=== PATIENT | female | born 1995 | race Caucasian/White ===

== ENCOUNTER → 2019-04-07 09:27 | Outpatient (BNVA) | payer MEDICAID, SELFPAY | PROVIDERS: Family Provider Family Medicine; PCP Family Medicine; Visit Provider Nurse Practitioner Family | DX: N92.6 Irregular menstruation, unspecified (principal); J06.9 Acute upper respiratory infection, unspecified; B97.89 Other viral agents as the cause of diseases classified elsewhere; Z32.01 Encounter for pregnancy test, result positive | CPT/HCPCS: 81025 ==

== ENCOUNTER 2019-04-28 11:42 | Emergency (ER) | payer MEDICAID, SELFPAY ==
[2019-04-28 11:45] VITALS: BP 140/90; PULSE 68; RESP 16; TEMP 36.6; O2SAT 100; BMI 41.5
--- NOTE | 2019-04-28 11:51 | ED_ITS ---
HPI - General: Chief complaint: OB/Uterine Contractions Stated complaint: 8/9 week bleeding Time Seen by Provider: 04/28/19 11:44 Review of Systems General: Reports: 10 or more systems reviewed and unremarkable except in HPI and below PFSH ED PFSH: Social History Smoking and tobacco status: never smoked Alcohol intake: never Caregiver/support person: Yes Lives independently: No Household members: spouse History of recent travel: No Physical Exam Const: COMMON NORMALS: no apparent distress, oriented x3, no limitations and alert GENERAL APPEARANCE: cooperative and comfortable ORIENTATION/CONSCIOUSNESS: Yes awake, Yes oriented to person, Yes oriented to place and Yes oriented to time HENMT: COMMON NORMALS: normocephalic, head/scalp atraumatic, external ears normal, EAC's normal, TM's normal bilaterally and external nose normal HEAD & SCALP: normal to inspection, normocephalic and atraumatic FACE & SINUS: normal facial exam, sinuses nontender and face symmetric NOSE: external nose normal, nares normal and no nasal discharge EXTERNAL EAR: Yes external ears normal EXTERNAL AUDITORY CANAL: EAC's normal TYMPANIC MEMBRANE: TM's normal bilaterally MOUTH: oral and palatal mucosa normal, lip normal and tongue normal THROAT: posterior oropharynx normal, tonsils normal and uvula midline Eye: COMMON NORMALS: PERRL, EOMs intact bilaterally and conjunctivae normal GENERAL EYE: normal appearance of both eyes and normal light reflex EYELID: eyelids normal CONJUNCTIVA: Yes conjunctivae normal PUPIL: Yes PERRL EOM: Yes EOM abnormal DIRECT OPHTHALMOSCOPY: Yes normal light reflex Neck/C-Spine: COMMON NORMALS: full ROM, no lymphadenopathy, supple, no meningeal signs, no JVD and thyroid normal GENERAL: Yes normal visual inspection THYROID: thyroid normal CERVICAL SPINE: Yes cervical ROM normal and Yes normal cervical lordosis Lymph: LYMPHATIC: no lymphadenopathy noted Chest: COMMONS NORMALS: inspection of chest normal and palpation of chest normal Resp: COMMON NORMALS: normal respiratory effort, no retractions and clear to auscultation bilaterally AUSCULTATION: clear to auscultation bilaterally Cardio: COMMON NORMALS: no JVD, regular rate, regular rhythm, S1 normal heart sound, S2 normal heart sound, no gallops, no clicks, no murmurs, no rub and peripheral pulses 2+ throughout RATE: regular rate RHYTHM: regular rhythm HEART SOUNDS: S1 normal and S2 normal PERIPHERAL PULSES: pulses 2+ throughout GI: COMMON NORMALS: normal to inspection, nondistended, normoactive bowel sounds, soft to palpation, non-tender and no masses PALPATION: Yes soft : COMMON NORMALS: Yes no CVA tenderness and Yes external appearance normal BLADDER/KIDNEY EXAM: Yes no CVA tenderness OB/EXTERNAL & SPECULUM: bleeding medium/moderate and with clots Back/Pelvis: COMMON NORMALS: no CVA tenderness, thoracic and lumbar spine normal to inspection, no thoracic nor lumbar tenderness and thoraco-lumbar ROM normal Extremity: COMMON NORMALS: normal to inspection, full ROM, normal capillary refill, no joint enlargement, no clubbing, cyanosis or edema, no calf tenderness and no pedal edema GENERAL: Yes normal exam except as noted Neuro: COMMON NORMALS: oriented x3, moves all extremities, no focal motor deficits, no sensory deficits noted and gait normal SENSORIUM/ORIENTATION: Yes alert, Yes oriented to person, Yes oriented to place and Yes oriented to time MENINGEAL SIGNS: Yes no meningeal signs Psych: COMMON NORMALS: mental status grossly normal, thought process normal, cooperative, affect normal, speech normal and activity/motor behavior normal SPEECH: Yes normal speech THOUGHT PROCESS: normal thought process Skin: COMMON NORMALS: no rashes or lesions noted, no wounds and skin turgor normal GENERAL SKIN EXAM: no rashes or lesions noted and turgor normal Course ED course: Pt had positive and US performed one week ago. Was told she was measuring a little over 4 weeks and needed her levels drawn later this week. This morning she notes small to moderate amount of clots upon voiding. US and labs ordered as well as IV fluids. Reevaluation(s): Reevaluation #1: Awaiting US and labs. UA positive for blood and leukoestrase. Time: 12:55 Reevaluation #2: Awaiting [facility] to read. Verbal report per RT Vero reported a 5 week gestation sac with blood surrounding and unable to note pole. Pt is aware and needs to leave to get home to her other children. She is unable to wait for official results. After discussion there is not much that can be done even if she is actively miscarrying so we will proceed with DC per pt request. Vital Signs: Vital signs: Vital Signs Temperature 98 F 03/01/20 11:45 Pulse Rate 68 04/28/19 11:45 Respiratory Rate 16 04/28/19 11:45 Blood Pressure 140/90 04/28/19 11:45 Pulse Oximetry 100 04/28/19 11:45 MDM - OB/Uterine Contractions Lab Data: Labs: Lab Results 04/28/19 04/28/19 04/28/19 Range/Units 11:55 12:40 12:40 WBC 9.5 (4.0-10.0) 10^3/ uL RBC 4.91 (4.1-5.3) 10^6/u L Hgb 13.9 (11.5-15.3) g/dL Hct 43.0 (37.0-47.0) % MCV 87.6 (81-99) fL MCH 28.3 (28.0-34.0) pg MCHC 32.3 (30.0-36.0) g/dL RDW 12.5 (12.1-15.1) % Plt Count 408 H (130-400) 10^3/c mm MPV 9.9 (7.4-10.4) fL Neut % (Auto) 39.5 % Lymph % (Auto) 52.6 % [place] % (Auto) 5.5 % Eos % (Auto) 2.0 % Baso % (Auto) 0.3 % Neut # (Auto) 3.8 (1.8-7.7) 10^3/u L Lymph # (Auto) 5.0 H (0.8-4.8) 10^3/u L [place] # (Auto) 0.5 (0.2-0.9) 10^3/u L Eos # (Auto) 0.2 (0.0-0.8) 10^3/u L Baso # (Auto) 0.0 (0.0-0.1) 10^3/u L Nucleated RBC % (a uto) 0 % Nucleated RBCs # 0.0 /100WBC Sodium 137 (136-145) mmol/L Potassium 3.9 (3.5-5.1) mmol/L Chloride 102 (98-107) mmol/L Carbon Dioxide 22 (22-29) mmol/L Anion Gap 16.9 (5-19) BUN 9 (6-20) mg/dL Creatinine 0.7 (0.5-0.9) mg/dL GFR Calculation 102.0 (90-130) mL/min Glucose 82 (65-115) mg/dL Calcium 9.9 (8.5-10.5) mg/dL Total Bilirubin 0.4 (0.15-1.2) mg/dL AST 20 (0-32) U/L ALT 13 (0-33) U/L Alkaline Phosphata se 57 (35-105) IU/L Total Protein 7.9 (6.6-8.7) g/dL Albumin 4.3 (3.5-5.2) g/dL Globulin 3.6 (1.3-4.6) g/dL Ser , Nadege i-Qnt mIU/mL Urine Color Yellow (Yellow) Urine Appearance Sl hazy (CLEAR) Urine pH 6.5 (5-7) Ur Specific Gravit y 1.010 (1.005-1.030) Urine Protein Neg (Negative) Urine Glucose (UA) Norm (Normal) Urine Ketones Negative (Negative) Urine Blood 3+ H (Negative) Urine Nitrate Negative (Negative) Urine Bilirubin Neg (NEGATIVE) Urine Urobilinogen Norm (Negative) mg/dL Ur Leukocyte Mabel ase Trace H (Negative) Urine RBC 25-40 H (0-2) /hpf Urine WBC 5-10 H (0-5) /hpf Ur Squamous Epith Cells 15-25 H (0-5) Urine Bacteria 1+ H (NONE) 04/28/19 Range/Units 12:40 WBC (4.0-10.0) 10^3/ uL RBC (4.1-5.3) 10^6/u L Hgb (11.5-15.3) g/dL Hct (37.0-47.0) % MCV (81-99) fL MCH (28.0-34.0) pg MCHC (30.0-36.0) g/dL RDW (12.1-15.1) % Plt Count (130-400) 10^3/c mm MPV (7.4-10.4) fL Neut % (Auto) % Lymph % (Auto) % [place] % (Auto) % Eos % (Auto) % Baso % (Auto) % Neut # (Auto) (1.8-7.7) 10^3/u L Lymph # (Auto) (0.8-4.8) 10^3/u L [place] # (Auto) (0.2-0.9) 10^3/u L Eos # (Auto) (0.0-0.8) 10^3/u L Baso # (Auto) (0.0-0.1) 10^3/u L Nucleated RBC % (a uto) % Nucleated RBCs # /100WBC Sodium (136-145) mmol/L Potassium (3.5-5.1) mmol/L Chloride (98-107) mmol/L Carbon Dioxide (22-29) mmol/L Anion Gap (5-19) BUN (6-20) mg/dL Creatinine (0.5-0.9) mg/dL GFR Calculation (90-130) mL/min Glucose (65-115) mg/dL Calcium (8.5-10.5) mg/dL Total Bilirubin (0.15-1.2) mg/dL AST (0-32) U/L ALT (0-33) U/L Alkaline Phosphata se (35-105) IU/L Total Protein (6.6-8.7) g/dL Albumin (3.5-5.2) g/dL Globulin (1.3-4.6) g/dL Ser , [place] [address].00 mIU/mL Urine Color (Yellow) Urine Appearance (CLEAR) Urine pH (5-7) Ur Specific Gravit y (1.005-1.030) Urine Protein (Negative) Urine Glucose (UA) (Normal) Urine Ketones (Negative) Urine Blood (Negative) Urine Nitrate (Negative) Urine Bilirubin (NEGATIVE) Urine Urobilinogen (Negative) mg/dL Ur Leukocyte Mabel ase (Negative) Urine RBC (0-2) /hpf Urine WBC (0-5) /hpf Ur Squamous Epith Cells (0-5) Urine Bacteria (NONE) Discharge Plan Discharge Patient Disposition: Home, Self-Care Clinical Impression: , spontaneous threatened Condition: Stable Prescriptions: No Action No Known Home Medications RF: 0 Referrals: Tamir Ureña MD [Primary Care Provider] - Discharge Diet: Usual diet Discharge Activity: Limit activity as instructed and Bedrest Activity Restrictions/Additional Instructions: No sexual intercourse until cleared by your OB doctor. Your quantitative today was: Ser , Semi-Qnt 65949.00 mIU/mL. Increase water intake. Rest. Stand Alone Forms: Work/School Release Coding Level of Care Code ED Living Specialist for Chg Fwd Exam Comprehensive
--- NOTE | 2019-04-28 11:59 | USR_ITS ---
PROCEDURE INFORMATION: Exam: US First Trimester, Transabdominal and US , Transvaginal Exam date and time: 04/28/2019 1:39 PM Age: 24 years old Clinical indication: Lmp or gestational age (in weeks): Lmp 1-1-20; Other: Vaginal bleeding; complicated by abdominal or pelvic pain; Lower; First trimester; ; Additional info: Bleeding, positive TECHNIQUE: Imaging protocol: Real-time transabdominal obstetrical ultrasound of the maternal pelvis and a first trimester , less than 14 weeks 0 days, with image documentation. Transvaginal imaging was used for better evaluation of the fetus and adnexa. COMPARISON: US [facility] [place] OB > 14 weeks 03/22/2013 9:42 AM FINDINGS: GESTATION: Gestation: Intrauterine gestation sac. A pole is is visible. Yolk sac is faintly visible. Heart rate: No cardiac activity likely due to early age Placenta: Has not formed No subchorionic bleed. Amniotic fluid: Amniotic and coelomic fluid are normal for gestational age. BIOMETRY: Estimated gestational age: CRL: 3.9 mm 6 weeks Gestational sac: 8.9 mm 5 weeks 6 days. Ultrasound gestational age: 5 weeks 6 days DARNELL 12/23/2019. Clinical gestational age: 8 weeks 4 days DARNELL 12/04/2019. MATERNAL: Uterus: Unremarkable. 11.6 cm x 6.3 cm x 6.8 cm. Cervix: Unremarkable. Right adnexa: Unremarkable. 2.3 cm x 2.5 cm x 1.6 cm Left adnexa: Unremarkable. 1.8 cm x 3 cm x 1.9 cm Intraperitoneal: No intraperitoneal free fluid. US/US OB <=14 wk fetus w transvag IMPRESSION: 1. Intrauterine gestational sac with a pole and yolk sac. 2. Gestational age 5 weeks 6 days DARNELL 12/23/2019. 3. Negative for cardiac activity likely due to early age. 4. Negative uterus and ovaries
[2019-04-28 12:22] LABS: Bilirubin Urine Neg (NEGATIVE); Blood Urine 3+ (Negative); Glucose Urine UA Norm (Normal); Ketones Urine Negative (Negative); Nitrate Urine Negative (Negative); Protein Urine Neg (Negative); Urine Appearance SL Hazy (CLEAR); Urine Color Yellow (Yellow); Urobilinogen Urine Norm (Negative); pH Urine 6.5 (5-7)
[2019-04-28 12:23] LABS: Add Urine Microscopic? YES; Leukocyte Esterase Urine Trace (Negative)
[2019-04-28 12:32] LABS: Bacteria Urine 1+; RBC Urine 25-40 /hpf (0-2); Squamous Epithelial Cell Urine 15-25 (0-5)
[2019-04-28] MEDS: sodium chloride 0.9% 500 ML 999 ML IV (12:45)
[2019-04-28 12:47] LABS: Basophils % 0.3 %; Eosinophils # 0.2 10^3/uL (0.0-0.8); Hemoglobin 13.9 g/dL (11.5-15.3); Lymphocytes % 52.6 %; Mean Corpuscular HGB Conc 32.3 g/dL (30.0-36.0); Mean Corpuscular Hemoglobin 28.3 pg (28.0-34.0); Mean Corpuscular Volume 87.6 fL (81-99); Mean Platelet Volume 9.9 fL (7.4-10.4); Monocytes # 0.5 10^3/uL (0.2-0.9); Monocytes % 5.5 %; Neutrophils # 3.8 10^3/uL (1.8-7.7); Neutrophils % 39.5 %; Nucleated Red Blood Cells % 0 %; Platelet Count 408 10^3/cmm (130-400); Red Blood Count 4.91 10^6/uL (4.1-5.3); Red Cell Distribution Width 12.5 % (12.1-15.1); White Blood Count 9.5 10^3/uL (4.0-10.0)
[2019-04-28 13:27] LABS: Alanine Aminotransferase 13 U/L (0-33); Albumin Level 4.3 g/dL (3.5-5.2); Alkaline Phosphatase 57 IU/L (35-105); Anion Gap 16.9 (5-19); Aspartate Amino Transferase 20 U/L (0-32); Blood Urea Nitrogen 9 mg/dL (6-20); Calcium 9.9 mg/dL (8.5-10.5); Carbon Dioxide 22 mmol/L (22-29); Chloride 102 mmol/L (98-107); Globulin 3.6 g/dL (1.3-4.6); Glucose 82 mg/dL (65-115); Potassium 3.9 mmol/L (3.5-5.1); Sodium 137 mmol/L (136-145); Total Bilirubin 0.4 mg/dL (0.15-1.2); Total Protein 7.9 g/dL (6.6-8.7)
[2019-04-28 14:28] VITALS: BP 141/74; PULSE 72; RESP 17; O2SAT 96
== END 2019-04-28 14:29 | disposition home or self-care (01) ==
PROVIDERS: Emergency Provider Nurse Practitioner Family; Family Provider Family Medicine; PCP Family Medicine
DX: O20.0 Threatened abortion (principal); Z3A.01 Less than 8 weeks gestation of pregnancy
CPT/HCPCS: 36415; 76801; 76817; 80053; 81001; 84702; 85025; 99283; J7040

== ENCOUNTER 2021-09-11 21:30 | Emergency (ER) | payer MEDICAID, SELFPAY ==
[2021-09-11 22:27] VITALS: BP 151/99; PULSE 109; RESP 18; TEMP 36.7; O2SAT 99; BMI 37.9
--- NOTE | 2021-09-12 01:40 | ED_ITS ---
Documented by User: RICHARD Richardson 09/12/21 19:11 HPI - Abdominal Pain General: Chief Complaint: Abdominal Pain Stated Complaint: Lower abd/back pain Time Seen by Provider: 09/12/21 01:35 History of Present Illness: Patient is a 26-year-old female comes to the ED with lower abdominal and bilateral flank pain. Symptoms started yesterday. She denies any injury or trauma to cause pain. Pain is described as a constant aching pain that is at bilateral flanks and also throughout the lower abdomen bilaterally. She rates the pain currently 7 out of 10. She took a dose of Tylenol approximately 5 hours ago. She says that when she is up and ambulating her pain improves and it worsens when laying or sitting. Denies any fever, chills, nausea/vomiting, dysuria, hematuriaor bowel symptoms. She has never had abdominal and flank pain like this before. Last menstrual period was on August 31, 2021. Associated Symptoms: Denies chills, constipation, diarrhea, dysuria, fever(s), hematochezia, hematuria, nausea and vomiting Related Data: Date of Last Menstrual Period: 08/31/21 Review of Systems Const: Denies: fever(s), chills or fatigue Eyes: Denies: change in vision or eye discomfort ENMT: Denies: throat pain, odynophagia, nasal discharge or nasal congestion Card: Denies: chest pain, palpitations, edema, swelling of feet/ankles, dyspnea on exertion or orthopnea Resp: Denies: dyspnea, productive cough or non-productive cough GI: Reports: abdominal pain (Bilateral lower abdominal); Denies: nausea, vomiting, diarrhea, constipation or hematochezia : Reports: flank pain (Bilateral); Denies: dysuria or hematuria Musc: Denies: neck pain, back pain or extremity swelling Skin/Breast: Denies: rash or new lesions Neuro: Denies: headache(s), numbness in extremities or weakness in extremities PFSH ED PFSH: Medical History No pertinent family history Surgical History No pertinent past surgical history Social History Smoking and tobacco status: never smoked Alcohol intake: never Caregiver/support person: Yes Lives independently: No Household members: spouse History of recent travel: No Female Reproductive History: Date of last menstrual period: 08/31/21 Physical Exam Const: COMMON NORMALS: patient oriented x3 and alert GENERAL APPEARANCE: cooperative HENMT: COMMON NORMALS: normocephalic HEAD & SCALP: normocephalic MOUTH: Normal oral and palatal mucosa present THROAT: posterior oropharynx normal and uvula midline Eye: COMMON NORMALS: Equal, round and reactive pupils present and conjunctivae normal CONJUNCTIVA: Yes conjunctivae normal PUPIL: Yes Equal, round and reactive pupils present Neck/C-Spine: COMMON NORMALS: supple GENERAL: Yes normal visual inspection Resp: COMMON NORMALS: normal respiratory effort, No retractions, No use of accessory muscles and clear to auscultation bilaterally AUSCULTATION: clear to auscultation bilaterally Cardio: COMMON NORMALS: regular rate, regular rhythm, S1 normal heart sound pr esent, S2 normal heart sound present, No gallops present (Cardio), No clicks present (Cardio), No murmurs present (Cardio) and Peripheral pulses 2+ throughout RATE: regular rate RHYTHM: regular rhythm HEART SOUNDS: S1 n ormal heart sound present and S2 normal heart sound present PERIPHERAL PULSES: Peripheral pulses 2+ throughout GI: COMMON NORMALS: Normal to inspection, nondistended, normoactive bowel sounds present, Soft to palpation and no masses PALPATION: Yes Soft to palpation and Yes Tenderness to palpation present (GI) (Generalized bilateral lower abdominal tenderness) : BLADDER/KIDNEY EXAM: Yes CVA tenderness Back/Pelvis: GENERAL BACK: Yes CVA tenderness CVA tenderness: bilateral Extremity: COMMON NORMALS: normal to inspection Neuro: COMMON NORMALS: patient oriented x3 SENSORIUM/ORIENTATION: Yes alert GAIT: Yes Normal gait present Skin: GENERAL SKIN EXAM: dry skin Course Vital Signs: Vital signs: Vital Signs Temperature 98.1 F 09/11/21 22:27 Pulse Rate 84 09/12/21 03:30 Respiratory Rate 18 09/11/21 22:27 Blood Pressure 141/96 09/12/21 03:30 Pulse Oximetry 97 09/12/21 03:30 MDM - Abdominal Pain Lab Data I reviewed the patient's lab results. : 09/12/21 02:25 09/12/21 02:25 Labs/Radiology: Radiology Impressions Obstetrics Ultrasound 09/12/21 03:33 IMPRESSION: Single intrauterine with estimated gestational age of 16 weeks and 2 days. DARNELL of February 25, 2022. Vertex presentation on exam. heart rate of 167 bpm. Normal amniotic fluid volume. Limited anatomic assessment on the exam. Renal Ultrasound 09/12/21 03:33 IMPRESSION: Unremarkable renal ultrasound. Laboratory Results WBC 17.6 10^3/uL (4.0-10.0) H 09/12/21 02:25 RBC 4.15 10^6/uL (4.1-5.3) 09/12/21 02:25 Hgb 12.6 g/dL (11.5-15.3) 09/12/21 02:25 Hct 36.0 % (37.0-47.0) L 09/12/21 02:25 MCV 86.7 fl (81-99) 09/12/21 02:25 MCH 30.4 pg (28.0-34.0) 09/12/21 02:25 MCHC 35.0 g/dL (30.0-36.0) 09/12/21 02:25 RDW 13.2 % (12.1-15.1) 09/12/21 02:25 Plt Count 291 10^3/cmm (130-400) 09/12/21 02:25 MPV 10.4 fL (7.4-10.4) 09/12/21 02:25 Neut % (Auto) 73.1 % 09/12/21 02:25 Lymph % (Auto) 17.4 % 09/12/21 02:25 [place] % (Auto) 8.1 % 09/12/21 02:25 Eos % (Auto) 0.4 % 09/12/21 02:25 Baso % (Auto) 0.3 % 09/12/21 02:25 Neut # (Auto) 12.88 10^3/uL (1.8-7.7) H 09/12/21 02:25 Lymph # (Auto) 3.1 10^3/uL (0.8-4.8) 09/12/21 02:25 [place] # (Auto) 1.4 10^3/uL (0.2-0.9) H 09/12/21 02:25 Eos # (Auto) 0.1 10^3/uL (0.0-0.8) 09/12/21 02:25 Baso # (Auto) 0.1 10^3/uL (0.0-0.1) 09/12/21 02:25 Nucleated RBC % (auto) 0 % 09/12/21 02:25 Nucleated RBCs # 0.0 /100WBC 09/12/21 02:25 Sodium 132 mmol/L (136-145) L 09/12/21 02:25 Potassium 4.1 mmol/L (3.5-5.1) 09/12/21 02:25 Chloride 99 mmol/L (98-107) 09/12/21 02:25 Carbon Dioxide 22 mmol/L (22-29) 09/12/21 02:25 Anion Gap 15.1 (5-19) 09/12/21 02:25 BUN 9 mg/dL (6-20) 09/12/21 02:25 Creatinine 0.6 mg/dL (0.5-0.9) 09/12/21 02:25 GFR Calculation 119.9 mL/min (90-130) 09/12/21 02:25 Glucose 88 mg/dL (65-115) 09/12/21 02:25 Calculated Osmolality 272 mOsm/kg (285-295) L 09/12/21 02:25 Calcium 9.3 mg/dL (8.5-10.5) 09/12/21 02:25 Total Bilirubin 0.5 mg/dL (0.15-1.2) 09/12/21 02:25 AST 16 U/L (0-32) 09/12/21 02:25 ALT 22 U/L (0-33) 09/12/21 02:25 Alkaline Phosphatase 52 IU/L (35-105) 09/12/21 02:25 Total Protein 7.6 g/dL (6.6-8.7) 09/12/21 02:25 Albumin 3.8 g/dL (3.5-5.2) 09/12/21 02:25 Globulin 3.8 g/dL (1.3-4.6) 09/12/21 02:25 Lipase 16 U/L (13-60) 09/12/21 02:25 Ser , Semi-Qnt 18323.00 mIU/mL 09/12/21 02:25 Urine Color Yellow (Yellow) 09/12/21 02:25 Urine Appearance Sl hazy (CLEAR) 09/12/21 02:25 Urine pH 6 (5-7) 09/12/21 02:25 Ur Specific Ingram 1.025 (1.005-1.030) 09/12/21 02:25 Urine Protein Neg (Negative) 09/12/21 02:25 Urine Glucose (UA) Norm (Normal) 09/12/21 02:25 Urine Ketones Negative (Negative) 09/12/21 02:25 Urine Blood 2+ (Negative) H 09/12/21 02:25 Urine Nitrate Positive (Negative) H 09/12/21 02:25 Urine Bilirubin 1+ (Negative) H 09/12/21 02:25 Urine Urobilinogen Norm mg/dL (Negative) 09/12/21 02:25 Ur Leukocyte Esterase 1+ (Negative) H 09/12/21 02:25 Urine RBC 5-10 /hpf (0-2) H 09/12/21 02:25 Urine WBC 25-40 /hpf (0-5) H 09/12/21 02:25 Ur Squamous Epith Cells 5-10 /hpf (0-5) H 09/12/21 02:25 Amorphous Sediment Not Reportable 09/12/21 02:25 Urine Bacteria 3+ /hpf (NONE) H 09/12/21 02:25 Urine Mucus Trace /hpf 09/12/21 02:25 Urine Trichomonas 1+ /hpf H 09/12/21 02:25 Discharge Plan Discharge Patient Disposition: Home Clinical Impression: Pyelonephritis during , Currently , Trichomonal infection Condition: Stable Prescriptions: New metronidazole 500 mg tablet 500 mg PO BID 7 Days Qty: 14 0RF cephalexin 500 mg capsule 500 mg PO Q6H 7 Days Qty: 28 0RF Discharge Orders: Discharge ED (Routine); Ordered 09/12/21 Ordered By: Mynor Vides Discharge Diet: Regular Discharge Activity: Increase activity as tolerated Patient Instructions: Pyelonephritis, Trichomoniasis - Female Activity Restrictions/Additional Instructions: Follow-up with medical provider as directed. Take medications as prescribed. Return to the ER or your medical provider if condition worsens. Please read and understand discharge instructions. Thank you for choosing [facility] for your healthcare needs today. Please realize this is an emergency room and that we are providing you with a medical screening exam and this may not be complete and all inclusive of all the testing and or work up that you may need to determine your ailment or severity of your illness. It is very important that you follow up as instructed or that you return to the Emergency Department should you have concerns or if your condition changes or worsens in any way. Coding Level of Care Code ED Blockman for Chg Fwd Exam Comprehensive Documented by User: Mynor Vides DO 09/12/21 15:59 HPI - Abdominal Pain General: Chief Complaint: Abdominal Pain Stated Complaint: Lower abd/back pain Time Seen by Provider: 09/12/21 01:35 [facility] ED PFSH: Medical History No pertinent family history Surgical History No pertinent past surgical history Social History Smoking and tobacco status: never smoked Alcohol intake: never Caregiver/support person: Yes Lives independently: No Household members: spouse History of recent travel: No Course Vital Signs: Vital signs: Vital Signs Temperature 98.1 F 09/11/21 22:27 Pulse Rate 84 09/12/21 03:30 Respiratory Rate 18 09/11/21 22:27 Blood Pressure 141/96 09/12/21 03:30 Pulse Oximetry 97 09/12/21 03:30 MDM - Abdominal Pain Medical Decision Making 26 year old female who did not know she was . She presents with symptoms consistent with pyelonephritis. She has a urinary tract infection on urinalysis. She has an elevated white blood cell count. Pelvic ultrasound shows a normal intrauterine 16 week two day . Renal ultrasound shows no hydronephrosis that would be indicative of renal stone. She is given IV fluid and IV ceftriaxone in the ER. She'll go home on antibiotics and symptomatic treatment. She has also tested positive for trichomonas, and will be treated accordingly for this as well. OB followup as an outpatient. Lab Data : 09/12/21 02:25 09/12/21 02:25 Labs/Radiology: Radiology Impressions Obstetrics Ultrasound 09/12/21 03:33 IMPRESSION: Single intrauterine with estimated gestational age of 16 weeks and 2 days. DARNELL of February 25, 2022. Vertex presentation on exam. heart rate of 167 bpm. Normal amniotic fluid volume. Limited anatomic assessment on the exam. Renal Ultrasound 09/12/21 03:33 IMPRESSION: Unremarkable renal ultrasound. Laboratory Results WBC 17.6 10^3/uL (4.0-10.0) H 09/12/21 02:25 RBC 4.15 10^6/uL (4.1-5.3) 09/12/21 02:25 Hgb 12.6 g/dL (11.5-15.3) 09/12/21 02:25 Hct 36.0 % (37.0-47.0) L 09/12/21 02:25 MCV 86.7 fl (81-99) 09/12/21 02:25 MCH 30.4 pg (28.0-34.0) 09/12/21 02:25 MCHC 35.0 g/dL (30.0-36.0) 09/12/21 02:25 RDW 13.2 % (12.1-15.1) 09/12/21 02:25 Plt Count 291 10^3/cmm (130-400) 09/12/21 02:25 MPV 10.4 fL (7.4-10.4) 09/12/21 02:25 Neut % (Auto) 73.1 % 09/12/21 02:25 Lymph % (Auto) 17.4 % 09/12/21 02:25 [place] % (Auto) 8.1 % 09/12/21 02:25 Eos % (Auto) 0.4 % 09/12/21 02:25 Baso % (Auto) 0.3 % 09/12/21 02:25 Neut # (Auto) 12.88 10^3/uL (1.8-7.7) H 09/12/21 02:25 Lymph # (Auto) 3.1 10^3/uL (0.8-4.8) 09/12/21 02:25 [place] # (Auto) 1.4 10^3/uL (0.2-0.9) H 09/12/21 02:25 Eos # (Auto) 0.1 10^3/uL (0.0-0.8) 09/12/21 02:25 Baso # (Auto) 0.1 10^3/uL (0.0-0.1) 09/12/21 02:25 Nucleated RBC % (auto) 0 % 09/12/21 02:25 Nucleated RBCs # 0.0 /100WBC 09/12/21 02:25 Sodium 132 mmol/L (136-145) L 09/12/21 02:25 Potassium 4.1 mmol/L (3.5-5.1) 09/12/21 02:25 Chloride 99 mmol/L (98-107) 09/12/21 02:25 Carbon Dioxide 22 mmol/L (22-29) 09/12/21 02:25 Anion Gap 15.1 (5-19) 09/12/21 02:25 BUN 9 mg/dL (6-20) 09/12/21 02:25 Creatinine 0.6 mg/dL (0.5-0.9) 09/12/21 02:25 GFR Calculation 119.9 mL/min (90-130) 09/12/21 02:25 Glucose 88 mg/dL (65-115) 09/12/21 02:25 Calculated Osmolality 272 mOsm/kg (285-295) L 09/12/21 02:25 Calcium 9.3 mg/dL (8.5-10.5) 09/12/21 02:25 Total Bilirubin 0.5 mg/dL (0.15-1.2) 09/12/21 02:25 AST 16 U/L (0-32) 09/12/21 02:25 ALT 22 U/L (0-33) 09/12/21 02:25 Alkaline Phosphatase 52 IU/L (35-105) 09/12/21 02:25 Total Protein 7.6 g/dL (6.6-8.7) 09/12/21 02:25 Albumin 3.8 g/dL (3.5-5.2) 09/12/21 02:25 Globulin 3.8 g/dL (1.3-4.6) 09/12/21 02:25 Lipase 16 U/L (13-60) 09/12/21 02:25 Ser , Semi-Qnt 84824.00 mIU/mL 09/12/21 02:25 Urine Color Yellow (Yellow) 09/12/21 02:25 Urine Appearance Sl hazy (CLEAR) 09/12/21 02:25 Urine pH 6 (5-7) 09/12/21 02:25 Ur Specific Ingram 1.025 (1.005-1.030) 09/12/21 02:25 Urine Protein Neg (Negative) 09/12/21 02:25 Urine Glucose (UA) Norm (Normal) 09/12/21 02:25 Urine Ketones Negative (Negative) 09/12/21 02:25 Urine Blood 2+ (Negative) H 09/12/21 02:25 Urine Nitrate Positive (Negative) H 09/12/21 02:25 Urine Bilirubin 1+ (Negative) H 09/12/21 02:25 Urine Urobilinogen Norm mg/dL (Negative) 09/12/21 02:25 Ur Leukocyte Esterase 1+ (Negative) H 09/12/21 02:25 Urine RBC 5-10 /hpf (0-2) H 09/12/21 02:25 Urine WBC 25-40 /hpf (0-5) H 09/12/21 02:25 Ur Squamous Epith Cells 5-10 /hpf (0-5) H 09/12/21 02:25 Amorphous Sediment Not Reportable 09/12/21 02:25 Urine Bacteria 3+ /hpf (NONE) H 09/12/21 02:25 Urine Mucus Trace /hpf 09/12/21 02:25 Urine Trichomonas 1+ /hpf H 09/12/21 02:25 Discharge Plan Discharge Patient Disposition: Home Clinical Impression: Pyelonephritis during , Currently , Trichomonal infection Condition: Stable Prescriptions: New metronidazole 500 mg tablet 500 mg PO BID 7 Days Qty: 14 0RF cephalexin 500 mg capsule 500 mg PO Q6H 7 Days Qty: 28 0RF Discharge Orders: Discharge ED (Routine); Ordered 09/12/21 Ordered By: Mynor Vides Discharge Diet: Regular Discharge Activity: Increase activity as tolerated Patient Instructions: Pyelonephritis, Trichomoniasis - Female Activity Restrictions/Additional Instructions: Follow-up with medical provider as directed. Take medications as prescribed. Return to the ER or your medical provider if condition worsens. Please read and understand discharge instructions. Thank you for choosing [facility] for your healthcare needs today. Please realize this is an emergency room and that we are providing you with a medical screening exam and this may not be complete and all inclusive of all the testing and or work up that you may need to determine your ailment or severity of your illness. It is very important that you follow up as instructed or that you return to the Emergency Department should you have concerns or if your condition changes or worsens in any way. Coding Level of Care Code ED Blockman for Placido Crowe Exam Comprehensive
[2021-09-12 02:30] VITALS: BP 136/93; PULSE 82; O2SAT 100
[2021-09-12 02:32] LABS: Basophils # 0.1 10^3/uL (0.0-0.1); Basophils % 0.3 %; Eosinophils # 0.1 10^3/uL (0.0-0.8); Eosinophils % 0.4 %; Hemoglobin 12.6 g/dL (11.5-15.3); Lymphocytes # 3.1 10^3/uL (0.8-4.8); Lymphocytes % 17.4 %; Mean Corpuscular Hemoglobin 30.4 pg (28.0-34.0); Mean Corpuscular Volume 86.7 fl (81-99); Mean Platelet Volume 10.4 fL (7.4-10.4); Monocytes # 1.4 10^3/uL (0.2-0.9); Monocytes % 8.1 %; Neutrophils # 12.88 10^3/uL (1.8-7.7); Neutrophils % 73.1 %; Nucleated Red Blood Cells % 0 %; Platelet Count 291 10^3/cmm (130-400); Red Blood Count 4.15 10^6/uL (4.1-5.3); Red Cell Distribution Width 13.2 % (12.1-15.1); White Blood Count 17.6 10^3/uL (4.0-10.0)
[2021-09-12 02:46] LABS: Add Urine Microscopic? YES; Bilirubin Urine 1+ (Negative); Blood Urine 2+ (Negative); Glucose Urine UA Norm (Normal); Ketones Urine Negative (Negative); Leukocyte Esterase Urine 1+ (Negative); Nitrate Urine Positive (Negative); Protein Urine Neg (Negative); Specific Gravity, Urine 1.025 (1.005-1.030); Urine Appearance SL Hazy (CLEAR); Urine Color Yellow (Yellow); Urobilinogen Urine Norm (Negative); pH Urine 6 (5-7)
[2021-09-12 02:49] LABS: Bacteria Urine 3+ /hpf; Mucus Urine TRACE /hpf; Trichomonas Urine 1+ /hpf; WBC Urine 25-40 /hpf (0-5)
[2021-09-12 02:50] LABS: Add Urine Culture? Yes
[2021-09-12 03:00] VITALS: BP 140/75; PULSE 85; O2SAT 99
[2021-09-12 03:00] LABS: Alanine Aminotransferase 22 U/L (0-33); Albumin Level 3.8 g/dL (3.5-5.2); Alkaline Phosphatase 52 IU/L (35-105); Aspartate Amino Transferase 16 U/L (0-32); Blood Urea Nitrogen 9 mg/dL (6-20); Calcium 9.3 mg/dL (8.5-10.5); Carbon Dioxide 22 mmol/L (22-29); Chloride 99 mmol/L (98-107); Globulin 3.8 g/dL (1.3-4.6); Glomerular Filtration Rate 119.9 mL/min (90-130); Glucose 88 mg/dL (65-115); Lipase 16 U/L (13-60); Osmolality Calculated 272 mOsm/kg (285-295); Sodium 132 mmol/L (136-145); Total Bilirubin 0.5 mg/dL (0.15-1.2); Total Protein 7.6 g/dL (6.6-8.7)
[2021-09-12 03:01] LABS: Anion Gap 15.1 (5-19); Potassium 4.1 mmol/L (3.5-5.1)
[2021-09-12] MEDS: sodium chloride 0.9% 500 ML 999 ML IV (03:24)
[2021-09-12] MEDS: cefTRIAXone 1,000 MG in sodium chloride 0.9% (plus) 50 ML 100 MG IV (03:24)
[2021-09-12 03:30] VITALS: BP 141/96; PULSE 84; O2SAT 97
--- NOTE | 2021-09-12 03:33 | USR_ITS ---
PROCEDURE INFORMATION: Exam: US Retroperitoneal; Complete; Kidneys and Bladder Exam date and time: 09/12/2021 4:06 AM Age: 26 years old Clinical indication: Abdominal pain; Generalized; ; Additional info: Bilateral CVA tenderness and hematuria TECHNIQUE: Imaging protocol: Real-time ultrasound of the retroperitoneum with image documentation. Complete exam focused on the kidneys and bladder. COMPARISON: US OB <=14 wk fetus w transvag 04/28/2019 12:58 PM FINDINGS: KIDNEYS: The right kidney measures 11.8 x 5.6 x 5.3 cm. The left kidney measures 11.6 x 6.1 x 6.4 cm. The kidneys are normal in size, shape, contour, and position. The cortices are normal in thickness and the cortical medullary differentiation is maintained. There is no hydronephrosis, nephrolithiasis, or abnormal perinephric collections. BLADDER: No bladder wall thickening or debris. AORTA ILIACS AND INFERIOR VENA CAVA: Not well seen due to bowel gas. ASCITES: No ascites noted. OTHER: Intrauterine small fetus is seen. Recommend correlation with obstetrical ultrasound. US/US renal BI* [id number] IMPRESSION: Unremarkable renal ultrasound.
--- NOTE | 2021-09-12 03:33 | USR_ITS ---
PROCEDURE INFORMATION: Exam: US , Limited Exam date and time: 09/12/2021 3:50 AM Age: 26 years old Clinical indication: Other: Flank pain; Gestational age or lmp: Ga 16w 2d; ; Additional info: with unknown gestation. TECHNIQUE: Imaging protocol: Real-time ultrasound of the maternal uterus with image documentation. Exam focused on the clinical indication. COMPARISON: US OB <=14 wk fetus w transvag 04/28/2019 12:58 PM FINDINGS: Last menstrual period: Unknown Gestation: Monochorionic/Monoamniotic [place]al Heart rate: 167 bpm. Presentation: Vertex Placenta: Fundal; Grade 1. No evidence of placenta previa. Amniotic fluid: 8.43 cm Anatomic evaluation was limited on the exam. No gross abnormalities were noted. Estimated gestational age: GA by today ultrasound: 16 weeks and 2 days Estimated due date: February 25, 2022 Estimated weight: Not obtained on the exam. Head circumference: 12.19 cm - 16 wk 1 d +/- 17 days Abdominal circumference: 9.44 cm - 15 wk 4 d +/- 24 days Femur length: 2.18 cm - 16 wk 4 d +/- 15 days Humeral length: 2.28 cm - 17 weeks and 0 days Ratios: HC/AC 1.29 % 1.0 - 1.19 % Recommend follow-up FL/AC 23 % 20% - 24% CI 70 % 70% - 86% MATERNAL: Cervix: 3.1 cm US/US OB limited [id number] IMPRESSION: Single intrauterine with estimated gestational age of 16 weeks and 2 days. DARNELL of February 25, 2022. Vertex presentation on exam. heart rate of 167 bpm. Normal amniotic fluid volume. Limited anatomic assessment on the exam.
[2021-09-12] MEDS: metroNIDAZOLE 500 MG Tablet PO (04:07)
== END 2021-09-12 06:52 | disposition home or self-care (01) ==
PROVIDERS: Physician Assistant; Emergency Provider Emergency Medicine
DX: O23.02 Infections of kidney in pregnancy, second trimester (principal); O98.312 Other infections with a predominantly sexual mode of transmission complicating pregnancy, second trimester; A59.01 Trichomonal vulvovaginitis; Z3A.16 16 weeks gestation of pregnancy
CPT/HCPCS: 76770; 76815; 80053; 81001; 83690; 84702; 85025; 87077; 87086; 87186; 96365; 99285; J0696; J7040

== ENCOUNTER 2021-12-15 11:15 | Outpatient (CLI) | payer MEDICAID, SELFPAY ==
[2021-12-15] VITALS (8 sets, daily range): BP systolic 117–132; BP diastolic 56–75; PULSE 76–94; RESP 17; TEMP 35.4; BMI 39.1
[2021-12-15 12:19] LABS: Basophils # 0.1 10^3/uL (0.0-0.1); Basophils % 0.4 %; Eosinophils # 0.1 10^3/uL (0.0-0.8); Eosinophils % 0.7 %; Hematocrit 37.4 % (37.0-47.0); Hemoglobin 12.4 g/dL (11.5-15.3); Lymphocytes # 2.7 10^3/uL (0.8-4.8); Lymphocytes % 19.5 %; Mean Corpuscular HGB Conc 33.2 g/dL (30.0-36.0); Mean Corpuscular Hemoglobin 30.9 pg (28.0-34.0); Mean Corpuscular Volume 93.3 fl (81-99); Mean Platelet Volume 10.9 fL (7.4-10.4); Monocytes # 0.7 10^3/uL (0.2-0.9); Monocytes % 5.2 %; Neutrophils # 10.11 10^3/uL (1.8-7.7); Neutrophils % 72.2 %; Nucleated Red Blood Cells % 0 %; Platelet Count 369 10^3/cmm (130-400); Red Blood Count 4.01 10^6/uL (4.1-5.3); Red Cell Distribution Width 13.1 % (12.1-15.1)
[2021-12-15 12:39] LABS: Alanine Aminotransferase 7 U/L (0-33); Albumin Level 3.5 g/dL (3.5-5.2); Alkaline Phosphatase 79 U/L (35-105); Aspartate Amino Transferase 11 U/L (0-32); Blood Urea Nitrogen 7 mg/dL (6-20); Calcium 9.1 mg/dL (8.5-10.5); Carbon Dioxide 21 mmol/L (22-29); Chloride 104 mmol/L (98-107); Globulin 3.5 g/dL (1.3-4.6); Glucose 77 mg/dL (65-115); Osmolality Calculated 281 mOsm/kg (285-295); Sodium 137 mmol/L (136-145); Total Bilirubin 0.2 mg/dL (0.15-1.2); Uric Acid 5.2 mg/dL (2.4-5.7)
[2021-12-15 12:40] LABS: Anion Gap 15.9 (5-19); Potassium 3.9 mmol/L (3.5-5.1)
[2021-12-15 12:46] LABS: Urine Color Yellow (Yellow)
[2021-12-15 12:47] LABS: Add Urine Microscopic? YES; Bilirubin Urine Neg (Negative); Blood Urine 3+ (Negative); Glucose Urine UA Norm (Normal); Ketones Urine 1+ (Negative); Leukocyte Esterase Urine 2+ (Negative); Nitrate Urine Positive (Negative); Protein Urine Trace (Negative); Specific Gravity, Urine 1.015 (1.005-1.030); Urine Appearance Cloudy (CLEAR); Urobilinogen Urine 1 mg/dL (Negative); pH Urine 7 (5-7)
[2021-12-15 12:49] LABS: Add Urine Culture? Yes; Bacteria Urine 4+ /hpf; Squamous Epithelial Cell Urine 0-4 /hpf (0-5); WBC Urine 0-4 /hpf (0-5)
[2021-12-15 13:00] LABS: Urine Creatinine 288 mg/dL (28-217); Urine Protein Random 20 mg/dL
[2021-12-15 13:01] LABS: UPRO/UCREAT Ratio 0.07 mg/mg CR
== END 2021-12-15 13:15 | disposition home or self-care (01) ==
LOC: OPOB 11:24 → OBGYN 11:34
PROVIDERS: Visit Provider Family Medicine
DX: O16.9 Unspecified maternal hypertension, unspecified trimester (principal); Z3A.00 Weeks of gestation of pregnancy not specified
CPT/HCPCS: 36415; 59025; 80053; 81001; 82570; 84156; 84550; 85025; 87077; 87086; 87186; 99211

== ENCOUNTER 2021-12-23 07:50 | Outpatient (CLI) | payer MEDICAID, SELFPAY ==
[2021-12-23] VITALS (12 sets, daily range): BP systolic 126–178; BP diastolic 80–104; PULSE 69–88; RESP 16; TEMP 35; BMI 38.9
[2021-12-23 09:07] LABS: Basophils % 0.2 %; Eosinophils # 0.1 10^3/uL (0.0-0.8); Eosinophils % 0.8 %; Hematocrit 36.5 % (37.0-47.0); Hemoglobin 12.4 g/dL (11.5-15.3); Lymphocytes # 3.1 10^3/uL (0.8-4.8); Lymphocytes % 20.8 %; Mean Corpuscular Hemoglobin 31.1 pg (28.0-34.0); Mean Corpuscular Volume 91.5 fl (81-99); Mean Platelet Volume 10.3 fL (7.4-10.4); Monocytes # 0.8 10^3/uL (0.2-0.9); Monocytes % 5.3 %; Neutrophils # 10.47 10^3/uL (1.8-7.7); Neutrophils % 71.5 %; Nucleated Red Blood Cells % 0 %; Platelet Count 375 10^3/cmm (130-400); Red Blood Count 3.99 10^6/uL (4.1-5.3); Red Cell Distribution Width 12.8 % (12.1-15.1); White Blood Count 14.6 10^3/uL (4.0-10.0)
[2021-12-23 09:08] LABS: Add Urine Microscopic? YES; Bilirubin Urine Neg (Negative); Blood Urine Trace (Negative); Glucose Urine UA Norm (Normal); Ketones Urine 1+ (Negative); Leukocyte Esterase Urine 2+ (Negative); Nitrate Urine Negative (Negative); Protein Urine Neg (Negative); Specific Gravity, Urine 1.005 (1.005-1.030); Urine Appearance Clear (CLEAR); Urine Color Yellow (Yellow); Urobilinogen Urine Norm (Negative); pH Urine 7 (5-7)
[2021-12-23 09:14] LABS: Bacteria Urine 1+ /hpf; Squamous Epithelial Cell Urine 0-4 /hpf (0-5)
[2021-12-23 09:15] LABS: Add Urine Culture? No
[2021-12-23 09:25] LABS: Urine Creatinine 60 mg/dL (28-217); Urine Protein Random 6 mg/dL
[2021-12-23 09:26] LABS: Alanine Aminotransferase 8 U/L (0-33); Albumin Level 3.6 g/dL (3.5-5.2); Alkaline Phosphatase 76 U/L (35-105); Aspartate Amino Transferase 11 U/L (0-32); Blood Urea Nitrogen 6 mg/dL (6-20); Calcium 9.2 mg/dL (8.5-10.5); Globulin 3.8 g/dL (1.3-4.6); Glomerular Filtration Rate 119.9 mL/min (90-130); Glucose 86 mg/dL (65-115); Total Bilirubin 0.3 mg/dL (0.15-1.2); Total Protein 7.4 g/dL (6.6-8.7); Uric Acid 5.6 mg/dL (2.4-5.7)
[2021-12-23 09:34] LABS: Carbon Dioxide 21 mmol/L (22-29); Chloride 103 mmol/L (98-107); Osmolality Calculated 281 mOsm/kg (285-295); Sodium 137 mmol/L (136-145)
[2021-12-23] MEDS: NIFEdipine ER (24 hr) 30 mg Tablet PO (10:21)
== END 2021-12-23 10:57 | disposition home or self-care (01) ==
LOC: OPOB 07:51 → OBGYN 07:52
PROVIDERS: Visit Provider Family Medicine
DX: O26.899 Other specified pregnancy related conditions, unspecified trimester (principal); Z3A.00 Weeks of gestation of pregnancy not specified; R10.9 Unspecified abdominal pain
CPT/HCPCS: 36415; 36430; 59025; 80053; 81001; 82570; 84156; 84550; 85025; 86850; 86900; 90384; 99211

== ENCOUNTER 2021-12-23 14:04 | Outpatient (CLI) | payer MEDICAID, SELFPAY ==
[2021-12-23] VITALS (8 sets, daily range): BP systolic 132–184; BP diastolic 66–100; PULSE 51–107; BMI 38.9
[2021-12-23 15:53] LABS: Bilirubin Urine 1+ (Negative); Blood Urine Neg (Negative); Glucose Urine UA Norm (Normal); Ketones Urine 1+ (Negative); Leukocyte Esterase Urine Trace (Negative); Nitrate Urine Positive (Negative); Protein Urine Neg (Negative); RBC Urine 0-4 /hpf (0-2); Urine Appearance Clear (CLEAR); Urine Color Amber (Yellow); Urobilinogen Urine 4 mg/dL (Negative); pH Urine 6 (5-7)
[2021-12-23 15:54] LABS: Add Urine Culture? Yes; Bacteria Urine 4+ /hpf
== END 2021-12-23 17:20 | disposition home or self-care (01) ==
LOC: OPOB 14:04 → OBGYN 14:05
PROVIDERS: Visit Provider Family Medicine
DX: O26.899 Other specified pregnancy related conditions, unspecified trimester (principal); Z3A.00 Weeks of gestation of pregnancy not specified; R10.9 Unspecified abdominal pain
CPT/HCPCS: 59025; 81001; 87077; 87086; 87186; 99211

== ENCOUNTER 2022-01-25 17:39 | Outpatient (CLI) | payer MEDICAID, SELFPAY ==
[2022-01-25] VITALS (11 sets, daily range): BP systolic 111–174; BP diastolic 78–103; PULSE 82–173; RESP 17; BMI 41.2
[2022-01-25 18:32] LABS: Basophils % 0.3 %; Eosinophils # 0.1 10^3/uL (0.0-0.8); Eosinophils % 0.9 %; Hematocrit 34.9 % (37.0-47.0); Hemoglobin 11.2 g/dL (11.5-15.3); Lymphocytes # 2.8 10^3/uL (0.8-4.8); Lymphocytes % 24.5 %; Mean Corpuscular HGB Conc 32.1 g/dL (30.0-36.0); Mean Corpuscular Hemoglobin 29.4 pg (28.0-34.0); Mean Corpuscular Volume 91.6 fl (81-99); Mean Platelet Volume 10.4 fL (7.4-10.4); Monocytes # 0.9 10^3/uL (0.2-0.9); Monocytes % 8.1 %; Neutrophils # 7.43 10^3/uL (1.8-7.7); Neutrophils % 65.1 %; Nucleated Red Blood Cells % 0 %; Platelet Count 330 10^3/cmm (130-400); Red Blood Count 3.81 10^6/uL (4.1-5.3); Red Cell Distribution Width 13.6 % (12.1-15.1); White Blood Count 11.4 10^3/uL (4.0-10.0)
[2022-01-25 18:49] LABS: Alanine Aminotransferase 8 U/L (0-33); Albumin Level 3.2 g/dL (3.5-5.2); Alkaline Phosphatase 93 U/L (35-105); Anion Gap 13.8 (5-19); Aspartate Amino Transferase 12 U/L (0-32); Blood Urea Nitrogen 6 mg/dL (6-20); Calcium 8.9 mg/dL (8.5-10.5); Carbon Dioxide 20 mmol/L (22-29); Chloride 108 mmol/L (98-107); Globulin 3.8 g/dL (1.3-4.6); Glucose 78 mg/dL (65-115); Osmolality Calculated 282 mOsm/kg (285-295); Potassium 3.8 mmol/L (3.5-5.1); Sodium 138 mmol/L (136-145); Total Bilirubin 0.2 mg/dL (0.15-1.2); Uric Acid 5.3 mg/dL (2.4-5.7)
[2022-01-25 18:50] LABS: Urine Creatinine 111 mg/dL (28-217); Urine Protein Random 13 mg/dL
[2022-01-25 18:53] LABS: Add Urine Microscopic? YES; Bilirubin Urine Neg (Negative); Blood Urine 3+ (Negative); Glucose Urine UA Norm (Normal); Ketones Urine Negative (Negative); Leukocyte Esterase Urine 2+ (Negative); Nitrate Urine Negative (Negative); Protein Urine Neg (Negative); RBC Urine 0-4 /hpf (0-2); Specific Gravity, Urine 1.015 (1.005-1.030); Squamous Epithelial Cell Urine 0-4 /hpf (0-5); Urine Appearance Hazy (CLEAR); Urine Color Yellow (Yellow); Urobilinogen Urine Norm (Negative); WBC Urine 0-4 /hpf (0-5); pH Urine 6 (5-7)
[2022-01-25 18:54] LABS: Add Urine Culture? Yes; Bacteria Urine 3+ /hpf; Trichomonas Urine 2+ /hpf
[2022-01-25 18:56] LABS: UPRO/UCREAT Ratio 0.12 mg/mg CR
--- NOTE | 2022-01-25 19:31 | PC.NURSE ---
141/90 manual blood pressure taken by Reynaldo MANCIA with appropriate blood pressure cuff, pt discharged home
== END 2022-01-25 19:34 | disposition home or self-care (01) ==
LOC: OPOB 17:40 → OBGYN 17:41
PROVIDERS: Visit Provider Family Medicine
DX: O16.9 Unspecified maternal hypertension, unspecified trimester (principal); Z3A.00 Weeks of gestation of pregnancy not specified
CPT/HCPCS: 36415; 59025; 80053; 81001; 82570; 84156; 84550; 85025; 87086; 99211

== ENCOUNTER 2022-02-10 21:12 | Inpatient (IN) | payer MEDICAID, SELFPAY ==
[2022-02-10] VITALS (22 sets, daily range): BP systolic 130–174; BP diastolic 78–113; PULSE 78–112; RESP 16; BMI 40.7
[2022-02-10 21:06] LABS: Amphetamines Screen Urine Negative (Negative); Barbiturates Screen Urine Negative (Negative); Benzodiazepines Screen Urine Negative (Negative); Cocaine Screen Urine Negative (Negative); Opiate Screen Urine Negative (Negative); PCP Screen Urine Negative (Negative); THC Screen Urine Negative (Negative)
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
--- NOTE | 2022-02-10 22:04 | ANES.PREANE2 ---
Pre-Anesthetic Assessment Height/Weight: Height 1.65 m Weight 111.13 kg Pulse Resp BP 88 16 150/92 02/10/22 21:59 02/10/22 20:34 02/10/22 21:59 Preop Diagnosis: labor Pains epidural Familial anesthetic complications: none Was Beta Dallin taken within 24 hours: N/A Was Clonidine taken within 24 hours: N/A Social No alcohol and No tobacco Exam alert, oriented x 3, clear to auscultation bilaterally and regular rate & rhythm Airway Submandibular: within normal limits Cervical ROM: within normal limits Mallampati: Class II Dentition: chipped Comments: Comments: very poor Pulmonary None reported CV/HEM Hypertension None reported Hepatic None reported GI None reported Metabolic None reported Musc/skel None reported Neuropsych Anxiety and Depression Anesthetic Plan ASA status: 2 Anesthesia: Regional (specify below) Risk of > 500 ml blood loss (7ml/kg in children): No Medications/Allergies Home Medications Medication Instructions Recorded Confirmed Last Taken Type prenat.vits,denis,iac-ieeq-sffbi 1 tab PO DAILY 12/15/21 12/23/21 01/25/22 08:00 History Allergies Allergy/AdvReac Type Severity Reaction Status Date / Time Penicillins Allergy Unknown unknown Verified 01/25/22 18:26 [facility] Anesthesia Medical History No pertinent family history Surgical History No pertinent past surgical history Social History Smoking and tobacco status: never smoked Alcohol intake: never Caregiver/support person: Yes Lives independently: No Household members: spouse History of recent travel: No Female Reproductive History Date of last menstrual period: 08/31/21 Data Anesthesia 02/10/22 21:20 02/10/22 21:20 Cardiac Studies: No Data to Display
[2022-02-10 22:05] LABS: Blood Urine Neg (Negative); Glucose Urine UA Norm (Normal); Ketones Urine 1+ (Negative); Protein Urine Neg (Negative); Specific Gravity, Urine 1.025 (1.005-1.030); Urine Appearance Clear (CLEAR); Urine Color Yellow (Yellow); pH Urine 6 (5-7)
[2022-02-10 22:06] LABS: Add Urine Culture? No; Bacteria Urine 1+ /hpf; Bilirubin Urine 1+ (Negative); Leukocyte Esterase Urine 2+ (Negative); Nitrate Urine Negative (Negative); RBC Urine 0-4 /hpf (0-2); Urobilinogen Urine Norm (Negative)
[2022-02-10] MEDS: oxytocin 30 UNIT/500 ML BAG IV (22:20)
[2022-02-10] MEDS: dextrose 5%-lactated ringers 1,000 ML 125 ML IV (22:21)
[2022-02-10 22:40] LABS: Basophils % 0.2 %; Eosinophils % 0.3 %; Hematocrit 36.2 % (37.0-47.0); Hemoglobin 11.6 g/dL (11.5-15.3); Lymphocytes # 5.8 10^3/uL (0.8-4.8); Lymphocytes % 39.1 %; Mean Corpuscular Hemoglobin 29.5 pg (28.0-34.0); Mean Corpuscular Volume 92.1 fl (81-99); Mean Platelet Volume 10.8 fL (7.4-10.4); Monocytes # 0.7 10^3/uL (0.2-0.9); Neutrophils # 8.09 10^3/uL (1.8-7.7); Neutrophils % 54.5 %; Nucleated Red Blood Cells % 0 %; Platelet Count 335 10^3/cmm (130-400); Red Blood Count 3.93 10^6/uL (4.1-5.3); Red Cell Distribution Width 14.6 % (12.1-15.1); White Blood Count 14.8 10^3/uL (4.0-10.0)
[2022-02-10 22:47] LABS: Alanine Aminotransferase 31 U/L (0-33); Albumin Level 3.6 g/dL (3.5-5.2); Alkaline Phosphatase 114 U/L (35-105); Anion Gap 14.4 (5-19); Aspartate Amino Transferase 22 U/L (0-32); Blood Urea Nitrogen 8 mg/dL (6-20); Calcium 8.6 mg/dL (8.5-10.5); Carbon Dioxide 21 mmol/L (22-29); Chloride 106 mmol/L (98-107); Globulin 3.7 g/dL (1.3-4.6); Glucose 94 mg/dL (65-115); Osmolality Calculated 284 mOsm/kg (285-295); Potassium 3.4 mmol/L (3.5-5.1); Sodium 138 mmol/L (136-145); Total Bilirubin 0.2 mg/dL (0.15-1.2); Total Protein 7.3 g/dL (6.6-8.7); Uric Acid 5.4 mg/dL (2.4-5.7)
[2022-02-10 22:48] LABS: Urine Creatinine 166 mg/dL (28-217); Urine Protein Random 14 mg/dL
[2022-02-10 22:49] LABS: UPRO/UCREAT Ratio 0.08 mg/mg CR
[2022-02-11] VITALS (61 sets, daily range): BP systolic 99–182; BP diastolic 59–104; PULSE 75–113; RESP 15–18; TEMP 36.6–36.8; O2SAT 98–100
[2022-02-11] MEDS: dextrose 5%-lactated ringers 1,000 ML 125 ML IV (06:21)
--- NOTE | 2022-02-11 10:30 | PC.NURSE ---
This nurse at bedside with Dr. Borden. Patient voiced that she does not want to take this child home. Dr. Borden at bedside to discuss options with her at this time.
--- NOTE | 2022-02-11 10:36 | P.HP_ITS ---
Providers/Chief Complaint Admitting Physician: Deana Borden MD Chief Complaint: PRESSURE; HEADACHE History of Present Illness Marie Nicholson is a 27 year old female at 37 weeks 6 days gestation who presented to labor and delivery complaining of a headache. Her has been complicated by -induced hypertension for which she takes Procardia XL 60 mg daily. Her blood pressures were elevated in the severe range and since she was already term, decision was made to go ahead and proceed with induction. Her protein creatinine ratio was not consistent with preeclampsia, her AST, ALT, and platelets were within normal limits. The patient has a history of late onset and spotty care. She was also positive for methamphetamines during her . She has also mentioned that she would like to give this baby up for adoption. She has been consistent with her desire to have a bilateral tubal ligation. Medicaid consent form was signed previously in office. We do not have a copy of it right now but should be able to track it down. Prenatals: she is blood type A-, antibody negative, rubella immune, hepatitis B nonreactive, hepatitis C nonreactive, HIV nonreactive, GC and Chlamydia negative , she never completed her 1 hour glucose tolerance test, she is GBS negative. Review of Systems Narrative: Persistent headache, no blurry vision, no scotomata, good movement, no vaginal bleeding, no leaking of fluid, positive edema, no abdominal pain, no contractions. Medications/Allergies Home Medications Medication Instructions Recorded Confirmed Last Taken Type prenat.vits,denis,xmw-liaw-vowqu 1 tab PO DAILY 12/15/21 02/10/22 02/10/22 08:00 History acetaminophen 325 mg tablet 500 mg PO Q6H PRN Pain 02/10/22 02/10/22 02/10/22 12:00 History (Tylenol) docusate sodium 100 mg capsule 100 mg PO BID #60 caps 02/13/22 Unknown Rx hydrocodone 5 mg-acetaminophen 325 1 - 2 tab PO Q4H PRN Moderate To 02/13/22 Un known Rx mg tablet Severe Pain #10 tabs ibuprofen 800 mg tablet 800 mg PO TID PRN Abdominal 02/13/22 Unknown Rx Discomfort #40 tabs Allergies Allergy/AdvReac Type Severity Reaction Status Date / Time amitriptyline Allergy Mild ALGY-Hives Verified 02/10/22 22:37 Penicillins Allergy Mild ALGY-Hives Verified 02/10/22 22:37 PFSH Acute PFSH: Medical History No pertinent family history Surgical History No pertinent past surgical history Social History Smoking and tobacco status: never smoked Alcohol intake: never Caregiver/support person: Yes Lives independently: No Household members: spouse History of recent travel: No Female Reproductive History: Date of last menstrual period: 08/31/21 : 4 Para: 3 Other female reproductive history: x 3, hx of HTN in prior pregnancies. Other PFSH information: Supplemental PFSH Information: hx of methampheamine use, posiive during this Vitals/I&O/Wt Last Vital Signs Temp 97.8 F 02/11/22 06:38 Pulse 111 H 02/11/22 08:43 Resp 16 02/11/22 06:38 BP 131/90 02/11/22 08:43 O2 Del Method 02/10/22 23:19 02/10/22 02/11/22 02/11/22 22:59 06:59 14:59 Intake Total 1.00 / 1.00 1087.750 / 1088.750 Balance 1.00 / 1.00 1087.750 / 1088.750 Weight last 48 hrs Weight 111.13 kg Physical Exam Narrative: Alert and oriented, sleeping soundly, easily arousable, abdomen soft nontender, lungs clear to auscultation bilaterally, heart regular rate and rhythm, extremities have edema but no calf tenderness. Data 02/10/22 21:20 02/10/22 21:20 A&P Assessment and plan (1) with 37 weeks completed gestation: (2) induced hypertension, antepartum: Proceed with induction Hypertensive protocol (3) History of methamphetamine use: DFS will be notified (4) with insufficient care: Attestations Medical Necessity Statement*: Induction of labor and delivery Coding Level of Care Code Acute Forensic Technician for Chg Fwd Diagnoses with 37 weeks completed gestation Z3A.37 induced hypertension, antepartum O13.9 History of methamphetamine use F15.91 with insufficient care O09.30
--- NOTE | 2022-02-11 11:00 | PC.NURSE ---
Patient discussed with this nurse that when she delivers she wants to see, hold and care for baby after delivery. Patient also stated that she want her mother and child to see baby before she wants baby to go to he nursery. Where baby will remain until discharged.
[2022-02-11] MEDS: miSOPROStol 100 mcg tablet 25 MCG VAGINAL (11:23)
--- NOTE | 2022-02-11 16:50 | PC.NURSE ---
at approximately 1450 a caller described himself as the potential father of baby and to discuss that he does not want to baby to be put up for adoption, this nurse did not discuss any information to him and asked him what pt he was looking for, the called on the phone told this nurse that he is the possible dad and he needs to know was going on, this nurse replied that I could not release any information. He needs to call the pt and discuss that information with her.
--- NOTE | 2022-02-11 16:58 | PC.NURSE ---
at approximately 1500 this nurse notified OB environmental compliance manager Annette Astorga RN that a potential father had called this facility. This nurse did not release any information and replied he needs to contact that mother.
--- NOTE | 2022-02-11 17:01 | PC.NURSE ---
@ [phone] this nurse overheard pt on phone yelling I do not want to take the baby home.
--- NOTE | 2022-02-11 17:02 | PC.NURSE ---
@[phone] pt reported that potential father was a sex offender and can not be around children. pt reported that she has been from him for a year. pt reported his name to be Chito Duenas @ [phone] this nurse reported this information to OB Batch Records Clerk Annette Astorga RN.
[2022-02-11] MEDS: lactated ringers 1,000 ML 999 ML IV (18:57)
[2022-02-11] MEDS: famotidine 20 mg/2 mL INJ IVP (20:20)
[2022-02-11] MEDS: metoclopramide 5 mg/mL SDV 2 mL 10 MG IVP (20:20)
[2022-02-11] MEDS: citric acid-sodium citrate 30 mL UDC PO (20:21)
[2022-02-11] MEDS: ceFAZolin 2,000 MG in sodium chloride 0.9% (plus) 50 ML 100 MG IV (20:37)
--- NOTE | 2022-02-11 22:00 | P.OP_ITS ---
Operative Report Date of procedure: February 11, 2022 Pre-op diagnosis: Breech presentation Desired permanent surgical sterilization Post-op diagnosis: Complete breech presentation Procedure done: Primary low transverse section Via Pfannenstiel skin incision Bilateral tubal ligation Specimens removed/disposition: Complete breech female , weight pending, Apgars 1 and 8 Pathology: Segments of right and left fallopian tube Estimated blood loss (mL): 700 IV fluids (mL): 900 Urine output (mL): 700 Complications: None Brief History: This is a 27-year-old G4, P3 at 37 weeks 6 days gestation who was being induced for -induced hypertension. Prior to starting Cytotec experienced nurse performed bedside ultrasound confirming vertex presentation. With the patient was 5 cm dilated presenting part was not palpable and bedside ultrasound confirmed breech presentation. Procedure: After informed consent the patient was taken to the OR where spinal anesthesia was administered. She was prepped and draped in normal sterile fashion in dorsal supine position with a left lateral tilt. A Pfannenstiel incision was made and carried through to the underlying layer of fascia sharply using the scalpel. The fascial incision was then extended laterally using the Mayos. The fascia was grasped with Jonathan clamps and the underlying rectus muscles were dissected off taking care to avoid injury to the underlying tissue. The peritoneum was then entered digitally. The incision site was manually stretched. The bladder blade was inserted. The vesicouterine peritoneum was identified and entered sharply using the Metzenbaums. The bladder flap was then created digitally. The bladder blade was then reinserted. Uterine incision was made in a transverse fashion in the lower uterine segment. Amniotic rupture of membranes was performed digitally and clear fluid was noted. The was delivered in complete breech presentation without any complication. She had good tone and spontaneous cry upon delivery. The cord was clamped and cut and the was handed to the waiting pediatric nurse. Cord blood was obtained. The placenta was delivered using fundal pressure. There was evidence of a small maybe 10% posterior placental abruption. A dry sponge was used to clear the uterus of clots and debris and the uterus was exteriorized from the abdomen. The lower uterine segment was very thin and retractile it was grasped with multiple ringed forceps. the uterine incision was repaired using 0 chromic in a running locked fashion. There was a right lateral extension down towards the vagina. This was sutured using the same continuous suture. An imbricating layer was then performed using the same suture. There was good hemostasis. The left fallopian tube was grasped with a Hardin and a proximal portion of the tube was ligated and excised. Tubal ostia were visualized. The cut portions of the tube were coagulated using the Bovie. Segment of the tube was sent to [facility]. The right tube was then grasped with a Zoila and a proximal portion of the tube was ligated and excised. Tubal ostia were visualized. The cut portions of the tube were coagulated using the Bovie. A segment of tube was sent to pathology. The uterus was then returned to the abdomen. Irrigation was used to clear the gutters of clots and debris and hemostasis was verified. The bladder flap was closed using 4-0 Vicryl. The peritoneum was then reapproximated using 4-0 Vicryl. The subfascial tissue was inspected for hemostasis. The fascia was then reapproximated using 0 Vicryl in a running fashion. The subcutaneous tissue was irrigated and any small bleeders were coagulated using the Bovie. The subcutaneous tissue was reapproximated using 4- 0 Vicryl. The skin was then reapproximated using 4-0 Vicryl on a Dawit needle. Steri-Strips and a pressure bandage were applied and patient went to recovery in good condition. Sponge instrument and needle counts were correct.
[2022-02-12] VITALS (10 sets, daily range): BP systolic 100–140; BP diastolic 64–89; PULSE 62–102; RESP 14–18; TEMP 36.6–37
[2022-02-12] MEDS: ketorolac 30 mg/mL INJ IVP (04:43)
[2022-02-12] MEDS: dextrose 5%-lactated ringers 1,000 ML 125 ML IV (04:44)
[2022-02-12] MEDS: HYDROcodone-acetaminophen 5-325 mg Tablet PO (10:23)
[2022-02-12] MEDS: docusate sodium 100 mg Capsule PO (10:24)
[2022-02-12] MEDS: prenatal vitamin Capsule 1 CAP PO (10:24)
--- NOTE | 2022-02-12 10:46 | PC.NURSE ---
funeral workers and nurse in patients room at this time.
[2022-02-12 10:54] LABS: Mean Corpuscular HGB Conc 31.4 g/dL (30.0-36.0); Mean Corpuscular Hemoglobin 29.8 pg (28.0-34.0); Mean Corpuscular Volume 94.9 fl (81-99); Mean Platelet Volume 10.6 fL (7.4-10.4); Platelet Count 325 10^3/cmm (130-400); Red Blood Count 3.69 10^6/uL (4.1-5.3)
--- NOTE | 2022-02-12 13:47 | PC.NURSE ---
Rhogam given Right Deltoid
[2022-02-12] MEDS: ibuprofen 800 mg tablet PO (16:48)
--- NOTE | 2022-02-12 17:10 | PM.PN ---
Subjective Subjective: Pt is post-op day 0-1 and doing well, she is ambulating and tolerating a regular diet. Vitals/I&O/Wt Last Vital Signs Temp 98.0 F 02/12/22 13:43 Pulse 102 H 02/12/22 13:43 Resp 18 02/12/22 13:43 BP 135/89 02/12/22 13:43 Pulse Ox 100 02/11/22 22:30 O2 Del Method 02/12/22 08:30 02/12/22 02/12/22 02/12/22 06:59 14:59 22:59 Intake Total 900 / 990.4 0 / 0 Output Total 1400 / 2100 400 / 400 600 / 1000 Balance -500 / -1109.6 -400 / -400 -600 / -1000 Weight last 48 hrs Weight 111.13 kg Physical Exam Narrative: Alert and oriented, walking in the room, RRR. CTA bilaterally, no abdominal tenderness, dressing still in place. no calf tenderness, some nonpitting edema Urinary Catheter Management: Vásquez Latex: Cath Placed During This Visit: yes, but has since been removed by the nurse Reason for Continuing Indwelling Catheter: Decision to DC Catheter Urinary Catheter Date of Insertion: 02/11/22 Urinary Catheter Time of Insertion: 20:49 Date Urinary Catheter Removed: 02/12/22 Time Urinary Catheter Discontinued: 08:45 Data 02/12/22 10:48 02/10/22 21:20 A&P Assessment and plan (1) Status post primary low transverse section: doing well, likely home tomorrow. (2) with insufficient care: (3) History of methamphetamine use: DFS is involved, pt is considering adoption. (4) induced hypertension, antepartum: (5) with 37 weeks completed gestation: Attestations Medical Necessity Statement*: routine postoperative and care Coding Level of Care Code Acute Ophthalmologist for g Fwd Diagnoses Status post primary low transverse section Z98.891 with insufficient care O09.30 History of methamphetamine use F15.91 induced hypertension, antepartum O13.9 with 37 weeks completed gestation Z3A.37
[2022-02-13] MEDS: ibuprofen 800 mg tablet PO ×2 (03:49→09:06)
[2022-02-13 04:30] VITALS: BP 110/68; PULSE 78; RESP 16; TEMP 36.8
[2022-02-13] MEDS: prenatal vitamin Capsule 1 CAP PO (09:06)
[2022-02-13] MEDS: docusate sodium 100 mg Capsule PO (09:06)
[2022-02-13 10:45] VITALS: BP 155/101; PULSE 106; RESP 18; TEMP 36.7; O2SAT 98
[2022-02-13] MEDS: HYDROcodone-acetaminophen 5-325 mg Tablet PO (11:03)
--- NOTE | 2022-02-13 12:02 | PM.DCS ---
Discharge Providers Date of Admission: 02/10/22 21:12 Date of Discharge: February 13, 2022 Attending Provider at Admission: Deana Borden MD Attending Provider at Discharge: Deana Borden MD Diagnoses at Discharge Discharge Diagnosis (1) Status post primary low transverse section: Status: Acute (2) with insufficient care: Status: Acute (3) History of methamphetamine use: Status: Acute (4) induced hypertension, antepartum: Status: Acute (5) with 37 weeks completed gestation: Status: Acute Reason for Visit Reason for Visit: PRESSURE; HEADACHE Hospital Course Hospital Course This is a 27-year-old G4 now P4 who had a history of -induced hypertension on Procardia 60 mg XL daily. She presented complaining of headache and had some severely elevated blood pressures. Decision was made to proceed with induction. Initially the infant was vertex but once she was 5 cm dilated the was found to be breech presentation. She then underwent a primary low transverse section with bilateral tubal ligation. Postoperatively she did not have any elevated blood pressures. Actually she recently had one 155/101 but she is alone with her 2 young toddler boys since her sister had to go to work today and could not watch them. She did well postoperatively was ambulating, tolerating a regular diet, had good pain control and was comfortable with discharge home. Physical Exam Narrative: Alert and oriented, ambulating around the room, heart regular rate and rhythm, lungs clear to auscultation bilaterally, abdomen soft with appropriate postoperative tenderness, incision is clean dry and intact with Steri-Strips in place. Extremities have 2+ edema but no calf tenderness. Urinary Catheter Management: Vásquez Latex: Cath Placed During This Visit: yes, but has since been removed by the nurse Reason for Continuing Indwelling Catheter: Decision to DC Catheter Urinary Catheter Date of Insertion: 02/11/22 Urinary Catheter Time of Insertion: 20:49 Date Urinary Catheter Removed: 02/12/22 Time Urinary Catheter Discontinued: 08:45 Discharge Data Studies Completed and Pending Laboratory Results WBC 22.0 10^3/uL (4.0-10.0) H 02/12/22 10:48 RBC 3.69 10^6/uL (4.1-5.3) L 02/12/22 10:48 Hgb 11.0 g/dL (11.5-15.3) L 02/12/22 10:48 Hct 35.0 % (37.0-47.0) L 02/12/22 10:48 MCV 94.9 fl (81-99) 02/12/22 10:48 MCH 29.8 pg (28.0-34.0) 02/12/22 10:48 MCHC 31.4 g/dL (30.0-36.0) 02/12/22 10:48 RDW 15.0 % (12.1-15.1) 02/12/22 10:48 Plt Count 325 10^3/cmm (130-400) 02/12/22 10:48 MPV 10.6 fL (7.4-10.4) H 02/12/22 10:48 Neut % (Auto) 54.5 % 02/10/22 21:20 Lymph % (Auto) 39.1 % 02/10/22 21:20 [place] % (Auto) 5.0 % 02/10/22 21:20 Eos % (Auto) 0.3 % 02/10/22 21:20 Baso % (Auto) 0.2 % 02/10/22 21:20 Neut # (Auto) 8.09 10^3/uL (1.8-7.7) H 02/10/22 21:20 Lymph # (Auto) 5.8 10^3/uL (0.8-4.8) H 02/10/22 21:20 [place] # (Auto) 0.7 10^3/uL (0.2-0.9) 02/10/22 21:20 Eos # (Auto) 0.0 10^3/uL (0.0-0.8) 02/10/22 21:20 Baso # (Auto) 0.0 10^3/uL (0.0-0.1) 02/10/22 21:20 Nucleated RBC % (auto) 0 % 02/10/22 21:20 Nucleated RBCs # 0.0 /100WBC 02/10/22 21:20 Sodium 138 mmol/L (136-145) 02/10/22 21:20 Potassium 3.4 mmol/L (3.5-5.1) L 02/10/22 21:20 Chloride 106 mmol/L (98-107) 02/10/22 21:20 Carbon Dioxide 21 mmol/L (22-29) L 02/10/22 21:20 Anion Gap 14.4 (5-19) 02/10/22 21:20 BUN 8 mg/dL (6-20) 02/10/22 21:20 Creatinine 0.6 mg/dL (0.5-0.9) 02/10/22 21:20 GFR Calculation 119.0 mL/min (90-130) 02/10/22 21:20 Glucose 94 mg/dL (65-115) 02/10/22 21:20 Calculated Osmolality 284 mOsm/kg (285-295) L 02/10/22 21:20 Uric Acid 5.4 mg/dL (2.4-5.7) 02/10/22 21:20 Calcium 8.6 mg/dL (8.5-10.5) 02/10/22 21:20 Total Bilirubin 0.2 mg/dL (0.15-1.2) 02/10/22 21:20 AST 22 U/L (0-32) 02/10/22 21:20 ALT 31 U/L (0-33) 02/10/22 21:20 Alkaline Phosphatase 114 U/L (35-105) H 02/10/22 21:20 Total Protein 7.3 g/dL (6.6-8.7) 02/10/22 21:20 Albumin 3.6 g/dL (3.5-5.2) 02/10/22 21:20 Globulin 3.7 g/dL (1.3-4.6) 02/10/22 21:20 Urine Color Yellow (Yellow) 02/10/22 20:40 Urine Appearance Clear (CLEAR) 02/10/22 20:40 Urine pH 6 (5-7) 02/10/22 20:40 Ur Specific [place] 1.025 (1.005-1.030) 02/10/22 20:40 Urine Protein Neg (Negative) 02/10/22 20:40 Urine Glucose (UA) Norm (Normal) 02/10/22 20:40 Urine Ketones 1+ (Negative) H 02/10/22 20:40 Urine Blood Neg (Negative) 02/10/22 20:40 Urine Nitrate Negative (Negative) 02/10/22 20:40 Urine Bilirubin 1+ (Negative) H 02/10/22 20:40 Urine Urobilinogen Norm mg/dL (Negative) 02/10/22 20:40 Ur Leukocyte Esterase 2+ (Negative) H 02/10/22 20:40 Urine RBC 0-4 /hpf (0-2) H 02/10/22 20:40 Urine WBC 10-15 /hpf (0-5) H 02/10/22 20:40 Ur Squamous Epith Cells 10-15 /hpf (0-5) H 02/10/22 20:40 Amorphous Sediment Not Reportable 02/10/22 20:40 Urine Bacteria 1+ /hpf (NONE) H 02/10/22 20:40 U Random Total Protein 14 mg/dL 02/10/22 20:40 Urine Creatinine 166 mg/dL (28-217) 02/10/22 20:40 Protein/Creatinin Ratio 0.08 mg/mg CR 02/10/22 20:40 Urine Opiates Screen Negative ng/mL (Negative) 02/10/22 20:40 Ur Barbiturates Screen Negative ng/mL (Negative) 02/10/22 20:40 Ur Phencyclidine Scrn Negative ng/mL (Negative) 02/10/22 20:40 Ur Amphetamines Screen Negative ng/mL (Negative) 02/10/22 20:40 U Benzodiazepines Scrn Negative ng/mL (Negative) 02/10/22 20:40 Urine Cocaine Screen Negative ng/mL (Negative) 02/10/22 20:40 U Marijuana (THC) Screen Negative ng/mL (Negative) 02/10/22 20:40 Blood Type A Negative 02/10/22 21:20 Rho(D) Type Negative 02/10/22 21:20 Antibody Screen Negative 02/10/22 21:20 Screen Negative (Negative) 02/12/22 10:48 Procedures Performed Primary low transverse section Bilateral tubal ligation Vitals Last Vital Signs Temp 98.0 F 02/13/22 10:45 Pulse 106 H 02/13/22 10:45 Resp 18 02/13/22 10:45 BP 155/101 02/13/22 10:45 Pulse Ox 98 02/13/22 10:45 O2 Del Method 02/13/22 10:45 Discharge Plan Discharge Patient Disposition: Home Prescriptions: New ibuprofen 800 mg Tablet 800 mg PO TID PRN (Reason: Abdominal Discomfort) Qty: 40 0RF hydrocodone-acetaminophen 5-325 mg Tablet 1 - 2 tab PO Q4H PRN (Reason: Moderate To Severe Pain) Qty: 10 0RF docusate sodium 100 mg Capsule 100 mg PO BID Qty: 60 0RF Continued Tylenol 325 mg Tablet 500 mg PO Q6H PRN (Reason: Pain) prenat.vits,denis,ekt-zrvy-dgnam Tablet 1 tab PO DAILY Discontinued Blood Pressure Medicine 2 tab PO BID Discharge Orders: Discharge Order (Routine); Ordered 02/13/22 Ordered By: Deana Borden Referrals: Deana Borden MD [Physician] - 1-3 days ( or Mon) Discharge Diet: Usual diet Discharge Activity: Limit activity as instructed Patient Instructions: Opioid Safety Activity Restrictions/Additional Instructions: [id number] care and instructions. NPV for 6 weeks, No lifting greater than 10lbs for 2 weeks. Discharge Attestations Time Spent in Discharge Care*: less than 30 min Quality Metrics Clinical Quality Measures [ No reported AMI, CVA or VTE this stay] Coding Level of Care Code Acute Chg FW [place] note Diagnoses Status post primary low transverse section Z98.891 with insufficient care O09.30 History of methamphetamine use F15.91 induced hypertension, antepartum O13.9 with 37 weeks completed gestation Z3A.37
[2022-02-13 14:45] VITALS: BP 155/101; PULSE 106; RESP 18; TEMP 36.7; O2SAT 98
== END 2022-02-13 14:45 | disposition home or self-care (01) | DRG 785 ==
LOC: OPOB 21:13 → OBGYN 21:13
PROVIDERS: Admitting Provider Family Medicine; Visit Provider Family Medicine
PROC: 10D00Z1 Extraction of Products of Conception, Low, Open Approach (ICD-10-PCS; CPT 59514; principal; 2022-02-11 20:40)
DX: O13.4 Gestational [pregnancy-induced] hypertension without significant proteinuria, complicating childbirth (principal); O32.1XX0 Maternal care for breech presentation, not applicable or unspecified; O99.324 Drug use complicating childbirth; F15.91 Other stimulant use, unspecified, in remission; Z30.2 Encounter for sterilization; Z37.0 Single live birth; Z3A.37 37 weeks gestation of pregnancy; Z87.891 Personal history of nicotine dependence; Z87.59 Personal history of other complications of pregnancy, childbirth and the puerperium
CPT/HCPCS: 36415; 51702; 59025; 59409; 80053; 80306; 81001; 82570; 84156; 84550; 85025; 85027; 85460; 86850; 86900; 88302; 90384; 96374; 96376; 99211; J0690; J1885; J2250; J2274; J2405; J2590; J2765; J3490; J7030; J7120; J7121

== ENCOUNTER 2022-09-20 17:02 | Emergency (ER) | payer MEDICAID, SELFPAY ==
[2022-09-20] VITALS (8 sets, daily range): BP systolic 105–188; BP diastolic 59–98; PULSE 76–111; RESP 16–21; TEMP 37.1; O2SAT 94–98; BMI 41.5
--- NOTE | 2022-09-20 17:45 | W.ED.ABDPA2 ---
HPI - Abdominal Pain General: Chief Complaint: Abdominal Pain Stated Complaint: abd and back pain Time Seen by Provider: 09/20/22 17:17 History of Present Illness: Patient presents to the ER with complaints of right upper quadrant and right lower quadrant and right flank pain. Started approximately 2 to 3 days ago and has been getting worse in severity. Pain is constant but worse with palpation. Patient is diaphoretic upon arrival with a heart rate of about 111 bpm. She still has her appendix and gallbladder and the only abdominal surgery she had is a . Patient admits to having nausea and vomiting and has not been able to keep much food down in the last several days. Review of Systems General: Reports: 10 or more systems reviewed and unremarkable except in HPI and below PFSH ED PFSH: Medical History No pertinent family history Surgical History No pertinent past surgical history Social History Smoking and tobacco status: never smoked Alcohol intake: never Substance/Drug Use: never Caregiver/support person: Yes Lives independently: No Household members: spouse Female Reproductive History: Para: 3 Physical Exam Const: COMMON NORMALS: no acute distress, average body habitus, patient oriented x3, no limitations, healthy appearing, alert and well nourished HENMT: COMMON NORMALS: normocephalic, atraumatic, hearing grossly normal bilaterally, external ears normal, Normal external nose present and moist oral mucous membranes HEAD & SCALP: normocephalic and atraumatic NOSE: Normal external nose present EXTERNAL EAR: Yes external ears normal Eye: COMMON NORMALS: Equal, round and reactive pupils present, EOMs intact bilaterally, conjunctivae normal and no scleral icterus CONJUNCTIVA: Yes conjunctivae normal PUPIL: Yes Equal, round and reactive pupils present Neck/C-Spine: COMMON NORMALS: full ROM, no lymphadenopathy, supple, no meningeal signs, no JVD and Thyroid normal THYROID: Thyroid normal Chest: COMMONS NORMALS: normal inspection of the chest and normal palpation of entire chest wall Resp: COMMON NORMALS: normal respiratory effort, No retractions, No use of accessory muscles and clear to auscultation bilaterally AUSCULTATION: clear to auscultation bilaterally Cardio: COMMON NORMALS: no JVD, regular rate, regular rhythm, S1 normal heart sound present, S2 normal heart sound present, No gallops present (Cardio), No clicks present (Cardio), No murmurs present (Cardio) and No rub (Cardio) RATE: regular rate RHYTHM: regular rhythm HEART SOUNDS: S1 normal heart sound present and S2 normal heart sound present GI: COMMON NORMALS: Normal to inspection, nondistended, normoactive bowel sounds present, Soft to palpation, No hepatosplenomegaly present and no masses; negative for non-tender (Tender to palpate worse in the right upper and right lower quadrants. Nega) PALPATION: Yes Soft to palpation and Yes No hepatosplenomegaly present : COMMON NORMALS: No no CVA tenderness BLADDER/KIDNEY EXAM: No no CVA tenderness Back/Pelvis: COMMON NORMALS: negative for no CVA tenderness Neuro: COMMON NORMALS: patient oriented x3 SENSORIUM/ORIENTATION: Yes alert MENINGEAL SIGNS: Yes no meningeal signs Course Vital Signs: Vital signs: Vital Signs Temperature 98.8 F 09/20/22 17:12 Pulse Rate 92 09/20/22 20:57 Respiratory Rate 21 H 09/20/22 17:27 Blood Pressure 125/74 09/20/22 20:57 Pulse Oximetry 98 09/20/22 20:59 Oxygen Delivery Me thod Room Air 09/20/22 20:59 MDM - Abdominal Pain Medical Decision Making Presented to ER with right upper quadrant pain nausea vomiting. Patient was tachycardic upon arrival lab work was obtained as well as a abdomen/pelvis CT scan lab work revealed a white count of 22,000 and urine showed 2+ leukocyte esterase with 10-15 white blood cells and 3+ bacteria. Urine drug screen did show positive for amphetamines, CT scan showed findings characteristic of pyelonephritis. Patient was given 400 mg of IV Cipro along with 30 mg of Toradol, 4 mg Zofran and 1 L normal saline. Patient was doing significantly better after this. Patient be discharged on oral Cipro to go home on. Patient should follow-up in the next 7 days with her PCP. Differential Diagnosis Likely abdominal pain, acute appendicitis and calculus of kidney; Unlikely constipation, diverticulitis, endometriosis, gastroenteritis, pancreatitis or small bowel obstruction Lab Data I reviewed the patient's lab results. 09/20/22 17:41 09/20/22 17:41 Labs/Radiology: Radiology Impressions Abdomen/Pelvis CT 09/20/22 19:52 IMPRESSION: 1. Renal findings characteristic of pyelonephritis. 2. Mild urinary bladder wall thickening may be on the basis of underdistention or cystitis. Laboratory Results WBC 22.2 10^3/uL (4.0-10.0) H 09/20/22 17:41 RBC 4.65 10^6/uL (4.1-5.3) 09/20/22 17:41 Hgb 13.3 g/dL (11.5-15.3) 09/20/22 17:41 Hct 40.3 % (37.0-47.0) 09/20/22 17:41 MCV 86.7 fl (81-99) 09/20/22 17:41 MCH 28.6 pg (28.0-34.0) 09/20/22 17:41 MCHC 33.0 g/dL (30.0-36.0) 09/20/22 17:41 RDW 13.7 % (12.1-15.1) 09/20/22 17:41 Plt Count 414 10^3/cmm (130-400) H 09/20/22 17:41 MPV 10.5 fL (7.4-10.4) H 09/20/22 17:41 Neut % (Auto) 75.6 % 09/20/22 17:41 Lymph % (Auto) 15.2 % 09/20/22 17:41 [place] % (Auto) 7.7 % 09/20/22 17:41 Eos % (Auto) 0.7 % 09/20/22 17:41 Baso % (Auto) 0.2 % 09/20/22 17:41 Neut # (Auto) 16.77 10^3/uL (1.8-7.7) H 09/20/22 17:41 Lymph # (Auto) 3.4 10^3/uL (0.8-4.8) 09/20/22 17:41 [place] # (Auto) 1.7 10^3/uL (0.2-0.9) H 09/20/22 17:41 Eos # (Auto) 0.2 10^3/uL (0.0-0.8) 09/20/22 17:41 Baso # (Auto) 0.0 10^3/uL (0.0-0.1) 09/20/22 17:41 Nucleated RBC % (auto) 0 % 09/20/22 17:41 Nucleated RBCs # 0.0 /100WBC 09/20/22 17:41 Sodium 134 mmol/L (136-145) L 09/20/22 17:41 Potassium 4.5 mmol/L (3.5-5.1) 09/20/22 17:41 Chloride 103 mmol/L (98-107) 09/20/22 17:41 Carbon Dioxide 20 mmol/L (22-29) L 09/20/22 17:41 Anion Gap 15.5 (5-19) 09/20/22 17:41 BUN 9 mg/dL (6-20) 09/20/22 17:41 Creatinine 0.9 mg/dL (0.5-0.9) 09/20/22 17:41 GFR Calculation 74.6 mL/min (90-130) L 09/20/22 17:41 Glucose 109 mg/dL (65-115) 09/20/22 17:41 Calculated Osmolality 277 mOsm/kg (285-295) L 09/20/22 17:41 Calcium 8.7 mg/dL (8.5-10.5) 09/20/22 17:41 Total Bilirubin 0.2 mg/dL (0.15-1.2) 09/20/22 17:41 AST 19 U/L (0-32) 09/20/22 17:41 ALT 18 U/L (0-33) 09/20/22 17:41 Alkaline Phosphatase 73 U/L (35-105) 09/20/22 17:41 Troponin T Gen 5 ng/L 6 ng/L (0-10) 09/20/22 20:03 Total Protein 7.3 g/dL (6.6-8.7) 09/20/22 17:41 Albumin 3.7 g/dL (3.5-5.2) 09/20/22 17:41 Globulin 3.6 g/dL (1.3-4.6) 09/20/22 17:41 Lipase 47 U/L (13-60) 09/20/22 17:41 HCG, Qual Negative (Negative) 09/20/22 17:23 Urine Color Yellow (Yellow) 09/20/22 17:23 Urine Appearance Cloudy (CLEAR) A 09/20/22 17:23 Urine pH 7 (5-7) 09/20/22 17:23 Ur Specific [place] 1.005 (1.005-1.030) 09/20/22 17:23 Urine Protein Neg (Negative) 09/20/22 17:23 Urine Glucose (UA) Norm (Normal) 09/20/22 17: Urine Ketones Negative (Negative) 09/20/22 17:23 Urine Blood 2+ (Negative) H 09/20/22 17:23 Urine Nitrate Negative (Negative) 09/20/22 17: Urine Bilirubin Neg (Negative) 09/20/22 17: Urine Urobilinogen Norm mg/dL (Negative) 09/20/22 17:23 Ur Leukocyte Esterase 2+ (Negative) H 09/20/22 17:23 Urine RBC 5-10 /hpf (0-2) H 09/20/22 17:23 Urine WBC 10-15 /hpf (0-5) H 09/20/22 17:23 Ur Squamous Epith Cells 0-4 /hpf (0-5) H 09/20/22 17:23 Amorphous Sediment Not Reportable 09/20/22 17:23 Urine Bacteria 3+ /hpf (NONE) H 09/20/22 17:23 Urine Mucus 1+ /hpf 09/20/22 17:23 Urine Opiates Screen Negative ng/mL (Negative) 09/20/22 17:23 Ur Barbiturates Screen Negative ng/mL (Negative) 09/20/22 17:23 Ur Phencyclidine Scrn Negative ng/mL (Negative) 09/20/22 17:23 Ur Amphetamines Screen Positive ng/mL (Negative) H 09/20/22 17:23 U Benzodiazepines Scrn Negative ng/mL (Negative) 09/20/22 17:23 Urine Cocaine Screen Negative ng/mL (Negative) 09/20/22 17:23 U Marijuana (THC) Screen Negative ng/mL (Negative) 09/20/22 17:23 EKG Data EKG 1: I personally reviewed and interpreted this EKG as follows: EKG interpretation date: 09/20/22 EKG interpretation time: 19:08 Prior EKG tracings: not available for review Interpretation: EKG showed sinus rhythm with ventricular rate 82 beats minute, TN interval 121, QRS 102, QTc of 453, frequent PVCs, Discharge Plan Discharge Patient Disposition: Home Clinical Impression: Pyelonephritis Condition: Stable Prescriptions: New ciprofloxacin HCl 500 mg tablet 500 mg PO Q12H Qty: 20 0RF No Action Tylenol 325 mg Tablet 500 mg PO Q6H PRN (Reason: Pain) ibuprofen 800 mg Tablet 800 mg PO TID PRN (Reason: Abdominal Discomfort) Qty: 40 0RF hydrocodone-acetaminophen 5-325 mg Tablet 1 - 2 tab PO Q4H PRN (Reason: Moderate To Severe Pain) Qty: 10 0RF docusate sodium 100 mg Capsule 100 mg PO BID Qty: 60 0RF prenat.vits,denis,afw-cybl-qbnsp Tablet 1 tab PO DAILY Discharge Orders: Discharge ED (Routine); Ordered 09/20/22 Ordered By: Lm Longoria Patient Instructions: Pyelonephritis Activity Restrictions/Additional Instructions: Please take all antibiotics as directed. Please follow-up with your primary care physician in approximately 7 days for further evaluation and treatment and reassessment. Return to the ER if your symptoms worsen or uncontrolled. Coding Level of Care Code ED Line Builder for Placido Crowe
[2022-09-20 17:46] LABS: Add Urine Culture? Yes; Add Urine Microscopic? YES; Bacteria Urine 3+ /hpf; Bilirubin Urine Neg (Negative); Blood Urine 2+ (Negative); Glucose Urine UA Norm (Normal); Ketones Urine Negative (Negative); Leukocyte Esterase Urine 2+ (Negative); Mucus Urine 1+ /hpf; Nitrate Urine Negative (Negative); Protein Urine Neg (Negative); Specific Gravity, Urine 1.005 (1.005-1.030); Squamous Epithelial Cell Urine 0-4 /hpf (0-5); Urine Appearance Cloudy (CLEAR); Urine Color Yellow (Yellow); Urobilinogen Urine Norm (Negative); pH Urine 7 (5-7)
[2022-09-20 17:49] LABS: Amphetamines Screen Urine Positive (Negative); Barbiturates Screen Urine Negative (Negative); Benzodiazepines Screen Urine Negative (Negative); Cocaine Screen Urine Negative (Negative); Opiate Screen Urine Negative (Negative); PCP Screen Urine Negative (Negative); THC Screen Urine Negative (Negative)
[2022-09-20 18:15] LABS: Basophils % 0.2 %; Eosinophils # 0.2 10^3/uL (0.0-0.8); Eosinophils % 0.7 %; Hematocrit 40.3 % (37.0-47.0); Hemoglobin 13.3 g/dL (11.5-15.3); Lymphocytes # 3.4 10^3/uL (0.8-4.8); Lymphocytes % 15.2 %; Mean Corpuscular Hemoglobin 28.6 pg (28.0-34.0); Mean Corpuscular Volume 86.7 fl (81-99); Mean Platelet Volume 10.5 fL (7.4-10.4); Monocytes # 1.7 10^3/uL (0.2-0.9); Monocytes % 7.7 %; Neutrophils # 16.77 10^3/uL (1.8-7.7); Neutrophils % 75.6 %; Nucleated Red Blood Cells % 0 %; Platelet Count 414 10^3/cmm (130-400); Red Blood Count 4.65 10^6/uL (4.1-5.3); Red Cell Distribution Width 13.7 % (12.1-15.1); White Blood Count 22.2 10^3/uL (4.0-10.0)
[2022-09-20] MEDS: ondansetron 2 mg/ML SDV 2 mL 4 MG IVP (18:20)
[2022-09-20] MEDS: ketorolac 30 mg/mL INJ IVP (18:20)
[2022-09-20] MEDS: sodium chloride 0.9% 1,000 ML 999 ML IV (18:20)
[2022-09-20 18:30] LABS: Alanine Aminotransferase 18 U/L (0-33); Albumin Level 3.7 g/dL (3.5-5.2); Alkaline Phosphatase 73 U/L (35-105); Blood Urea Nitrogen 9 mg/dL (6-20); Calcium 8.7 mg/dL (8.5-10.5); Carbon Dioxide 20 mmol/L (22-29); Chloride 103 mmol/L (98-107); Globulin 3.6 g/dL (1.3-4.6); Glomerular Filtration Rate 74.6 mL/min (90-130); Glucose 109 mg/dL (65-115); Lipase 47 U/L (13-60); Osmolality Calculated 277 mOsm/kg (285-295); Sodium 134 mmol/L (136-145); Total Bilirubin 0.2 mg/dL (0.15-1.2); Total Protein 7.3 g/dL (6.6-8.7)
[2022-09-20 18:39] LABS: Anion Gap 15.5 (5-19); Aspartate Amino Transferase 19 U/L (0-32); Potassium 4.5 mmol/L (3.5-5.1)
--- NOTE | 2022-09-20 19:02 | ECG_ITS ---
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 Measurements Intervals [place] Rate: 82 P: 52 CA: 121 QRS: 15 QRSD: 102 T: 25 QT: 414 QTc: 485 Interpretive Statements SINUS RHYTHM WITH FREQUENT VENTRICULAR PREMATURE COMPLEXES MODERATE VOLTAGE CRITERIA FOR LVH, CONSIDER NORMAL VARIANT [MEETS CRITERIA IN ONE OF: R(aVL), S(V1), R(V5), R(V5/V6)+S(V1)] Compared to ECG 01/04/2016 21:12:30 Ventricular premature complex(es) now present Electronically Signed On 09-20-2022 23:33:50 CDT by Marko Salguero M.D. [email or web address]
--- NOTE | 2022-09-20 19:04 | PC.NURSE ---
Pt report recieved from Lottie MANCIA and Sixto MANCIA. Rounded on pt, pt laying in bed, pt does not appear to be in any apparent distress. Pt denies needs at this time.
--- NOTE | 2022-09-20 19:52 | CTR_ITS ---
PROCEDURE INFORMATION: Exam: CT Abdomen And Pelvis With Contrast Exam date and time: 09/20/2022 8:11 PM Age: 27 years old Clinical indication: Nausea and vomiting; Abdominal pain; Generalized; Prior surgery; Surgery date: 6+ months; Surgery type: ; Additional info: Abd pain n/v/d, leukocytosis, tahcycardia TECHNIQUE: Imaging protocol: Computed tomography of the abdomen and pelvis with contrast. Radiation optimization: All CT scans at this facility use at least one of these dose optimization techniques: automated exposure control; mA and/or kV adjustment per patient size (includes targeted exams where dose is matched to clinical indication); or iterative reconstruction. Contrast material: OMNI 350; Contrast volume: 100 ml; Contrast route: INTRAVENOUS (IV); REPORTING DATA: Count of CT and Cardiac NM exams in prior 12 months: This patient has received 0 known CTs and 0 known cardiac nuclear medicine studies in the 12 months prior to the current study. COMPARISON: US renal BI* [id number] 09/12/2021 4:06 AM RADIATION DOSE METRICS: Total DLP (mGy-cm): 1148.37 FINDINGS: Liver: Normal without focal lesions. Gallbladder and bile ducts: Normal. No calcified stones. No ductal dilation. Pancreas: Normal without ductal dilatation. Spleen: Normal. Adrenal glands: Normal. No mass. Kidneys and ureters: Xxows-oknddmg-txtz-left wedge and band-shaped areas of renal hypoattenuation. Mild associated perirenal fat stranding. Otherwise unremarkable. Stomach and bowel: No dilatation. No mucosal thickening. Appendix: No evidence of appendicitis. Intraperitoneal space: Minimal free pelvic fluid. No free air or focal well organized fluid collection. Vasculature: Unremarkable. No abdominal aortic aneurysm. Lymph nodes: No enlarged lymph nodes. Urinary bladder: Underdistended with mild wall thickening. Reproductive: Unremarkable as visualized. Bones/joints: No acute fracture. Mild dextroconvex curvature of the thoracolumbar spine. Soft tissues: Unremarkable. CT/CT abdomen pelvis w con* [id number] IMPRESSION: 1. Renal findings characteristic of pyelonephritis. 2. Mild urinary bladder wall thickening may be on the basis of underdistention or cystitis.
[2022-09-20 20:00] LABS: HCG Qualitative Urine. Negative (Negative)
[2022-09-20] MEDS: iohexol 350 mg/mL 500 mL Btl (per mL) IV (20:12)
[2022-09-20 20:34] LABS: Troponin T (5th) Once 6 ng/L (0-10)
[2022-09-20] MEDS: ciprofloxacin 400 MG/200 ML PREMIX 200 MG IV (21:31)
--- NOTE | 2022-09-21 14:55 | DCPLANNER ---
channel sales manager called patient due to no primary care physician - no answer at this time.
== END 2022-09-20 22:44 | disposition home or self-care (01) ==
PROVIDERS: Emergency Provider Emergency Medicine
DX: N12 Tubulo-interstitial nephritis, not specified as acute or chronic (principal)
CPT/HCPCS: 36415; 74177; 80053; 80306; 81001; 81025; 83690; 84484; 85025; 87077; 87086; 87186; 93005; 96374; 96375; 99285; J0744; J1885; J2405; J7030; Q9967

== ENCOUNTER 2022-10-09 11:30 | Emergency (ER) | payer MEDICAID, SELFPAY ==
[2022-10-09 11:55] VITALS: BP 152/98; PULSE 85; TEMP 36.8; O2SAT 99
--- NOTE | 2022-10-09 11:56 | ED_ITS ---
HPI - Skin/Abscess/Foreign Bdy General: Chief complaint: Skin/Abscess/Foreign Body Stated complaint: possible spider bite Time Seen by Provider: 10/09/22 11:32 Source: patient Mode of arrival: ambulatory History of Present Illness: 27-year-old female presents emergency room with a swollen tender area in the right mid lateral thigh. With palpation it extrudes purulent material she is attempted to drain it at home is an excoriated area superficially. She denies any fever sweats or chills. MD complaint: abscess/boil Onset (ago): day(s) Location: RLE Quality: aching Pain Consistency: constant Relieving factors: none Exacerbating factors: none Context: none Associated symptoms: Deny arthralgias, chills, cough, fever(s), itching, myalgias, nausea, rigidity, short of breath or vomiting Treatments prior to arrival: attempted to drain pus at home Review of Systems Const: Denies: fever(s) or chills Resp: Denies: dyspnea, productive cough or non-productive cough GI: Denies: nausea or vomiting Skin/Breast: Reports: new lesions PFSH ED PFSH: Medical History No pertinent family history Surgical History No pertinent past surgical history Social History Smoking and tobacco status: never smoked Alcohol intake: never Substance/Drug Use: never Caregiver/support person: Yes Lives independently: No Household members: spouse Female Reproductive History: Para: 3 Physical Exam Const: COMMON NORMALS: no acute distress GENERAL APPEARANCE: cooperative and comfortable ORIENTATION/CONSCIOUSNESS: Yes awake, Yes oriented to person, Yes oriented to place and Yes oriented to time HENMT: COMMON NORMALS: normocephalic, atraumatic and hearing grossly normal bilaterally HEAD & SCALP: normocephalic and atraumatic Extremity: COMMON NORMALS: normal to inspection, capillary refill normal, no clubbing, cyanosis or edema, no calf tenderness and no pedal edema NARRATIVE EXTREMITY EXAM: Pinpoint sinus drainage from the right mid lateral thigh. With compression small amount of purulent material is extruded. Was swabbed for culture. There is some firmness of the underlying tissue no fluctuance. Excoriation of the superficial tissue no necrotic lesions. Neuro: SENSORIUM/ORIENTATION: Yes oriented to person, Yes oriented to place and Yes oriented to time MDM - Skin/Abscess/Foreign Bdy Medicial Decision Making Drainage cultured. Nonfluctuant to palpation start Bactrim DS apply topical antibiotic ointment keep covered follow-up with primary care doctor if not improving or worsens or changes return. Discharge Plan Discharge Patient Disposition: Home Clinical Impression: Abscess of skin or subcutaneous tissue Condition: Stable Prescriptions: New Bactrim DS 800-160 mg tablet 2 tab PO BID 7 Days Qty: 28 0RF mupirocin 2 % ointment 1 applic topical BID Qty: 15 0RF No Action Tylenol 325 mg Tablet 500 mg PO Q6H PRN (Reason: Pain) ibuprofen 800 mg Tablet 800 mg PO TID PRN (Reason: Abdominal Discomfort) Qty: 40 0RF hydrocodone-acetaminophen 5-325 mg Tablet 1 - 2 tab PO Q4H PRN (Reason: Moderate To Severe Pain) Qty: 10 0RF docusate sodium 100 mg Capsule 100 mg PO BID Qty: 60 0RF ciprofloxacin HCl 500 mg tablet 500 mg PO Q12H Qty: 20 0RF prenat.vits,denis,xze-orxc-ievyz Tablet 1 tab PO DAILY Discharge Orders: Discharge ED (Routine); Ordered 10/09/22 Ordered By: Soern Escobedo Discharge Diet: Usual diet Discharge Activity: Resume usual activity Patient Instructions: Opioid Safety, Pain Management Activity Restrictions/Additional Instructions: You were seen today for a skin abscess. Start oral antibiotics and apply topical antibiotic sparingly to the irritated area of skin. You can also apply moist heat 2-3 times a day for 20 minutes at a time. Recheck if not improving Coding Level of Care Code ED Gang Hemstitching Machine Operator for Placido Crowe
== END 2022-10-09 11:58 | disposition home or self-care (01) ==
PROVIDERS: Emergency Provider Family Medicine
DX: L02.415 Cutaneous abscess of right lower limb (principal)
CPT/HCPCS: 87070; 87075; 87077; 87186; 87205; 99283

== ENCOUNTER 2023-01-14 17:47 | Inpatient (IN) | payer MEDICAID, SELFPAY ==
[2023-01-14 17:52] VITALS: BMI 41.5
[2023-01-14 17:57] VITALS: BP 154/99; PULSE 89; RESP 16; TEMP 36.7; O2SAT 100
--- NOTE | 2023-01-14 18:30 | ED_ITS ---
HPI - Overdose General: Chief Complaint: Overdose Stated Complaint: OVERDOSE Time Seen by Provider: 01/14/23 18:28 History of Present Illness: 27-year-old female presents emergency department via EMS secondary to suicidal ideation and attempt. She states that she took approximately a total of 20 naproxen that were 500 mg tablets at about 11 PM last night in an attempt to harm self. She states she also uses methamphetamine and her last use was 2 days ago. She states she has had previous attempts and states that she currently wants to harm herself. Review of Systems General: Reports: 10 or more systems reviewed and unremarkable except in HPI and below Psych: Reports: depression and suicidal ideation; Denies: homicidal ideation [facility] ED PFSH: Medical History No pertinent family history Surgical History No pertinent past surgical history Social History Smoking and tobacco/nicotine status: never used tobacco/nicotine Alcohol intake: never Substance/Drug Use: never Caregiver/support person: Yes Lives independently: No Household members: spouse Female Reproductive History: Date of last menstrual period: 12/28/22 Para: 3 Physical Exam Narrative: EXAM NARRATIVE: Constitutional: the patient appears well nourished and with normal development. Vital signs reviewed as documented. HENMT: Normocephalic, atraumatic. External ears with normal appearance without drainage. Nose without drainage, normal appearance. Mucus membranes moist. Neck is supple, No jugular venous distension, trachea is midline, no appreciable carotid bruits. No lymphadenopathy. No meningeal signs. Flexion, extension and lateral rotation is without pain. Eyes: Pupils are equal, round, reactive to light and accommodation. No scleral icterus. Extra-ocular movement are intact. Thorax is symmetrical and with equal rise and fall with respirations. Resp: Lungs are clear to auscultation. No wheezes, rales, crackles or ronchi at pesent. Cardio: Regular rate and rhythm. Positive S1, S2. No appreciable murmurs, rubs or gallops. GI: Abdominal exam reveals normal bowel sounds to all quadrants. No organomegal y. No obvious palpable masses noted. No hepatomegally appreciated. Soft, nontender to palpation. Extremity: Extremities are non-edematous and both femoral and pedal pulses are 2+ and equal bilaterally. Moves all extremities well, sensation in all extremities. Neuro: Alert and oriented x4, person, place, time and situation. Cranial nerves II through XII are grossly intact, there is no focal neurological deficits that I can appreciate at present. Motor strength in the upper and lower extremities are equal and bilateral 5/5. Psych: Cooperative, calm, suicidal ideation with plan and intent. Depressed. Withdrawn. Skin: No lesions, rashes. No gross abnormalities noted. Back: Symmetrical, no obvious deformity, No CVA tenderness Course Vital Signs: Vital signs: Vital Signs Temperature 98.0 F 01/14/23 17:57 Pulse Rate 70 01/14/23 22:07 Respiratory Rate 16 01/14/23 17:57 Blood Pressure 152/87 01/14/23 22:07 Pulse Oximetry 100 01/14/23 22:07 Oxygen Delivery Me thod Room Air 01/14/23 17:57 MDM - Overdose Medical Decision Making Physical exam completed and documented I will obtain a CBC, CMP Tylenol and salicylate level as well as alcohol urinalysis and drug screen for evaluation and admission to the behavioral health unit for additional evaluation and treatment for her severe depression and suicidal ideation with attempt. Medical Records I reviewed the patient's medical records. Lab Data I reviewed the patient's lab results. 01/14/23 18:52 01/14/23 18:52 Laboratory Results WBC 8.65 10^3/uL (3.29-11.43) 01/14/23 18:52 RBC 4.43 10^6/uL (3.85-5.65) 01/14/23 18:52 Hgb 12.30 g/dL (11.27-16.99) 01/14/23 18:52 Hct 39.5 % (36-47) 01/14/23 18:52 MCV 89.2 fl (85-98) 01/14/23 18:52 MCH 27.8 pg (27-33) 01/14/23 18:52 MCHC 31.1 g/dL (30-55) 01/14/23 18:52 RDW 13.6 % (12.1-15.1) 01/14/23 18:52 Plt Count 424 10^3/cmm (157-399) H 01/14/23 18:52 MPV 9.3 fL (7.4-10.4) 01/14/23 18:52 Neut % (Auto) 60.8 % 01/14/23 18:52 Lymph % (Auto) 30.2 % 01/14/23 18:52 Carson % (Auto) 7.1 % 01/14/23 18:52 Eos % (Auto) 1.5 % 01/14/23 18:52 Baso % (Auto) 0.3 % 01/14/23 18:52 Neut # (Auto) 5.26 10^3/uL (1.8-7.7) 01/14/23 18:52 Lymph # (Auto) 2.6 10^3/uL (0.8-4.8) 01/14/23 18:52 Carson # (Auto) 0.6 10^3/uL (0.2-0.9) 01/14/23 18:52 Eos # (Auto) 0.1 10^3/uL (0.0-0.8) 01/14/23 18:52 Baso # (Auto) 0.0 10^3/uL (0.0-0.1) 01/14/23 18:52 Nucleated RBC % (auto) 0 % 01/14/23 18:52 Nucleated RBCs # 0.0 /100WBC 01/14/23 18:52 Sodium 143 mmol/L (136-145) 01/14/23 18:52 Potassium 4.0 mmol/L (3.5-5.1) 01/14/23 18:52 Chloride 110 mmol/L (98-107) H 01/14/23 18:52 Carbon Dioxide 22 mmol/L (22-29) 01/14/23 18:52 Anion Gap 15.0 (5-19) 01/14/23 18:52 BUN 18 mg/dL (6-20) 01/14/23 18:52 Creatinine 1.0 mg/dL (0.5-0.9) H 01/14/23 18:52 GFR Calculation 66.0 mL/min (90-130) L 01/14/23 18:52 Glucose 90 mg/dL (65-115) 01/14/23 18:52 Calculated Osmolality 297 mOsm/kg (285-295) H 01/14/23 18:52 Calcium 8.9 mg/dL (8.5-10.5) 01/14/23 18:52 Total Bilirubin 0.2 mg/dL (0.15-1.2) 01/14/23 18:52 AST 21 U/L (0-32) 01/14/23 18:52 ALT 18 U/L (0-33) 01/14/23 18:52 Alkaline Phosphatase 59 U/L (35-105) 01/14/23 18:52 Total Protein 7.4 g/dL (6.6-8.7) 01/14/23 18:52 Albumin 3.7 g/dL (3.5-5.2) 01/14/23 18:52 Globulin 3.7 g/dL (1.3-4.6) 01/14/23 18:52 Salicylates 1.5 mg/dL (3-10) L 01/14/23 18:52 Acetaminophen < 5.0 ug/mL (10-30) L 01/14/23 18:52 Ethyl Alcohol < 10 mg/dL (0-10) 01/14/23 18:52 No radiology studies performed this visit Discharge Plan Discharge Patient Disposition: Admitted As Inpatient Admit Provider: Vladislav Llanos Clinical Impression: Suicidal ideation, Intentional overdose Condition: Stable Coding Level of Care Code ED Newspaper Carriers Supervisor for Placido Crowe
--- NOTE | 2023-01-14 18:33 | ECG_ITS ---
[facility] Test Date: 2023-01-14 Pat Name: Marie Nicholson Department: Room: Gender: Female Photographic Processor: : 1995 Requested By: Apolinar Ruff Order Number: [id number] Hill MD: Yeni Ibanez M.D. Measurements Intervals [place] Rate: 77 P: 51 NV: 161 QRS: 40 QRSD: 93 T: 46 QT: 397 QTc: 451 Interpretive Statements SINUS RHYTHM Compared to ECG 09/20/2022 19:08:57 Ventricular premature complex(es) no longer present Electronically Signed On 01-15-2023 21:56:23 MODERATE NEEDS TEACHER by Yeni Ibanez M.D. [id number]
[2023-01-14 18:58] LABS: Basophils % 0.3 %; Eosinophils # 0.1 10^3/uL (0.0-0.8); Eosinophils % 1.5 %; Hematocrit 39.5 % (36-47); Lymphocytes # 2.6 10^3/uL (0.8-4.8); Lymphocytes % 30.2 %; Mean Corpuscular HGB Conc 31.1 g/dL (30-55); Mean Corpuscular Hemoglobin 27.8 pg (27-33); Mean Corpuscular Volume 89.2 fl (85-98); Mean Platelet Volume 9.3 fL (7.4-10.4); Monocytes # 0.6 10^3/uL (0.2-0.9); Monocytes % 7.1 %; Neutrophils # 5.26 10^3/uL (1.8-7.7); Neutrophils % 60.8 %; Nucleated Red Blood Cells % 0 %; Platelet Count 424 10^3/cmm (157-399); Red Blood Count 4.43 10^6/uL (3.85-5.65); Red Cell Distribution Width 13.6 % (12.1-15.1); White Blood Count 8.65 10^3/uL (3.29-11.43)
[2023-01-14 19:14] LABS: Alanine Aminotransferase 18 U/L (0-33); Albumin Level 3.7 g/dL (3.5-5.2); Alkaline Phosphatase 59 U/L (35-105); Aspartate Amino Transferase 21 U/L (0-32); Blood Urea Nitrogen 18 mg/dL (6-20); Calcium 8.9 mg/dL (8.5-10.5); Carbon Dioxide 22 mmol/L (22-29); Chloride 110 mmol/L (98-107); Globulin 3.7 g/dL (1.3-4.6); Glucose 90 mg/dL (65-115); Osmolality Calculated 297 mOsm/kg (285-295); Salicylate 1.5 mg/dL (3-10); Sodium 143 mmol/L (136-145); Total Bilirubin 0.2 mg/dL (0.15-1.2); Total Protein 7.4 g/dL (6.6-8.7)
[2023-01-14 19:15] LABS: Acetaminophen < 5.0 ug/mL (10-30); Alcohol Level < 10 mg/dL (0-10)
--- NOTE | 2023-01-14 19:19 | PC.NURSE ---
took over pt care at 1914, report taken from GAVINO Specner
[2023-01-14 21:37] LABS: Add Urine Microscopic? YES; Bilirubin Urine 2+ (Negative); Blood Urine 2+ (Negative); Glucose Urine UA Norm (Normal); HCG Qualitative Urine. Negative (Negative); Ketones Urine 1+ (Negative); Leukocyte Esterase Urine 2+ (Negative); Nitrate Urine Negative (Negative); Protein Urine 2+ (Negative); RBC Urine 40-50 /hpf (0-2); Specific Gravity, Urine 1.025 (1.005-1.030); Squamous Epithelial Cell Urine TOO NUMEROUS TO CNT /hpf (0-5); Urine Appearance Cloudy (CLEAR); Urine Color Yellow (Yellow); Urobilinogen Urine Neg (Negative); WBC Urine 40-55 /hpf (0-5); pH Urine 5 (5-7)
[2023-01-14 21:38] LABS: Add Urine Culture? No; Amorphous Sediment Urine 1+ /hpf; Bacteria Urine 1+ /hpf
[2023-01-14 21:54] LABS: Amphetamines Screen Urine Positive (Negative); Barbiturates Screen Urine Positive (Negative); Benzodiazepines Screen Urine Negative (Negative); Cocaine Screen Urine Negative (Negative); Opiate Screen Urine Negative (Negative); PCP Screen Urine Negative (Negative); THC Screen Urine Negative (Negative)
[2023-01-14 22:07] VITALS: BP 152/87; PULSE 70; O2SAT 100
[2023-01-14 22:12] VITALS: BP 161/95; PULSE 72; RESP 18; TEMP 36.6; O2SAT 99
[2023-01-14 22:21] VITALS: BP 152/87; PULSE 70; O2SAT 100
[2023-01-15 06:00] VITALS: BP 137/82; PULSE 82; RESP 16; TEMP 36.5; O2SAT 96; BMI 41.5
--- NOTE | 2023-01-15 09:15 | PC.NURSE ---
Patient withdrawn to room this morning, but did get up to eat breakfast. Patient denies avh and si/hi. She does state she is feeling depressed this morning and is very flat. She endorses good sleep. Patient says she used to take psychiatric medications as a child, but can't remember the name.
[2023-01-15 10:23] LABS: Basophils % 0.3 %; Eosinophils # 0.2 10^3/uL (0.0-0.8); Eosinophils % 2.4 %; Hematocrit 36.6 % (36-47); Lymphocytes # 2.7 10^3/uL (0.8-4.8); Lymphocytes % 37.4 %; Mean Corpuscular HGB Conc 30.9 g/dL (30-55); Mean Corpuscular Hemoglobin 28.3 pg (27-33); Mean Corpuscular Volume 91.5 fl (85-98); Mean Platelet Volume 9.8 fL (7.4-10.4); Monocytes # 0.6 10^3/uL (0.2-0.9); Monocytes % 8.8 %; Neutrophils # 3.62 10^3/uL (1.8-7.7); Neutrophils % 50.8 %; Nucleated Red Blood Cells % 0 %; Platelet Count 344 10^3/cmm (157-399); Red Cell Distribution Width 13.7 % (12.1-15.1); White Blood Count 7.12 10^3/uL (3.29-11.43)
[2023-01-15 10:44] LABS: Alanine Aminotransferase 18 U/L (0-33); Albumin Level 3.5 g/dL (3.5-5.2); Alkaline Phosphatase 54 U/L (35-105); Anion Gap 11.3 (5-19); Aspartate Amino Transferase 18 U/L (0-32); Blood Urea Nitrogen 15 mg/dL (6-20); Calcium 9.2 mg/dL (8.5-10.5); Carbon Dioxide 23 mmol/L (22-29); Chloride 110 mmol/L (98-107); Globulin 2.6 g/dL (1.3-4.6); Glomerular Filtration Rate 74.6 mL/min (90-130); Glucose 98 mg/dL (65-115); Osmolality Calculated 291 mOsm/kg (285-295); Potassium 4.3 mmol/L (3.5-5.1); Sodium 140 mmol/L (136-145); Total Bilirubin 0.2 mg/dL (0.15-1.2); Total Protein 6.1 g/dL (6.6-8.7)
--- NOTE | 2023-01-15 13:13 | W.PM.NPUH&PS ---
Providers/Chief Complaint Admitting Physician: Vladislav Llanos MD Chief Complaint: OVERDOSE HPI NPU History of Present Illness Marie Nicholson is a 27 year old female who presented to the emergency department via EMS after having admitted to taking 20 naproxen pills with report of having thoughts of wanting to kill herself. The patient was admitted to the neuropsychiatric unit for further evaluation and treatment. The patient reports that she has been struggling with chronic methamphetamine abuse for greater than 5 years having used methamphetamine beginning at the age of 16. She reports that she has been mixing her methamphetamine with heroin. The patient reports that she is approaching the anniversary of having lost custody of all of her children approximately 1 year ago and states that she has been feeling more hopeless and worthless recently. She reports increased crying spells. She reports that she has been feeling more hopeless. She reports that she has been struggling with hypersomnia. She reports low energy and low motivation She has reported a loss of appetite. She reports that she has been more anxious as she chronically worries about her children. She reports that she often feels guilty that she is not able to care for her children. She also reports active cravings for methamphetamines. She denies any alcohol use. The patient reports having difficulties with concentration. She reports that she had previously been diagnosed with ADHD and a learning disability as a child and states that she has been frustrated at being able to manage routine activities of daily living. She reports a past history of psychotic symptoms when using methamphetamine but denies any currently. She did not endorse any manic symptoms. She denies any history of PTSD symptoms. Inpatient psychiatric history: None Outpatient psychiatric treatment: She reports history of depression and ADHD while reporting having received treatment at the [facility] more than 10 years ago. Drug and alcohol history: She reports no alcohol use. She reports no marijuana use. She does report having used methamphetamines beginning at the age of 16 with increased use reported over the last 5 years. She reports the longest period of sobriety from methamphetamine is less than 1 day. She also reports a history of heroin use intranasally for the past few years with no treatment treatment history for opiate use. She states that she had been in rehabilitation in March 2022 in [facility] through [facility]. She states that she was there for 21 days only. Allergies: Penicillin Medical history: Hypertension, history of pyelonephritis Surgical history: Tonsillectomy adenoidectomy, Current medications: None Developmental history: History of developmental delays as she reports having been diagnosed with a learning disorder while struggling in school. Family psychiatric history: None reported Legal history: None reported Social history: The patient was raised in [facility] and is from her first and only for the past 3 years. She states that she was raised by her mother as her father had been living in another city and raising another family. She states that she briefly lived with her father at the age of 11 but returned back to live with her mother. She reports no history of any sexual physical or emotional abuse. She did report witnessing the of her grandmother as an adolescent. She reports that she dropped out of school and never got her GED after dropping out in the 11th grade. She has 4 children ages 942 and 1 respectively. She states that she had lost all 4 of her children due to her substance abuse issues. Her 9 4 and 2-year-old all live with her half-brother. Her 1-year-old currently resides with her biological mother. She has been homeless for at least 1 year. Meds NPU Home Medications Medication Instructions Recorded Confirmed Last Taken Type prenat.vits,denis,owk-frac-lxkly 1 tab PO DAILY 12/15/21 02/10/22 02/10/22 08:00 History acetaminophen 325 mg tablet 500 mg PO Q6H PRN Pain 02/10/22 02/10/22 02/10/22 12:00 History (Tylenol) docusate sodium 100 mg capsule 100 mg PO BID #60 caps 02/13/22 Unknown Rx hydrocodone 5 mg-acetaminophen 325 1 - 2 tab PO Q4H PRN Moderate To 02/13/22 Unknown Rx mg tablet Severe Pain #10 tabs ibuprofen 800 mg tablet 800 mg PO TID PRN Abdominal 02/13/22 Unknown Rx Discomfort #40 tabs ciprofloxacin HCl 500 mg tablet 500 mg PO Q12H #20 tabs 09/20/22 Unknown Rx mupirocin 2 % topical ointment 1 applic topical BID #15 grams 10/09/22 Unknown Rx Allergies Allergy/AdvReac Type Severity Reaction Status Date / Time amitriptyline Allergy Mild ALGY-Hives Verified 10/09/22 11:46 Penicillins Allergy Mild ALGY-Hives Verified 10/09/22 11:46 PFSH NPU PFSH: Medical History No pertinent family history Surgical History No pertinent past surgical history Social History Smoking and tobacco/nicotine status: never used tobacco/nicotine Alcohol intake: never Substance/Drug Use: never Caregiver/support person: Yes Lives independently: No Household members: spouse Female Reproductive History: Para: 3 Mental Status Exam MSE Comments: She is a casually dressed white female with disheveled appearance and mottled teeth who appeared older than her stated age. Her gait appeared within normal limits. Her hygiene was poor. There was evidence of moderate psychomotor retardation. Her speech was normal in regards to rate rhythm and prosody. Her mood was described as depressed. Her affect was restricted in range and mood-congruent. There was no clear evidence of delusional thinking. She did not appear to be responding to internal stimuli and denied any auditory or visual hallucinations. She had endorsed suicidal ideation with a plan to overdose. She denied any homicidal ideation. Her attention span was variable. Her recent and remote memory were grossly intact. She was alert and oriented to person place time and situation. Her insight was poor. Her judgment was poor. Her impulse control appeared limited. Vitals/I&O/Wt Last Vital Signs Temp 97.7 F 01/15/23 06:00 Pulse 82 01/15/23 06:00 Resp 16 01/15/23 06:00 BP 137/82 01/15/23 06:00 Pulse Ox 96 01/15/23 06:00 O2 Del Method Room Air 01/15/23 06:00 Weight last 48 hrs Weight 113.398 kg Weight 113.398 kg Data NPU 01/15/23 09:00 01/15/23 09:00 A&P Assessment and plan (1) Major depressive disorder, recurrent episode: (2) History of ADHD: (3) Methamphetamine abuse: (4) Opioid abuse: (5) ANGIE (generalized anxiety disorder): Plan 27-year-old white female with polysubstance abuse admitted after overdosing with suicidal intention currently depressed with reports of increased hopelessness and desire to receive treatment for her addiction issues. 1. ?Encourage individual, group and milieu therapy. 2. Recommend sober living treatment at the highest level of care to which the patient is willing to commit. 3. Continue q-15 minute checks for safety. 4. Consider Suboxone for opioid dependence. 5. Start zoloft 25mg daily to target anxiety and depression. 6. Consider dual diagnosis treatment. Involuntary Hold Information 96 Hour Hold: 96 Hour Involuntary Admission: No Attestations NPU Medical Necessity Statement*: Inpatient hospitalization is medically necessary and deemed to be the clinically appropriate intervention at this time. We will monitor and adjust medications as clinically indicated. The patient will be hospitalized for at least 2 midnights. The patient's likely length of stay is 3 to 5 days. Coding Level of Care Code Acute Code for [facility] Fwd Diagnoses Major depressive disorder, recurrent episode F33.9 History of ADHD Z86.59 Methamphetamine abuse F15.10 Opioid abuse F11.10 ANGIE (generalized anxiety disorder) F41.1
[2023-01-15 13:32] VITALS: BP 144/86; PULSE 78; RESP 17; TEMP 36.4; O2SAT 97
[2023-01-15] MEDS: sertraline 50 mg Tablet 25 MG PO (13:58)
[2023-01-15 20:07] VITALS: BP 138/81; PULSE 74; RESP 16; TEMP 36.6; O2SAT 99
[2023-01-16 06:00] VITALS: BP 132/84; PULSE 77; RESP 16; O2SAT 95
[2023-01-16] MEDS: sertraline 50 mg Tablet 25 MG PO (09:05)
[2023-01-16] MEDS: ondansetron 4 MG Tablet PO (09:17)
[2023-01-16 14:00] VITALS: BP 169/98; PULSE 80; RESP 16; TEMP 36.6; O2SAT 94
--- NOTE | 2023-01-16 18:59 | W.PM.NPUPNS ---
Subjective NPU Subjective: 27-year-old female with a history of depression along with methamphetamine and opiate abuse currently endorsing suicidal ideation. The patient continued to endorse depressed mood. She had reported abdominal discomfort and reported that this was a frequent problem when coming off of either oral opiates or intranasal heroin. The patient had reported no previous trials of Suboxone. She had reported feeling tired. She reported low motivation. She reported no side effects from her Zoloft. She had stated that she had felt down over having lost custody of her children. She had stated that she would like help for long-term treatment of methamphetamine dependence with reports of decreased ability to stop despite significant adverse consequences. Mental Status Exam MSE Comments: She is a casually dressed white female with disheveled appearance and mottled teeth who appeared older than her stated age. Her gait appeared within normal limits. Her hygiene was poor. There was evidence of severe psychomotor retardation. Dialated pupils. Her speech was normal in regards to rate rhythm and prosody. Her mood was described as depressed. Her affect was restricted in range and mood-congruent. There was no clear evidence of delusional thinking. She did not appear to be responding to internal stimuli and denied any auditory or visual hallucinations. She had endorsed suicidal ideation with a plan to overdose. She denied any homicidal ideation. Her attention span was variable. Her recent and remote memory were grossly intact. She was alert and oriented to person place time and situation. Her insight was poor. Her judgment was poor. Her impulse control appeared limited. Vitals/I&O/Wt Last Vital Signs Temp 97.9 F 01/16/23 14:00 Pulse 80 01/16/23 14:00 Resp 16 01/16/23 14:00 BP 169/98 01/16/23 14:00 Pulse Ox 94 01/16/23 14:00 O2 Del Method Room Air 01/16/23 14:00 Weight last 48 hrs Weight 113.398 kg Data NPU 01/15/23 09:00 01/15/23 09:00 A&P Assessment and plan (1) Major depressive disorder, recurrent episode: (2) History of ADHD: (3) Methamphetamine abuse: (4) Opioid abuse: (5) ANGIE (generalized anxiety disorder): Plan 27-year-old white female with polysubstance abuse admitted after overdosing with suicidal intention currently depressed with reports of increased hopelessness and desire to receive treatment for her addiction issues. 1. ?Encourage individual, group and milieu therapy. 2. Recommend sober living treatment at the highest level of care to which the patient is willing to commit. 3. Continue q-15 minute checks for safety. 4. Consider suboxone 8mg trial 5. Increase zoloft 50mg daily to target anxiety and depression. 6. Consider dual diagnosis treatment. Involuntary Hold Information 96 Hour Hold: 96 Hour Involuntary Admission: No Attestations NPU Medical Necessity Statement*: Inpatient hospitalization is medically necessary and deemed to be the clinically appropriate intervention at this time. We will monitor and adjust medications as clinically indicated. The patient's likely length of stay is 3 to 5 days. Coding Level of Care Code Acute Code for [facility] Fwd Diagnoses Major depressive disorder, recurrent episode F33.9 History of ADHD Z86.59 Methamphetamine abuse F15.10 Opioid abuse F11.10 ANGIE (generalized anxiety disorder) F41.1
--- NOTE | 2023-01-16 19:50 | PC.NURSE ---
IN BED RESTING AROUSES TO VOICE. PT EDUCATED ON NEW ORDER OF SUBOXONE 8/2MG THAT ORDERED FOR PTS WITHDRAWS. PT VERBALIZES UNDERSTANDING AND STATES SHE WILL COME TAKE IT BY 1999. PT DENIES SI/HI AND AVH AT THIS TIME. PT REPORTS ANXIETY 5/10 AND DEPRESSION 5/10. PT IS ALSO REQUESTING MEDICATION TO HELP HER SLEEP AND DECREASE ANXIETY. RN WILL ADMINISTER TRAZODONE 50 MG FOR INSOMNIA AND VISTARIL 50 MG FOR ANXIETY WHEN PT COMES UP FOR SCHEDULED MEDICATION. ALL QUESTIONS WERE ANSWERED AND SUPPORT WAS VOICED.
[2023-01-16 20:13] VITALS: BP 152/95; PULSE 77; RESP 16; TEMP 36.8; O2SAT 99
[2023-01-16] MEDS: hyDROXYzine 25 mg Capsule 50 MG PO (20:17)
[2023-01-16] MEDS: trazodone 50 mg Tablet PO (20:17)
[2023-01-16] MEDS: buprenorphine-naloxone 4-1 mg Film 2 EACH SUBLINGUAL (20:17)
[2023-01-17 06:00] VITALS: BP 113/73; PULSE 78; RESP 16; TEMP 36.6; O2SAT 93
[2023-01-17] MEDS: sertraline 50 mg Tablet PO (08:41)
[2023-01-17] MEDS: acetaminophen 325 mg Tablet 650 MG PO (08:41)
[2023-01-17] MEDS: ondansetron 4 MG Tablet PO ×2 (08:41→20:39)
[2023-01-17 14:00] VITALS: BP 117/70; PULSE 66; RESP 18; TEMP 36.8; O2SAT 92
[2023-01-17] MEDS: buprenorphine-naloxone 4-1 mg Film 2 EACH SUBLINGUAL (14:52)
--- NOTE | 2023-01-17 17:33 | P.NPUPN_ITS ---
Subjective NPU Subjective: 27-year-old female with a history of depression along with methamphetamine and opiate abuse currently endorsing suicidal ideation. Patient continued to isolate herself on the milieu. She had reported significant history of abdominal pain and withdrawal symptoms when stopping her heroin for any extended period of time. She had reported feeling a little better after receiving her Suboxone last night. She had reported some nausea. She had expressed motivation to consider a longer term placement to help her with managing her depression and her polysubstance use. She had been somewhat isolative on the milieu as she reported feeling tired. She was briefly able to attend groups. She had struggled with self-care. She had reported having problems with concentration but stated that she was having less thoughts of hurting herself although she continued to acknowledge feeling sad for the past several months. She had reported recurring thoughts of having lost her children with reports of feelings of guilt. Mental Status Exam MSE Comments: She is a casually dressed white female with disheveled appearance and mottled teeth who appeared older than her stated age. Her gait appeared within normal limits. Her hygiene was poor. There was evidence of severe psychomotor retardation. Her speech was normal in regards to rate rhythm and prosody. Her mood was described as depressed. Her affect was restricted in range and mood- congruent. There was no clear evidence of delusional thinking. She did not appear to be responding to internal stimuli and denied any auditory or visual hallucinations. She denied suicidal ideation. She denied any homicidal ideation. Her attention span was variable. Her recent and remote memory were grossly intact. She was alert and oriented to person place time and situation. Her insight was poor. Her judgment was poor. Her impulse control appeared limited. Vitals/I&O/Wt Last Vital Signs Temp 98.2 F 01/17/23 14:00 Pulse 66 01/17/23 14:00 Resp 18 01/17/23 14:00 BP 117/70 01/17/23 14:00 Pulse Ox 92 01/17/23 14:00 O2 Del Method Room Air 01/17/23 06:00 Data NPU 01/15/23 09:00 01/15/23 09:00 A&P Assessment and plan (1) Major depressive disorder, recurrent episode: (2) History of ADHD: (3) Methamphetamine abuse: (4) Opioid abuse: (5) ANGIE (generalized anxiety disorder): Plan 27-year-old white female with polysubstance abuse admitted after overdosing with suicidal intention currently depressed with reports of increased hopelessness and desire to receive treatment for her addiction issues. 1. ?Encourage individual, group and milieu therapy. 2. Recommend sober living treatment at the highest level of care to which the patient is willing to commit. 3. Continue q-15 minute checks for safety. 4. Increase Suboxone 16mg/day-patient showed evidence of opioid withdrawal on 8mg daily of suboxone. 5.Continue zoloft 50mg daily to target anxiety and depression. 6. Consider dual diagnosis treatment. Involuntary Hold Information 96 Hour Hold: 96 Hour Involuntary Admission: No Attestations NPU Medical Necessity Statement*: Inpatient hospitalization is medically necessary and deemed to be the clinically appropriate intervention at this time. We will monitor and adjust medications as clinically indicated. The patient's likely length of stay is 3 to 5 days. Coding Level of Care Code Acute Code for [facility] Fwd Diagnoses Major depressive disorder, recurrent episode F33.9 History of ADHD Z86.59 Methamphetamine abuse F15.10 Opioid abuse F11.10 ANGIE (generalized anxiety disorder) F41.1
[2023-01-17 20:44] VITALS: BP 119/81; PULSE 68; RESP 15; TEMP 36.8; O2SAT 97
--- NOTE | 2023-01-17 20:52 | PC.NURSE ---
IN BED RESTING AROUSES TO VOICE. PT C/O OF NAUSEA AND WAS GIVEN ZOFRAN 4 MG. PT MISSED HER AM DOSE OF SUBOXONE AND A ONE TIME DOSE WAS GIVEN AT 1600, SEE MAR FOR DETAILS. PT DENIES SI/HI AND AVH AT THIS TIME. RATES ANXIETY 4/10 AND DEPRESSION 4/10. REPORTS HER STOMACH PAIN IS 2/10 WHICH SHE RECEIVED ZOFRAN FOR. ALL QUESTIONS ANSWERED AND SUPPORT VOICED.
[2023-01-18 06:00] VITALS: BP 140/83; PULSE 74; RESP 16; O2SAT 95
[2023-01-18] MEDS: sertraline 50 mg Tablet PO (08:22)
[2023-01-18] MEDS: ondansetron 4 MG Tablet PO ×2 (08:22→15:40)
[2023-01-18] MEDS: buprenorphine-naloxone 4-1 mg Film 2 EACH SUBLINGUAL ×2 (08:23→20:02)
--- NOTE | 2023-01-18 08:23 | PC.NURSE ---
PRN ZOFRAN 4 MG GIVEN PO PER PT C/O NAUSEA
[2023-01-18 14:00] VITALS: BP 145/85; PULSE 73; RESP 18; TEMP 36.3; O2SAT 96
--- NOTE | 2023-01-18 15:41 | PC.NURSE ---
PRN ZOFRAN 4 MG GIVEN PO PER PT C/O NAUSEA
--- NOTE | 2023-01-18 17:43 | W.PM.NPUPNS ---
Subjective NPU Subjective: 27-year-old female with a history of depression along with methamphetamine and opiate abuse currently endorsing suicidal ideation. Patient reported some relief from opiate withdrawal symptoms on the 16 mg/day of Suboxone. She continued to isolate out herself on the milieu and appeared unmotivated to attend groups. She had continued to endorse feelings of sadness. She had stated that she would like to fill out and consider placement in an extended living situation that focused on her addiction. She had reported feeling tired. She had reported some loss of appetite. Patient continued to require significant prompting for completion of activities of daily living. Mental Status Exam MSE Comments: She is an obese white female with disheveled appearance and mottled teeth who appeared older than her stated age. Her gait appeared within normal limits. Her hygiene was poor. There was evidence of severe psychomotor retardation. Her speech was normal in regards to rate, rhythm, and prosody. Her mood was described as depressed. Her affect was restricted in range and mood-congruent. There was no clear evidence of delusional thinking. She did not appear to be responding to internal stimuli and denied any auditory or visual hallucinations. She denied suicidal ideation. She denied any homicidal ideation. Her attention span was variable. Her recent and remote memory were grossly intact. She was alert and oriented to person, place,time and situation. Her insight was poor. Her judgment was poor. Her impulse control appeared limited. Vitals/I&O/Wt Last Vital Signs Temp 97.4 F L 01/18/23 14:00 Pulse 73 01/18/23 14:00 Resp 18 01/18/23 14:00 BP 145/85 01/18/23 14:00 Pulse Ox 96 01/18/23 14:00 O2 Del Method Room Air 01/18/23 14:00 Data NPU 01/15/23 09:00 01/15/23 09:00 A&P Assessment and plan (1) Major depressive disorder, recurrent episode: (2) Opioid abuse: (3) Methamphetamine abuse: (4) History of ADHD: (5) ANGIE (generalized anxiety disorder): Plan 27-year-old white female with polysubstance abuse admitted after overdosing with suicidal intention currently depressed with reports of increased hopelessness and desire to receive treatment for her addiction issues. 1. ?Encourage individual, group and milieu therapy. 2. Recommend sober living treatment at the highest level of care to which the patient is willing to commit. 3. Continue q-15 minute checks for safety. 4. Continue Suboxone 16mg/day- 5.Continue zoloft 50mg daily to target anxiety and depression. 6. Consider dual diagnosis treatment. Involuntary Hold Information 96 Hour Hold: 96 Hour Involuntary Admission: No Attestations NPU Medical Necessity Statement*: Inpatient hospitalization is medically necessary and deemed to be the clinically appropriate intervention at this time. We will monitor and adjust medications as clinically indicated. The patient's likely length of stay is 3 to 5 days. Coding Level of Care Code Acute Code for [facility] Fwd Diagnoses Major depressive disorder, recurrent episode F33.9 Opioid abuse F11.10 Methamphetamine abuse F15.10 History of ADHD Z86.59 ANGIE (generalized anxiety disorder) F41.1
[2023-01-18 20:33] VITALS: BP 95/63; PULSE 75; RESP 18; TEMP 37.3; O2SAT 96
[2023-01-19 06:00] VITALS: BP 144/84; PULSE 72; RESP 18; TEMP 37.1; O2SAT 98
[2023-01-19] MEDS: sertraline 50 mg Tablet PO (07:51)
[2023-01-19] MEDS: buprenorphine-naloxone 4-1 mg Film 2 EACH SUBLINGUAL ×2 (07:51→20:10)
[2023-01-19] MEDS: acetaminophen 325 mg Tablet 650 MG PO (10:41)
[2023-01-19] MEDS: ondansetron 4 MG Tablet PO (10:42)
--- NOTE | 2023-01-19 13:53 | P.NPUPN_ITS ---
Subjective NPU Subjective: 27-year-old female with a history of depression along with methamphetamine and opiate abuse currently endorsing suicidal ideation. She continued to report feeling tired. She reported no feelings of hopelessness but reported continued sadness. She reported low energy and continue to isolate herself on the milieu stating that she had felt tired. She had reported that these were typical symptoms for her of amphetamine withdrawal. She had reported no cravings for opiates at this time and stated that the Suboxone had been helpful. Mental Status Exam MSE Comments: She is an obese white female with disheveled appearance and mottled teeth who appeared older than her stated age. Her gait appeared within normal limits. Her hygiene was poor. There was evidence of moderate psychomotor retardation. Her speech was normal in regards to rate, rhythm, and prosody. Her mood remained depressed. Her affect was restricted in range and mood-congruent. There was no clear evidence of delusional thinking. She did not appear to be responding to internal stimuli and denied any auditory or visual hallucinations. She denied suicidal ideation. She denied any homicidal ideation. Her atte ntion span was fair today. Her recent and remote memory were grossly intact. She was alert and oriented to person, place, time and situation. Her insight was poor. Her judgment was poor. Her impulse control appeared limited. Vitals/I&O/Wt Last Vital Signs Temp 98.7 F 01/19/23 06:00 Pulse 72 01/19/23 06:00 Resp 18 01/19/23 06:00 BP 144/84 01/19/23 06:00 Pulse Ox 98 01/19/23 06:00 O2 Del Method Room Air 01/19/23 06:00 Data NPU 01/15/23 09:00 01/15/23 09:00 Micro: Microbiology 01/17/23 18:26 Urine Culture - Preliminary Urine,Voided Gram Negative Rods Microbiology 01/17/23 18:26 Urine,Voided Urine Culture - Preliminary Gram Negative Rods A&P Assessment and plan (1) Major depressive disorder, recurrent episode: (2) Opioid abuse: (3) Methamphetamine abuse: (4) History of ADHD: (5) ANGIE (generalized anxiety disorder): Plan 27-year-old white female with polysubstance abuse admitted after overdosing with suicidal intention currently depressed with reports of increased hopelessness and desire to receive treatment for her addiction issues. 1. ?Encourage individual, group and milieu therapy. 2. Recommend sober living treatment at the highest level of care to which the patient is willing to commit. 3. Continue q-15 minute checks for safety. 4. Continue Suboxone 16mg/day- 5.Increase zoloft to 75mg daily to target anxiety and depression. 6. Consider dual diagnosis treatment. Involuntary Hold Information 96 Hour Hold: 96 Hour Involuntary Admission: No Attestations NPU Medical Necessity Statement*: Inpatient hospitalization is medically necessary and deemed to be the clinically appropriate intervention at this time. We will monitor and adjust medications as clinically indicated. The patient's likely length of stay is 3 to 5 days. Coding Level of Care Code Acute Code for [facility] Fwd Diagnoses Major depressive disorder, recurrent episode F33.9 Opioid abuse F11.10 Methamphetamine abuse F15.10 History of ADHD Z86.59 ANGIE (generalized anxiety disorder) F41.1
[2023-01-19 14:00] VITALS: BP 128/77; PULSE 67; RESP 16; TEMP 36.8; O2SAT 95
[2023-01-19 16:26] LABS: Glucose Urine UA Norm (Normal); Ketones Urine Negative (Negative); Protein Urine Neg (Negative); Urine Appearance Cloudy (CLEAR); Urine Color Yellow (Yellow); pH Urine 7 (5-7)
[2023-01-19 16:27] LABS: Add Urine Culture? Yes; Bacteria Urine 4+ /hpf; Bilirubin Urine Neg (Negative); Blood Urine Trace (Negative); Leukocyte Esterase Urine 2+ (Negative); Nitrate Urine Positive (Negative); RBC Urine 0-4 /hpf (0-2); Squamous Epithelial Cell Urine 0-4 /hpf (0-5); Urobilinogen Urine Norm (Negative)
[2023-01-19 20:18] VITALS: BP 147/83; PULSE 72; RESP 16; TEMP 36.8; O2SAT 97
[2023-01-20 06:00] VITALS: BP 138/94; PULSE 70; RESP 16; TEMP 36.8; O2SAT 99
[2023-01-20] MEDS: hyDROXYzine 25 mg Capsule 50 MG PO (08:04)
[2023-01-20] MEDS: sertraline 50 mg Tablet PO (08:04)
[2023-01-20] MEDS: acetaminophen 325 mg Tablet 650 MG PO (08:04)
[2023-01-20] MEDS: buprenorphine-naloxone 4-1 mg Film 2 EACH SUBLINGUAL (08:33)
[2023-01-20] MEDS: ondansetron 4 MG Tablet PO (11:49)
[2023-01-20] MEDS: ibuprofen 600 mg Tablet PO (11:59)
[2023-01-20] MEDS: OLANZapine 5 mg ODT PO (13:16)
[2023-01-20 14:00] VITALS: BP 178/116; PULSE 96; RESP 18; TEMP 36.9; O2SAT 96
--- NOTE | 2023-01-20 14:13 | PC.NURSE ---
charge nurse notified, will recheck and continue to monitor.
[2023-01-20] MEDS: sulfamethoxazole-trimeth DS 160-800 mg Tablet 1 TAB PO (14:14)
[2023-01-20 14:38] VITALS: BP 178/116; PULSE 96; RESP 18; TEMP 36.9; O2SAT 96
--- NOTE | 2023-01-20 16:23 | P.NPUDS_ITS ---
Diagnoses at Discharge Discharge Diagnosis (1) Major depressive disorder, recurrent episode: Status: Acute (2) Opioid abuse: Status: Acute (3) Methamphetamine abuse: Status: Acute (4) History of ADHD: Status: Acute (5) ANGIE (generalized anxiety disorder): Status: Acute Reason for Visit Reason for Visit: OVERDOSE Brief History: History of Present Illness Marie Nicholson is a 27 year old female who presented to the emergency department via EMS after having admitted to taking 20 naproxen pills with report of having thoughts of wanting to kill herself.? The patient was admitted to the neuropsychiatric unit for further evaluation and treatment.? The patient reports that she has been struggling with chronic methamphetamine abuse for greater than 5 years having used methamphetamine beginning at the age of 16.? She reports that she has been mixing her methamphetamine with heroin.? The patient reports that she is approaching the anniversary of having lost custody of all of her children approximately 1 year ago and states that she has been feeling more hopeless and worthless recently.? She reports increased crying spells.? She reports that she has been feeling more hopeless.? She reports that she has been struggling with hypersomnia.? She reports low energy and low motivation? She has reported a loss of appetite.? She reports that she has been more anxious as she chronically worries about her children.? She reports that she often feels guilty that she is not able to care for her children.? She also reports active cravings for methamphetamines. She denies any alcohol use.? The patient reports having d ifficulties with concentration.? She reports that she had previously been diagnosed with ADHD and a learning disability as a child and states that she has been frustrated at being able to manage routine activities of daily living.? She reports a past history of psychotic symptoms when using methamphetamine but denies any currently.? She did not endorse any manic symptoms.? She denies any history of PTSD symptoms. Inpatient psychiatric history: None Outpatient psychiatric treatment: She reports history of depression and ADHD while reporting having received treatment at the [facility] more than 10 years ago. Drug and alcohol history: She reports no alcohol use.? She reports no marijuana use.? She does report having used methamphetamines beginning at the age of 16 with increased use reported over the last 5 years.? She reports the longest period of sobriety from methamphetamine is less than 1 day.? She also reports a history of heroin use intranasally for the past few years with no treatment tr eatment history for opiate use.? She states that she had been in rehabilitation in March 2022 in [facility] through [facility] counseling.? She states that she was there for 21 days only. Allergies: Penicillin Medical history: Hypertension, history of pyelonephritis Surgical history: Tonsillectomy adenoidectomy, Current medications: None Developmental history: History of developmental delays as she reports having been diagnosed with a learning disorder while struggling in school. Family psychiatric history: None reported Legal history: None reported Social history: The patient was raised in [facility] and is from her first and only for the past 3 years.? She states that she was raised by her mother as her father had been living in another city and raising another family.? She states that she briefly lived with her father at the age of 11 but returned back to live with her mother.? She reports no history of any sexual physical or emotional abuse.? She did report witnessing the of her grandmother as an adolescent.? She reports that she dropped out of school and never got her GED after dropping out in the 11th grade.? She has 4 children ages 9,4,2 and 1 respectively.? She states that she had lost all 4 of her children due to her substance abuse issues.? Her , 4, and 2-year-old and 1 year old all live outside of the home. ? Her 1-year-old currently resides with her biological mother.? She has been homeless for at least 1 year. Hospital Course Hospital Course During the hospitalization, the patient had routine laboratory studies which were within normal limits except for a few outliers.? Additionally, there was a general medical evaluation which was also within normal limits and revealed no new acute processes.? At the time of discharge, lethality was denied and psychosis was resolving.? Mood and anxiety were well managed.? The patient endorsed a plan to avoid all drugs of abuse and follow up with the aftercare recommendations of the treatment team.? The patient was evaluated and deemed to be absent credible lethality and had achieved the maximum benefit from an inpatient hospitalization, and so was discharged.? the patient had endorsed a significant history of opiate dependence and Suboxone was initiated to target opiate withdrawal symptoms with much improvement noted. She had also been started on Zoloft and titrated up to a dose of 50 mg prior to discharge. She was found to have a urinary tract infection and Bactrim double strength was initiated to target her urinary tract infection. Referrals were made and attempts were made to try to get the patient placed into an inpatient substance abuse rehabilitation facility with a considerable waiting list found with our referrals. Patient was agreeable to being contacted by those particular facilities if an opening were to come into place in the next 2 to 4 weeks. Involuntary Hold Information 96 Hour Hold: 96 Hour Involuntary Admission: No Mental Status Exam MSE Comments: She is an obese white female with disheveled appearance and mottled teeth who appeared older than her stated age. Her gait appeared within normal limits. Her hygiene was below average. There was evidence of mild psychomotor retardation. Her speech was normal in regards to rate, rhythm, and prosody. He r mood was described as better. Her affect was slightly restricted on discharge. There was no clear evidence of delusional thinking. She did not appear to be responding to internal stimuli and denied any auditory or visual hallucinations. She denied suicidal ideation. She denied any homicidal ideation. Her attention span was fair today. Her recent and remote memory were grossly intact. She was alert and oriented to person, place, time and situation. Her insight was limited. Her judgment was fair. Her impulse control appeared fair. Discharge Data Studies Completed and Pending: Pending at discharge Category Date Time Status CBC Auto Diff [Co mplete Blood Count w/Auto] Routine Lab 01/20/23 11:28 Ordered Urine Culture Rou krysta Lab 01/19/23 15:30 Results Laboratory Results WBC 7.12 10^3/uL (3.2 9-11.43) 01/15/23 09:00 RBC 4.00 10^6/uL (3.8 5-5.65) 01/15/23 09:00 Hgb 11.30 g/dL (11.27 -16.99) 01/15/23 09:00 Hct 36.6 % (36-47) 01/15/23 09:00 MCV 91.5 fl (85-98) 01/15/23 09:00 MCH 28.3 pg (27-33) 01/15/23 09:00 MCHC 30.9 g/dL (30-55) 01/15/23 09:00 RDW 13.7 % (12.1-15.1 ) 01/15/23 09:00 Plt Count 344 10^3/cmm (157 -399) 01/15/23 09:00 MPV 9.8 fL (7.4-10.4) 01/15/23 09:00 Neut % (Auto) 50.8 % 01/15/23 09:00 Lymph % (Auto) 37.4 % 01/15/23 09:00 [place] % (Auto) 8.8 % 01/15/23 09:00 Eos % (Auto) 2.4 % 01/15/23 09:00 Baso % (Auto) 0.3 % 01/15/23 09:00 Neut # (Auto) 3.62 10^3/uL (1.8 -7.7) 01/15/23 09:00 Lymph # (Auto) 2.7 10^3/uL (0.8- 4.8) 01/15/23 09:00 [place] # (Auto) 0.6 10^3/uL (0.2- 0.9) 01/15/23 09:00 Eos # (Auto) 0.2 10^3/uL (0.0- 0.8) 01/15/23 09:00 Baso # (Auto) 0.0 10^3/uL (0.0- 0.1) 01/15/23 09:00 Nucleated RBC % (a uto) 0 % 01/15/23 09:00 Nucleated RBCs # 0.0 /100WBC 01/15/23 09:00 Sodium 140 mmol/L (136-1 45) 01/15/23 09:00 Potassium 4.3 mmol/L (3.5-5 .1) 01/15/23 09:00 Chloride 110 mmol/L (98-10 7) H 01/15/23 09:00 Carbon Dioxide 23 mmol/L (22-29) 01/15/23 09:00 Anion Gap 11.3 (5-19) 01/15/23 09:00 BUN 15 mg/dL (6-20) 01/15/23 09:00 Creatinine 0.9 mg/dL (0.5-0. 9) 01/15/23 09:00 GFR Calculation 74.6 mL/min (90-1 30) L 01/15/23 09:00 Glucose 98 mg/dL (65-115) 01/15/23 09:00 Calculated Osmolal ity 291 mOsm/kg (285- 295) 01/15/23 09:00 Calcium 9.2 mg/dL (8.5-10 .5) 01/15/23 09:00 Total Bilirubin 0.2 mg/dL (0.15-1 .2) 01/15/23 09:00 AST 18 U/L (0-32) 01/15/23 09:00 ALT 18 U/L (0-33) 01/15/23 09:00 Alkaline Phosphata se 54 U/L (35-105) 01/15/23 09:00 Total Protein 6.1 g/dL (6.6-8.7 ) L 01/15/23 09:00 Albumin 3.5 g/dL (3.5-5.2 ) 01/15/23 09:00 Globulin 2.6 g/dL (1.3-4.6 ) 01/15/23 09:00 HCG, Qual Negative (Negati ve) 01/14/23 21:00 Urine Color Yellow (Yellow) 01/19/23 15:30 Urine Appearance Cloudy (CLEAR) A 01/19/23 15:30 Urine pH 7 (5-7) 01/19/23 15:30 Ur Specific Gravit y 1.010 (1.005-1.0 30) 01/19/23 15:30 Urine Protein Neg (Negative) 01/19/23 15:30 Urine Glucose (UA) Norm (Normal) 01/19/23 15:30 Urine Ketones Negative (Negati ve) 01/19/23 15:30 Urine Blood Trace (Negative) H 01/19/23 15:30 Urine Nitrate Positive (Negati ve) H 01/19/23 15:30 Urine Bilirubin Neg (Negative) 01/19/23 15:30 Urine Urobilinogen Norm mg/dL (Negat stephanie) 01/19/23 15:30 Ur Leukocyte Mabel ase 2+ (Negative) H 01/19/23 15:30 Urine RBC 0-4 /hpf (0-2) H 01/19/23 15:30 Urine WBC 10-15 /hpf (0-5) H 01/19/23 15:30 Ur Squamous Epith Cells 0-4 /hpf (0-5) H 01/19/23 15:30 Amorphous Sediment Not Reportable 01/19/23 15:30 Urine Bacteria 4+ /hpf (NONE) H 01/19/23 15:30 Salicylates 1.5 mg/dL (3-10) L 01/14/23 18:52 Urine Opiates Scre en Negative ng/mL (N egative) 01/14/23 21:00 Acetaminophen < 5.0 ug/mL (10-3 0) L 01/14/23 18:52 Ur Barbiturates Sc reen Positive ng/mL (N egative) H 01/14/23 21:00 Ur Phencyclidine S crn Negative ng/mL (N egative) 01/14/23 21:00 Ur Amphetamines Sc reen Positive ng/mL (N egative) H 01/14/23 21:00 U Benzodiazepines Scrn Negative ng/mL (N egative) 01/14/23 21:00 Urine Cocaine Scre en Negative ng/mL (N egative) 01/14/23 21:00 U Marijuana (THC) Screen Negative ng/mL (N egative) 01/14/23 21:00 Ethyl Alcohol < 10 mg/dL (0-10) 01/14/23 18:52 Vitals: Last Vital Signs Temp 98.4 F 01/20/23 14:38 Pulse 96 01/20/23 14:38 Resp 18 01/20/23 14:38 BP 178/116 01/20/23 14:38 Pulse Ox 96 01/20/23 14:38 O2 Del Method Room Air 01/19/23 20:18 Discharge Plan Discharge Patient Disposition: Home Condition: Stable Prescriptions: New sulfamethoxazole-trimethoprim 800-160 mg Tablet 1 tab PO BID 5 Days Qty: 10 0RF sertraline 50 mg Tablet 50 mg PO DAILY 30 Days Qty: 45 1RF buprenorphine-naloxone 4-1 mg Film 2 film sublingual 0900,2100 3 Days Qty: 12 0RF Suboxone 8-2 mg film 2 film sublingual BID Qty: 56 0RF Rx Instructions: place 1 strip/tab under (each) side of tongue twice a day Discharge Orders: Discharge Order (Routine); Ordered 01/20/23 Ordered By: Kobi Garsia Referrals: [facility] [Other] (You have been referred) [facility] [Other] (Call on Monday to check for admission. ) [facility] [Outside] (Office closed due to holiday. You will called on Monday with appointment. ) Discharge Diet: Advance as tolerated Discharge Activity: Resume usual activity Patient Instructions: Sulfamethoxazole/Trimethoprim (By mouth) (Bactrim, Bactrim DS,..., Sertraline (By mouth) (Zoloft), Buprenorphine/Naloxone (Into the mouth), ADHD in Adults (DC), Anxiety (DC), Opioid Use Disorder (DC), Opioid Safety Discharge Attestations NPU Time Spent in Discharge Care*: less than 30 min Specific Discharge Activities: Specific discharge activities: educating patient, discussing with senior case manager/social workers/dc planners and d ocumenting/other paperwork Coding Level of Care Code Acute Chg FW DC note Diagnoses Major depressive disorder, recurrent episode F33.9 Opioid abuse F11.10 Methamphetamine abuse F15.10 History of ADHD Z86.59 ANGIE (generalized anxiety disorder) F41.1
[2023-01-20 16:29] LABS: Basophils # 0.1 10^3/uL (0.0-0.1); Basophils % 0.5 %; Eosinophils # 0.3 10^3/uL (0.0-0.8); Eosinophils % 2.4 %; Hematocrit 40.2 % (36-47); Lymphocytes # 3.1 10^3/uL (0.8-4.8); Lymphocytes % 29.5 %; Mean Corpuscular HGB Conc 32.1 g/dL (30-55); Mean Corpuscular Hemoglobin 27.9 pg (27-33); Mean Platelet Volume 9.8 fL (7.4-10.4); Monocytes # 0.6 10^3/uL (0.2-0.9); Monocytes % 5.9 %; Neutrophils # 6.46 10^3/uL (1.8-7.7); Neutrophils % 61.4 %; Nucleated Red Blood Cells % 0 %; Platelet Count 375 10^3/cmm (157-399); Red Blood Count 4.62 10^6/uL (3.85-5.65); Red Cell Distribution Width 12.7 % (12.1-15.1); White Blood Count 10.51 10^3/uL (3.29-11.43)
== END 2023-01-20 16:19 | disposition home or self-care (01) | DRG 885 ==
LOC: ER 21:00 → NP 21:24
PROVIDERS: Admitting Provider Psychiatry & Neurology Psychiatry; Emergency Provider Internal Medicine; Visit Provider Psychiatry & Neurology Psychiatry
DX: F33.9 Major depressive disorder, recurrent, unspecified (principal); R45.851 Suicidal ideations; Z59.00 Homelessness unspecified; Z91.51 Personal history of suicidal behavior; F11.10 Opioid abuse, uncomplicated; F15.10 Other stimulant abuse, uncomplicated; F90.9 Attention-deficit hyperactivity disorder, unspecified type; F41.1 Generalized anxiety disorder; I10 Essential (primary) hypertension; F81.9 Developmental disorder of scholastic skills, unspecified
CPT/HCPCS: 36415; 80053; 80306; 80307; 81001; 81025; 85025; 87077; 87086; 87186; 93005; 97150; 97165; 99285; J0573; Q0162

== ENCOUNTER 2023-05-01 17:43 | Inpatient (IN) | payer MEDICAID, SELFPAY ==
[2023-05-01 17:48] VITALS: BP 183/127; PULSE 92; RESP 16; TEMP 36.6; O2SAT 97; BMI 41.5
--- NOTE | 2023-05-01 18:08 | ED.C_ITS ---
HPI - Psych 2 General: Chief Complaint: Psychiatric Symptoms Stated Complaint: MHE Time Seen by Provider: 05/01/23 17:50 Source: patient Mode of arrival: ambulatory Limitations: no limitations History of Present Illness: 28-year-old female 19-year-old female [place] she has a history of meth abuse and heroin abuse states she is homeless states she has had increasing suicidal thoughts she states she has a plan to kill herself by overdosing. She denies any worsening improving factors. Associated symptoms: Reports depression and suicidal ideation Review of Systems 2 Const: Denies: fever(s) or chills ENMT: Denies: throat pain or dental pain Card: Denies: chest pain Resp: Denies: dyspnea GI: Denies: abdominal pain, nausea, vomiting or diarrhea Musc: Denies: neck pain or back pain Skin/Breast: Denies: rash Neuro: Denies: headache(s) Psych: Reports: depression and suicidal ideation PFSH ED 2 PFSH: Medical History Psychiatric care No pertinent family history Surgical History No pertinent past surgical history Social History Smoking and tobacco/nicotine status: never used tobacco/nicotine Alcohol intake: never Substance/Drug Use: never Caregiver/support person: Yes Lives independently: No Household members: spouse Female Reproductive History: Para: 3 Physical Exam 2 Const: COMMON NORMALS: no acute distress, patient oriented x3 and healthy appearing HENMT: COMMON NORMALS: normocephalic and atraumatic HEAD & SCALP: n ormocephalic and atraumatic Neck/C-Spine: COMMON NORMALS: full ROM and supple Chest: COMMONS NORMALS: normal inspection of the chest Resp: COMMON NORMALS: normal respiratory effort Cardio: COMMON NORMALS: regular rate, regular rhythm and No murmurs present (Cardio) RATE: regular rate RHYTHM: regular rhythm Extremity: COMMON NORMALS: normal to inspection and full ROM Neuro: COMMON NORMALS: patient oriented x3, moves all extremities and no focal motor deficits Psych: COMMON NORMALS: mental status grossly normal, Normal thought process present and cooperative THOUGHT PROCESS: Normal thought process present T HOUGHT CONTENT: Yes Suicidality present Skin: COMMON NORMALS: no rashes or lesions noted and no wounds GENERAL SKIN EXAM: no rashes or lesions noted Course 2 Vital Signs: Vital signs: Vital Signs Temperature 97.8 F 05/01/23 17:48 Pulse Rate 92 05/01/23 17:48 Respiratory Rate 16 05/01/23 17:48 Blood Pressure 113/64 05/01/23 18:22 Pulse Oximetry 97 05/01/23 17:48 Oxygen Delivery Me thod Room Air 05/01/23 17:48 MDM - Psych Medical Decision Making Patient presents here with suicidal ideation she also has a history of drug abuse she is voluntary she is medically cleared spoke to psychiatrist will admit. Medical Records I reviewed the patient's medical records. Lab Data I reviewed the patient's lab results. 05/01/23 18:14 05/01/23 18:14 Laboratory Results WBC 12.22 10^3/uL (3.29-11.43) H 05/01/23 18:14 RBC 4.42 10^6/uL (3.85-5.65) 05/01/23 18:14 Hgb 12.60 g/dL (11.27-16.99) 05/01/23 18:14 Hct 39.0 % (36-47) 05/01/23 18:14 MCV 88.2 fl (85-98) 05/01/23 18:14 MCH 28.5 pg (27-33) 05/01/23 18:14 MCHC 32.3 g/dL (30-55) 05/01/23 18:14 RDW 13.5 % (12.1-15.1) 05/01/23 18:14 Plt Count 362 10^3/cmm (157-399) 05/01/23 18:14 MPV 10.1 fL (7.4-10.4) 05/01/23 18:14 Neut % (Auto) 59.8 % 05/01/23 18:14 Lymph % (Auto) 33.0 % 05/01/23 18:14 [place] % (Auto) 4.9 % 05/01/23 18:14 Eos % (Auto) 1.8 % 05/01/23 18:14 Baso % (Auto) 0.2 % 05/01/23 18:14 Neut # (Auto) 7.30 10^3/uL (1.8-7.7) 05/01/23 18:14 Lymph # (Auto) 4.0 10^3/uL (0.8-4.8) 05/01/23 18:14 [place] # (Auto) 0.6 10^3/uL (0.2-0.9) 05/01/23 18:14 Eos # (Auto) 0.2 10^3/uL (0.0-0.8) 05/01/23 18:14 Baso # (Auto) 0.0 10^3/uL (0.0-0.1) 05/01/23 18:14 Nucleated RBC % (auto) 0 % 05/01/23 18:14 Nucleated RBCs # 0.0 /100WBC 05/01/23 18:14 Sodium 135 mmol/L (136-145) L 05/01/23 18:14 Potassium 3.4 mmol/L (3.5-5.1) L 05/01/23 18:14 Chloride 104 mmol/L (98-107) 05/01/23 18:14 Carbon Dioxide 21 mmol/L (22-29) L 05/01/23 18:14 Anion Gap 13.4 (5-19) 05/01/23 18:14 BUN 19 mg/dL (6-20) 05/01/23 18:14 Creatinine 0.8 mg/dL (0.5-0.9) 05/01/23 18:14 GFR Calculation 84.8 mL/min (90-130) L 05/01/23 18:14 Glucose 125 mg/dL (65-115) H 05/01/23 18:14 Calculated Osmolality 284 mOsm/kg (285-295) L 05/01/23 18:14 Calcium 8.9 mg/dL (8.5-10.5) 05/01/23 18:14 Total Bilirubin 0.3 mg/dL (0.15-1.2) 05/01/23 18:14 AST 12 U/L (0-32) 05/01/23 18:14 ALT 12 U/L (0-33) 05/01/23 18:14 Alkaline Phosphatase 57 U/L (35-105) 05/01/23 18:14 Total Protein 7.0 g/dL (6.6-8.7) 05/01/23 18:14 Albumin 3.7 g/dL (3.5-5.2) 05/01/23 18:14 Globulin 3.3 g/dL (1.3-4.6) 05/01/23 18:14 HCG, Qual Negative (Negative) 05/01/23 18:24 Salicylates < 0.3 mg/dL (3-10) L 05/01/23 18:14 Urine Opiates Screen Negative ng/mL (Negative) 05/01/23 18:24 Acetaminophen < 5.0 ug/mL (10-30) L 05/01/23 18:14 Ur Barbiturates Screen Negative ng/mL (Negative) 05/01/23 18:24 Ur Phencyclidine Scrn Negative ng/mL (Negative) 05/01/23 18:24 Ur Amphetamines Screen Positive ng/mL (Negative) H 05/01/23 18:24 U Benzodiazepines Scrn Negative ng/mL (Negative) 05/01/23 18:24 Urine Cocaine Screen Negative ng/mL (Negative) 05/01/23 18:24 U Marijuana (THC) Screen Negative ng/mL (Negative) 05/01/23 18:24 Ethyl Alcohol < 10 mg/dL (0-10) 05/01/23 18:14 No radiology studies performed this visit Discharge Plan Discharge Patient Disposition: Admitted As Inpatient Admit Provider: Vladislav Llanos Clinical Impression: Methamphetamine abuse, Suicidal ideation Condition: Stable Coding Level of Care Code ED Vp [employer] for Placido Crowe
[2023-05-01 18:22] VITALS: BP 113/64
[2023-05-01 18:25] LABS: Basophils % 0.2 %; Eosinophils # 0.2 10^3/uL (0.0-0.8); Eosinophils % 1.8 %; Mean Corpuscular HGB Conc 32.3 g/dL (30-55); Mean Corpuscular Hemoglobin 28.5 pg (27-33); Mean Corpuscular Volume 88.2 fl (85-98); Mean Platelet Volume 10.1 fL (7.4-10.4); Monocytes # 0.6 10^3/uL (0.2-0.9); Monocytes % 4.9 %; Neutrophils % 59.8 %; Nucleated Red Blood Cells % 0 %; Platelet Count 362 10^3/cmm (157-399); Red Blood Count 4.42 10^6/uL (3.85-5.65); Red Cell Distribution Width 13.5 % (12.1-15.1); White Blood Count 12.22 10^3/uL (3.29-11.43)
[2023-05-01 18:37] LABS: Acetaminophen < 5.0 ug/mL (10-30); Alanine Aminotransferase 12 U/L (0-33); Albumin Level 3.7 g/dL (3.5-5.2); Alkaline Phosphatase 57 U/L (35-105); Anion Gap 13.4 (5-19); Aspartate Amino Transferase 12 U/L (0-32); Blood Urea Nitrogen 19 mg/dL (6-20); Calcium 8.9 mg/dL (8.5-10.5); Carbon Dioxide 21 mmol/L (22-29); Chloride 104 mmol/L (98-107); Creatinine Clr Calc Pharmacy 130.3196; Globulin 3.3 g/dL (1.3-4.6); Glomerular Filtration Rate 84.8 mL/min (90-130); Glucose 125 mg/dL (65-115); Osmolality Calculated 284 mOsm/kg (285-295); Potassium 3.4 mmol/L (3.5-5.1); Salicylate < 0.3 mg/dL (3-10); Sodium 135 mmol/L (136-145); Total Bilirubin 0.3 mg/dL (0.15-1.2)
[2023-05-01 18:38] LABS: Alcohol Level < 10 mg/dL (0-10)
[2023-05-01 18:40] LABS: Amphetamines Screen Urine Positive (Negative); Barbiturates Screen Urine Negative (Negative); Benzodiazepines Screen Urine Negative (Negative); Cocaine Screen Urine Negative (Negative); Opiate Screen Urine Negative (Negative); PCP Screen Urine Negative (Negative); THC Screen Urine Negative (Negative)
[2023-05-01 18:50] LABS: HCG Qualitative Urine. Negative (Negative)
[2023-05-01 19:26] VITALS: BP 174/85; PULSE 82; RESP 20; TEMP 36.5; O2SAT 99
[2023-05-01 19:58] VITALS: BP 126/73; PULSE 59; RESP 16; O2SAT 99
--- NOTE | 2023-05-01 20:52 | PC.ADMIT ---
[address] [facility]45 Admission Note: The patient,Marie Nicholson,28 y/o, was given written information regarding hospital policies, unit procedures and contact persons. Patient's smoking status: never smoked. 1/2-1 PACK A DAY Vital Signs - 8 hr 05/01/23 17:48 05/01/23 18:22 05/01/23 19:58 Temperature 97.8 F Pulse Rate 92 59 L Respiratory Rate 16 16 Blood Pressure 183/127 113/64 126/73 Pulse Oximetry 97 99 Oxygen Delivery Method Room Air Room Air 05/01/23 20:39 Temperature Pulse Rate Respiratory Rate Blood Pressure Pulse Oximetry Oxygen Delivery Method Room Air ADMITTED FROM [facility] ER VIA WHEELCHAIR, SECURITY AND ER STAFF AT 2009. PT IS VOLUNTARY AT THIS TIME. PT STATES SHE IS HERE DUE TO HAVING SUICIDAL THOUGHTS THAT STARTED A WEEK AGO PT STATES SHE IS SUPPOSE TO TAKE ZOLOFT AND SUBOXONE 8/2MG BID BUT MEDICAID WILL NO LONGER PAY FOR IT SO SHE CAN NOT PAY FOR IT. PT REPORTS SHE IS HOMELESS AND IS COUCH SURFING AT THIS TIME. DENIES PAIN. ENDORSES SUICIDAL THOUGHTS WITH NO SPECIFIC PLAN, PT IS OBSERVED HAVING SUPERFICIFICIAL CUTS TO LEFT LOWER FOREARM THAT WAS SELF INFLICTED BY PT. PT STATES SHE IS HAVING NON SPECIFIC SUICIDAL THOUGHTS FOR THE PAST WEEK. PT STATES SHE HAS NO PLAN CURRENTLY. PT REPORTS BM 05/01/23. PT REPORTS ALLERGIES TO PCNS AND AMITRIPTYLIINE. PT STATES SHE DOES NOT WANT A FLU SHOT AT THIS TIME. PT WAS POSITIVE FOR METH AND REPORTS USING ONE DAY AGO. PT STATES SHE SMOKES AND INJECTS METHAMPHETAMINES AND HEROIN. THE LAST HEROIN USE REPORTED WAS 2 WEEKS AGO. PT WAS WANDED PER PROTOCOL AND DRESSED INTO SCRUBS. SKIN ASSESSMENT REVEALED SELF INFLICTED SUPERFICIAL CUTS TO LEFTT LOWER FOREARM. PT WAS ORIENTATED TO UNIT. RATES ANXIETY 2/10 AND DEPRESSION 3/10. PT DECLINES ANY MEDICATIONS AT THIS TIME. ALL QUESTIONS WERE ANSWERED AND SUPPORT WAS VOICED.
[2023-05-02 06:00] VITALS: BP 111/61; PULSE 62; RESP 16; TEMP 36.4; O2SAT 98
[2023-05-02 10:40] LABS: HIV 1 & 2 Antibody Non-Reactive (Non-Reactiv); HIV 1 & 2 Antigen Non-Reactive (Non-Reactiv)
[2023-05-02 10:51] LABS: Hepatitis A Antibody IgM Non-Reactive (Nonreactive); Hepatitis B Core AB, Total Non-Reactive (Nonreactive); Hepatitis B Surface AB < 3.5 (11.5-1000); Hepatitis B Surface Antigen Non-Reactive (Nonreactive); Hepatitis C Virus Antibody Non-Reactive (Nonreactive)
[2023-05-02 14:00] VITALS: BP 103/67; PULSE 72; RESP 16; TEMP 36.6; O2SAT 98
--- NOTE | 2023-05-02 14:37 | P.NPUHP_ITS ---
Providers/Chief Complaint 2 Admitting Physician: Vladislav Llanos MD Chief Complaint: MHE HPI NPU History of Present Illness Marie Nicholson is a 28 year old female recently discharged from the neuropsychiatric unit on 01/20/2023 who presented to the emergency department with suicidal ideation with a plan to overdose. The patient was admitted to the neuropsychiatric unit for further evaluation and treatment. The patient had reported similar complaints to her previous hospitalization. She reports that she has been off of all of her medications since February of this year. She states that she has been feeling more depressed. She continued to state that she has been using methamphetamine on a daily basis along with opiate use both orally and recently having used IV heroin approximately a month ago. She is reporting her most recent use of opiates 2 days ago and states that she last used methamphetamine yesterday. She reports that she feels out of control. She had stated that she had been sent home to live with her mother after discharge from the neuropsychiatric unit with the plan for the patient to go to [facility] on an inpatient basis when a bed became available. Unfortunately, the patient states that she never made it to the end the inpatient rehab known [facility]. She did indicate that she had recently been placed in an inpatient substance abuse facility in [facility] for 2 weeks but left without completing the program. She continues to report her mood is being worse and reports that she has continued cravings for both opiates and methamphetamine. She reported no changes otherwise since her last hospitalization except that she is no longer allowed at home and that she has resumed being homeless around the [place] area. She was requesting that she be restarted on her previous psychotropic medications. She reports sleep continuity disruption. She reports significant lack of appetite. Current medications: none in last 3 months Excerpt from Discharge Summary from 01/20/23 NPU Discharge Diagnosis (1) Major depressive disorder, recurrent episode: Status: Acute (2) Opioid abuse: Status: Acute (3) Methamphetamine abuse: Status: Acute (4) History of ADHD: Status: Acute (5) ANGIE (generalized anxiety disorder): Status: Acute Reason for Visit OVERDOSE Brief History: History of Present Illness Marie Nicholson is a 27 year old female who presented to the emergency department via EMS after having admitted to taking 20 naproxen pills with report of having thoughts of wanting to kill herself.? The patient was admitted to the neuropsychiatric unit for further evaluation and treatment.? The patient reports that she has been struggling with chronic methamphetamine abuse for greater than 5 years having used methamphetamine beginning at the age of 16.? She reports that she has been mixing her methamphetamine with heroin.? The patient reports that she is approaching the anniversary of having lost custody of all of her children approximately 1 year ago and states that she has been feeling more hopeless and worthless recently.? She reports increased crying spells.? She reports that she has been feeling more hopeless.? She reports that she has been struggling with hypersomnia.? She reports low energy and low motivation? She has reported a loss of appetite.? She reports that she has been more anxious as she chronically worries about her children.? She reports that she often feels guilty that she is not able to care for her children.? She also reports active cravings for methamphetamines. She denies any alcohol use.? The patient reports having difficulties with concentration.? She reports that she had previously been diagnosed with ADHD and a learning disability as a child and states that she has been frustrated at being able to manage routine activities of daily living.? She reports a past history of psychotic symptoms when using methamphetamine but denies any currently.? She did not endorse any manic symptoms.? She denies any history of PTSD symptoms. Inpatient psychiatric history: None Outpatient psychiatric treatment: She reports history of depression and ADHD while reporting having received treatment at the [facility] more than 10 years ago. Drug and alcohol history: She reports no alcohol use.? She reports no marijuana use.? She does report having used methamphetamines beginning at the age of 16 with increased use reported over the last 5 years.? She reports the longest period of sobriety from methamphetamine is less than 1 day.? She also reports a history of heroin use intranasally for the past few years with no treatment treatment history for opiate use.? She states that she had been in rehabilitation in March 2022 in [facility] through [facility] She states that she was there for 21 days only. Allergies: Penicillin Medical history: Hypertension, history of pyelonephritis Surgical history: Tonsillectomy adenoidectomy, Current medications: None Developmental history: History of developmental delays as she reports having been diagnosed with a learning disorder while struggling in school. Family psychiatric history: None reported Legal history: None reported Social history: The patient was raised in [facility] and is from her first and only for the past 3 years.? She states that she was raised by her mother as her father had been living in another city and raising another family.? She states that she briefly lived with her father at the age of 11 but returned back to live with her mother.? She reports no history of any sexual physical or emotional abuse.? She did report witnessing the of her grandmother as an adolescent.? She reports that she dropped out of school and never got her GED after dropping out in the 11th grade.? She has 4 children ages 9,4,2 and 1 respectively.? She states that she had lost all 4 of her children due to her substance abuse issues.? Her , 4, and 2-year-old and 1 year old all live outside of the home. ? Her 1-year-old currently resides with her biological mother.? She has been homeless for at least 1 year. Hospital Course Hospital Course During the hospitalization, the patient had routine laboratory studies which were within normal limits except for a few outliers.? Additionally, there was a general medical evaluation which was also within normal limits and revealed no new acute processes.? At the time of discharge, lethality was denied and psychosis was resolving.? Mood and anxiety were well managed.? The patient endorsed a plan to avoid all drugs of abuse and follow up with the aftercare recommendations of the treatment team.? The patient was evaluated and deemed to be absent credible lethality and had achieved the maximum benefit from an inpatient hospitalization, and so was discharged.? the patient had endorsed a significant history of opiate dependence and Suboxone was initiated to target opiate withdrawal symptoms with much improvement noted. She had also been started on Zoloft and titrated up to a dose of 50 mg prior to discharge. She was found to have a urinary tract infection and Bactrim double strength was initiated to target her urinary tract infection. Referrals were made and attempts were made to try to get the patient placed into an inpatient substance abuse rehabilitation facility with a considerable waiting list found with our referrals. Patient was agreeable to being contacted by those particular facilities if an opening were to come into place in the next 2 to 4 weeks. Meds NPU Home Medications Medication Instructions Recorded Confirmed Last Taken Type doxepin 10 mg capsule 10 mg PO BEDTIME PRN Insomnia 05/01/23 05/01/23 Unknown History Allergies Allergy/AdvReac Type Severity Reaction Status Date / Time amitriptyline Allergy Mild ALGY-Hives Verified 01/15/23 19:18 Penicillins Allergy Mild ALGY-Hives Verified 01/15/23 19:18 PFSH NPU 2 PFSH: Medical History Psychiatric care No pertinent family history Surgical History No pertinent past surgical history Social History Smoking and tobacco/nicotine status: never used tobacco/nicotine Alcohol intake: never Substance/Drug Use: never Caregiver/support person: Yes Lives independently: No Household members: spouse Female Reproductive History: Para: 3 Mental Status Exam 2 MSE Comments: She is a casually dressed white female with disheveled appearance and mottled teeth who appeared older than her stated age. She was alert and oriented to person place time and situation. There was the presence of rhinorrhea.Her gait appeared within normal limits. Her hygiene was poor. There was evidence of moderate psychomotor retardation. Her speech was normal in regards to rate rhythm and prosody. Her mood was described as depressed. Her affect was restricted in range and mood-congruent. There was no clear evidence of delusional thinking. She did not appear to be responding to internal stimuli and denied any auditory or visual hallucinations. She had endorsed suicidal ideation with a plan to overdose. She denied any homicidal ideation. Her attention span was poor. Her recent and remote memory were grossly intact. Her insight was poor. Her judgment was poor. Her impulse control appeared limited. Vitals/I&O/Wt Last Vital Signs Temp 98 F 05/02/23 14:00 Pulse 72 05/02/23 14:00 Resp 16 05/02/23 14:00 BP 103/67 05/02/23 14:00 Pulse Ox 98 05/02/23 14:00 O2 Del Method Room Air 05/02/23 14:00 Weight last 48 hrs Weight 113.398 kg Data NPU 05/01/23 18:14 05/01/23 18:14 A&P Assessment and plan (1) Major depressive disorder, recurrent episode: (2) ANGIE (generalized anxiety disorder): (3) Opioid abuse: (4) History of ADHD: (5) Methamphetamine abuse: Plan 28-year-old white female with polysubstance abuse admitted after overdosing with suicidal ideation with plan to overdose with hx of Major depression and Generalized anxiety along with adhd. 1. ?Encourage individual, group and milieu therapy. 2. Recommend sober living treatment at the highest level of care to which the patient is willing to commit. 3. Continue q-15 minute checks for safety. 4. Will restart suboxone when patient is in mild to moderate withdrawal. 5. Restart zoloft 50mg daily to target anxiety and depression. 6. Consider dual diagnosis treatment-likely needs inpatient substance abuse treatment. Involuntary Hold Information 2 96 Hour Hold: 96 Hour Involuntary Admission: No Attestations NPU 2 Medical Necessity Statement*: Inpatient hospitalization is medically necessary and deemed to be the clinically appropriate intervention at this time. We will monitor and adjust medications as clinically indicated. The patient will be hospitalized for at least 2 midnights. The patient's likely length of stay is 3 to 5 days. Coding Level of Care Code Acute Code for [facility] Fwd Diagnoses Major depressive disorder, recurrent episode F33.9 ANGIE (generalized anxiety disorder) F41.1 Opioid abuse F11.10 History of ADHD Z86.59 Methamphetamine abuse F15.10
[2023-05-02] MEDS: sertraline 50 mg Tablet 25 MG PO (16:08)
[2023-05-02 19:59] VITALS: BP 125/66; PULSE 73; RESP 16; TEMP 36.8; O2SAT 100
[2023-05-03 06:00] VITALS: BP 144/73; PULSE 76; RESP 16; TEMP 36.5; O2SAT 99
[2023-05-03] MEDS: sertraline 50 mg Tablet PO (09:47)
[2023-05-03 13:06] VITALS: BP 139/82; PULSE 69; RESP 16; TEMP 36.8; O2SAT 99
--- NOTE | 2023-05-03 15:27 | P.NPUPN_ITS ---
Subjective NPU 2 Subjective: 28-year-old female with a history of depression along with methamphetamine and opiate abuse admitted with suicidal ideation and homelessness. Patient had continued to report fatigue. She had isolated herself on the milieu. She reported low energy and low motivation. She had complained of some opiate related withdrawal symptoms. She had acknowledged that she had lost all of her privileges to return home and even see her children. She had reported some cravings for opiates at this time. She was unable to attend groups today. Mental Status Exam 2 MSE Comments: She is a casually dressed white female with disheveled appearance and mottled teeth who appeared older than her stated age. She was alert and oriented to person place time and situation. There was the presence of rhinorrhea.Her gait appeared within normal limits. Her hygiene was poor. There was evidence of moderate psychomotor retardation. Her speech was normal in regards to rate rhythm and prosody. Her mood was described as depressed. Her affect was restricted in range and mood-congruent. There was no clear evidence of delusional thinking. She did not appear to be responding to internal stimuli and denied any auditory or visual hallucinations. She had endorsed suicidal ideation with a plan to overdose. She denied any homicidal ideation. Her attention span was poor. Her recent and remote memory were grossly intact. Her insight was poor. Her judgment was poor. Her impulse control appeared limited. Vitals/I&O/Wt Last Vital Signs Temp 98.3 F 05/03/23 13:06 Pulse 69 05/03/23 13:06 Resp 16 05/03/23 13:06 BP 139/82 05/03/23 13:06 Pulse Ox 99 05/03/23 13:06 O2 Del Method Room Air 05/03/23 13:06 Weight last 48 hrs Weight 113.398 kg Data NPU 05/01/23 18:14 05/01/23 18:14 A&P Assessment and plan (1) Major depressive disorder, recurrent episode: (2) ANGIE (generalized anxiety disorder): (3) Opioid abuse: (4) History of ADHD: (5) Methamphetamine abuse: Plan 28-year-old white female with polysubstance abuse admitted after overdosing with suicidal ideation with plan to overdose with hx of Major depression and Generalized anxiety along with adhd. 1. ?Encourage individual, group and milieu therapy. 2. Recommend sober living treatment at the highest level of care to which the patient is willing to commit. 3. Continue q-15 minute checks for safety. 4. Begin Suboxone 8/2mg/day 5. Continue zoloft 50mg daily to target anxiety and depression. 6. Consider dual diagnosis treatment-likely needs inpatient substance abuse treatment.-seeking direct placement, [facility] may be next with repeated failures to remain clean and continued hospitalizations. Involuntary Hold Information 2 96 Hour Hold: 96 Hour Involuntary Admission: No Attestations NPU 2 Medical Necessity Statement*: Inpatient hospitalization is medically necessary and deemed to be the clinically appropriate intervention at this time. We will monitor and adjust medications as clinically indicated. The patient's likely length of stay is 5-7 days. Coding Level of Care Code Acute Code for [facility] Fwd Diagnoses Major depressive disorder, recurrent episode F33.9 ANGIE (generalized anxiety disorder) F41.1 Opioid abuse F11.10 History of ADHD Z86.59 Methamphetamine abuse F15.10
[2023-05-03] MEDS: buprenorphine-naloxone 4-1 mg Film 1 EACH SUBLINGUAL (17:34)
[2023-05-03 20:32] VITALS: BP 133/71; PULSE 64; RESP 15; TEMP 36.8; O2SAT 97
[2023-05-04 06:00] VITALS: BP 140/75; PULSE 64; RESP 16; TEMP 36.9; O2SAT 99
[2023-05-04] MEDS: buprenorphine-naloxone 4-1 mg Film 1 EACH SUBLINGUAL ×2 (09:53→17:19)
[2023-05-04] MEDS: sertraline 50 mg Tablet PO (09:53)
[2023-05-04 14:00] VITALS: BP 128/95; PULSE 81; RESP 13; TEMP 37.9; O2SAT 100
--- NOTE | 2023-05-04 16:20 | P.NPUPN_ITS ---
Subjective NPU 2 Subjective: 28-year-old female with a history of depression along with methamphetamine and opiate abuse admitted with suicidal ideation and homelessness. Patient had reported reduction in opiate related withdrawal on the Suboxone. She had continued to report feeling tired. She had reported low motivation and energy. She had expressed sadness and stated that she could no longer remain homeless. She had reported that her family including her mother had lost all hope and her. Patient had reported that she would need to be placed in inpatient facility in order to begin sobriety. Patient was given information regarding digital therapeutic applications for treating methamphetamine dependence. Mental Status Exam 2 MSE Comments: She is a casually dressed white female with disheveled appearance and mottled teeth who appeared older than her stated age. She was alert and oriented to person place time and situation. Her gait appeared within normal limits. Her hygiene remained poor. There was evidence of moderate psychomotor retardation. Her speech was normal in regards to rate rhythm and prosody. Her mood was described as depressed. Her affect was restricted in range and mood-congruent. There was no clear evidence of delusional thinking. She did not appear to be responding to internal stimuli and denied any auditory or visual hallucinations. She continued to endorse suicidal ideation. She denied any homicidal ideation. Her attention span was poor. Her recent and remote memory were grossly intact. Her insight was poor. Her judgment was poor. Her impulse control appeared limited. Vitals/I&O/Wt Last Vital Signs Temp 98.4 F 05/04/23 06:00 Pulse 64 05/04/23 06:00 Resp 16 05/04/23 06:00 BP 140/75 05/04/23 06:00 Pulse Ox 99 05/04/23 06:00 O2 Del Method Room Air 05/04/23 06:00 Data NPU 05/01/23 18:14 05/01/23 18:14 A&P Assessment and plan (1) Major depressive disorder, recurrent episode: (2) ANGIE (generalized anxiety disorder): (3) Opioid abuse: (4) History of ADHD: (5) Methamphetamine abuse: Plan 28-year-old white female with polysubstance abuse admitted after overdosing with suicidal ideation with plan to overdose with hx of Major depression and Generalized anxiety along with adhd. 1. ?Encourage individual, group and milieu therapy. 2. Recommend sober living treatment at the highest level of care to which the patient is willing to commit. 3. Continue q-15 minute checks for safety. 4. Continue Suboxone 8/2mg/day 5. Continue zoloft 50mg daily to target anxiety and depression. 6. Consider dual diagnosis treatment-likely needs inpatient substance abuse treatment.-seeking direct placement, [facility] may be next with repeated failures to remain clean and continued hospitalizations. Involuntary Hold Information 2 96 Hour Hold: 96 Hour Involuntary Admission: No Attestations NPU 2 Medical Necessity Statement*: Inpatient hospitalization is medically necessary and deemed to be the clinically appropriate intervention at this time. We will monitor and adjust medications as clinically indicated. The patient's likely length of stay is 5-7 days. Coding Level of Care Code Acute Code for g Fwd Diagnoses Major depressive disorder, recurrent episode F33.9 ANGIE (generalized anxiety disorder) F41.1 Opioid abuse F11.10 History of ADHD Z86.59 Methamphetamine abuse F15.10
[2023-05-04] MEDS: acetaminophen 325 mg Tablet 650 MG PO ×2 (17:19→20:29)
[2023-05-04 20:44] VITALS: BP 108/67; PULSE 96; RESP 16; TEMP 36.9; O2SAT 96
--- NOTE | 2023-05-05 05:01 | PC.NURSE ---
DAY SHIFT NURSE REPORTED THAT PT HAD A TEMPERATURE OF 100.4 DURING THE DAY. NURSE STATED SH E GAVE TYLENOL AND TEMPERATURE WENT DOWN TO NORMAL. PT UP TO NURSES STATION AND REPORTS FEELING BAD AND HAVE A HEADACHE. TEMPERATURE TAKEN AND IT WAS 100.7. DR. ALEX NOTIFIED OF CHANGE OF CONDITION. NEW ORDERS RECEIVED TO COLLECT RAPID FLU A & B AND COVID SWAB FOR FURTHER TESTING. PT EDUCATED ON NEW ORDERS. PT THANKED NURSE AND AUTO GARAGE ATTENDANT COLLECTED SAMPLES TO TAKE TO LAB. ALL QUESTIONS ANSWERED AND SUPPORT WAS VOICED. AUTO GARAGE ATTENDANT TO GIVE TYLENOL ORDERED AFTER COLLECTING SAMPLES.
[2023-05-05] MEDS: acetaminophen 325 mg Tablet 650 MG PO ×3 (05:09→18:37)
[2023-05-05 05:38] LABS: Influenza A by IFA Negative (Negative); Influenza B by IFA Negative (Negative); SARS Covid-2 Antigen Negative (Negative)
[2023-05-05 06:00] VITALS: BP 116/75; PULSE 85; RESP 16; TEMP 36.7; O2SAT 97
[2023-05-05] MEDS: buprenorphine-naloxone 4-1 mg Film 1 EACH SUBLINGUAL ×2 (09:27→17:11)
[2023-05-05] MEDS: sertraline 50 mg Tablet PO (09:27)
--- NOTE | 2023-05-05 13:45 | P.NPUPN_ITS ---
Subjective NPU 2 Subjective: 28-year-old female with a history of depression along with methamphetamine and opiate abuse admitted with suicidal ideation and homelessness. Patient had reported low energy. She reported no opiate related withdrawal symptoms. She had reported continued problems with managing and maintaining sobriety off of methamphetamine. Patient had requested inpatient substance abuse treatment as she stated that she had been currently homeless with no supports from family at this time. She had reported that her children had all been removed from her care. She had reported low energy and low motivation. She continued to report feeling sad. She endorsed suicidal thoughts with no plan. Mental Status Exam 2 MSE Comments: She is a casually dressed white female with disheveled appearance and mottled teeth who appeared older than her stated age. She was alert and oriented to person place time and situation. Her gait appeared within normal limits. Her hygiene remained poor. There was evidence of moderate psychomotor retardation. Her speech was normal in regards to rate ,rhythm and prosody. Her mood was described as depressed. Her affect was restricted in range and mood-congruent. There was no clear evidence of delusional thinking. She did not appear to be responding to internal stimuli and denied any auditory or visual hallucinations. She continued to endorse suicidal ideation. She denied any homicidal ideation. Her attention span was poor. Her recent and remote memory were grossly intact. Her insight was poor. Her judgment was poor. Her impulse control appeared limited. Vitals/I&O/Wt Last Vital Signs Temp 98.0 F 05/05/23 06:00 Pulse 85 05/05/23 06:00 Resp 16 05/05/23 06:00 BP 116/75 05/05/23 06:00 Pulse Ox 97 05/05/23 06:00 O2 Del Method Room Air 05/05/23 06:00 Data NPU 05/01/23 18:14 05/01/23 18:14 A&P Assessment and plan (1) Major depressive disorder, recurrent episode: (2) ANGIE (generalized anxiety disorder): (3) Opioid abuse: (4) History of ADHD: (5) Methamphetamine abuse: Plan 28-year-old white female with polysubstance abuse admitted after overdosing with suicidal ideation with plan to overdose with hx of Major depression and Generalized anxiety along with adhd. 1. ?Encourage individual, group and milieu therapy. 2. Recommend sober living treatment at the highest level of care to which the patient is willing to commit. 3. Continue q-15 minute checks for safety. 4. Continue Suboxone 8/2mg/day 5. Continue zoloft 50mg daily to target anxiety and depression with plan to increase in 2-3 days. 6. Consider dual diagnosis treatment-likely needs inpatient substance abuse treatment.-seeking direct placement, [facility] may be next with repeated failures to remain clean and continued hospitalizations. Referrals for outpatient made. Involuntary Hold Information 2 96 Hour Hold: 96 Hour Involuntary Admission: No Attestations NPU 2 Medical Necessity Statement*: Inpatient hospitalization is medically necessary and deemed to be the clinically appropriate intervention at this time. We will monitor and adjust medications as clinically indicated. The patient's likely length of stay is 5-7 days. Coding Level of Care Code Acute Code for g Fwd Diagnoses Major depressive disorder, recurrent episode F33.9 ANGIE (generalized anxiety disorder) F41.1 Opioid abuse F11.10 History of ADHD Z86.59 Methamphetamine abuse F15.10
[2023-05-05 14:00] VITALS: BP 136/80; PULSE 78; RESP 13; TEMP 36.9; O2SAT 100
[2023-05-05 20:04] VITALS: BP 119/73; PULSE 96; RESP 16; TEMP 36.9; O2SAT 98
[2023-05-05] MEDS: ibuprofen 600 mg Tablet PO (20:30)
[2023-05-06 06:00] VITALS: BP 134/82; PULSE 75; RESP 16; TEMP 36.8; O2SAT 100
[2023-05-06] MEDS: buprenorphine-naloxone 4-1 mg Film 1 EACH SUBLINGUAL ×2 (08:34→17:26)
[2023-05-06] MEDS: sertraline 50 mg Tablet PO (08:34)
[2023-05-06] MEDS: acetaminophen 325 mg Tablet 650 MG PO (10:31)
--- NOTE | 2023-05-06 11:32 | P.NPUPN_ITS ---
Subjective NPU 2 Subjective: Patient presents today reporting that she feels she is doing better and was interested in sober living treatment. She reports that she called Dr. Garsia and the treatment team had been working on possibilities. We discussed working with the treatment team on Monday for possible sober living treatment opportunities. We discussed the plan to increase Zoloft as she had Dr. Garsia implant in the next day or so. We discussed the fact that maintaining her sobriety had been really challenging recently and she was trying to focus on how to make this time different. She denied any side effects to her medications. Mental Status Exam 2 MSE Comments: This is an obese white female with hospital scrubs on and disheveled appearance and mottled teeth who appeared older than her stated age. No abnormal movements except for mild psychomotor retardation. Cooperative with exam a mild distress. Speech was slightly decreased rate and volume. Mood described as a little better. Affect slightly subdued. Thought process organized. Thought content: Patient denied suicidal or homicidal ideation, there were no delusions reported or noted, she denied any auditory or visual hallucinations. Attention and concentration appeared intact and memory appeared reliable but none were formally tested. She is alert and oriented times 3. Her insight was poor. Her judgment was poor. Her impulse control appeared limited. Vitals/I&O/Wt Last Vital Signs Temp 98.3 F 05/06/23 06:00 Pulse 75 05/06/23 06:00 Resp 16 05/06/23 06:00 BP 134/82 05/06/23 06:00 Pulse Ox 100 05/06/23 06:00 O2 Del Method Room Air 05/06/23 06:00 Weight last 48 hrs Weight 110.314 kg Data NPU 05/01/23 18:14 05/01/23 18:14 A&P Assessment and plan (1) Major depressive disorder, recurrent episode: (2) ANGIE (generalized anxiety disorder): (3) Opioid abuse: (4) History of ADHD: (5) Methamphetamine abuse: Plan 28-year-old white female with polysubstance abuse admitted after overdosing with suicidal ideation with plan to overdose with hx of Major depression and Generalized anxiety along with adhd. 1. ?Encourage individual, group and milieu therapy. 2. Recommend sober living treatment at the highest level of care to which the patient is willing to commit. 3. Continue q-15 minute checks for safety. 4. Continue Suboxone 8/2mg/day 5. Continue zoloft 50mg daily to target anxiety and depression with plan to increase in 1-2 days. 6. Consider dual diagnosis treatment-likely needs inpatient substance abuse treatment.-seeking direct placement, [facility] may be next with repeated failures to remain clean and continued hospitalizations. Referrals for outpatient made. Involuntary Hold Information 2 96 Hour Hold: 96 Hour Involuntary Admission: No Attestations NPU 2 Medical Necessity Statement*: Inpatient hospitalization is medically necessary and deemed to be the clinically appropriate intervention at this time. We will monitor and adjust medications as clinically indicated. The patient's likely length of stay is 4-6 days. Coding Level of Care Code Acute Code for g Fwd Diagnoses Major depressive disorder, recurrent episode F33.9 ANGIE (generalized anxiety disorder) F41.1 Opioid abuse F11.10 History of ADHD Z86.59 Methamphetamine abuse F15.10
--- NOTE | 2023-05-06 11:32 | P.NPUPN_ITS ---
Subjective NPU 2 Subjective: Patient presents today reporting that she feels she is doing better and was interested in getting home sooner rather than later. She reports that she has multiple children that she needs to take care of of and asked the most important thing. She reports that she is somewhat unclear about specifics about this hospitalization mostly focusing on getting home. We discussed working with the treatment team on Monday for possible discharge planning. We discussed the plan to increase Zoloft as she had Dr. Garsia implant in the next day or so. She denied any side effects to her medications. Mental Status Exam 2 MSE Comments: This is an obese white female with hospital scrubs on and disheveled appearance and mottled teeth who appeared older than her stated age. No abnormal movements except for mild psychomotor retardation. Cooperative with exam and mild distress. Speech was slightly decreased rate normal volume. Mood described as better I need to get home and take care of my kids. Affect slightly subdued. She was alert and oriented to person place time and situation. Thought process organized. Thought content: Patient denied suicidal or homicidal ideation, there were no delusions reported or noted, she denied any auditory or visual hallucinations. Attention and concentration appeared intact and memory appeared reliable but none were formally tested. She is alert and oriented times person and place. Her insight was poor. Her judgment was poor. Her impulse control appeared limited. Vitals/I&O/Wt Last Vital Signs Temp 98.3 F 05/06/23 06:00 Pulse 75 05/06/23 06:00 Resp 16 05/06/23 06:00 BP 134/82 05/06/23 06:00 Pulse Ox 100 05/06/23 06:00 O2 Del Method Room Air 05/05/23 06:00 Data NPU 05/01/23 18:14 05/01/23 18:14 A&P Assessment and plan (1) Major depressive disorder, recurrent episode: (2) ANGIE (generalized anxiety disorder): (3) Opioid abuse: (4) History of ADHD: (5) Methamphetamine abuse: Plan 28-year-old white female with polysubstance abuse admitted after overdosing with suicidal ideation with plan to overdose with hx of Major depression and Generalized anxiety along with adhd. 1. ?Encourage individual, group and milieu therapy. 2. Recommend sober living treatment at the highest level of care to which the patient is willing to commit. 3. Continue q-15 minute checks for safety. 4. Continue Suboxone 8/2mg/day 5. Continue zoloft 50mg daily to target anxiety and depression with plan to increase in 1-2 days. 6. Consider dual diagnosis treatment-likely needs inpatient substance abuse treatment.-seeking direct placement, [facility] may be next with repeated failures to remain clean and continued hospitalizations. Referrals for outpatient made. Involuntary Hold Information 2 96 Hour Hold: 96 Hour Involuntary Admission: No Attestations NPU 2 Medical Necessity Statement*: Inpatient hospitalization is medically necessary and deemed to be the clinically appropriate intervention at this time. We will monitor and adjust medications as clinically indicated. The patient's likely length of stay is 4-6 days. Coding Level of Care Code Acute Code for [facility] Fwd Diagnoses Major depressive disorder, recurrent episode F33.9 ANGIE (generalized anxiety disorder) F41.1 Opioid abuse F11.10 History of ADHD Z86.59 Methamphetamine abuse F15.10
[2023-05-06 14:00] VITALS: BP 138/72; PULSE 68; RESP 13; TEMP 36.8; O2SAT 100
[2023-05-06 20:35] VITALS: BP 169/80; PULSE 91; RESP 18; TEMP 36.9; O2SAT 97
[2023-05-06] MEDS: cetylpyridinium Lozenge 1 EACH MUCOUS MEM (20:53)
[2023-05-07 06:00] VITALS: BP 112/73; PULSE 68; RESP 16; TEMP 36.7; O2SAT 98
[2023-05-07] MEDS: sertraline 50 mg Tablet PO (08:23)
[2023-05-07] MEDS: buprenorphine-naloxone 4-1 mg Film 1 EACH SUBLINGUAL ×2 (08:23→17:15)
--- NOTE | 2023-05-07 08:25 | P.NPUPN_ITS ---
Subjective NPU 2 Subjective: Patient presented today reporting that she is feeling okay. She reports that she is ready for the increase in Zoloft. We continue to discuss working with the social work team tomorrow on discharge planning and considering what the next step is going to be once she is feeling more safe in the medication is in her system and effective. She denied any side effects of the medication and reports she has just been tired. Mental Status Exam 2 MSE Comments: This is an obese white female with hospital scrubs on and disheveled appearance and mottled teeth who appeared older than her stated age. No abnormal movements except for mild psychomotor retardation. Cooperative with exam a mild distress. Speech was slightly decreased rate and volume. Mood described as a little better. Affect slightly subdued. Thought process organized. Thought content: Patient denied suicidal or homicidal ideation, there were no delusions reported or noted, she denied any auditory or visual hallucinations. Attention and concentration appeared intact and memory appeared reliable but none were formally tested. She is alert and oriented times 3. Her insight was poor. Her judgment was poor. Her impulse control appeared limited. Vitals/I&O/Wt Last Vital Signs Temp 98.0 F 05/07/23 06:00 Pulse 68 05/07/23 06:00 Resp 16 05/07/23 06:00 BP 112/73 05/07/23 06:00 Pulse Ox 98 05/07/23 06:00 O2 Del Method Room Air 05/07/23 06:00 Weight last 48 hrs Weight 110.314 kg Data NPU 05/01/23 18:14 05/01/23 18:14 A&P Assessment and plan (1) Major depressive disorder, recurrent episode: (2) ANGIE (generalized anxiety disorder): (3) Opioid abuse: (4) History of ADHD: (5) Methamphetamine abuse: Plan 28-year-old white female with polysubstance abuse admitted after overdosing with suicidal ideation with plan to overdose with hx of Major depression and Generalized anxiety along with adhd. 1. ?Encourage individual, group and milieu therapy. 2. Recommend sober living treatment at the highest level of care to which the patient is willing to commit. 3. Continue q-15 minute checks for safety. 4. Continue Suboxone 8/2mg/day 5. Continue zoloft 50mg daily to target anxiety and depression. Increase to 100 mg p.o. daily. 6. Consider dual diagnosis treatment-likely needs inpatient substance abuse treatment.-seeking direct placement, [facility] may be next with repeated failures to remain clean and continued hospitalizations. Referrals for outpatient made. Involuntary Hold Information 2 96 Hour Hold: 96 Hour Involuntary Admission: No Attestations NPU 2 Medical Necessity Statement*: Inpatient hospitalization is medically necessary and deemed to be the clinically appropriate intervention at this time. We will monitor and adjust medications as clinically indicated. The patient's likely length of stay is 2-5 days. Coding Level of Care Code Acute Code for g Fwd Diagnoses Major depressive disorder, recurrent episode F33.9 ANGIE (generalized anxiety disorder) F41.1 Opioid abuse F11.10 History of ADHD Z86.59 Methamphetamine abuse F15.10
[2023-05-07 14:00] VITALS: BP 139/84; PULSE 88; RESP 14; TEMP 37.1; O2SAT 96
[2023-05-07 19:58] VITALS: BP 116/72; PULSE 54; RESP 16; TEMP 36.3; O2SAT 99
[2023-05-07] MEDS: trazodone 50 mg Tablet PO (20:03)
[2023-05-08 06:00] VITALS: BP 106/71; PULSE 66; RESP 16; TEMP 36.5; O2SAT 98
[2023-05-08] MEDS: sertraline 50 mg Tablet PO (08:33)
[2023-05-08] MEDS: buprenorphine-naloxone 4-1 mg Film 1 EACH SUBLINGUAL (08:33)
[2023-05-08] MEDS: hyDROXYzine 25 mg Capsule 50 MG PO (08:33)
[2023-05-08 14:00] VITALS: BP 116/77; PULSE 63; RESP 16; TEMP 36.6; O2SAT 98
--- NOTE | 2023-05-08 17:34 | PC.NURSE ---
pt states going to rehab so she states she does not want to take suboxone at this time.
--- NOTE | 2023-05-08 18:30 | P.NPUPN_ITS ---
Subjective NPU 2 Subjective: Patient presented today reporting that she is feeling okay. She still anxious about how things are going to go overall. She reports that she is happy that they were able to get her a bed date for inpatient rehab. However that date is out June 01. We discussed working with the social work team to find a reasonable option for her residential circumstance until that bed date which is 3 and half weeks away. We discussed that she would not be able to stay here the whole time but that we would work with the team to try to find some alternative to her being homeless. We discussed going ahead with the increase in Zoloft as she and Dr. Garsia had discussed. She denied any side effects to her medication. Mental Status Exam 2 MSE Comments: This is an obese white female with hospital scrubs on and disheveled appearance and mottled teeth who appeared older than her stated age. No abnormal movements except for mild psychomotor retardation. Cooperative with exam a mild distress. Speech was slightly decreased rate and volume. Mood described as a little better. Affect slightly subdued. Thought process organized. Thought content: Patient denied suicidal or homicidal ideation, there were no delusions reported or noted, she denied any auditory or visual hallucinations. Attention and concentration appeared intact and memory appeared reliable but none were formally tested. She is alert and oriented times 3. Her insight was poor. Her judgment was poor. Her impulse control appeared limited. Vitals/I&O/Wt Last Vital Signs Temp 97.9 F 05/08/23 14:00 Pulse 63 05/08/23 14:00 Resp 16 05/08/23 14:00 BP 116/77 05/08/23 14:00 Pulse Ox 98 05/08/23 14:00 O2 Del Method Room Air 05/08/23 14:00 Weight last 48 hrs Weight 110.314 kg Data NPU 05/01/23 18:14 05/01/23 18:14 A&P Assessment and plan (1) Major depressive disorder, recurrent episode: (2) ANGIE (generalized anxiety disorder): (3) Opioid abuse: (4) History of ADHD: (5) Methamphetamine abuse: Plan 28-year-old white female with polysubstance abuse admitted after overdosing with suicidal ideation with plan to overdose with hx of Major depression and Generalized anxiety along with adhd. 1. ?Encourage individual, group and milieu therapy. 2. Recommend sober living treatment at the highest level of care to which the patient is willing to commit. 3. Continue q-15 minute checks for safety. 4. Continue Suboxone 8/2mg/day 5. Continue zoloft 50mg daily to target anxiety and depression. Increase to 100 mg p.o. daily. 6. Consider dual diagnosis treatment-likely needs inpatient substance abuse treatment.-seeking direct placement, [facility] may be next with repeated failures to remain clean and continued hospitalizations. Referrals for outpatient made. Involuntary Hold Information 2 96 Hour Hold: 96 Hour Involuntary Admission: No Attestations NPU 2 Medical Necessity Statement*: Inpatient hospitalization is medically necessary and deemed to be the clinically appropriate intervention at this time. We will monitor and adjust medications as clinically indicated. The patient's likely length of stay is 2-5 days. Coding Level of Care Code Acute Code for g Fwd Diagnoses Major depressive disorder, recurrent episode F33.9 ANGIE (generalized anxiety disorder) F41.1 Opioid abuse F11.10 History of ADHD Z86.59 Methamphetamine abuse F15.10
[2023-05-08] MEDS: trazodone 50 mg Tablet PO (20:17)
[2023-05-08 20:22] VITALS: BP 155/118; PULSE 64; RESP 20; TEMP 36.6; O2SAT 100
[2023-05-08 20:26] VITALS: BP 153/102
[2023-05-09 06:00] VITALS: BP 113/76; PULSE 68; RESP 18; TEMP 36.6; O2SAT 98
[2023-05-09] MEDS: sertraline 50 mg Tablet 100 MG PO (08:14)
[2023-05-09] MEDS: cetylpyridinium Lozenge 1 EACH MUCOUS MEM (11:59)
[2023-05-09 14:00] VITALS: BP 119/76; PULSE 72; RESP 16; TEMP 36.6; O2SAT 99
--- NOTE | 2023-05-09 14:44 | P.NPUPN_ITS ---
Subjective NPU 2 Subjective: Patient presented today reporting that she is doing fine and better slowly each day. She is hopeful that we can find some option for the next 3 weeks while she is awaiting her bed date. She reports that the medications are working fairly well. She has stopped taking the Suboxone because she wants to be able to be in the right state of mind when she goes to the rehab. She denied any side effects of the medication. Mental Status Exam 2 MSE Comments: This is an obese white female with hospital scrubs on and disheveled appearance and mottled teeth who appeared older than her stated age. No abnormal movements except for mild psychomotor retardation. Cooperative with exam a mild distress. Speech was slightly decreased rate and volume. Mood described as a little better. Affect slightly subdued. Thought process organized. Thought content: Patient denied suicidal or homicidal ideation, there were no delusions reported or noted, she denied any auditory or visual hallucinations. Attention and concentration appeared intact and memory appeared reliable but none were formally tested. She is alert and oriented times 3. Her insight was poor. Her judgment was poor. Her impulse control appeared limited. Vitals/I&O/Wt Last Vital Signs Temp 97.8 F 05/09/23 14:00 Pulse 72 05/09/23 14:00 Resp 16 05/09/23 14:00 BP 119/76 05/09/23 14:00 Pulse Ox 99 05/09/23 14:00 O2 Del Method Room Air 05/09/23 14:00 Data NPU 05/01/23 18:14 05/01/23 18:14 A&P Assessment and plan (1) Major depressive disorder, recurrent episode: (2) ANGIE (generalized anxiety disorder): (3) Opioid abuse: (4) History of ADHD: (5) Methamphetamine abuse: Plan 28-year-old white female with polysubstance abuse admitted after overdosing with suicidal ideation with plan to overdose with hx of Major depression and Generalized anxiety along with adhd. 1. ?Encourage individual, group and milieu therapy. 2. Recommend sober living treatment at the highest level of care to which the patient is willing to commit. 3. Continue q-15 minute checks for safety. 4. Continue Suboxone 8/2mg/day 5. Continue zoloft 50mg daily to target anxiety and depression. Increase to 100 mg p.o. daily. 6. Consider dual diagnosis treatment-likely needs inpatient substance abuse treatment.-seeking direct placement, [facility] may be next with repeated failures to remain clean and continued hospitalizations. Patient given bed date and working on some kind of bridging treatment/residential/longterm environment that she might be able to have success as she awaits that bed date. Involuntary Hold Information 2 96 Hour Hold: 96 Hour Involuntary Admission: No Attestations NPU 2 Medical Necessity Statement*: Inpatient hospitalization is medically necessary and deemed to be the clinically appropriate intervention at this time. We will monitor and adjust medications as clinically indicated. The patient's likely length of stay is 2- 4 days. Coding Level of Care Code Acute Code for g Fwd Diagnoses Major depressive disorder, recurrent episode F33.9 ANGIE (generalized anxiety disorder) F41.1 Opioid abuse F11.10 History of ADHD Z86.59 Methamphetamine abuse F15.10
[2023-05-09] MEDS: acetaminophen 325 mg Tablet 650 MG PO (18:46)
[2023-05-09] MEDS: trazodone 50 mg Tablet PO (19:38)
[2023-05-09] MEDS: hyDROXYzine 25 mg Capsule 50 MG PO (19:38)
[2023-05-09 20:04] VITALS: BP 151/96; PULSE 86; RESP 18; TEMP 36.9; O2SAT 99
[2023-05-10 06:00] VITALS: BP 139/83; PULSE 75; RESP 16; TEMP 36.3; O2SAT 97
[2023-05-10] MEDS: sertraline 50 mg Tablet 100 MG PO (08:25)
--- NOTE | 2023-05-10 12:28 | P.NPUDS_ITS ---
Diagnoses at Discharge Discharge Diagnosis (1) Major depressive disorder, recurrent episode: Status: Acute (2) ANGIE (generalized anxiety disorder): Status: Acute (3) Opioid abuse: Status: Acute (4) History of ADHD: Status: Acute (5) Methamphetamine abuse: Status: Acute Reason for Visit Reason for Visit: MHE Brief History: History of Present Illness Marie Nicholson is a 28 year old female recently discharged from the neuropsychiatric unit on 01/20/2023 who presented to the emergency department with suicidal ideation with a plan to overdose. The patient was admitted to the neuropsychiatric unit for further evaluation and treatment. The patient had reported similar complaints to her previous hospitalization. She reports that she has been off of all of her medications since February of this year. She states that she has been feeling more depressed. She continued to state that she has been using methamphetamine on a daily basis along with opiate use both orally and recently having used IV heroin approximately a month ago. She is reporting her most recent use of opiates 2 days ago and states that she last used methamphetamine yesterday. She reports that she feels out of control. She had stated that she had been sent home to live with her mother after discharge from the neuropsychiatric unit with the plan for the patient to go to [facility] on an inpatient basis when a bed became available. Unfortunately, the patient states that she never made it to the end the inpatient rehab known as [facility]. She did indicate that she had recently been placed in an inpatient substance abuse facility in [facility] for 2 weeks but left without completing the program. She continues to report her mood is being worse and reports that she has continued cravings for both opiates and methamphetamine. She reported no changes otherwise since her last hospitalization except that she is no longer allowed at home and that she has resumed being homeless around the [facility]. She was requesting that she be restarted on her previous psychotropic medications. She reports sleep continuity disruption. She reports significant lack of appetite. Current medications: none in last 3 months Excerpt from Discharge Summary from 01/20/23 NPU Discharge Diagnosis (1) Major depressive disorder, recurrent episode: Status: Acute (2) Opioid abuse: Status: Acute (3) Methamphetamine abuse: Status: Acute (4) History of ADHD: Status: Acute (5) ANGIE (generalized anxiety disorder): Status: Acute Reason for Visit OVERDOSE Brief History: History of Present Illness Marie Nicholson is a 27 year old female who presented to the emergency department via EMS after having admitted to taking 20 naproxen pills with report of having thoughts of wanting to kill herself. The patient was admitted to the neuropsychiatric unit for further evaluation and treatment. The patient reports that she has been struggling with chronic methamphetamine abuse for greater than 5 years having used methamphetamine beginning at the age of 16. She reports that she has been mixing her methamphetamine with heroin. The patient reports that she is approaching the anniversary of having lost custody of all of her children approximately 1 year ago and states that she has been feeling more hopeless and worthless recently. She reports increased crying spells. She reports that she has been feeling more hopeless. She reports that she has been struggling with hypersomnia. She reports low energy and low motivation She has reported a loss of appetite. She reports that she has been more anxious as she chronically worries about her children. She reports that she often feels guilty that she is not able to care for her children. She also reports active cravings for methamphetamines. She denies any alcohol use. The patient reports having difficulties with concentration. She reports that she had previously been diagnosed with ADHD and a learning disability as a child and states that she has been frustrated at being able to manage routine activities of daily living. She reports a past history of psychotic symptoms when using methamphetamine but denies any currently. She did not endorse any manic symptoms. She denies any history of PTSD symptoms. Inpatient psychiatric history: None Outpatient psychiatric treatment: She reports history of depression and ADHD while reporting having received treatment at the [facility] more than 10 years ago. Drug and alcohol history: She reports no alcohol use. She reports no marijuana use. She does report having used methamphetamines beginning at the age of 16 with increased use reported over the last 5 years. She reports the longest period of sobriety from methamphetamine is less than 1 day. She also reports a history of heroin use intranasally for the past few years with no treatment treatment history for opiate use. She states that she had been in rehabilitation in March 2022 in [facility] through [facility] counseling. She states that she was there for 21 days only. Allergies: Penicillin Medical history: Hypertension, history of pyelonephritis Surgical history: Tonsillectomy adenoidectomy, Current medications: None Developmental history: History of developmental delays as she reports having been diagnosed with a learning disorder while struggling in school. Family psychiatric history: None reported Legal history: None reported Social history: The patient was raised in [facility] and is from her first and only for the past 3 years. She states that she was raised by her mother as her father had been living in another city and raising another family. She states that she briefly lived with her father at the age of 11 but returned back to live with her mother. She reports no history of any sexual physical or emotional abuse. She did report witnessing the of her grandmother as an adolescent. She reports that she dropped out of school and never got her GED after dropping out in the 11th grade. She has 4 children ages 9,4,2 and 1 respectively. She states that she had lost all 4 of her children due to her substance abuse issues. Her , 4, and 2-year-old and 1 year old all live outside of the home. Her 1-year-old currently resides with her biological mother. She has been homeless for at least 1 year. Hospital Course Hospital Course She slowly acclimated to the schedule, group and milieu therapies provided. She presented struggling with depression, anxiety and active addiction. Trazodone Zoloft and Vistaril were started to assist with these concerns. Zoloft was titrated to 100 mg p.o. daily with notable improvements. She continued to endorse an interest in sober living treatment and inpatient rehab. She worked with the social work team to find a bed date but it was further in the future. Given her domestic challenges they also assisted her in getting placement at [facility] in the interim while she waited for that bed date. Additionally she was assisted in getting appropriate follow-up. She had significant improvement and was able to contract for safety outside of the hospital prior to discharge. During the hospitalization, the patient had routine laboratory studies which were within normal limits except for a few outliers. Additionally, there was a general medical evaluation which was also within normal limits and revealed no new acute processes. At the time of discharge, lethality was denied and psychosis was resolving. Mood and anxiety were well managed. The patient endorsed a plan to avoid all drugs of abuse and follow up with the aftercare recommendations of the treatment team. The patient was evaluated and deemed to be absent credible lethality and had achieved the maximum benefit from an inpatient hospitalization, and so was discharged. Involuntary Hold Information 96 Hour Hold: 96 Hour Involuntary Admission: No Mental Status Exam MSE Comments: This is an obese white female with hospital scrubs on and disheveled appearance and mottled teeth who appeared older than her stated age. No abnormal movements except for mild psychomotor retardation. Cooperative with exam a mild distress. Speech was slightly decreased rate and volume. Mood described as a little better. Affect slightly subdued. Thought process organized. Thought content: Patient denied suicidal or homicidal ideation, there were no delusions reported or noted, she denied any auditory or visual hallucinations. Attention and concentration appeared intact and memory appeared reliable but none were formally tested. She is alert and oriented times 3. Her insight was poor. Her judgment was poor. Her impulse control appeared limited. Discharge Data Studies Completed and Pending: Laboratory Results WBC 12.22 10^3/uL (3. 29-11.43) H 05/01/23 18:14 RBC 4.42 10^6/uL (3.8 5-5.65) 05/01/23 18:14 Hgb 12.60 g/dL (11.27 -16.99) 05/01/23 18:14 Hct 39.0 % (36-47) 05/01/23 18:14 MCV 88.2 fl (85-98) 05/01/23 18:14 MCH 28.5 pg (27-33) 05/01/23 18:14 MCHC 32.3 g/dL (30-55) 05/01/23 18:14 RDW 13.5 % (12.1-15.1 ) 05/01/23 18:14 Plt Count 362 10^3/cmm (157 -399) 05/01/23 18:14 MPV 10.1 fL (7.4-10.4 ) 05/01/23 18:14 Neut % (Auto) 59.8 % 05/01/23 18:14 Lymph % (Auto) 33.0 % 05/01/23 18:14 [place] % (Auto) 4.9 % 05/01/23 18:14 Eos % (Auto) 1.8 % 05/01/23 18:14 Baso % (Auto) 0.2 % 05/01/23 18:14 Neut # (Auto) 7.30 10^3/uL (1.8 -7.7) 05/01/23 18:14 Lymph # (Auto) 4.0 10^3/uL (0.8- 4.8) 05/01/23 18:14 [place] # (Auto) 0.6 10^3/uL (0.2- 0.9) 05/01/23 18:14 Eos # (Auto) 0.2 10^3/uL (0.0- 0.8) 05/01/23 18:14 Baso # (Auto) 0.0 10^3/uL (0.0- 0.1) 05/01/23 18:14 Nucleated RBC % (a uto) 0 % 05/01/23 18:14 Nucleated RBCs # 0.0 /100WBC 05/01/23 18:14 Sodium 135 mmol/L (136-1 45) L 05/01/23 18:14 Potassium 3.4 mmol/L (3.5-5 .1) L 05/01/23 18:14 Chloride 104 mmol/L (98-10 7) 05/01/23 18:14 Carbon Dioxide 21 mmol/L (22-29) L 05/01/23 18:14 Anion Gap 13.4 (5-19) 05/01/23 18:14 BUN 19 mg/dL (6-20) 05/01/23 18:14 Creatinine 0.8 mg/dL (0.5-0. 9) 05/01/23 18:14 GFR Calculation 84.8 mL/min (90-1 30) L 05/01/23 18:14 Glucose 125 mg/dL (65-115 ) H 05/01/23 18:14 Calculated Osmolal ity 284 mOsm/kg (285- 295) L 05/01/23 18:14 Calcium 8.9 mg/dL (8.5-10 .5) 05/01/23 18:14 Total Bilirubin 0.3 mg/dL (0.15-1 .2) 05/01/23 18:14 AST 12 U/L (0-32) 05/01/23 18:14 ALT 12 U/L (0-33) 05/01/23 18:14 Alkaline Phosphata se 57 U/L (35-105) 05/01/23 18:14 Total Protein 7.0 g/dL (6.6-8.7 ) 05/01/23 18:14 Albumin 3.7 g/dL (3.5-5.2 ) 05/01/23 18:14 Globulin 3.3 g/dL (1.3-4.6 ) 05/01/23 18:14 HCG, Qual Negative (Negati ve) 05/01/23 18:24 Salicylates < 0.3 mg/dL (3-10 ) L 05/01/23 18:14 Urine Opiates Scre en Negative ng/mL (N egative) 05/01/23 18:24 Acetaminophen < 5.0 ug/mL (10-3 0) L 05/01/23 18:14 Ur Barbiturates Sc reen Negative ng/mL (N egative) 05/01/23 18:24 Ur Phencyclidine S crn Negative ng/mL (N egative) 05/01/23 18:24 Ur Amphetamines Sc reen Positive ng/mL (N egative) H 05/01/23 18:24 U Benzodiazepines Scrn Negative ng/mL (N egative) 05/01/23 18:24 Urine Cocaine Scre en Negative ng/mL (N egative) 05/01/23 18:24 U Marijuana (THC) Screen Negative ng/mL (N egative) 05/01/23 18:24 Ethyl Alcohol < 10 mg/dL (0-10) 05/01/23 18:14 Hepatitis A IgM Ab Non-reactive (No nreactive) 05/01/23 18:14 Hep Bs Antigen Non-reactive (No nreactive) 05/01/23 18:14 Hep Bs Antibody < 3.5 (11.5-1000 ) L 05/01/23 18:14 Hep B Core Total A b Non-reactive (No nreactive) 05/01/23 18:14 Hepatitis C Antibo dy Non-reactive (No nreactive) 05/01/23 18:14 HIV 1&2 Ab & HIV 1 Ag Non-reactive (No n-Reactiv) 05/01/23 18:14 HIV 1&2 Antibody Non-reactive (No n-Reactiv) 05/01/23 18:14 Influenza Type A A g Negative (Negati ve) 05/05/23 05:03 Influenza Type B A g Negative (Negati ve) 05/05/23 05:03 SARS-CoV-2 Ag (Rap id) Negative (Negati ve) 05/05/23 05:03 Vitals: Last Vital Signs Temp 97.4 F L 05/10/23 06:00 Pulse 75 05/10/23 06:00 Resp 16 05/10/23 06:00 BP 139/83 05/10/23 06:00 Pulse Ox 97 05/10/23 06:00 O2 Del Method Room Air 05/10/23 06:00 Discharge Plan Discharge Patient Disposition: Home Condition: Stable Prescriptions: New trazodone 50 mg Tablet 50 mg PO BEDTIME PRN (Reason: Sleep) 30 Days Qty: 30 1RF sertraline 100 mg tablet 100 mg PO DAILY 30 Days Qty: 30 1RF hydroxyzine pamoate 25 mg Capsule 50 mg PO Q6H PRN (Reason: Anxiety) 30 Days Qty: 120 1RF Discontinued doxepin 10 mg Capsule 10 mg PO BEDTIME PRN (Reason: Insomnia) No Action Tylenol Ex Str Rapid Release 500 mg Tablet 1,000 mg PO Q6H PRN (Reason: Pain) Discharge Orders: Discharge Order (Routine); Ordered 05/10/23 Ordered By: Vladislav Llanos Referrals: Justin Reardon [Other] - 05/10/23 2:00 pm [facility] inpatient rehab [Other] - 06/02/23 9:00 am () Discharge Diet: Regular Discharge Activity: Resume usual activity Patient Instructions: Depression, Help Prevent Suicide (DC), Suicide Prevention (DC), Opioid Safety Discharge Attestations NPU Time Spent in Discharge Care*: less than 30 min Specific Discharge Activities: Specific discharge activities: educating patient, discussing with test case developer/social workers/dc planners, documenting/other paperwork and evaluating patient/reviewing data Coding Level of Care Code Acute Code for Chg Fwd Diagnoses Major depressive disorder, recurrent episode F33.9 ANGIE (generalized anxiety disorder) F41.1 Opioid abuse F11.10 History of ADHD Z86.59 Methamphetamine abuse F15.10
[2023-05-10 12:31] VITALS: BP 139/83; PULSE 75; RESP 16; TEMP 36.3; O2SAT 97
== END 2023-05-10 12:50 | disposition home or self-care (01) | DRG 885 ==
LOC: ER 19:27 → NP 19:33
PROVIDERS: Psychiatry & Neurology Psychiatry; Admitting Provider Psychiatry & Neurology Psychiatry; Emergency Provider Emergency Medicine; Visit Provider Psychiatry & Neurology Psychiatry
DX: F33.9 Major depressive disorder, recurrent, unspecified (principal); R45.851 Suicidal ideations; Z59.00 Homelessness unspecified; T50.906A Underdosing of unspecified drugs, medicaments and biological substances, initial encounter; F15.10 Other stimulant abuse, uncomplicated; F11.10 Opioid abuse, uncomplicated; F41.1 Generalized anxiety disorder; Z91.128 Patient's intentional underdosing of medication regimen for other reason; Z86.59 Personal history of other mental and behavioral disorders
CPT/HCPCS: 36415; 80053; 80306; 80307; 81025; 85025; 86705; 86706; 86709; 86803; 87340; 87426; 87804; 87806; 97150; 97165; 99285; J0573

== ENCOUNTER 2023-05-21 01:23 | Inpatient (IN) | payer MEDICAID, SELFPAY ==
[2023-05-21] VITALS (23 sets, daily range): BP systolic 90–156; BP diastolic 45–115; PULSE 47–109; RESP 12–24; TEMP 36.5–36.8; O2SAT 94–100; BMI 41.5
--- NOTE | 2023-05-21 01:39 | ECG_ITS ---
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 Measurements Intervals [place] Rate: 82 P: 70 NC: 152 QRS: 65 QRSD: 105 T: 56 QT: 424 QTc: 497 Interpretive Statements SINUS RHYTHM WITH OCCASIONAL VENTRICULAR PREMATURE COMPLEXES Compared to ECG 01/14/2023 18:33:39 Ventricular premature complex(es) now present Electronically Signed On 05-21-2023 23:54:31 CDT by Marko Salguero M.D. [email or web address]
[2023-05-21 02:14] LABS: Basophils % 0.2 %; Eosinophils # 0.1 10^3/uL (0.0-0.8); Eosinophils % 0.3 %; Hematocrit 44.7 % (36-47); Lymphocytes # 5.7 10^3/uL (0.8-4.8); Lymphocytes % 32.7 %; Mean Corpuscular HGB Conc 31.8 g/dL (30-55); Mean Corpuscular Hemoglobin 27.5 pg (27-33); Mean Corpuscular Volume 86.5 fl (85-98); Mean Platelet Volume 9.8 fL (7.4-10.4); Monocytes # 0.8 10^3/uL (0.2-0.9); Monocytes % 4.4 %; Neutrophils # 10.84 10^3/uL (1.8-7.7); Neutrophils % 61.7 %; Nucleated Red Blood Cells % 0 %; Platelet Count 436 10^3/cmm (157-399); Red Blood Count 5.17 10^6/uL (3.85-5.65); Red Cell Distribution Width 13.6 % (12.1-15.1); White Blood Count 17.57 10^3/uL (3.29-11.43)
[2023-05-21] MEDS: charcoal (sorbitol) 25 gm/120 mL UDC 50 GM PO (02:45)
[2023-05-21 02:47] LABS: Alanine Aminotransferase 13 U/L (0-33); Albumin Level 4.4 g/dL (3.5-5.2); Alkaline Phosphatase 72 U/L (35-105); Anion Gap 16.5 (5-19); Aspartate Amino Transferase 16 U/L (0-32); Blood Urea Nitrogen 15 mg/dL (6-20); Calcium 9.7 mg/dL (8.5-10.5); Carbon Dioxide 23 mmol/L (22-29); Chloride 104 mmol/L (98-107); Creatinine Clr Calc Pharmacy 130.3196; Globulin 4.7 g/dL (1.3-4.6); Glomerular Filtration Rate 84.8 mL/min (90-130); Glucose 118 mg/dL (65-115); Osmolality Calculated 292 mOsm/kg (285-295); Potassium 3.5 mmol/L (3.5-5.1); Sodium 140 mmol/L (136-145); Thyroid Stimulating Hormone 2.75 uIU/mL (0.27-4.20); Total Bilirubin 0.2 mg/dL (0.15-1.2); Total Protein 9.1 g/dL (6.6-8.7)
[2023-05-21 02:48] LABS: Acetaminophen < 5.0 ug/mL (10-30); Alcohol Level < 10 mg/dL (0-10); Salicylate < 0.3 mg/dL (3-10)
--- NOTE | 2023-05-21 02:57 | PC.NURSE ---
When pt arrived poison control was notified of the OD. Pt had taken all 30 of her 50mg trazadone, 15 of her 100mg Sertraline, and 6 of her 25mg Hydroxizine. Poison control pharmacist said to observe the pt for seizures, seratonin toxicity, prolonged QT intervals, and bradycardia. Poison control faxed over all the information that was relayed over the phone.
--- NOTE | 2023-05-21 03:09 | ED_ITS ---
HPI - Overdose 2 General: Chief Complaint: Overdose Stated Complaint: OD Time Seen by Provider: 05/21/23 01:26 History of Present Illness: 28-year-old female with a history of dep ression and recent admission to the neuropsychiatric unit at this facility. She presents within an hour after ingesting multiple trazodone and sertraline at home in an attempt to kill herself. She complains of stomach pain, nausea, vomiting. No history of seizure. Review of Systems 2 Const: Denies: fever(s) Card: Denies: chest pain Resp: Denies: dyspnea GI: Reports: abdominal pain, nausea and vomiting; Denies: diarrhea Skin/Breast: Denies: rash Neuro: Reports: headache(s), confusion and behavioral changes Psych: Reports: suicidal ideation PFSH ED 2 PFSH: Medical History Psychiatric care No pertinent family history Surgical History No pertinent past surgical history Social History Smoking and tobacco/nicotine status: never used tobacco/nicotine Alcohol intake: never Substance/Drug Use: never Caregiver/support person: Yes Lives independently: No Household members: spouse Female Reproductive History: Date of last menstrual period: 05/03/23 Para: 3 Physical Exam 2 Const: GENERAL APPEARANCE: cooperative, lethargic (Mildly) and ill appearing; not frail appearing ORIENTATION/CONSCIOUSNESS: Yes lethargic (Mildly) HENMT: COMMON NORMALS: normocephalic, atraumatic and Normal external nose present HEAD & SCALP: normocephalic and atraumatic FACE & SINUS: normal facial exam and face symmetric NOSE: Normal external nose present Eye: COMMON NORMALS: Equal, round and reactive pupils present and EOMs intact bilaterally PUPIL: Yes Equal, round and reactive pupils present Neck/C-Spine: GENERAL: Yes trachea midline Chest: CHEST: Yes Symmetrical chest wall rise Resp: COMMON NORMALS: normal respiratory effort, No retractions, No use of accessory muscles and clear to auscultation bilaterally AUSCULTATION: clear to auscultation bilaterally Cardio: COMMON NORMALS: regular rate and regular rhythm RATE: regular rate RHYTHM: regular rhythm GI: COMMON NORMALS: Normal to inspection, nondistended, normoactive bowel sounds present Extremity: COMMON NORMALS: no pedal edema Neuro: MARGOT COMA SCALE: document GCS findings Margot coma scale eye opening: Spontaneous Moro coma scale verbal response: Orientated Margot coma scale motor response: Obey commands Moro coma scale total score: 15 S ENSORIUM/ORIENTATION: Yes lethargic (Mildly) SENSORY EXAM: Yes extremities (intact) Psych: COMMON NORMALS: speech normal SPEECH: Yes normal speech Skin: COMMON NORMALS: no rashes or lesions noted GENERAL SKIN EXAM: no rashes or lesions noted Course 2 Vital Signs: Vital signs: Vital Signs Temperature 97.7 F 05/21/23 01:24 Pulse Rate 83 05/21/23 03:30 Respiratory Rate 21 H 05/21/23 03:30 Blood Pressure 129/99 05/21/23 03:30 Pulse Oximetry 97 05/21/23 03:30 Oxygen Delivery Me thod Room Air 05/21/23 02:54 MDM - Overdose Medical Decision Making Patient mildly hypertensive. She is not overly tachycardic. She is awake and talking. She has vomited once. She has taken charcoal, as she presents within 1 hour of her ingestion. EKG shows a sinus rhythm with PVCs. QTc is 490 originally, 463 at 2 hours. She has a leukocytosis of 17.6. Thrombocytosis as well. Other laboratory is not remarkable. She will go to the ICU for continued monitoring. Lab Data 05/21/23 02:08 05/21/23 02:08 Laboratory Results WBC 17.57 10^3/uL (3.29-11.43) H 05/21/23 02:08 RBC 5.17 10^6/uL (3.85-5.65) 05/21/23 02:08 Hgb 14.20 g/dL (11.27-16.99) 05/21/23 02:08 Hct 44.7 % (36-47) 05/21/23 02:08 MCV 86.5 fl (85-98) 05/21/23 02:08 MCH 27.5 pg (27-33) 05/21/23 02:08 MCHC 31.8 g/dL (30-55) 05/21/23 02:08 RDW 13.6 % (12.1-15.1) 05/21/23 02:08 Plt Count 436 10^3/cmm (157-399) H 05/21/23 02:08 MPV 9.8 fL (7.4-10.4) 05/21/23 02:08 Neut % (Auto) 61.7 % 05/21/23 02:08 Lymph % (Auto) 32.7 % 05/21/23 02:08 [place] % (Auto) 4.4 % 05/21/23 02:08 Eos % (Auto) 0.3 % 05/21/23 02:08 Baso % (Auto) 0.2 % 05/21/23 02:08 Neut # (Auto) 10.84 10^3/uL (1.8-7.7) H 05/21/23 02:08 Lymph # (Auto) 5.7 10^3/uL (0.8-4.8) H 05/21/23 02:08 [place] # (Auto) 0.8 10^3/uL (0.2-0.9) 05/21/23 02:08 Eos # (Auto) 0.1 10^3/uL (0.0-0.8) 05/21/23 02:08 Baso # (Auto) 0.0 10^3/uL (0.0-0.1) 05/21/23 02:08 Nucleated RBC % (auto) 0 % 05/21/23 02:08 Nucleated RBCs # 0.0 /100WBC 05/21/23 02:08 Sodium 140 mmol/L (136-145) 05/21/23 02:08 Potassium 3.5 mmol/L (3.5-5.1) 05/21/23 02:08 Chloride 104 mmol/L (98-107) 05/21/23 02:08 Carbon Dioxide 23 mmol/L (22-29) 05/21/23 02:08 Anion Gap 16.5 (5-19) 05/21/23 02:08 BUN 15 mg/dL (6-20) 05/21/23 02:08 Creatinine 0.8 mg/dL (0.5-0.9) 05/21/23 02:08 GFR Calculation 84.8 mL/min (90-130) L 05/21/23 02:08 Glucose 118 mg/dL (65-115) H 05/21/23 02:08 Calculated Osmolality 292 mOsm/kg (285-295) 05/21/23 02:08 Calcium 9.7 mg/dL (8.5-10.5) 05/21/23 02:08 Total Bilirubin 0.2 mg/dL (0.15-1.2) 05/21/23 02:08 AST 16 U/L (0-32) 05/21/23 02:08 ALT 13 U/L (0-33) 05/21/23 02:08 Alkaline Phosphatase 72 U/L (35-105) 05/21/23 02:08 Total Protein 9.1 g/dL (6.6-8.7) H 05/21/23 02:08 Albumin 4.4 g/dL (3.5-5.2) 05/21/23 02:08 Globulin 4.7 g/dL (1.3-4.6) H 05/21/23 02:08 TSH 2.75 uIU/mL (0.27-4.20) 05/21/23 02:08 Salicylates < 0.3 mg/dL (3-10) L 05/21/23 02:08 Acetaminophen < 5.0 ug/mL (10-30) L 05/21/23 02:08 Ethyl Alcohol < 10 mg/dL (0-10) 05/21/23 02:08 No radiology studies performed this visit Discharge Plan Discharge Patient Disposition: Admitted As Inpatient Admit Provider: Carlos Lazo Clinical Impression: Suicide attempt by multiple drug overdose Condition: Stable Coding Level of Care Code ED Transmission Specialist for Placido Crowe
--- NOTE | 2023-05-21 03:48 | PC.NURSE ---
96 Hour Involuntary Hold Patient Rights have been read to the patient and a copy of the same was given to her. Patient verbally acknowledges understanding of Rights. Diamond Finishing Supervisor Mercy Rojas was present at the time of presentation of Rights.
[2023-05-21 03:54] LABS: HCG Qualitative Urine. Negative (Negative)
[2023-05-21 03:55] LABS: Add Urine Microscopic? YES; Amorphous Sediment Urine TRACE /hpf; Bacteria Urine 3+ /hpf; Bilirubin Urine Neg (Negative); Blood Urine Neg (Negative); Coarse Granular Casts Urine 0-4 /lpf; Glucose Urine UA Norm (Normal); Hyaline Casts Urine 0-4 /lpf; Ketones Urine Negative (Negative); Leukocyte Esterase Urine Negative (Negative); Mucus Urine TRACE /hpf; Nitrate Urine Positive (Negative); Protein Urine Neg (Negative); RBC Urine 0-4 /hpf (0-2); Squamous Epithelial Cell Urine 15-25 /hpf (0-5); Urine Appearance Turbid (CLEAR); Urine Color Dark Yellow (Yellow); Urobilinogen Urine Neg (Negative); pH Urine 5 (5-7)
[2023-05-21 03:58] LABS: Amphetamines Screen Urine Negative (Negative); Barbiturates Screen Urine Negative (Negative); Benzodiazepines Screen Urine Negative (Negative); Cocaine Screen Urine Negative (Negative); Opiate Screen Urine Negative (Negative); PCP Screen Urine Negative (Negative); THC Screen Urine Negative (Negative)
--- NOTE | 2023-05-21 05:31 | P.HP_ITS ---
Providers/Chief Complaint 2 Admitting Physician: Carlos Lazo MD Chief Complaint: OD History of Present Illness Marie Nicholson is a 28 year old female with history of generalized anxiety disorder, opiate abuse, methamphetamine/polysubstance abuse was recently discharged from neuropsychiatric unit presented today after taking multiple tablets of trazodone along sertraline. She is endorsing suicidal attempt. EKG showing QTc interval 490, no arrhythmia noted, currently in sinus rhythm and stable hemodynamics. Potassium 3.5, requesting magnesium level. Patient is not , TSH within normal limits. Patient is stating that she has 4 kids, most of them are with her brother and mother. Their birthday is coming and she was depressed about not being with them. She is endorsing to IV heroin and methamphetamine. She is not sure about the number of tablets she took Review of Systems 2 Eyes: Denies: change in vision ENMT: Denies: throat pain Card: Denies: chest pain Resp: Denies: dyspnea GI: Reports: nausea : Denies: flank pain Musc: Denies: neck pain Skin/Breast: Denies: rash Medications/Allergies Home Medications Medication Instructions Recorded Confirmed Last Taken Type hydroxyzine pamoate 25 mg capsule 50 mg (2 x 25 mg) PO Q6H PRN 05/10/23 Unknown Rx Anxiety 30 days #120 caps sertraline 100 mg tablet 100 mg PO DAILY 30 days #30 tabs 05/10/23 Unknown Rx trazodone 50 mg tablet 50 mg PO BEDTIME PRN Sleep 30 days 05/10/23 Unknown Rx #30 tabs Allergies Allergy/AdvReac Type Severity Reaction Status Date / Time amitriptyline Allergy Mild ALGY-Hives Verified 05/21/23 01:43 Penicillins Allergy Mild ALGY-Hives Verified 05/21/23 01:43 PFSH Acute 2 PFSH: Medical History Psychiatric care No pertinent family history Surgical History No pertinent past surgical history Social History Smoking and tobacco/nicotine status: never used tobacco/nicotine Alcohol intake: never Substance/Drug Use: never Caregiver/support person: Yes Lives independently: No Household members: spouse Female Reproductive History: Date of last menstrual period: 05/03/23 Para: 3 Vitals/I&O/Wt Last Vital Signs Temp 97.7 F 05/21/23 01:24 Pulse 83 05/21/23 03:30 Resp 21 H 05/21/23 03:30 BP 129/99 05/21/23 03:30 Pulse Ox 97 05/21/23 03:30 O2 Del Method Room Air 05/21/23 04:00 Weight last 48 hrs Weight 113.398 kg Physical Exam 2 Narrative: Young female Nonfocal neuroexam S1, S2 Hemodynamically stable Afebrile Nontender abdomen No sign of peritonitis Doing well on room air Appears stated age Signs of dehydration Data 05/21/23 02:08 05/21/23 02:08 A&P Assessment and plan (1) Major depressive disorder, recurrent episode: (2) History of ADHD: (3) ANGIE (generalized anxiety disorder): (4) Methamphetamine abuse: (5) Opioid abuse: (6) Suicide attempt: Plan Drug overdose Took multiple doses of trazodone and sertraline Monitor UTC prolongation Keep potassium above 4 magnesium above 2 She is throwing unifocal PVCs Monitor for arrhythmias Patient will need overnight monitoring in ICU, she could be transferred to neuropsychiatric unit in next 10 to 12 hours if she remains stable She has been given charcoal that she presented with a 1 hour of ingestion, Full code Cardiac diet Start ceftriaxone for possible UTI Blood work showing hemoconcentration continue IV fluids DVT prophylaxis on board 96-hour hold Attestations 2 Medical Necessity Statement*: More than 2 midnights anticipated Diagnoses Major depressive disorder, recurrent episode F33.9 History of ADHD Z86.59 ANGIE (generalized anxiety disorder) F41.1 Methamphetamine abuse F15.10 Opioid abuse F11.10 Suicide attempt T14.91XA
[2023-05-21] MEDS: sodium chloride 0.9% 1,000 ML 75 ML IV ×2 (06:23→19:37)
--- NOTE | 2023-05-21 08:42 | PC.PHAR ---
pt states the doxepin 10mg hs prn filled 03/30/23 30d/s-buspar 15mg bid filled 03/30/23 30d/s-vivitrol 380mg im q4 weeks filled 03/24/23-prazosin 1mg hs prn and naltrexone 50mg daily filled 03/17/23 30d/s was all dced states only taking the medications entered
[2023-05-21] MEDS: enoxaparin 40 mg/0.4 mL Syringe SUBCUT (09:47)
[2023-05-21] MEDS: cefTRIAXone 1,000 MG in sodium chloride 0.9% (plus) 50 ML 100 MG IV (09:47)
[2023-05-21] MEDS: sennosides-docusate Tablet 1 TAB PO (09:47)
[2023-05-21] MEDS: magnesium oxide 400 mg tablet PO ×2 (09:47→17:47)
--- NOTE | 2023-05-21 11:24 | PC.NURSE ---
patient voiced that she is currently homeless and unable to return to her home with her family. She is was staying at [facility] after d/c from most recent hospitalization with plans to enter a rehab facility in May
--- NOTE | 2023-05-21 11:42 | XRR_ITS ---
PROCEDURE INFORMATION: Exam: XR Chest Exam date and time: 05/21/2023 11:39 AM Age: 28 years old Clinical indication: Dyspnea. Overdose. Shortness of breath TECHNIQUE: Imaging protocol: Radiologic exam of the chest. Views: 1 view. COMPARISON: CT abdomen pelvis w con* [id number] 09/20/2022 8:11 PM FINDINGS: Lungs: Low lung volumes. No pulmonary consolidation. Pleural spaces: No pleural effusion. No pneumothorax. Heart/Mediastinum: The cardiac silhouette is unremarkable. No gross evidence of pneumomediastinum. Bones/joints: No gross fracture. XR/XR chest 1V portable [id number] IMPRESSION: 1. No acute cardiopulmonary abnormality identified. 2. Low lung volumes.
[2023-05-21 12:30] LABS: Iron 36 ug/dL (37-145); Percent Saturation 9.1 % (20-50); Total Iron Binding Capacity 394 mcg/dl; Unsaturated Iron Binding 358 ug/dL (112-347)
[2023-05-21 12:46] LABS: Procalcitonin 0.04 ng/mL (0-0.5); Vitamin B12 403 pg/mL (232-1245)
--- NOTE | 2023-05-21 14:36 | W.PM.EVENTAC ---
Event Note Event Note: Admitted earlier today morning. On examination laying comfortably in bed. Sleeping. Sitter at bedside. Patient complaining of mild abdominal fullness and cramping. Appetite and oral intake is limited currently. Has remained hemodynamically stable and afebrile. Plan: Patient present to the ER with intentional overdose of home medications including sertraline and trazodone. Not sure of the amount. Repeat EKG in AM. Monitor QTc. Repeat electrolyte in AM. Telemonitoring. Has leukocytosis. No episodes of fever. Could be in setting of acute inflammatory reaction versus dehydration. Cannot rule out infection. Continue with IV ceftriaxone. Denies dysuria. Mild concerns for UTI on UA. Check chest x-ray to rule out aspiration. Consult psychiatry. If QTc remains stable, patient remains hemodynamically stable and afebrile within next 24 hours most likely can transition over to Neuropsych Unit. 96-hour hold.
[2023-05-21] MEDS: acetaminophen 500 mg Tablet PO (17:46)
[2023-05-22] VITALS (9 sets, daily range): BP systolic 96–178; BP diastolic 55–91; PULSE 46–72; RESP 11–18; TEMP 36.4–36.7; O2SAT 96–99; BMI 41.5
--- NOTE | 2023-05-22 04:36 | ECG_ITS ---
[facility] Test Date: 2023-05-22 Pat Name: Marie Nicholson Department: Room: ICU06 Gender: Female Import/Export Administrator: : 1995 Requested By: Luis Wyman Order Number: [id number] Hill MD: Marko Salguero M.D. Measurements Intervals [place] Rate: 55 P: 54 ID: [id number] QRS: 49 QRSD: 104 T: 50 QT: 504 QTc: 486 Interpretive Statements SINUS BRADYCARDIA WITH SINUS ARRHYTHMIA PROLONGED QT INTERVAL Compared to ECG 05/21/2023 03:28:41 Prolonged QT interval now present Sinus rhythm no longer present Ventricular premature complex(es) no longer present Electronically Signed On 05-22-2023 11:26:19 CDT by Marko Salguero M.D. [id number]
[2023-05-22 05:50] LABS: Basophils % 0.2 %; Eosinophils # 0.1 10^3/uL (0.0-0.8); Eosinophils % 1.1 %; Hematocrit 34.7 % (36-47); Lymphocytes # 5.1 10^3/uL (0.8-4.8); Lymphocytes % 57.9 %; Mean Corpuscular HGB Conc 31.4 g/dL (30-55); Mean Corpuscular Hemoglobin 27.9 pg (27-33); Mean Platelet Volume 9.8 fL (7.4-10.4); Monocytes # 0.5 10^3/uL (0.2-0.9); Monocytes % 5.2 %; Neutrophils % 35.4 %; Nucleated Red Blood Cells % 0 %; Platelet Count 318 10^3/cmm (157-399); Red Cell Distribution Width 14.1 % (12.1-15.1); White Blood Count 8.79 10^3/uL (3.29-11.43)
[2023-05-22 06:07] LABS: Alanine Aminotransferase 8 U/L (0-33); Albumin Level 3.3 g/dL (3.5-5.2); Alkaline Phosphatase 52 U/L (35-105); Aspartate Amino Transferase 10 U/L (0-32); Blood Urea Nitrogen 16 mg/dL (6-20); C Reactive Protein 3.2 mg/L (0.0-4.9); Calcium 8.4 mg/dL (8.5-10.5); Carbon Dioxide 24 mmol/L (22-29); Chloride 111 mmol/L (98-107); Creatinine Clr Calc Pharmacy 185.9711; Globulin 2.9 g/dL (1.3-4.6); Glomerular Filtration Rate 84.8 mL/min (90-130); Glucose 72 mg/dL (65-115); Magnesium 1.9 mg/dL (1.7-2.3); Osmolality Calculated 294 mOsm/kg (285-295); Sodium 142 mmol/L (136-145); Total Bilirubin 0.3 mg/dL (0.15-1.2); Total Protein 6.2 g/dL (6.6-8.7)
[2023-05-22 06:08] LABS: Chol HDL Ratio 3.52 mg/dL (0.0-4.40); Cholesterol 109 mg/dL (0-200); HDL Cholesterol 31 mg/dL (60-100); LDL Cholesterol Calculated 57 mg/dL (50-129); Triglycerides 104 mg/dL (0-150); VLDL Cholestrol Calculation 21 mg/dL (0-30)
[2023-05-22 06:14] LABS: Estmated Average Glucose 94; Hemoglobin A1C 4.9 % (4.0-6.0)
[2023-05-22 06:27] LABS: Folate Level 6.6 ng/mL (4.8-37.3)
[2023-05-22] MEDS: sennosides-docusate Tablet 1 TAB PO (08:11)
[2023-05-22] MEDS: sodium chloride 0.9% 1,000 ML 75 ML IV (08:11)
[2023-05-22] MEDS: cefTRIAXone 1,000 MG in sodium chloride 0.9% (plus) 50 ML 100 MG IV (08:11)
[2023-05-22] MEDS: enoxaparin 40 mg/0.4 mL Syringe SUBCUT (08:11)
[2023-05-22] MEDS: magnesium oxide 400 mg tablet PO ×2 (08:11→18:04)
--- NOTE | 2023-05-22 08:28 | P.NPUHP_ITS ---
Providers/Chief Complaint 2 Admitting Physician: Carlos Lazo MD Chief Complaint: OD HPI NPU History of Present Illness Marie Nicholson is a 28 year old female who presented to the emergency department with the following report: Chief Complaint: Overdose Stated Complaint: OD Time Seen by Provider: 05/21/23 01:26 History of Present Illness: 28-year-old female with a history of depression and recent admission to the neuropsychiatric unit at this facility. She presents within an hour after ingesting multiple trazodone and sertraline at home in an attempt to kill herself. She complains of stomach pain, nausea, vomiting. No history of seizure. She presented to the ICU for definitive treatment of those issues. She was transferred to the neuropsychiatric unit after she was medically cleared to once again attempt to address her psychiatric and addiction issues in addition to the lethality. She was just discharged 05/10/2023 to the [facility] with a plan to 2 be there until her rehab bed date in May. An excerpt from her discharge summary from earlier this month is included below for context and the fact that there have been no clear substantive changes. She presents today reporting that when she she went to [facility] briefly and she did not take her medication reportedly because she was not sure that she really needed it. She denies having relapsed in the interim but reports that she ended up speaking with her children with got her in an unhealthy emotional state that she did not break out of. She reports that ultimately she took the overdose on medication which led to her being brought back to the hospital. She reports that she knows she needs to go to rehab but that she struggles with wanting to go. We discussed the fact that not many people really want to go to rehab but that healthy people identified that there are things they need to do that are not necessarily desirable. We discussed monitoring her and making some possible changes to her medication regimen moving forward. Per her 05/10/2023 [facility] inpatient psychiatric discharge summary: Discharge Diagnosis (1) Major depressive disorder, recurrent episode: Status: Acute (2) ANGIE (generalized anxiety disorder): Status: Acute (3) Opioid abuse: Status: Acute (4) History of ADHD: Status: Acute (5) Methamphetamine abuse: Status: Acute Reason for Visit Reason for Visit: MHE Brief History: History of Present Illness Marie Nicholson is a 28 year old female recently discharged from the neuropsychiatric unit on 01/20/2023 who presented to the emergency department with suicidal ideation with a plan to overdose. The patient was admitted to the neuropsychiatric unit for further evaluation and treatment. The patient had reported similar complaints to her previous hospitalization. She reports that she has been off of all of her medications since February of this year. She states that she has been feeling more depressed. She continued to state that she has been using methamphetamine on a daily basis along with opiate use both orally and recently having used IV heroin approximately a month ago. She is reporting her most recent use of opiates 2 days ago and states that she last used methamphetamine yesterday. She reports that she feels out of control. She had stated that she had been sent home to live with her mother after discharge from the neuropsychiatric unit with the plan for the patient to go to [facility] on an inpatient basis when a bed became available. Unfortunately, the patient states that she never made it to the end the inpatient rehab known [facility]. She did indicate that she had recently been placed in an inpatient substance abuse facility in [facility] for 2 weeks but left without completing the program. She continues to report her mood is being worse and reports that she has continued cravings for both opiates and methamphetamine. She reported no changes otherwise since her last hospitalization except that she is no longer allowed at home and that she has resumed being homeless around the [facility]. She was requesting that she be restarted on her previous psychotropic medications. She reports sleep continuity disruption. She reports significant lack of appetite. Current medications: none in last 3 months Excerpt from Discharge Summary from 01/20/23 NPU Discharge Diagnosis (1) Major depressive disorder, recurrent episode: Status: Acute (2) Opioid abuse: Status: Acute (3) Methamphetamine abuse: Status: Acute (4) History of ADHD: Status: Acute (5) ANGIE (generalized anxiety disorder): Status: Acute Reason for Visit OVERDOSE Brief History: History of Present Illness Marie Nicholson is a 27 year old female who presented to the emergency department via EMS after having admitted to taking 20 naproxen pills with report of having thoughts of wanting to kill herself. The patient was admitted to the neuropsychiatric unit for further evaluation and treatment. The patient reports that she has been struggling with chronic methamphetamine abuse for greater than 5 years having used methamphetamine beginning at the age of 16. She reports that she has been mixing her methamphetamine with heroin. The patient reports that she is approaching the anniversary of having lost custody of all of her children approximately 1 year ago and states that she has been feeling more hopeless and worthless recently. She reports increased crying spells. She reports that she has been feeling more hopeless. She reports that she has been struggling with hypersomnia. She reports low energy and low motivation She has reported a loss of appetite. She reports that she has been more anxious as she chronically worries about her children. She reports that she often feels guilty that she is not able to care for her children. She also reports active cravings for methamphetamines. She denies any alcohol use. The patient reports having difficulties with concentration. She reports that she had previously been diagnosed with ADHD and a learning disability as a child and states that she has been frustrated at being able to manage routine activities of daily living. She reports a past history of psychotic symptoms when using methamphetamine but denies any currently. She did not endorse any manic symptoms. She denies any history of PTSD symptoms. Inpatient psychiatric history: None Outpatient psychiatric treatment: She reports history of depression and ADHD while reporting having received treatment at the [facility] more than 10 years ago. Drug and alcohol history: She reports no alcohol use. She reports no marijuana use. She does report having used methamphetamines beginning at the age of 16 with increased use reported over the last 5 years. She reports the longest period of sobriety from methamphetamine is less than 1 day. She also reports a history of heroin use intranasally for the past few years with no treatment treatment history for opiate use. She states that she had been in rehabilitation in March 2022 in [facility] through [facility] counseling. She states that she was there for 21 days only. Allergies: Penicillin Medical history: Hypertension, history of pyelonephritis Surgical history: Tonsillectomy adenoidectomy, Current medications: None Developmental history: History of developmental delays as she reports having been diagnosed with a learning disorder while struggling in school. Family psychiatric history: None reported Legal history: None reported Social history: The patient was raised in [place] [facility] and is from her first and only for the past 3 years. She states that she was raised by her mother as her father had been living in another city and raising another family. She states that she briefly lived with her father at the age of 11 but returned back to live with her mother. She reports no history of any sexual physical or emotional abuse. She did report witnessing the of her grandmother as an adolescent. She reports that she dropped out of school and never got her GED after dropping out in the 11th grade. She has 4 children ages 9,4,2 and 1 respectively. She states that she had lost all 4 of her children due to her substance abuse issues. Her , 4, and 2-year-old and 1 year old all live outside of the home. Her 1-year-old currently resides with her biological mother. She has been homeless for at least 1 year. Hospital Course She slowly acclimated to the schedule, group and milieu therapies provided. She presented struggling with depression, anxiety and active addiction. Trazodone Zoloft and Vistaril were started to assist with these concerns. Zoloft was titrated to 100 mg p.o. daily with notable improvements. She continued to endorse an interest in sober living treatment and inpatient rehab. She worked with the social work team to find a bed date but it was further in the future. Given her domestic challenges they also assisted her in getting placement at [facility] in the interim while she waited for that bed date. Additionally she was assisted in getting appropriate follow-up. She had significant improvement and was able to contract for safety outside of the hospital prior to discharge. During the hospitalization, the patient had routine laboratory studies which were within normal limits except for a few outliers. Additionally, there was a general medical evaluation which was also within normal limits and revealed no new acute processes. At the time of discharge, lethality was denied and psychosis was resolving. Mood and anxiety were well managed. The patient endorsed a plan to avoid all drugs of abuse and follow up with the aftercare recommendations of the treatment team. The patient was evaluated and deemed to be absent credible lethality and had achieved the maximum benefit from an inpatient hospitalization, and so was discharged. Meds NPU Home Medications Medication Instructions Recorded Confirmed Last Taken Type hydroxyzine pamoate 25 mg capsule 50 mg (2 x 25 mg) PO Q6H PRN 05/10/23 05/21/23 Unknown Rx Anxiety 30 days #120 caps sertraline 100 mg tablet 100 mg PO DAILY 30 days #30 tabs 05/10/23 05/21/23 Unknown Rx trazodone 50 mg tablet 50 mg PO BEDTIME PRN Sleep 30 days 05/10/23 05/21/23 Unknown Rx #30 tabs acetaminophen 500 mg tablet 1,000 mg PO Q6H PRN Pain 05/21/23 05/21/23 Unknown History Allergies Allergy/AdvReac Type Severity Reaction Status Date / Time amitriptyline Allergy Mild ALGY-Hives Verified 05/21/23 08:42 Penicillins Allergy Mild ALGY-Hives Verified 05/21/23 08:42 PFSH NPU 2 PFSH: Medical History Psychiatric care No pertinent family history Surgical History No pertinent past surgical history Social History Smoking and tobacco/nicotine status: never used tobacco/nicotine Alcohol intake: never Substance/Drug Use: never Caregiver/support person: Yes Lives independently: No Household members: spouse Female Reproductive History: Para: 3 Mental Status Exam 2 MSE Comments: This is an obese versus morbidly obese white female in hospital scrubs with poor grooming, mottled teeth appearing older than her stated age. No abnormal movements except for psychomotor retardation. Mostly cooperative with exam a mild to moderate distress. Speech was slightly decreased rate and volume. Mood described as depressed and frustrated. Affect slightly subdued. Thought process organized. Thought content: Patient endorsed suicidal but denied homicidal ideation, there were no delusions reported or noted, she denied any auditory or visual hallucinations. Attention and concentration appeared intact and memory appeared mostly reliable but none were formally tested. She is alert and oriented times 3. Her insight was poor. Her judgment was poor. Her impulse control was impaired. Vitals/I&O/Wt Last Vital Signs Temp 97.6 F 05/22/23 04:00 Pulse 72 05/22/23 07:58 Resp 17 05/22/23 07:58 BP 144/79 05/22/23 07:58 Pulse Ox 99 05/22/23 07:58 O2 Del Method Room Air 05/22/23 07:58 05/21/23 05/22/23 05/22/23 22:59 06:59 14:59 Intake Total 2032.5 / 2322.5 1002.5 / 1002.5 Balance 1001.5 / 1002.5 Weight last 48 hrs Weight 116.891 kg Weight 113.534 kg Weight 113.398 kg Data NPU 05/22/23 05:23 05/22/23 05:23 A&P Assessment and plan (1) Major depressive disorder, recurrent episode: (2) ANGIE (generalized anxiety disorder): (3) Opioid abuse: (4) History of ADHD: (5) Methamphetamine abuse: Plan 28-year-old white female with polysubstance abuse who was discharged 05/09/2023 now admitted after overdosing again with suicidal ideation with hx of Major depression and Generalized anxiety along with adhd. 1. ?Encourage individual, group and milieu therapy. 2. Recommend sober living treatment at the highest level of care to which the patient is willing to commit. 3. Continue q-15 minute checks for safety. 4. Continue current medication. 5. Patient overdosed on medication and we will monitor. They are what to restart. 6. Consider dual diagnosis treatment-likely needs inpatient substance abuse treatment. Rehab bed date next week. 7. Some concerns raised at last hospitalization about possible need for guardianship. Involuntary Hold Information 2 96 Hour Hold: 96 Hour Involuntary Admission: No Attestations NPU 2 Medical Necessity Statement*: Inpatient hospitalization is medically necessary and the clinically appropriate intervention at this time. We will monitor and adjust medications as indicated. The patient will be hospitalized for at least 2 midnights. The patient's likely length of stay is 3 to 5 days. Coding Level of Care Code Acute Code for [facility] Fwd Diagnoses Major depressive disorder, recurrent episode F33.9 ANGIE (generalized anxiety disorder) F41.1 Opioid abuse F11.10 History of ADHD Z86.59 Methamphetamine abuse F15.10
--- NOTE | 2023-05-22 13:38 | P.PN_ITS ---
Subjective 2 Subjective: Reports doing okay today. Denies any pain or discomfort. No nausea vomiting, lightheadedness, chest pain pressure or abdominal discomfort. Vitals/I&O/Wt Last Vital Signs Temp 98.1 F 05/22/23 09:53 Pulse 72 05/22/23 11:59 Resp 14 05/22/23 11:59 BP 149/91 05/22/23 11:59 Pulse Ox 98 05/22/23 11:59 O2 Del Method Room Air 05/22/23 11:59 05/21/23 05/22/23 05/22/23 22:59 06:59 14:59 Intake Total 2032.5 / 2322.5 1292.5 / 1292.5 Balance 2032.5 / 2322.5 1292.5 / 1292.5 Weight last 48 hrs Weight 116.891 kg Weight 113.534 kg Weight 113.398 kg Physical Exam 2 Const: COMMON NORMALS: patient oriented x3 and alert GENERAL APPEARANCE: c ooperative ORIENTATION/CONSCIOUSNESS: Yes awake HENMT: COMMON NORMALS: oropharynx normal Neck/C-Spine: COMMON NORMALS: no JVD Resp: COMMON NORMALS: normal respiratory effort and clear to auscultation bilaterally AUSCULTATION: clear to auscultation bilaterally Cardio: COMMON NORMALS: no JVD, regular rhythm, S1 normal heart sound present, S2 normal heart sound present and No murmurs present (Cardio) RHYTHM: regular rhythm HEART SOUNDS: S1 normal heart sound present and S2 normal heart sound present GI: COMMON NORMALS: Normal to inspection, nondistended, normoactive bowel sounds present, Soft to palpation and non-tender PALPATION: Yes Soft to palpation Extremity: COMMON NORMALS: no joint enlargement and no pedal edema Neuro: COMMON NORMALS: patient oriented x3 and moves all extremities S ENSORIUM/ORIENTATION: Yes alert Skin: COMMON NORMALS: no rashes or lesions noted GENERAL SKIN EXAM: no rashes or lesions noted Data 05/22/23 05:23 05/22/23 05:23 A&P Assessment and plan (1) Major depressive disorder, recurrent episode: (2) History of ADHD: (3) ANGIE (generalized anxiety disorder): (4) Methamphetamine abuse: (5) Opioid abuse: (6) Suicide attempt: Plan Drug overdose: She is awake and alert, reports she is doing okay. Reviewed vitals, CBC, CMP, magnesium, CRP, lipid profile, EKG. QTc still with prolongation of 486 but better than yesterday. Discussed with psychiatrist, she is okay to come over for further management on NPU. Transfer orders entered. Discussed with protective services case worker. Took multiple doses of trazodone and sertraline. Follow-up EKG requested. Full code Cardiac diet Switch to cefdinir from ceftriaxone for possible UTI Stop IV fluid. DVT prophylaxis on board 96-hour hold Attestations 2 Medical Necessity Statement*: Continue admission for assessment management following suicide attempt, medication overdose. and High MDM includes number and complexity of problems actively addressed during encounter and amount and/or complexity of data reviewed/ordered [ resulted lab(s)/test(s), ordered lab(s)/test(s) and other healthcare professional discussion] as documented Diagnoses Major depressive disorder, recurrent episode F33.9 History of ADHD Z86.59 ANGIE (generalized anxiety disorder) F41.1 Methamphetamine abuse F15.10 Opioid abuse F11.10 Suicide attempt T14.91XA
--- NOTE | 2023-05-22 15:25 | PC.ADMIT ---
Homeless Admission Note: The patient,Marie Nicholson,28 y/o, was given written information regarding hospital policies, unit procedures and contact persons. Patient's smoking status: never smoked. Vital Signs - 8 hr 05/22/23 07:58 05/22/23 09:53 05/22/23 11:59 Temperature 98.1 F Pulse Rate 72 61 72 Respiratory Rate 17 18 14 Blood Pressure 144/79 128/84 149/91 Pulse Oximetry 99 97 98 Oxygen Delivery Method Room Air Room Air Room Air 05/22/23 14:12 05/22/23 15:10 Temperature 98.1 F Pulse Rate 68 Respiratory Rate 16 Blood Pressure 178/88 Pulse Oximetry 96 Oxygen Delivery Method Room Air TRANSFERRED FROM ICU DUE TO RECENT OVERDOSE OF TRAZODONE, VISTARIL AND ZOLOFT AT 1406 VIA WHEELCHAIR, SECURITY AND ICU STAFF. PT IS ON A 96 HOUR HOLD THAT ENDS ON 05/26/23 AT 0001. PT STATES SHE IS HERE DUE TO OVERDOSING ON ALL MY MEDICATIONS. PT SAYS THIS TO RN SHE SMILES AND LAUGHS. PT WAS RECENTLY DISCHARGED ON 05/10/23 AND STATES SHE HAS NOT BEEN TAKING HER MEDICATIONS, STATES SHE TOOK MY MEDS MAYBE ONE OR TWO DAYS. PT REPORTS SHE IS STILL HAVING SUICIDAL THOUGHTS WITH NO PLAN WHILE BEING HERE, BUT STATES IF I LEAVE I WILL JUST OVERDOSE AGAIN. PT THEN STATED I DON'T WANT TO BE HERE, I WANT TO LEAVE. PT WAS EDUCATED THAT SHE IS ON A HOLD AND PT WILL NOT BE LEAVING ANYTIME SOON DUE TO SUICIDAL THOUGHTS. DENIES HI AND AVH AT THIS TIME. DENIES PAIN. RATES ANXIETY 6/10 AND DEPRESSION 7/10. SKIN ASSESSMENT COMPLETED AND NO SKIN ISSUES IDENTIFIED. PT ORIENTATED TO UNIT. ALL QUESTIONS WERE ANSWERED AND SUPPORT WAS VOICED.
--- NOTE | 2023-05-22 15:26 | PC.NURSE ---
NEW ORDERS RECEIVED TO DISCONTINUE VISTARIL AND TRAZODONE IN THE NPU ORDER SET DUE TO PT OVERDOSING ON THOSE MEDICATIONS. EDUCATED PT AND VERBALIZED UNDERSTANDING. ORDERS WERE PLACED PER DR. ALEX
[2023-05-22] MEDS: OLANZapine 5 mg ODT PO (16:20)
--- NOTE | 2023-05-22 16:21 | PC.NURSE ---
PT REPORTS CHEST PAIN 08/06. VITALS OBTAINED, HR 67, BP 156/89, RR 18 AND SPOQ 99% ON RA. PT CONTINUES TO LAUGH AND SMILE WHILE REPORTING PAIN. RN ASKED IF SHE WAS STILL ANXIOUS, PT STATED YEAH I IN THINK I NEED SOME MEDICINE. INFORMED DR. ALEX OF VITALS AND CHEST PAIN. NEW ORDERS RECEIVED FOR EKG NOW AND VERIFIED WITH RN IT WAS OKAY TO GIVE ZYDIS. ZYDIS 5 MG WAS GIVEN ORDERED FOR INCREASED ANXIETY. WHEN RN WENT TO ROOM TO GIVE MEDICATIONS PT WAS LAUGHING AND JOKING WITH ROOM MATE AND WHEN RN ASKED IF HER CHEST PAIN WAS BETTER PT STATED YEAH I THINK SO. PT TOOK MEDICATIONS WITHOUT ISSUE. SUPPORT WAS VOICED. RT CONTACTED TO COMPLETE EKG
--- NOTE | 2023-05-22 16:27 | ECG_ITS ---
[facility] Test Date: 2023-05-22 Pat Name: Marie Nicholson Department: Room: 128 Gender: Female Air Director: : 1995 Requested By: Vladislav Llanos Order Number: [id number] Hill MD: Marko Salguero M.D. Measurements Intervals [place] Rate: 66 P: 49 PA: 129 QRS: 46 QRSD: 105 T: 47 QT: 441 QTc: 462 Interpretive Statements SINUS RHYTHM Compared to ECG 05/22/2023 04:36:14 Sinus bradycardia no longer present Sinus arrhythmia no longer present Prolonged QT interval no longer present Electronically Signed On 05-22-2023 21:52:49 CDT by Marko Salguero M.D. [id number]
[2023-05-22] MEDS: cefdinir 300 MG CAPSULE PO (18:04)
[2023-05-23 00:07] VITALS: PULSE 66
[2023-05-23 06:00] VITALS: BP 113/74; PULSE 52; RESP 20; TEMP 36.3; O2SAT 98
--- NOTE | 2023-05-23 09:00 | ECG_ITS ---
[facility] Test Date: 2023-05-23 Pat Name: Marie Nicholson Department: Room: 128 Gender: Female Management Internship: : 1995 Requested By: Jagdeep Kwan Order Number: [id number] Sergio MD: Yeni Ibanez M.D. Measurements Intervals [place] Rate: 58 P: 57 MD: 150 QRS: 47 QRSD: 115 T: 50 QT: 465 QTc: 460 Interpretive Statements SINUS BRADYCARDIA MODERATE INTRAVENTRICULAR CONDUCTION DELAY [110+ ms QRS DURATION] Compared to ECG 05/22/2023 16:27:14 Intraventricular conduction delay now present Sinus rhythm no longer present Electronically Signed On 05-24-2023 23:58:51 CDT by Yeni Ibanez M.D. [id number]
[2023-05-23] MEDS: sennosides-docusate Tablet 1 TAB PO (09:11)
[2023-05-23] MEDS: cefdinir 300 MG CAPSULE PO ×2 (09:11→18:06)
[2023-05-23] MEDS: magnesium oxide 400 mg tablet PO ×2 (09:11→18:06)
[2023-05-23 14:00] VITALS: BP 152/92; PULSE 60; RESP 16; TEMP 36.8; O2SAT 100
[2023-05-23] MEDS: OLANZapine 5 mg ODT PO (14:11)
--- NOTE | 2023-05-23 14:30 | ECG_ITS ---
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 Measurements Intervals [place] Rate: 57 P: 54 VT: 149 QRS: 44 QRSD: 95 T: 43 QT: 448 QTc: 437 Interpretive Statements SINUS BRADYCARDIA Compared to ECG 05/23/2023 10:47:02 Intraventricular conduction delay no longer present Electronically Signed On 05-24-2023 23:45:50 CDT by Yeni Ibanez M.D. [id number]
[2023-05-23] MEDS: hyDRALAzine 25 mg Tablet PO (14:36)
--- NOTE | 2023-05-23 15:43 | W.PM.NPUPNS ---
Subjective NPU Subjective: Patient presented today reporting that she is feeling a tiny bit better. We continued to discuss her rehab bed date and her desire to find sobriety. She continues to have challenges when she thinks about mistakes that she has made and missing her children. She discussed having some chest discomfort and we agreed we would reconsult the hospitalist that has been managing her condition in the ICU. We have continue to hold medications monitoring her QTc. We discussed still waiting before starting medication secondary to that concern. Mental Status Exam MSE Comments: This is an obese versus morbidly obese white female in hospital scrubs with poor grooming, mottled teeth appearing older than her stated age. No abnormal movements except for psychomotor retardation. Mostly cooperative with exam a mild to moderate distress. Speech was slightly decreased rate and volume. Mood described as depressed and frustrated. Affect slightly subdued. Thought process organized. Thought content: Patient endorsed suicidal but denied homicidal ideation, there were no delusions reported or noted, she denied any auditory or visual hallucinations. Attention and concentration appeared intact and memory appeared mostly reliable but none were formally tested. She is alert and oriented times 3. Her insight was poor. Her judgment was poor. Her impulse control was impaired. Vitals/I&O/Wt Last Vital Signs Temp 98.3 F 05/23/23 14:00 Pulse 60 05/23/23 14:00 Resp 16 05/23/23 14:00 BP 152/92 05/23/23 14:00 Pulse Ox 100 05/23/23 14:00 O2 Del Method Room Air 05/23/23 14:00 Weight last 48 hrs Weight 113.398 kg Weight 116.891 kg Data NPU 05/22/23 05:23 05/22/23 05:23 A&P Assessment and plan (1) Major depressive disorder, recurrent episode: (2) History of ADHD: (3) ANGIE (generalized anxiety disorder): (4) Methamphetamine abuse: (5) Opioid abuse: (6) Suicide attempt: Plan 28-year-old white female with polysubstance abuse who was discharged 05/09/2023 now admitted after overdosing again with suicidal ideation with hx of Major depression and Generalized anxiety along with adhd. 1. ?Encourage individual, group and milieu therapy. 2. Recommend sober living treatment at the highest level of care to which the patient is willing to commit. 3. Continue q-15 minute checks for safety. 4. Continue current medication. 5. Patient overdosed on medication and we will monitor. They are what to restart. 6. Consider dual diagnosis treatment-likely needs inpatient substance abuse treatment. Rehab bed date next week. 7. Some concerns raised at last hospitalization about possible need for guardianship. 8. Appreciate hospitalist consult and will follow recommendations as indicated. Involuntary Hold Information 96 Hour Hold: 96 Hour Involuntary Admission: No 96 Hour Hold Ending Date: 05/26/23 96 Hour Hold Ending Time: 00:01 Attestations NPU Medical Necessity Statement*: Inpatient hospitalization is medically necessary and the clinically appropriate intervention at this time. We will monitor and adjust medications as indicated. The patient's likely length of stay is 2-4 days. Coding Level of Care Code Acute Code for [facility] Fwd Diagnoses Major depressive disorder, recurrent episode F33.9 History of ADHD Z86.59 ANGIE (generalized anxiety disorder) F41.1 Methamphetamine abuse F15.10 Opioid abuse F11.10 Suicide attempt T14.91XA
[2023-05-23 16:46] VITALS: BP 164/96; PULSE 54; RESP 16; O2SAT 100
[2023-05-23 19:53] VITALS: BP 138/82; PULSE 60; RESP 15; TEMP 36.6; O2SAT 99
--- NOTE | 2023-05-23 20:31 | P.PN_ITS ---
Subjective 2 Subjective: TSH some mild chest discomfort triggered by movement or deep inspiration. No chest pressure. Has not been short of breath. Later on in the day with some hypertension. Vitals/I&O/Wt Last Vital Signs Temp 97.8 F 05/23/23 19:53 Pulse 60 05/23/23 19:53 Resp 15 05/23/23 19:53 BP 138/82 05/23/23 19:53 Pulse Ox 99 05/23/23 19:53 O2 Del Method Room Air 05/23/23 19:53 Weight last 48 hrs Weight 113.398 kg Weight 116.891 kg Physical Exam 2 Narrative: Ambulating in the [place] from the day room. Appears in better spirits. Const: COMMON NORMALS: patient oriented x3 and alert GENERAL APPEARANCE: c ooperative ORIENTATION/CONSCIOUSNESS: Yes awake HENMT: COMMON NORMALS: oropharynx normal Neck/C-Spine: COMMON NORMALS: no JVD Resp: COMMON NORMALS: normal respiratory effort Cardio: COMMON NORMALS: no JVD Neuro: COMMON NORMALS: patient oriented x3 and moves all extremities S ENSORIUM/ORIENTATION: Yes alert Data 05/22/23 05:23 05/22/23 05:23 A&P Assessment and plan (1) Major depressive disorder, recurrent episode: (2) History of ADHD: (3) ANGIE (generalized anxiety disorder): (4) Methamphetamine abuse: (5) Opioid abuse: (6) Suicide attempt: Plan Drug overdose: Reviewed EKG, QTc prolongation resolved. Reviewed psychiatry note. Took multiple doses of trazodone and sertraline. Hypertension: Blood pressure up to 160/96. Heart rates in the lower side upper 50s, low 60s. Given a dose of 25 mg oral hydralazine with good response. Repeat blood pressure 138/82. Change diet to cardiac. Chest pain: Mild intermittent brief chest pain with movement or deep inspiration, around the sternum. No cough or shortness of breath. Assessed with concomitant EKG. On my interpretation without sign of PA or ischemia, pending cardiac read. May have to consider extending medication. Full code Cardiac diet UTI: Switch to cefdinir from ceftriaxone for possible UTI DVT prophylaxis on board 96-hour hold Attestations 2 Medical Necessity Statement*: Continue psychiatric admission for assessment management after drug overdose. Optimization of control of hypertension. Diagnoses Major depressive disorder, recurrent episode F33.9 History of ADHD Z86.59 ANGIE (generalized anxiety disorder) F41.1 Methamphetamine abuse F15.10 Opioid abuse F11.10 Suicide attempt T14.91XA
[2023-05-24 06:00] VITALS: BP 124/74; PULSE 63; RESP 17; TEMP 36.4; O2SAT 98
--- NOTE | 2023-05-24 07:55 | P.NPUPN_ITS ---
Subjective NPU 2 Subjective: Patient presented today reporting that she is starting to feel little better. She continues to be optimistic about her sobriety and going to a inpatient rehab. She is working with the social work team and we are hopeful for a earlier bed date. At this point it is June 01. We have continued to hold the medication that she has continued to have occasional chest discomfort. We discussed continuing to monitor QTc and consider restarting medications. Mental Status Exam 2 MSE Comments: This is an obese versus morbidly obese white female in hospital scrubs with poor grooming, mottled teeth appearing older than her stated age. No abnormal movements except for psychomotor retardation. Mostly cooperative with exam a mild to moderate distress. Speech was slightly decreased rate and volume. Mood described as depressed and frustrated. Affect slightly subdued. Thought process organized. Thought content: Patient endorsed suicidal but denied homicidal ideation, there were no delusions reported or noted, she denied any auditory or visual hallucinations. Attention and concentration appeared intact and memory appeared mostly reliable but none were formally tested. She is alert and oriented times 3. Her insight was poor. Her judgment was poor. Her impulse control was impaired. Vitals/I&O/Wt Last Vital Signs Temp 97.5 F L 05/24/23 06:00 Pulse 63 05/24/23 06:00 Resp 17 05/24/23 06:00 BP 124/74 05/24/23 06:00 Pulse Ox 98 05/24/23 06:00 O2 Del Method Room Air 05/24/23 06:00 Weight last 48 hrs Weight 113.398 kg Data NPU 05/22/23 05:23 05/22/23 05:23 A&P Assessment and plan (1) Major depressive disorder, recurrent episode: (2) History of ADHD: (3) ANGIE (generalized anxiety disorder): (4) Methamphetamine abuse: (5) Opioid abuse: (6) Suicide attempt: Plan 28-year-old white female with polysubstance abuse who was discharged 05/09/2023 now admitted after overdosing again with suicidal ideation with hx of Major depression and Generalized anxiety along with adhd. 1. ?Encourage individual, group and milieu therapy. 2. Recommend sober living treatment at the highest level of care to which the patient is willing to commit. 3. Continue q-15 minute checks for safety. 4. Continue current medication. 5. Patient overdosed on medication and we will monitor. We will consider restarting as we monitor QTc and cardiac complaints. 6. Consider dual diagnosis treatment-likely needs inpatient substance abuse treatment. Rehab bed date next week. Possible opportunity for an earlier bed date. 7. Some concerns raised at last hospitalization about possible need for guardianship. 8. Appreciate hospitalist consult and will follow recommendations as indicated. Involuntary Hold Information 2 96 Hour Hold: 96 Hour Involuntary Admission: No 96 Hour Hold Ending Date: 0 05/26/23 96 Hour Hold Ending Time: 00:01 Attestations NPU 2 Medical Necessity Statement*: Inpatient hospitalization is medically necessary and the clinically appropriate intervention at this time. We will monitor and adjust medications as indicated. The patient's likely length of stay is 1-3 days. Coding Level of Care Code Acute Code for [facility] Fwd Diagnoses Major depressive disorder, recurrent episode F33.9 History of ADHD Z86.59 ANGIE (generalized anxiety disorder) F41.1 Methamphetamine abuse F15.10 Opioid abuse F11.10 Suicide attempt T14.91XA
[2023-05-24] MEDS: cefdinir 300 MG CAPSULE PO ×2 (08:04→17:11)
[2023-05-24] MEDS: sennosides-docusate Tablet 1 TAB PO (08:04)
[2023-05-24] MEDS: magnesium oxide 400 mg tablet PO ×2 (08:04→17:11)
[2023-05-24 14:00] VITALS: BP 150/88; PULSE 60; RESP 16; TEMP 36.6; O2SAT 100
[2023-05-24 20:03] VITALS: BP 158/102; PULSE 87; RESP 18; TEMP 36.3; O2SAT 100
[2023-05-24] MEDS: metoprolol tartrate 25 mg Tablet PO (21:01)
--- NOTE | 2023-05-24 22:33 | ECG_ITS ---
[facility] Test Date: 2023-05-24 Pat Name: Marie Nicholson Department: Room: 128 Gender: Female Systems Technician: : 1995 Requested By: Vladislav Llanos Order Number: [id number] Hill MD: Marko Salguero M.D. Measurements Intervals [place] Rate: 60 P: 55 [place]: 152 QRS: 49 QRSD: 106 T: 50 QT: 462 QTc: 464 Interpretive Statements SINUS RHYTHM POSSIBLE LEFT VENTRICULAR HYPERTROPHY [VOLTAGE CRITERIA PLUS LAE OR QRS WIDENING] PROLONGED QT INTERVAL INTERPRETATION BASED ON A DEFAULT AGE OF 40 YEARS Compared to ECG 05/23/2023 14:37:17 Prolonged QT interval now present Sinus bradycardia no longer present Electronically Signed On 05-25-2023 9:46:45 CDT by Marko Salguero M.D. [id number]
--- NOTE | 2023-05-24 23:55 | PC.NURSE ---
at approximately 1999 pt reported chest pain to this nurse. Pt vitals were taken and were as follows BP 155/102 manual, P 87, RR 18, T 97.4, o2 100%. After pt reported pain, she continued to walk around the unit, happy and smiling, talk with other pts and requested a drink and snack. Dr. Llanos notified and gave orders to contact hospitalist Dr. Lazo. New orders received to start Lisinopril 20mg PO daily, Metoprolol 25mg PO BID, and Chlorthalidone 25mg PO daily and a stat EKG. Pt sat in the dayroom for a little while longer w/peers and then went to lay down in bed. Stat EKG was done and came back as normal sinus rhythm. All pt needs are met at this time & no distress noted at this time.
[2023-05-25 00:10] VITALS: BP 109/71; PULSE 58; O2SAT 97
--- NOTE | 2023-05-25 00:10 | PC.NURSE ---
Pt vitals taken @0008 and as follows, BP 109/71, P 58 and o2 97% on RA. Pt is currently resting in bed and all pt needs met & no distress noted at this time.
[2023-05-25 06:00] VITALS: BP 127/78; PULSE 62; RESP 16; TEMP 36.6; O2SAT 99
[2023-05-25 07:43] VITALS: BP 118/87
--- NOTE | 2023-05-25 07:58 | PC.NURSE ---
spoke with Dr. Kwan for clarification on administration of Metoprolol tartrate 25mg, Chlorthalidone 25mg, lisinopril 20mg with a bp of 118/87. Dr. Kwan ordered to give Metoprolol tartrate 25mg but to hold Chlorthalidone 25mg, Lisinopril 20mg do to bp.
[2023-05-25] MEDS: magnesium oxide 400 mg tablet PO ×2 (08:03→17:19)
[2023-05-25] MEDS: sennosides-docusate Tablet 1 TAB PO (08:03)
[2023-05-25] MEDS: cefdinir 300 MG CAPSULE PO ×2 (08:03→17:19)
[2023-05-25] MEDS: metoprolol tartrate 25 mg Tablet PO ×2 (08:03→20:31)
[2023-05-25 14:00] VITALS: BP 139/95; PULSE 63; RESP 20; TEMP 36.6; O2SAT 96
--- NOTE | 2023-05-25 16:07 | P.NPUPN_ITS ---
Subjective NPU 2 Subjective: Patient presented today reporting that she is finally starting a little better. She is continuing to work with the hospitalist and her cardiac concerns. We continue to hold her medications due to same concerns. We continue to work with the social work team for a possible move up in her bed date. She was found with contraband on the unit having been identified with a vape device. Mental Status Exam 2 MSE Comments: This is an obese versus morbidly obese white female in hospital scrubs with poor grooming, mottled teeth appearing older than her stated age. No abnormal movements except for psychomotor retardation. Mostly cooperative with exam a mild to moderate distress. Speech was slightly decreased rate and volume. Mood described as a little better. Affect slightly subdued. Thought process organized. Thought content: Patient endorsed suicidal but denied homicidal ideation, there were no delusions reported or noted, she denied any auditory or visual hallucinations. Attention and concentration appeared intact and memory appeared mostly reliable but none were formally tested. She is alert and oriented times 3. Her insight was poor. Her judgment was poor. Her impulse control was impaired. Vitals/I&O/Wt Last Vital Signs Temp 98 F 05/25/23 14:00 Pulse 63 05/25/23 14:00 Resp 20 H 05/25/23 14:00 BP 139/95 05/25/23 14:00 Pulse Ox 96 05/25/23 14:00 O2 Del Method Room Air 05/25/23 06:00 Data NPU 05/22/23 05:23 05/22/23 05:23 A&P Assessment and plan (1) Major depressive disorder, recurrent episode: (2) History of ADHD: (3) ANGIE (generalized anxiety disorder): (4) Methamphetamine abuse: (5) Opioid abuse: (6) Suicide attempt: Plan 28-year-old white female with polysubstance abuse who was discharged 05/09/2023 now admitted after overdosing again with suicidal ideation with hx of Major depression and Generalized anxiety along with adhd. 1. ?Encourage individual, group and milieu therapy. 2. Recommend sober living treatment at the highest level of care to which the patient is willing to commit. 3. Continue q-15 minute checks for safety. 4. Continue current medication. 5. Patient overdosed on medication and we will monitor. We will consider restarting as we monitor QTc and cardiac complaints. 6. Consider dual diagnosis treatment-likely needs inpatient substance abuse treatment. Rehab bed date next week. Possible opportunity for an earlier bed date. 7. Some concerns raised at last hospitalization about possible need for guardianship. 8. Appreciate hospitalist consult and will follow recommendations as indicated. Involuntary Hold Information 2 96 Hour Hold: 96 Hour Involuntary Admission: No 96 Hour Hold Ending Date: 0 05/26/23 96 Hour Hold Ending Time: 00:01 Attestations NPU 2 Medical Necessity Statement*: Inpatient hospitalization is medically necessary and the clinically appropriate intervention at this time. We will monitor and adjust medications as indicated. The patient's likely length of stay is 1-3 days. Coding Level of Care Code Acute Code for g Fwd Diagnoses Major depressive disorder, recurrent episode F33.9 History of ADHD Z86.59 ANGIE (generalized anxiety disorder) F41.1 Methamphetamine abuse F15.10 Opioid abuse F11.10 Suicide attempt T14.91XA
--- NOTE | 2023-05-25 16:08 | PC.OT ---
PT OUTSIDE WITH OT GROUP. SHE IS OBSERVED TO GO OVER TO THE CORNER OF THE ENCLOSURE BY HERSELF WITH HER BACK TO THE GROUP AND THERAPIST. THERAPIST OBSERVED WHAT LOOKED LIKE A PUFF OF SMOKE COMING FROM IN FRONT OF PT. THERAPIST CONFRONTED PT TO WHAT SHE HAD IN HER HAND. PT REPORTED SHE DIDN'T HAVE ANYTHING BUT A SOCK . THERAPIST ASKED PT IF HER SOCKS USUALLY SMOKED AND PT SMILED AND STATED NO . THERAPIST CONFISCATED A VAPE DEVICE HIDDEN IN A SOCK FROM PT, PLACED IT IN PTS BELONGING TUB WHILE LOOKING FOR NURSE AND REPORTED IT TO NURSING STAFF. NURSING STAFF PLACED VAPE IN PT LOCKUP AREA.
--- NOTE | 2023-05-25 18:41 | USCV_ITS ---
Marie Nicholson Age: 28 Gender: F : 1995 Exam Date: 05/25/2023 21:07 Ordering Phys: Jagdeep Kwan MD Technologist: SHELLY Exam Location: [facility] [place] Indication: per order: LVH, HTN, interim chest pain No history of cardiac intervention per patient. BP: 138 / 83 HR: 75 Rhythm: Sinus Technical Quality: Good MEASUREMENTS (Male / Female) Normal Values 2D ECHO LV Diastolic Diameter PLAX 3.7 cm 4.2 - 5.9 / 3.9 - 5.3 cm IVS Diastolic Thickness 1.3 cm 0.6 - 1.0 / 0.6 - 0.9 cm IVS Systolic Thickness 1.7 cm LVPW Diastolic Thickness 1.3 cm 0.6 - 1.0 / 0.6 - 0.9 cm LVPW Systolic Thickness 1.9 cm LVOT Diameter 1.8 cm LV Ejection Fraction 2D Teich 60.4 % LV Ejection Fraction MOD 2C 68.3 % LV Ejection Fraction 2C AL 69.9 % LA Diameter 3.2 cm Aorta at Sinotubular Diameter 2.8 cm IVC Diameter 1.2 cm M-MODE LA Ao Ratio MM 0.9 AV Cusp Separation MM 1.7 cm DOPPLER AV Peak Velocity 123.0 cm/s LVOT Peak Velocity 60.0 cm/s AV Area Cont Eq vti 1.6 cm squared AV Area Cont Eq pk 1.2 cm squared MV Peak Velocity 89.0 cm/s MV Area PHT 3.1 cm squared Mitral E to A Ratio 1.1 TV Peak E Velocity 66.0 cm/s PV Peak Velocity 115.0 cm/s FINDINGS Left Ventricle Left ventricle is normal in size. LV systolic function is normal with EF of 60 to 65%. No regional wall motion abnormalities are seen. Left ventricular hypertrophy noted. Right Ventricle Normal in size and function Right Atrium Normal in size Left Atrium Normal in size Mitral Valve Structurally normal mitral valve. Trace mitral regurgitation. Aortic Valve Structurally normal aortic valve. No significant stenosis or regurgitation. Tricuspid Valve Insufficient TR jet to calculate RVSP Pulmonic Valve Not well visualized Pericardium Normal Aorta Normal in size IVC Appears to be normal CONCLUSIONS LV systolic function is normal with EF of 60 to 65%. Left ventricular hypertrophy noted. Trace mitral regurgitation. No comparison studies are available Marko Salguero MD (Electronically Signed) Final Date: 26 May 2023 11:59 S
[2023-05-25 19:39] VITALS: BP 138/83; PULSE 64; RESP 18; TEMP 36.6; O2SAT 99
--- NOTE | 2023-05-26 00:08 | P.PN_ITS ---
Subjective 2 Subjective: No chest pain. Vitals/I&O/Wt Last Vital Signs Temp 97.9 F 05/25/23 19:39 Pulse 64 05/25/23 19:39 Resp 18 05/25/23 19:39 BP 138/83 05/25/23 19:39 Pulse Ox 99 05/25/23 19:39 O2 Del Method Room Air 05/25/23 19:39 05/25/23 05/25/23 05/26/23 14:59 22:59 06:59 Intake Total 240 / 240 Balance 240 / 240 Physical Exam 2 Narrative: Sleeping, wakes up easily. Const: COMMON NORMALS: patient oriented x3 and alert GENERAL APPEARANCE: c ooperative ORIENTATION/CONSCIOUSNESS: Yes awake HENMT: COMMON NORMALS: oropharynx normal Neck/C-Spine: COMMON NORMALS: no JVD Resp: COMMON NORMALS: normal respiratory effort and clear to auscultation bilaterally AUSCULTATION: clear to auscultation bilaterally Cardio: COMMON NORMALS: no JVD, regular rhythm, S1 normal heart sound present, S2 normal heart sound present and No murmurs present (Cardio) RHYTHM: regular rhythm HEART SOUNDS: S1 normal heart sound present and S2 normal heart sound present GI: COMMON NORMALS: Normal to inspection, nondistended, normoactive bowel sounds present, Soft to palpation and non-tender PALPATION: Yes Soft to palpation Extremity: COMMON NORMALS: no joint enlargement and no pedal edema Neuro: COMMON NORMALS: patient oriented x3 and moves all extremities S ENSORIUM/ORIENTATION: Yes alert Skin: COMMON NORMALS: no rashes or lesions noted GENERAL SKIN EXAM: no rashes or lesions noted Data 05/22/23 05:23 05/22/23 05:23 A&P Assessment and plan (1) Major depressive disorder, recurrent episode: (2) History of ADHD: (3) ANGIE (generalized anxiety disorder): (4) Methamphetamine abuse: (5) Opioid abuse: (6) Suicide attempt: Plan Drug overdose:Reviewed psychiatry note. Reviewed EKG, QTc prolongation resolved. Reviewed psychiatry note. Took multiple doses of trazodone and sertraline. Hypertension: Overnight was started on additional antihypertensives, but this morning blood pressure soft. We held lisinopril, chlorthalidone. Continues on metoprolol. Blood pressure up to 160/96. Heart rates in the lower side upper 50s, low 60s. Given a dose of 25 mg oral hydralazine with good response. Repeat blood pressure 138/82. Change diet to cardiac. Chest pain: Some additional chest pain this morning, EKG repeated. On my interpretation no signs of acute ischemia, does have mild QT prolongation, additionally some possible ventricular hypertrophy. Discussed with her will additionally assess with TTE. Mild intermittent brief chest pain with movement or deep inspiration, around the sternum. No cough or shortness of breath. Assessed with concomitant EKG. On my interpretation without sign of NV or ischemia, pending cardiac read. May have to consider extending medication. Full code Cardiac diet UTI: Switch to cefdinir from ceftriaxone for possible UTI DVT prophylaxis on board 96-hour hold Attestations 2 Medical Necessity Statement*: Continue hospitalization for additional assessment management of neuropsychiatric and after suicide attempt, polysubstance abuse. Diagnoses Major depressive disorder, recurrent episode F33.9 History of ADHD Z86.59 ANGIE (generalized anxiety disorder) F41.1 Methamphetamine abuse F15.10 Opioid abuse F11.10 Suicide attempt T14.91XA
[2023-05-26 06:00] VITALS: BP 118/76; PULSE 72; RESP 18; TEMP 36.5; O2SAT 98
[2023-05-26] MEDS: magnesium oxide 400 mg tablet PO (08:21)
[2023-05-26] MEDS: metoprolol tartrate 25 mg Tablet PO (08:21)
[2023-05-26] MEDS: cefdinir 300 MG CAPSULE PO (08:21)
[2023-05-26] MEDS: lisinopril 20 mg Tablet 5 MG PO (08:21)
[2023-05-26] MEDS: sennosides-docusate Tablet 1 TAB PO (08:21)
[2023-05-26 14:00] VITALS: BP 142/95; PULSE 96; RESP 16; TEMP 36.8; O2SAT 99
--- NOTE | 2023-05-26 14:31 | W.PM.NPUDCS ---
Diagnoses at Discharge Discharge Diagnosis (1) Major depressive disorder, recurrent episode: Status: Acute (2) History of ADHD: Status: Acute (3) ANGIE (generalized anxiety disorder): Status: Acute (4) Methamphetamine abuse: Status: Acute (5) Opioid abuse: Status: Acute (6) Suicide attempt: Status: Acute Reason for Visit Reason for Visit: OD Brief History: History of Present Illness Marie Nicholson is a 28 year old female who presented to the emergency department with the following report: Chief Complaint: Overdose Stated Complaint: OD Time Seen by Provider: 05/21/23 01:26 History of Present Illness: 28-year-old female with a history of depression and recent admission to the neuropsychiatric unit at this facility. She presents within an hour after ingesting multiple trazodone and sertraline at home in an attempt to kill herself. She complains of stomach pain, nausea, vomiting. No history of seizure. She presented to the ICU for definitive treatment of those issues. She was transferred to the neuropsychiatric unit after she was medically cleared to once again attempt to address her psychiatric and addiction issues in addition to the lethality. She was just discharged 05/10/2023 to the [facility] with a plan to 2 be there until her rehab bed date in May. An excerpt from her discharge summary from earlier this month is included below for context and the fact that there have been no clear substantive changes. She presents today reporting that when she she went to [facility] briefly and she did not take her medication reportedly because she was not sure that she really needed it. She denies having relapsed in the interim but reports that she ended up speaking with her children with got her in an unhealthy emotional state that she did not break out of. She reports that ultimately she took the overdose on medication which led to her being brought back to the hospital. She reports that she knows she needs to go to rehab but that she struggles with wanting to go. We discussed the fact that not many people really want to go to rehab but that healthy people identified that there are things they need to do that are not necessarily desirable. We discussed monitoring her and making some possible changes to her medication regimen moving forward. Per her 05/10/2023 [facility] inpatient psychiatric discharge summary: Discharge Diagnosis (1) Major depressive disorder, recurrent episode: Status: Acute (2) ANGIE (generalized anxiety disorder): Status: Acute (3) Opioid abuse: Status: Acute (4) History of ADHD: Status: Acute (5) Methamphetamine abuse: Status: Acute Reason for Visit Reason for Visit: MHE Brief History: History of Present Illness Marie Nicholson is a 28 year old female recently discharged from the neuropsychiatric unit on 01/20/2023 who presented to the emergency department with suicidal ideation with a plan to overdose. The patient was admitted to the neuropsychiatric unit for further evaluation and treatment. The patient had reported similar complaints to her previous hospitalization. She reports that she has been off of all of her medications since February of this year. She states that she has been feeling more depressed. She continued to state that she has been using methamphetamine on a daily basis along with opiate use both orally and recently having used IV heroin approximately a month ago. She is reporting her most recent use of opiates 2 days ago and states that she last used methamphetamine yesterday. She reports that she feels out of control. She had stated that she had been sent home to live with her mother after discharge from the neuropsychiatric unit with the plan for the patient to go to [facility] on an inpatient basis when a bed became available. Unfortunately, the patient states that she never made it to the end the inpatient rehab known as [facility]. She did indicate that she had recently been placed in an inpatient substance abuse facility in [facility] for 2 weeks but left without completing the program. She continues to report her mood is being worse and reports that she has continued cravings for both opiates and methamphetamine. She reported no changes otherwise since her last hospitalization except that she is no longer allowed at home and that she has resumed being homeless around the [facility]. She was requesting that she be restarted on her previous psychotropic medications. She reports sleep continuity disruption. She reports significant lack of appetite. Current medications: none in last 3 months Excerpt from Discharge Summary from 01/20/23 [facility] Discharge Diagnosis (1) Major depressive disorder, recurrent episode: Status: Acute (2) Opioid abuse: Status: Acute (3) Methamphetamine abuse: Status: Acute (4) History of ADHD: Status: Acute (5) ANGIE (generalized anxiety disorder): Status: Acute Reason for Visit OVERDOSE Brief History: History of Present Illness Marie Nicholson is a 27 year old female who presented to the emergency department via EMS after having admitted to taking 20 naproxen pills with report of having thoughts of wanting to kill herself. The patient was admitted to the neuropsychiatric unit for further evaluation and treatment. The patient reports that she has been struggling with chronic methamphetamine abuse for greater than 5 years having used methamphetamine beginning at the age of 16. She reports that she has been mixing her methamphetamine with heroin. The patient reports that she is approaching the anniversary of having lost custody of all of her children approximately 1 year ago and states that she has been feeling more hopeless and worthless recently. She reports increased crying spells. She reports that she has been feeling more hopeless. She reports that she has been struggling with hypersomnia. She reports low energy and low motivation She has reported a loss of appetite. She reports that she has been more anxious as she chronically worries about her children. She reports that she often feels guilty that she is not able to care for her children. She also reports active cravings for methamphetamines. She denies any alcohol use. The patient reports having difficulties with concentration. She reports that she had previously been diagnosed with ADHD and a learning disability as a child and states that she has been frustrated at being able to manage routine activities of daily living. She reports a past history of psychotic symptoms when using methamphetamine but denies any currently. She did not endorse any manic symptoms. She denies any history of PTSD symptoms. Inpatient psychiatric history: None Outpatient psychiatric treatment: She reports history of depression and ADHD while reporting having received treatment at the [facility] more than 10 years ago. Drug and alcohol history: She reports no alcohol use. She reports no marijuana use. She does report having used methamphetamines beginning at the age of 16 with increased use reported over the last 5 years. She reports the longest period of sobriety from methamphetamine is less than 1 day. She also reports a history of heroin use intranasally for the past few years with no treatment treatment history for opiate use. She states that she had been in rehabilitation in March 2022 in [facility] through [facility]. She states that she was there for 21 days only. Allergies: Penicillin Medical history: Hypertension, history of pyelonephritis Surgical history: Tonsillectomy adenoidectomy, Current medications: None Developmental history: History of developmental delays as she reports having been diagnosed with a learning disorder while struggling in school. Family psychiatric history: None reported Legal history: None reported Social history: The patient was raised in [facility] and is from her first and only for the past 3 years. She states that she was raised by her mother as her father had been living in another city and raising another family. She states that she briefly lived with her father at the age of 11 but returned back to live with her mother. She reports no history of any sexual physical or emotional abuse. She did report witnessing the of her grandmother as an adolescent. She reports that she dropped out of school and never got her GED after dropping out in the 11th grade. She has 4 children ages 9,4,2 and 1 respectively. She states that she had lost all 4 of her children due to her substance abuse issues. Her , 4, and 2-year-old and 1 year old all live outside of the home. Her 1-year-old currently resides with her biological mother. She has been homeless for at least 1 year. Hospital Course Hospital Course She slowly acclimated to the schedule, group and milieu therapies provided. She presented struggling with depression, anxiety and active addiction. Trazodone Zoloft and Vistaril were started to assist with these concerns. Zoloft was titrated to 100 mg p.o. daily with notable improvements. She continued to endorse an interest in sober living treatment and inpatient rehab. She worked with the social work team to find a bed date but it was further in the future. Given her domestic challenges they also assisted her in getting placement at [facility] in the interim while she waited for that bed date. Additionally she was assisted in getting appropriate follow-up. She had significant improvement and was able to contract for safety outside of the hospital prior to discharge. During the hospitalization, the patient had routine laboratory studies which were within normal limits except for a few outliers. Additionally, there was a general medical evaluation which was also within normal limits and revealed no new acute processes. At the time of discharge, lethality was denied and psychosis was resolving. Mood and anxiety were well managed. The patient endorsed a plan to avoid all drugs of abuse and follow up with the aftercare recommendations of the treatment team. The patient was evaluated and deemed to be absent credible lethality and had achieved the maximum benefit from an inpatient hospitalization, and so was discharged. Involuntary Hold Information 96 Hour Hold: 96 Hour Involuntary Admission: No 96 Hour Hold Ending Date: 03/29/24 96 Hour Hold Ending Time: 00:01 Mental Status Exam MSE Comments: This is an obese versus morbidly obese white female in hospital scrubs with poor grooming, mottled teeth appearing older than her stated age. No abnormal movements except for psychomotor retardation. Mostly cooperative with exam a mild to moderate distress. Speech was slightly decreased rate and volume. Mood described as a little better. Affect slightly subdued. Thought process organized. Thought content: Patient endorsed suicidal but denied homicidal ideation, there were no delusions reported or noted, she denied any auditory or visual hallucinations. Attention and concentration appeared intact and memory appeared mostly reliable but none were formally tested. She is alert and oriented times 3. Her insight was poor. Her judgment was poor. Her impulse control was impaired. Discharge Data Studies Completed and Pending: Completed Studies During Hospitalization Category Date Time Status XR chest 1V bea ble [id number] Routine Exams 05/21/23 11:42 Completed CV. echo complete * [id number] Routine Ultrasound 05/25/23 18:41 Completed Radiology Impressions Chest X-Ray 05/21/23 11:42 IMPRESSION: 1. No acute cardiopulmonary abnormality identified. 2. Low lung volumes. Laboratory Results WBC 8.79 10^3/uL (3.2 9-11.43) 05/22/23 05:23 RBC 3.90 10^6/uL (3.8 5-5.65) 05/22/23 05:23 Hgb 10.90 g/dL (11.27 -16.99) L 05/22/23 05:23 Hct 34.7 % (36-47) L 05/22/23 05:23 MCV 89.0 fl (85-98) 05/22/23 05:23 MCH 27.9 pg (27-33) 05/22/23 05:23 MCHC 31.4 g/dL (30-55) 05/22/23 05:23 RDW 14.1 % (12.1-15.1 ) 05/22/23 05:23 Plt Count 318 10^3/cmm (157 -399) 05/22/23 05:23 MPV 9.8 fL (7.4-10.4) 05/22/23 05:23 Neut % (Auto) 35.4 % 05/22/23 05:23 Lymph % (Auto) 57.9 % 05/22/23 05:23 [place] % (Auto) 5.2 % 05/22/23 05:23 Eos % (Auto) 1.1 % 05/22/23 05:23 Baso % (Auto) 0.2 % 05/22/23 05:23 Neut # (Auto) 3.10 10^3/uL (1.8 -7.7) 05/22/23 05:23 Lymph # (Auto) 5.1 10^3/uL (0.8- 4.8) H 05/22/23 05:23 [place] # (Auto) 0.5 10^3/uL (0.2- 0.9) 05/22/23 05:23 Eos # (Auto) 0.1 10^3/uL (0.0- 0.8) 05/22/23 05:23 Baso # (Auto) 0.0 10^3/uL (0.0- 0.1) 05/22/23 05:23 Nucleated RBC % (a uto) 0 % 05/22/23 05:23 Nucleated RBCs # 0.0 /100WBC 05/22/23 05:23 Sodium 142 mmol/L (136-1 45) 05/22/23 05:23 Potassium 4.0 mmol/L (3.5-5 .1) 05/22/23 05:23 Chloride 111 mmol/L (98-10 7) H 05/22/23 05:23 Carbon Dioxide 24 mmol/L (22-29) 05/22/23 05:23 Anion Gap 11.0 (5-19) 05/22/23 05:23 BUN 16 mg/dL (6-20) 05/22/23 05:23 Creatinine 0.8 mg/dL (0.5-0. 9) 05/22/23 05:23 GFR Calculation 84.8 mL/min (90-1 30) L 05/22/23 05:23 Glucose 72 mg/dL (65-115) 05/22/23 05:23 Estimat Average Gl ucose 94 05/22/23 05:23 Hemoglobin A1c 4.9 % (4.0-6.0) 05/22/23 05:23 Calculated Osmolal ity 294 mOsm/kg (285- 295) 05/22/23 05:23 Calcium 8.4 mg/dL (8.5-10 .5) L 05/22/23 05:23 Magnesium 1.9 mg/dL (1.7-2. 3) 05/22/23 05:23 Iron 36 ug/dL (37-145) L 05/21/23 02:08 TIBC 394 mcg/dl 05/21/23 02:08 % Saturation 9.1 % (20-50) L 05/21/23 02:08 Unsat Iron Binding 358 ug/dL (112-34 7) H 05/21/23 02:08 Total Bilirubin 0.3 mg/dL (0.15-1 .2) 05/22/23 05:23 AST 10 U/L (0-32) 05/22/23 05:23 ALT 8 U/L (0-33) 05/22/23 05:23 Alkaline Phosphata se 52 U/L (35-105) 05/22/23 05:23 C-Reactive Protein 3.2 mg/L (0.0-4.9 ) 05/22/23 05:23 Total Protein 6.2 g/dL (6.6-8.7 ) L 05/22/23 05:23 Albumin 3.3 g/dL (3.5-5.2 ) L 05/22/23 05:23 Globulin 2.9 g/dL (1.3-4.6 ) 05/22/23 05:23 Triglycerides 104 mg/dL (0-150) 05/22/23 05:23 Cholesterol 109 mg/dL (0-200) 05/22/23 05:23 LDL Cholesterol, C alc 57 mg/dL (50-129) 05/22/23 05:23 Total VLDL Cholest kendall 21 mg/dL (0-30) 05/22/23 05:23 HDL Cholesterol 31 mg/dL (60-100) L 05/22/23 05:23 Cholesterol/HDL Ra darwin 3.52 mg/dL (0.0-4 .40) 05/22/23 05:23 Vitamin B12 403 pg/mL (232-12 45) 05/21/23 02:08 Folate 6.6 ng/mL (4.8-37 .3) 05/22/23 05:23 Procalcitonin 0.04 ng/mL (0-0.5 ) 05/21/23 02:08 TSH 2.75 uIU/mL (0.27 -4.20) 05/21/23 02:08 TSH Cancelled 05/21/23 02:08 HCG, Qual Negative (Negati ve) 05/21/23 03:35 Urine Color Dark yellow (Yel low) 05/21/23 03:35 Urine Appearance Turbid (CLEAR) A 05/21/23 03:35 Urine pH 5 (5-7) 05/21/23 03:35 Ur Specific Gravit y 1.030 (1.005-1.0 30) 05/21/23 03:35 Urine Protein Neg (Negative) 05/21/23 03:35 Urine Glucose (UA) Norm (Normal) 05/21/23 03:35 Urine Ketones Negative (Negati ve) 05/21/23 03:35 Urine Blood Neg (Negative) 05/21/23 03:35 Urine Nitrate Positive (Negati ve) H 05/21/23 03:35 Urine Bilirubin Neg (Negative) 05/21/23 03:35 Urine Urobilinogen Neg mg/dL (Negati ve) 05/21/23 03:35 Ur Leukocyte Mabel ase Negative (Negati ve) 05/21/23 03:35 Urine RBC 0-4 /hpf (0-2) H 05/21/23 03:35 Urine WBC 5-10 /hpf (0-5) H 05/21/23 03:35 Ur Squamous Epith Cells 15-25 /hpf (0-5) H 05/21/23 03:35 Amorphous Sediment Trace /hpf 05/21/23 03:35 Urine Bacteria 3+ /hpf (NONE) H 05/21/23 03:35 Hyaline Casts 0-4 /lpf H 05/21/23 03:35 Coarse Granular Ca sts 0-4 /lpf H 05/21/23 03:35 Urine Mucus Trace /hpf 05/21/23 03:35 Salicylates < 0.3 mg/dL (3-10 ) L 05/21/23 02:08 Urine Opiates Scre en Negative ng/mL (N egative) 05/21/23 03:35 Acetaminophen < 5.0 ug/mL (10-3 0) L 05/21/23 02:08 Ur Barbiturates Sc reen Negative ng/mL (N egative) 05/21/23 03:35 Ur Phencyclidine S crn Negative ng/mL (N egative) 05/21/23 03:35 Ur Amphetamines Sc reen Negative ng/mL (N egative) 05/21/23 03:35 U Benzodiazepines Scrn Negative ng/mL (N egative) 05/21/23 03:35 Urine Cocaine Scre en Negative ng/mL (N egative) 05/21/23 03:35 U Marijuana (THC) Screen Negative ng/mL (N egative) 05/21/23 03:35 Ethyl Alcohol < 10 mg/dL (0-10) 05/21/23 02:08 Vitals: Last Vital Signs Temp 98.3 F 05/26/23 14:00 Pulse 96 05/26/23 14:00 Resp 16 05/26/23 14:00 BP 142/95 05/26/23 14:00 Pulse Ox 99 05/26/23 14:00 O2 Del Method Room Air 05/26/23 14:00 Discharge Plan Discharge Patient Disposition: Home Condition: Stable Prescriptions: New chlorthalidone 25 mg Tablet 25 mg PO DAILY 30 Days Qty: 30 1RF nitroglycerin 0.4 mg Tablet, Sublingual 0.4 mg sublingual Q5M PRN (Reason: Chest Pain) 30 Days Qty: 30 1RF metoprolol tartrate 25 mg Tablet 25 mg PO BID@0900,2100 30 Days Qty: 30 1RF lisinopril 5 mg tablet 5 mg PO DAILY 30 Days Qty: 30 1RF magnesium oxide 400 mg (241.3 mg magnesium) Tablet 400 mg PO BID 30 Days Qty: 60 1RF Continued Tylenol Ex Str Rapid Release 500 mg Tablet 1,000 mg PO Q6H PRN (Reason: Pain) trazodone 50 mg Tablet 50 mg PO BEDTIME PRN (Reason: Sleep) 30 Days Qty: 30 1RF sertraline 100 mg tablet 100 mg PO DAILY 30 Days Qty: 30 1RF Rx Instructions: Take one half tab for 6 days and then return to 1 whole tab daily. hydroxyzine pamoate 25 mg Capsule 50 mg PO Q6H PRN (Reason: Anxiety) 30 Days Qty: 120 1RF Discharge Orders: Discharge Order (Routine); Ordered 05/26/23 Ordered By: Vladislav Llanos Referrals: [facility] [Other] - 06/06/23 1:00 pm [facility] [Other] - 05/26/23 Discharge Diet: Regular Discharge Activity: Resume usual activity Patient Instructions: Opioid Safety Discharge Attestations NPU Time Spent in Discharge Care*: less than 30 min Specific Discharge Activities: Specific discharge activities: educating patient, discussing with case monitor/social workers/dc planners, documenting/other paperwork and evaluating patient/reviewing data Coding Level of Care Code Acute Code for Chg Fwd Diagnoses Major depressive disorder, recurrent episode F33.9 History of ADHD Z86.59 ANGIE (generalized anxiety disorder) F41.1 Methamphetamine abuse F15.10 Opioid abuse F11.10 Suicide attempt T14.91XA
[2023-05-26 14:33] VITALS: BP 142/95; PULSE 96; RESP 16; TEMP 36.8; O2SAT 99
== END 2023-05-26 15:44 | DRG 918 ==
LOC: ER 03:10 → ICU 03:19 → NP 05-22 14:07
PROVIDERS: Student in an Organized Health Care Education/Training Program; Admitting Provider Internal Medicine; Emergency Provider Emergency Medicine; Visit Provider Psychiatry & Neurology Psychiatry
DX: T43.212A Poisoning by selective serotonin and norepinephrine reuptake inhibitors, intentional self-harm, initial encounter (principal); F33.9 Major depressive disorder, recurrent, unspecified; N39.0 Urinary tract infection, site not specified; R45.851 Suicidal ideations; T43.222A Poisoning by selective serotonin reuptake inhibitors, intentional self-harm, initial encounter; Y99.9 Unspecified external cause status; F90.9 Attention-deficit hyperactivity disorder, unspecified type; F41.1 Generalized anxiety disorder; F15.10 Other stimulant abuse, uncomplicated; I10 Essential (primary) hypertension; R07.89 Other chest pain
CPT/HCPCS: 36415; 71045; 80053; 80061; 80306; 80307; 81001; 81025; 82607; 82746; 83036; 83540; 83550; 83735; 84145; 84443; 85025; 86140; 93005; 93306; 96372; 96376; 97150; 97165; 99285; J0696; J1650; J7030

== ENCOUNTER 2023-06-01 17:08 | Emergency (ER) | payer MEDICAID, SELFPAY ==
--- NOTE | 2023-06-01 17:14 | ECG_ITS ---
[facility] Test Date: 2023-06-01 Pat Name: Marie Nicholson Department: Room: Gender: Female Eeg Tech: : 1995 Requested By: Soren Hewitt Order Number: [id number] Sergio MD: Yeni Ibanez M.D. Measurements Intervals [place] Rate: 94 P: 58 OR: 142 QRS: 40 QRSD: 105 T: 45 QT: 413 QTc: 517 Interpretive Statements SINUS RHYTHM WITH FREQUENT VENTRICULAR PREMATURE COMPLEXES in the form of trigeminy MINIMAL ST DEPRESSION [0.025+ mV ST DEPRESSION] ABNORMAL RHYTHM ECG Compared to ECG 05/24/2023 22:33:19 Ventricular premature complex(es) now present ST (T wave) deviation now present Prolonged QT interval no longer present Electronically Signed On 06-02-2023 17:04:56 CDT by Yeni Ibanez M.D. [id number]
[2023-06-01 17:16] VITALS: BP 164/98; PULSE 90; RESP 18; TEMP 36.8; O2SAT 100; BMI 41.5
[2023-06-01 17:18] VITALS: BP 164/98; PULSE 86; O2SAT 100
--- NOTE | 2023-06-01 17:39 | W.ED.CHESTPA ---
Documented by User: Soren Escobedo DO 06/02/23 05:58 HPI - Chest Pain General: Chief Complaint: Chest Pain Stated Complaint: chest pains Time Seen by Provider: 06/01/23 17:16 Source: patient Mode of arrival: ambulatory History of Present Illness: 28-year-old female resents emergency room complaining of chest and epigastric discomfort. She recently was hospitalized for an overdose with trazodone was in the ICU and then transition to you. She was discharged home on metoprolol she is still having frequent PVCs. She has a near empty bottle of soda with her in an empty large bag of potato chips which she had just eaten. She denies any vomiting no hemoptysis. She states she frequently has suicidal thoughts but does not feel like she is having actively suicidal thoughts at this time. MD complaint: chest pain Timing of current episode: episodic Associated symptoms: Reports nausea and palpitations; Deny abdominal pain, diaphoresis, dyspnea, fever(s), leg edema, sense of impending doom, syncope or vomiting Review of Systems Const: Denies: fever(s), chills or diaphoresis Card: Reports: chest pain and palpitations; Denies: syncope Resp: Denies: dyspnea, productive cough or non-productive cough GI: Reports: nausea; Denies: abdominal pain or vomiting : Denies: dysuria, urinary frequency or urinary urgency Musc: Denies: neck pain or back pain Skin/Breast: Denies: rash [facility] ED PFSH: Medical History Psychiatric care No pertinent family history Surgical History No pertinent past surgical history Social History Smoking and tobacco/nicotine status: never used tobacco/nicotine Alcohol intake: never Substance/Drug Use: never Caregiver/support person: Yes Lives independently: No Household members: spouse Female Reproductive History: Para: 3 Physical Exam Const: GENERAL APPEARANCE: cooperative and comfortable ORIENTATION/CONSCIOUSNESS: Yes awake, Yes oriented to person, Yes oriented to place and Yes oriented to time HENMT: COMMON NORMALS: normocephalic, atraumatic and hearing grossly normal bilaterally HEAD & SCALP: normocephalic and atraumatic Resp: COMMON NORMALS: normal respiratory effort, No retractions, No use of accessory muscles and clear to auscultation bilaterally AUSCULTATION: clear to auscultation bilaterally Cardio: COMMON NORMALS: regular rate and No murmurs present (Cardio) RATE: regular rate RHYTHM: abnormal rhythm with ectopic beats GI: COMMON NORMALS: Soft to palpation and No hepatosplenomegaly present AUSCULTATION: Yes normoactive bowel sounds PALPATION: Yes Soft to palpation, No Tenderness to palpation present (GI), No Guarding due to palpation present (GI) and Yes No hepatosplenomegaly present Extremity: COMMON NORMALS: normal to inspection, capillary refill normal, no clubbing, cyanosis or edema, no calf tenderness and no pedal edema Neuro: SENSORIUM/ORIENTATION: Yes oriented to person, Yes oriented to place and Yes oriented to time Skin: COMMON NORMALS: no rashes or lesions noted GENERAL SKIN EXAM: no rashes or lesions noted Course Vital Signs: Vital signs: Vital Signs Temperature 98.3 F 06/01/23 17:16 Pulse Rate 80 06/01/23 17:48 Respiratory Rate 18 06/01/23 17:16 Blood Pressure 174/121 06/01/23 17:48 Pulse Oximetry 96 06/01/23 17:48 Oxygen Delivery Me thod Room Air 06/01/23 17:16 MDM - Chest Pain Medical Decision Making Care signed out to Dr. Longoria at change of shift. See final notes for diagnosis and disposition. Care transferred to myself at shift change. Lab work was reviewed as well as EKG, Dr. Llanos was consulted over her suicidal statement. Patient is going to rehab tomorrow at 9 AM and that is the plan that Dr. Llanos wants us to continue. Medical Records I reviewed the patient's medical records. Lab Data I reviewed the patient's lab results. 06/01/23 17:28 06/01/23 17:28 Radiology Impressions Chest X-Ray 06/01/23 17:58 IMPRESSION: No acute findings. Laboratory Results WBC 15.13 10^3/uL (3.29-11.43) H 06/01/23 17:28 RBC 4.71 10^6/uL (3.85-5.65) 06/01/23 17:28 Hgb 13.20 g/dL (11.27-16.99) 06/01/23 17: Hct 40.3 % (36-47) 06/01/23 17: MCV 85.6 fl (85-98) 06/01/23 17: MCH 28.0 pg (27-33) 06/01/23 17: MCHC 32.8 g/dL (30-55) 06/01/23 17: RDW 14.3 % (12.1-15.1) 06/01/23 17: Plt Count 472 10^3/cmm (157-399) H 06/01/23 17:28 MPV 9.9 fL (7.4-10.4) 06/01/23 17: Neut % (Auto) 54.4 % 06/01/23 17: Lymph % (Auto) 36.7 % 06/01/23 17: [place] % (Auto) 6.9 % 06/01/23 17: Eos % (Auto) 1.4 % 06/01/23 17: Baso % (Auto) 0.3 % 06/01/23 17:28 Neut # (Auto) 8.22 10^3/uL (1.8-7.7) H 06/01/23 17:28 Lymph # (Auto) 5.6 10^3/uL (0.8-4.8) H 06/01/23 17:28 [place] # (Auto) 1.1 10^3/uL (0.2-0.9) H 06/01/23 17: Eos # (Auto) 0.2 10^3/uL (0.0-0.8) 06/01/23 17: Baso # (Auto) 0.0 10^3/uL (0.0-0.1) 06/01/23 17: Nucleated RBC % (auto) 0 % 06/01/23 17: Nucleated RBCs # 0.0 /100WBC 06/01/23 17: Sodium 141 mmol/L (136-145) 06/01/23 17: Potassium 3.3 mmol/L (3.5-5.1) L 06/01/23 17: Chloride 104 mmol/L (98-107) 06/01/23 17: Carbon Dioxide 23 mmol/L (22-29) 06/01/23 17:28 Anion Gap 17.3 (5-19) 06/01/23 17:28 BUN 16 mg/dL (6-20) 06/01/23 17:28 Creatinine 0.9 mg/dL (0.5-0.9) 06/01/23 17:28 GFR Calculation 74.0 mL/min (90-130) L 06/01/23 17:28 Glucose 87 mg/dL (65-115) 06/01/23 17:28 Calculated Osmolality 293 mOsm/kg (285-295) 06/01/23 17:28 Calcium 9.4 mg/dL (8.5-10.5) 06/01/23 17:28 Total Bilirubin 0.3 mg/dL (0.15-1.2) 06/01/23 17:28 AST 29 U/L (0-32) 06/01/23 17:28 ALT 20 U/L (0-33) 06/01/23 17:28 Alkaline Phosphatase 77 U/L (35-105) 06/01/23 17:28 Troponin T Baseline < 6 ng/L (0-10) 06/01/23 17:28 Troponin T 120 Minute 6.00 ng/L (0-10) 06/01/23 19:28 Delta Troponin T 0.45968 ABS# (0-10) 06/01/23 19:28 Total Protein 8.0 g/dL (6.6-8.7) 06/01/23 17:28 Albumin 4.5 g/dL (3.5-5.2) 06/01/23 17:28 Globulin 3.5 g/dL (1.3-4.6) 06/01/23 17:28 TSH 0.79 uIU/mL (0.27-4.20) 06/01/23 17:28 Urine Color Dark yellow (Yellow) 06/01/23 18:18 Urine Appearance Cloudy (CLEAR) A 06/01/23 18:18 Urine pH 6 (5-7) 06/01/23 18:18 Ur Specific [place] 1.020 (1.005-1.030) 06/01/23 18:18 Urine Protein Neg (Negative) 06/01/23 18:18 Urine Glucose (UA) Norm (Normal) 06/01/23 18:18 Urine Ketones Negative (Negative) 06/01/23 18:18 Urine Blood 3+ (Negative) H 06/01/23 18:18 Urine Nitrate Negative (Negative) 06/01/23 18:18 Urine Bilirubin Neg (Negative) 06/01/23 18:18 Urine Urobilinogen Norm mg/dL (Negative) 06/01/23 18:18 Ur Leukocyte Esterase 2+ (Negative) H 06/01/23 18:18 Urine RBC 5-10 /hpf (0-2) H 06/01/23 18:18 Urine WBC 5-10 /hpf (0-5) H 06/01/23 18:18 Ur Squamous Epith Cells 5-10 /hpf (0-5) H 06/01/23 18:18 Amorphous Sediment Not Reportable 06/01/23 18:18 Urine Bacteria 2+ /hpf (NONE) H 06/01/23 18:18 Urine Mucus Trace /hpf 06/01/23 18:18 Discharge Plan Discharge Patient Disposition: Home Clinical Impression: Atypical chest pain, Acute epigastric pain Condition: Stable Prescriptions: No Action acetaminophen 500 mg Tablet 1,000 mg PO Q6H PRN (Reason: Pain) chlorthalidone 25 mg Tablet 25 mg PO DAILY 30 Days Qty: 30 1RF nitroglycerin 0.4 mg Tablet, Sublingual 0.4 mg sublingual Q5M PRN (Reason: Chest Pain) 30 Days Qty: 30 1RF metoprolol tartrate 25 mg Tablet 25 mg PO BID@0900,2100 30 Days Qty: 30 1RF lisinopril 5 mg tablet 5 mg PO DAILY 30 Days Qty: 30 1RF magnesium oxide 400 mg (241.3 mg magnesium) Tablet 400 mg PO BID 30 Days Qty: 60 1RF trazodone 50 mg Tablet 50 mg PO BEDTIME PRN (Reason: Sleep) 30 Days Qty: 30 1RF sertraline 100 mg tablet 100 mg PO DAILY 30 Days Qty: 30 1RF Rx Instructions: Take one half tab for 6 days and then return to 1 whole tab daily. hydroxyzine pamoate 25 mg Capsule 50 mg PO Q6H PRN (Reason: Anxiety) 30 Days Qty: 120 1RF Discharge Orders: Discharge ED (Routine); Ordered 06/01/23 Ordered By: Lm Longoria Patient Instructions: Chest Pain (ED), Abdominal Pain (ED) Activity Restrictions/Additional Instructions: Your evaluation in ER was essentially benign. It did not show any acute coronary causes of your chest pain. Please continue with your plan on going to rehab tomorrow at 9 AM. Thank you for choosing [facility] for your healthcare needs today. Please realize that you were seen in the emergency department and that we are providing you with an emergency medical screening exam and this may not be a complete and all exclusive of all testing and/or medical workup we may need to determine your element or severity of your illness. It is very important that you follow-up as instructed with your primary care provider or specialist for the additional evaluation and to discuss your medical treatment plan. You may return to the emergency department should you have concerns or if your condition changes or worsens in any way. 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[employer] Documented by User: Lm Longoria DO 06/01/23 22:59 HPI - Chest Pain General: Chief Complaint: Chest Pain Stated Complaint: chest pains Time Seen by Provider: 06/01/23 17:16 [facility] ED PFSH: Medical History Psychiatric care No pertinent family history Surgical History No pertinent past surgical history Social History Smoking and tobacco/nicotine status: never used tobacco/nicotine Alcohol intake: never Substance/Drug Use: never Caregiver/support person: Yes Lives independently: No Household members: spouse Course Vital Signs: Vital signs: Vital Signs Temperature 98.3 F 06/01/23 17:16 Pulse Rate 80 06/01/23 17:48 Respiratory Rate 18 06/01/23 17:16 Blood Pressure 174/121 06/01/23 17:48 Pulse Oximetry 96 06/01/23 17:48 Oxygen Delivery Me thod Room Air 06/01/23 17:16 MDM - Chest Pain Medical Decision Making Care transferred to myself at shift change. Lab work was reviewed as well as EKG, Dr. Llanos was consulted over her suicidal statement. Patient is going to rehab tomorrow at 9 AM and that is the plan that Dr. Llanos wants us to continue. Lab Data 06/01/23 17:28 06/01/23 17:28 Radiology Impressions Chest X-Ray 06/01/23 17:58 IMPRESSION: No acute findings. Laboratory Results WBC 15.13 10^3/uL (3.29-11.43) H 06/01/23 17:28 RBC 4.71 10^6/uL (3.85-5.65) 06/01/23 17:28 Hgb 13.20 g/dL (11.27-16.99) 06/01/23 17:28 Hct 40.3 % (36-47) 06/01/23 17:28 MCV 85.6 fl (85-98) 06/01/23 17:28 MCH 28.0 pg (27-33) 06/01/23 17:28 MCHC 32.8 g/dL (30-55) 06/01/23 17:28 RDW 14.3 % (12.1-15.1) 06/01/23 17:28 Plt Count 472 10^3/cmm (157-399) H 06/01/23 17:28 MPV 9.9 fL (7.4-10.4) 06/01/23 17:28 Neut % (Auto) 54.4 % 06/01/23 17:28 Lymph % (Auto) 36.7 % 06/01/23 17:28 [place] % (Auto) 6.9 % 06/01/23 17:28 Eos % (Auto) 1.4 % 06/01/23 17:28 Baso % (Auto) 0.3 % 06/01/23 17:28 Neut # (Auto) 8.22 10^3/uL (1.8-7.7) H 06/01/23 17:28 Lymph # (Auto) 5.6 10^3/uL (0.8-4.8) H 06/01/23 17:28 [place] # (Auto) 1.1 10^3/uL (0.2-0.9) H 06/01/23 17:28 Eos # (Auto) 0.2 10^3/uL (0.0-0.8) 06/01/23 17:28 Baso # (Auto) 0.0 10^3/uL (0.0-0.1) 06/01/23 17:28 Nucleated RBC % (auto) 0 % 06/01/23 17:28 Nucleated RBCs # 0.0 /100WBC 06/01/23 17:28 Sodium 141 mmol/L (136-145) 06/01/23 17:28 Potassium 3.3 mmol/L (3.5-5.1) L 06/01/23 17:28 Chloride 104 mmol/L (98-107) 06/01/23 17:28 Carbon Dioxide 23 mmol/L (22-29) 06/01/23 17:28 Anion Gap 17.3 (5-19) 06/01/23 17:28 BUN 16 mg/dL (6-20) 06/01/23 17:28 Creatinine 0.9 mg/dL (0.5-0.9) 06/01/23 17:28 GFR Calculation 74.0 mL/min (90-130) L 06/01/23 17:28 Glucose 87 mg/dL (65-115) 06/01/23 17:28 Calculated Osmolality 293 mOsm/kg (285-295) 06/01/23 17:28 Calcium 9.4 mg/dL (8.5-10.5) 06/01/23 17:28 Total Bilirubin 0.3 mg/dL (0.15-1.2) 06/01/23 17:28 AST 29 U/L (0-32) 06/01/23 17:28 ALT 20 U/L (0-33) 06/01/23 17:28 Alkaline Phosphatase 77 U/L (35-105) 06/01/23 17:28 Troponin T Baseline < 6 ng/L (0-10) 06/01/23 17:28 Troponin T 120 Minute 6.00 ng/L (0-10) 06/01/23 19:28 Delta Troponin T 0.62867 ABS# (0-10) 06/01/23 19:28 Total Protein 8.0 g/dL (6.6-8.7) 06/01/23 17:28 Albumin 4.5 g/dL (3.5-5.2) 06/01/23 17:28 Globulin 3.5 g/dL (1.3-4.6) 06/01/23 17:28 TSH 0.79 uIU/mL (0.27-4.20) 06/01/23 17:28 Urine Color Dark yellow (Yellow) 06/01/23 18:18 Urine Appearance Cloudy (CLEAR) A 06/01/23 18:18 Urine pH 6 (5-7) 06/01/23 18:18 Ur Specific [place] 1.020 (1.005-1.030) 06/01/23 18:18 Urine Protein Neg (Negative) 06/01/23 18:18 Urine Glucose (UA) Norm (Normal) 06/01/23 18:18 Urine Ketones Negative (Negative) 06/01/23 18:18 Urine Blood 3+ (Negative) H 06/01/23 18:18 Urine Nitrate Negative (Negative) 06/01/23 18:18 Urine Bilirubin Neg (Negative) 06/01/23 18:18 Urine Urobilinogen Norm mg/dL (Negative) 06/01/23 18:18 Ur Leukocyte Esterase 2+ (Negative) H 06/01/23 18:18 Urine RBC 5-10 /hpf (0-2) H 06/01/23 18:18 Urine WBC 5-10 /hpf (0-5) H 06/01/23 18:18 Ur Squamous Epith Cells 5-10 /hpf (0-5) H 06/01/23 18:18 Amorphous Sediment Not Reportable 06/01/23 18:18 Urine Bacteria 2+ /hpf (NONE) H 06/01/23 18:18 Urine Mucus Trace /hpf 06/01/23 18:18 All radiology interpretation(s) finalized by discharge Discharge Plan Discharge Patient Disposition: Home Clinical Impression: Atypical chest pain, Acute epigastric pain Condition: Stable Prescriptions: No Action acetaminophen 500 mg Tablet 1,000 mg PO Q6H PRN (Reason: Pain) chlorthalidone 25 mg Tablet 25 mg PO DAILY 30 Days Qty: 30 1RF nitroglycerin 0.4 mg Tablet, Sublingual 0.4 mg sublingual Q5M PRN (Reason: Chest Pain) 30 Days Qty: 30 1RF metoprolol tartrate 25 mg Tablet 25 mg PO BID@0900,2100 30 Days Qty: 30 1RF lisinopril 5 mg tablet 5 mg PO DAILY 30 Days Qty: 30 1RF magnesium oxide 400 mg (241.3 mg magnesium) Tablet 400 mg PO BID 30 Days Qty: 60 1RF trazodone 50 mg Tablet 50 mg PO BEDTIME PRN (Reason: Sleep) 30 Days Qty: 30 1RF sertraline 100 mg tablet 100 mg PO DAILY 30 Days Qty: 30 1RF Rx Instructions: Take one half tab for 6 days and then return to 1 whole tab daily. hydroxyzine pamoate 25 mg Capsule 50 mg PO Q6H PRN (Reason: Anxiety) 30 Days Qty: 120 1RF Discharge Orders: Discharge ED (Routine); Ordered 06/01/23 Ordered By: Lm Longoria Patient Instructions: Chest Pain (ED), Abdominal Pain (ED) Activity Restrictions/Additional Instructions: Your evaluation in ER was essentially benign. It did not show any acute coronary causes of your chest pain. Please continue with your plan on going to rehab tomorrow at 9 AM. Thank you for choosing [facility] for your healthcare needs today. Please realize that you were seen in the emergency department and that we are providing you with an emergency medical screening exam and this may not be a complete and all exclusive of all testing and/or medical workup we may need to determine your element or severity of your illness. It is very important that you follow-up as instructed with your primary care provider or specialist for the additional evaluation and to discuss your medical treatment plan. You may return to the emergency department should you have concerns or if your condition changes or worsens in any way. 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
[2023-06-01 17:40] LABS: Basophils % 0.3 %; Eosinophils # 0.2 10^3/uL (0.0-0.8); Eosinophils % 1.4 %; Hematocrit 40.3 % (36-47); Lymphocytes # 5.6 10^3/uL (0.8-4.8); Lymphocytes % 36.7 %; Mean Corpuscular HGB Conc 32.8 g/dL (30-55); Mean Corpuscular Volume 85.6 fl (85-98); Mean Platelet Volume 9.9 fL (7.4-10.4); Monocytes # 1.1 10^3/uL (0.2-0.9); Monocytes % 6.9 %; Neutrophils # 8.22 10^3/uL (1.8-7.7); Neutrophils % 54.4 %; Nucleated Red Blood Cells % 0 %; Platelet Count 472 10^3/cmm (157-399); Red Blood Count 4.71 10^6/uL (3.85-5.65); Red Cell Distribution Width 14.3 % (12.1-15.1); White Blood Count 15.13 10^3/uL (3.29-11.43)
[2023-06-01 17:48] VITALS: BP 174/121; PULSE 80; O2SAT 96
[2023-06-01 17:55] LABS: Troponin(5th) Baseline < 6 ng/L (0-10)
[2023-06-01 17:58] LABS: Alanine Aminotransferase 20 U/L (0-33); Albumin Level 4.5 g/dL (3.5-5.2); Alkaline Phosphatase 77 U/L (35-105); Anion Gap 17.3 (5-19); Aspartate Amino Transferase 29 U/L (0-32); Blood Urea Nitrogen 16 mg/dL (6-20); Calcium 9.4 mg/dL (8.5-10.5); Carbon Dioxide 23 mmol/L (22-29); Chloride 104 mmol/L (98-107); Creatinine Clr Calc Pharmacy 115.8397; Globulin 3.5 g/dL (1.3-4.6); Glucose 87 mg/dL (65-115); Osmolality Calculated 293 mOsm/kg (285-295); Potassium 3.3 mmol/L (3.5-5.1); Sodium 141 mmol/L (136-145); Total Bilirubin 0.3 mg/dL (0.15-1.2)
--- NOTE | 2023-06-01 17:58 | XRR_ITS ---
PROCEDURE INFORMATION: Exam: XR Chest Exam date and time: 06/01/2023 7:52 PM Age: 28 years old Clinical indication: Cough and dyspnea; Additional info: Dyspnea/cough TECHNIQUE: Imaging protocol: Radiologic exam of the chest. Views: 1 view. COMPARISON: CR (CHEST, ) 05/21/2023 11:39 AM FINDINGS: Lungs: Unremarkable. No consolidation. Pleural spaces: Unremarkable. No pleural effusion. No pneumothorax. Heart/Mediastinum: Unremarkable. No cardiomegaly. Bones/joints: Unremarkable. XR/XR chest 1V portable [id number] IMPRESSION: No acute findings.
[2023-06-01 18:08] LABS: Slide Review Slide Review Perform
[2023-06-01 18:54] LABS: Add Urine Microscopic? YES; Bilirubin Urine Neg (Negative); Blood Urine 3+ (Negative); Glucose Urine UA Norm (Normal); Ketones Urine Negative (Negative); Leukocyte Esterase Urine 2+ (Negative); Nitrate Urine Negative (Negative); Protein Urine Neg (Negative); Urine Appearance Cloudy (CLEAR); Urine Color Dark Yellow (Yellow); Urobilinogen Urine Norm (Negative); pH Urine 6 (5-7)
[2023-06-01 19:11] LABS: Add Urine Culture? Yes; Bacteria Urine 2+ /hpf; Mucus Urine TRACE /hpf
[2023-06-01 19:16] LABS: Thyroid Stimulating Hormone 0.79 uIU/mL (0.27-4.20)
[2023-06-01 19:51] LABS: Troponin 5 2HR Delta 0.00001 ABS# (0-10)
--- NOTE | 2023-06-01 20:20 | PC.NURSE ---
Pt. sitting in room watching videos on her phone. Pt. has no needs at this time
== END 2023-06-01 21:24 | disposition home or self-care (01) ==
PROVIDERS: Emergency Provider Family Medicine
DX: R07.89 Other chest pain (principal); R10.13 Epigastric pain
CPT/HCPCS: 71045; 80053; 81001; 84443; 84484; 85025; 87086; 93005; 99285

== ENCOUNTER 2023-06-02 05:11 | Inpatient (IN) | payer MEDICAID, SELFPAY ==
[2023-06-02 05:14] VITALS: BP 146/91; PULSE 82; RESP 16; TEMP 36.5; O2SAT 98
--- NOTE | 2023-06-02 05:28 | ED.C_ITS ---
Documented by User: Lm Longoria DO 06/02/23 05:41 HPI - Psych 2 General: Chief Complaint: Psychiatric Symptoms Stated Complaint: SI Time Seen by Provider: 06/02/23 05:18 History of Present Illness: Presents to the ER after just being discharged approximately 6 hours ago for abdominal pain and having suicidal ideations then. Patient says she went out and started drinking alcohol she drank at least 2 shots and smokes weed and now she is having more thoughts of self-harm. Dr. Llanos was consulted last night and was familiar with her as he just discharged her [facility]/2023 his plan was to keep her current situation of going to rehab at 9:00 this morning as her treatment. Patient is not complaining of abdominal pain currently. Review of Systems 2 General: Reports: 10 or more systems reviewed and unremarkable except in HPI and below PFSH ED 2 PFSH: Medical History Psychiatric care No pertinent family history Surgical History No pertinent past surgical history Social History Smoking and tobacco/nicotine status: never used tobacco/nicotine Alcohol intake: never Substance/Drug Use: never Caregiver/support person: Yes Lives independently: No Household members: spouse Female Reproductive History: Date of last menstrual period: 05/03/23 Para: 3 Physical Exam 2 Const: COMMON NORMALS: no acute distress, average body habitus, patient oriented x3, no limitations, healthy appearing, alert and well nourished HENMT: COMMON NORMALS: normocephalic, atraumatic, hearing grossly normal bilaterally, external ears normal, Normal external nose present, moist oral mucous membranes and oropharynx normal HEAD & SCALP: normocephalic and atraumatic NOSE: Normal external nose present EXTERNAL EAR: Yes external ears normal Neck/C-Spine: COMMON NORMALS: no JVD Chest: COMMONS NORMALS: normal inspection of the chest and normal palpation of entire chest wall Resp: COMMON NORMALS: normal respiratory effort, No retractions, No use of accessory muscles and clear to auscultation bilaterally AUSCULTATION: clear to auscultation bilaterally Cardio: COMMON NORMALS: no JVD, regular rate, regular rhythm, S1 normal heart sound present, S2 normal heart sound present, No gallops present (Cardio), No clicks present (Cardio), No murmurs present (Cardio) and No rub (Cardio) R ATE: regular rate RHYTHM: regular rhythm HEART SOUNDS: S1 normal heart sound present and S2 normal heart sound present GI: COMMON NORMALS: Normal to inspection, nondistended, normoactive bowel sounds present, Soft to palpation, non-tender, No hepatosplenomegaly present and no masses PALPATION: Yes Soft to palpation and Yes No hepatosplenomegaly present Neuro: COMMON NORMALS: patient oriented x3 SENSORIUM/ORIENTATION: Yes alert Course 2 Vital Signs: Vital signs: Vital Signs Temperature 97.7 F 06/02/23 05:14 Pulse Rate 67 06/02/23 08:00 Respiratory Rate 18 06/02/23 08:00 Blood Pressure 139/76 06/02/23 08:00 Pulse Oximetry 95 06/02/23 08:00 Oxygen Delivery Me thod Room Air 06/02/23 05:14 MDM - Psych Lab Data 06/02/23 05:50 06/02/23 05:50 Laboratory Results WBC 16.44 10^3/uL (3.29-11.43) H 06/02/23 05:50 RBC 4.47 10^6/uL (3.85-5.65) 06/02/23 05:50 Hgb 12.50 g/dL (11.27-16.99) 06/02/23 05:50 Hct 39.8 % (36-47) 06/02/23 05:50 MCV 89.0 fl (85-98) 06/02/23 05:50 MCH 28.0 pg (27-33) 06/02/23 05:50 MCHC 31.4 g/dL (30-55) 06/02/23 05:50 RDW 14.2 % (12.1-15.1) 06/02/23 05:50 Plt Count 405 10^3/cmm (157-399) H 06/02/23 05:50 MPV 9.5 fL (7.4-10.4) 06/02/23 05:50 Neut % (Auto) 67.6 % 06/02/23 05:50 Lymph % (Auto) 24.3 % 06/02/23 05:50 [place] % (Auto) 6.3 % 06/02/23 05:50 Eos % (Auto) 1.1 % 06/02/23 05:50 Baso % (Auto) 0.4 % 06/02/23 05:50 Neut # (Auto) 11.11 10^3/uL (1.8-7.7) H 06/02/23 05:50 Lymph # (Auto) 4.0 10^3/uL (0.8-4.8) 06/02/23 05:50 [place] # (Auto) 1.0 10^3/uL (0.2-0.9) H 06/02/23 05:50 Eos # (Auto) 0.2 10^3/uL (0.0-0.8) 06/02/23 05:50 Baso # (Auto) 0.1 10^3/uL (0.0-0.1) 06/02/23 05:50 Nucleated RBC % (auto) 0 % 06/02/23 05:50 Nucleated RBCs # 0.0 /100WBC 06/02/23 05:50 Sodium 134 mmol/L (136-145) L 06/02/23 05:50 Potassium 3.3 mmol/L (3.5-5.1) L 06/02/23 05:50 Chloride 102 mmol/L (98-107) 06/02/23 05:50 Carbon Dioxide 19 mmol/L (22-29) L 06/02/23 05:50 Anion Gap 16.3 (5-19) 06/02/23 05:50 BUN 13 mg/dL (6-20) 06/02/23 05:50 Creatinine 0.8 mg/dL (0.5-0.9) 06/02/23 05:50 GFR Calculation 84.8 mL/min (90-130) L 06/02/23 05:50 Glucose 98 mg/dL (65-115) 06/02/23 05:50 Calculated Osmolality 278 mOsm/kg (285-295) L 06/02/23 05:50 Calcium 8.9 mg/dL (8.5-10.5) 06/02/23 05:50 Total Bilirubin 0.4 mg/dL (0.15-1.2) 06/02/23 05:50 AST 30 U/L (0-32) 06/02/23 05:50 ALT 20 U/L (0-33) 06/02/23 05:50 Alkaline Phosphatase 65 U/L (35-105) 06/02/23 05:50 Total Protein 7.8 g/dL (6.6-8.7) 06/02/23 05:50 Albumin 3.8 g/dL (3.5-5.2) 06/02/23 05:50 Globulin 4.0 g/dL (1.3-4.6) 06/02/23 05:50 HCG, Qual Negative (Negative) 06/02/23 06:27 Urine Color Light yellow (Yellow) 06/02/23 06:27 Urine Appearance Clear (CLEAR) 06/02/23 06:27 Urine pH 6 (5-7) 06/02/23 06:27 Ur Specific [place] 1.010 (1.005-1.030) 06/02/23 06:27 Urine Protein Neg (Negative) 06/02/23 06:27 Urine Glucose (UA) Norm (Normal) 06/02/23 06:27 Urine Ketones Negative (Negative) 06/02/23 06:27 Urine Blood 3+ (Negative) H 06/02/23 06:27 Urine Nitrate Negative (Negative) 06/02/23 06:27 Urine Bilirubin Neg (Negative) 06/02/23 06:27 Urine Urobilinogen Neg mg/dL (Negative) 06/02/23 06:27 Ur Leukocyte Esterase Trace (Negative) H 06/02/23 06:27 Urine RBC 0-4 /hpf (0-2) H 06/02/23 06:27 Urine WBC 0-4 /hpf (0-5) H 06/02/23 06:27 Ur Squamous Epith Cells 5-10 /hpf (0-5) H 06/02/23 06:27 Amorphous Sediment Not Reportable 06/02/23 06:27 Urine Bacteria 1+ /hpf (NONE) H 06/02/23 06:27 Salicylates < 0.3 mg/dL (3-10) L 06/02/23 05:50 Urine Opiates Screen Negative ng/mL (Negative) 06/02/23 06:27 Acetaminophen < 5.0 ug/mL (10-30) L 06/02/23 05:50 Ur Barbiturates Screen Negative ng/mL (Negative) 06/02/23 06:27 Ur Phencyclidine Scrn Negative ng/mL (Negative) 06/02/23 06:27 Ur Amphetamines Screen Positive ng/mL (Negative) H 06/02/23 06:27 U Benzodiazepines Scrn Negative ng/mL (Negative) 06/02/23 06:27 Urine Cocaine Screen Negative ng/mL (Negative) 06/02/23 06:27 U Marijuana (THC) Screen Negative ng/mL (Negative) 06/02/23 06:27 Ethyl Alcohol < 10 mg/dL (0-10) 06/02/23 05:50 Discharge Plan Discharge Patient Disposition: Admitted As Inpatient Admit Provider: Vladislav Llanos Clinical Impression: Suicidal ideation, Methamphetamine abuse Condition: Stable Sign Out Sign Out Data: Patient Sign Out occurred on 06/02/23 at 07:37. Patient's care was discussed, and care was transferred from Lm Longoria DO to Soren Escobedo DO. Coding Level of Care Code ED Professional Organizer for Chg Fwd Documented by User: Soren Escobedo DO 06/02/23 11:45 HPI - Psych 2 General: Chief Complaint: Psychiatric Symptoms Stated Complaint: SI Time Seen by Provider: 06/02/23 05:18 [facility] ED 2 PFSH: Medical History Psychiatric care No pertinent family history Surgical History No pertinent past surgical history Social History Smoking and tobacco/nicotine status: never used tobacco/nicotine Alcohol intake: never Substance/Drug Use: never Caregiver/support person: Yes Lives independently: No Household members: spouse Course 2 Vital Signs: Vital signs: Vital Signs Temperature 97.7 F 06/02/23 05:14 Pulse Rate 67 06/02/23 08:00 Respiratory Rate 18 06/02/23 08:00 Blood Pressure 139/76 06/02/23 08:00 Pulse Oximetry 95 06/02/23 08:00 Oxygen Delivery Me thod Room Air 06/02/23 05:14 MDM - Psych Medical Decision Making Care assumed at change of shift. Urine drug screen positive for methamphetamine. Discussed Dr. Llanos he reviewed the case he will admit for suicidal ideation n.p.o. orders written Differential Diagnosis Likely suicidal ideation Medical Records I reviewed the patient's medical records. Lab Data I reviewed the patient's lab results. 06/02/23 05:50 06/02/23 05:50 Laboratory Results WBC 16.44 10^3/uL (3.29-11.43) H 06/02/23 05:50 RBC 4.47 10^6/uL (3.85-5.65) 06/02/23 05:50 Hgb 12.50 g/dL (11.27-16.99) 06/02/23 05:50 Hct 39.8 % (36-47) 06/02/23 05:50 MCV 89.0 fl (85-98) 06/02/23 05:50 MCH 28.0 pg (27-33) 06/02/23 05:50 MCHC 31.4 g/dL (30-55) 06/02/23 05:50 RDW 14.2 % (12.1-15.1) 06/02/23 05:50 Plt Count 405 10^3/cmm (157-399) H 06/02/23 05:50 MPV 9.5 fL (7.4-10.4) 06/02/23 05:50 Neut % (Auto) 67.6 % 06/02/23 05:50 Lymph % (Auto) 24.3 % 06/02/23 05:50 [place] % (Auto) 6.3 % 06/02/23 05:50 Eos % (Auto) 1.1 % 06/02/23 05:50 Baso % (Auto) 0.4 % 06/02/23 05:50 Neut # (Auto) 11.11 10^3/uL (1.8-7.7) H 06/02/23 05:50 Lymph # (Auto) 4.0 10^3/uL (0.8-4.8) 06/02/23 05:50 [place] # (Auto) 1.0 10^3/uL (0.2-0.9) H 06/02/23 05:50 Eos # (Auto) 0.2 10^3/uL (0.0-0.8) 06/02/23 05:50 Baso # (Auto) 0.1 10^3/uL (0.0-0.1) 06/02/23 05:50 Nucleated RBC % (auto) 0 % 06/02/23 05:50 Nucleated RBCs # 0.0 /100WBC 06/02/23 05:50 Sodium 134 mmol/L (136-145) L 06/02/23 05:50 Potassium 3.3 mmol/L (3.5-5.1) L 06/02/23 05:50 Chloride 102 mmol/L (98-107) 06/02/23 05:50 Carbon Dioxide 19 mmol/L (22-29) L 06/02/23 05:50 Anion Gap 16.3 (5-19) 06/02/23 05:50 BUN 13 mg/dL (6-20) 06/02/23 05:50 Creatinine 0.8 mg/dL (0.5-0.9) 06/02/23 05:50 GFR Calculation 84.8 mL/min (90-130) L 06/02/23 05:50 Glucose 98 mg/dL (65-115) 06/02/23 05:50 Calculated Osmolality 278 mOsm/kg (285-295) L 06/02/23 05:50 Calcium 8.9 mg/dL (8.5-10.5) 06/02/23 05:50 Total Bilirubin 0.4 mg/dL (0.15-1.2) 06/02/23 05:50 AST 30 U/L (0-32) 06/02/23 05:50 ALT 20 U/L (0-33) 06/02/23 05:50 Alkaline Phosphatase 65 U/L (35-105) 06/02/23 05:50 Total Protein 7.8 g/dL (6.6-8.7) 06/02/23 05:50 Albumin 3.8 g/dL (3.5-5.2) 06/02/23 05:50 Globulin 4.0 g/dL (1.3-4.6) 06/02/23 05:50 HCG, Qual Negative (Negative) 06/02/23 06:27 Urine Color Light yellow (Yellow) 06/02/23 06: Urine Appearance Clear (CLEAR) 06/02/23 06:27 Urine pH 6 (5-7) 06/02/23 06:27 Ur Specific [place] 1.010 (1.005-1.030) 06/02/23 06:27 Urine Protein Neg (Negative) 06/02/23 06:27 Urine Glucose (UA) Norm (Normal) 06/02/23 06:27 Urine Ketones Negative (Negative) 06/02/23 06:27 Urine Blood 3+ (Negative) H 06/02/23 06:27 Urine Nitrate Negative (Negative) 06/02/23 06: Urine Bilirubin Neg (Negative) 06/02/23 06: Urine Urobilinogen Neg mg/dL (Negative) 06/02/23 06:27 Ur Leukocyte Esterase Trace (Negative) H 06/02/23 06:27 Urine RBC 0-4 /hpf (0-2) H 06/02/23 06:27 Urine WBC 0-4 /hpf (0-5) H 06/02/23 06:27 Ur Squamous Epith Cells 5-10 /hpf (0-5) H 06/02/23 06:27 Amorphous Sediment Not Reportable 06/02/23 06:27 Urine Bacteria 1+ /hpf (NONE) H 06/02/23 06:27 Salicylates < 0.3 mg/dL (3-10) L 06/02/23 05:50 Urine Opiates Screen Negative ng/mL (Negative) 06/02/23 06: Acetaminophen < 5.0 ug/mL (10-30) L 06/02/23 05:50 Ur Barbiturates Screen Negative ng/mL (Negative) 06/02/23 06:27 Ur Phencyclidine Scrn Negative ng/mL (Negative) 06/02/23 06:27 Ur Amphetamines Screen Positive ng/mL (Negative) H 06/02/23 06:27 U Benzodiazepines Scrn Negative ng/mL (Negative) 06/02/23 06:27 Urine Cocaine Screen Negative ng/mL (Negative) 06/02/23 06:27 U Marijuana (THC) Screen Negative ng/mL (Negative) 06/02/23 06:27 Ethyl Alcohol < 10 mg/dL (0-10) 06/02/23 05:50 No radiology studies performed this visit Discharge Plan Discharge Patient Disposition: Admitted As Inpatient Admit Provider: Vladislav Llanos Clinical Impression: Suicidal ideation, Methamphetamine abuse Condition: Stable Sign Out Sign Out Data: Patient Sign Out occurred on 06/02/23 at 07:37. Patient's care was discussed, and care was transferred from Lm Longoria DO to Soren Escobedo DO. Coding Level of Care Code ED Professional Organizer for Placido Crowe
[2023-06-02 05:57] LABS: Basophils # 0.1 10^3/uL (0.0-0.1); Basophils % 0.4 %; Eosinophils # 0.2 10^3/uL (0.0-0.8); Eosinophils % 1.1 %; Hematocrit 39.8 % (36-47); Lymphocytes % 24.3 %; Mean Corpuscular HGB Conc 31.4 g/dL (30-55); Mean Platelet Volume 9.5 fL (7.4-10.4); Monocytes % 6.3 %; Neutrophils # 11.11 10^3/uL (1.8-7.7); Neutrophils % 67.6 %; Nucleated Red Blood Cells % 0 %; Platelet Count 405 10^3/cmm (157-399); Red Blood Count 4.47 10^6/uL (3.85-5.65); Red Cell Distribution Width 14.2 % (12.1-15.1); White Blood Count 16.44 10^3/uL (3.29-11.43)
[2023-06-02 06:17] LABS: Alanine Aminotransferase 20 U/L (0-33); Albumin Level 3.8 g/dL (3.5-5.2); Alkaline Phosphatase 65 U/L (35-105); Anion Gap 16.3 (5-19); Aspartate Amino Transferase 30 U/L (0-32); Blood Urea Nitrogen 13 mg/dL (6-20); Calcium 8.9 mg/dL (8.5-10.5); Carbon Dioxide 19 mmol/L (22-29); Chloride 102 mmol/L (98-107); Creatinine Clr Calc Pharmacy 130.3196; Glomerular Filtration Rate 84.8 mL/min (90-130); Glucose 98 mg/dL (65-115); Osmolality Calculated 278 mOsm/kg (285-295); Potassium 3.3 mmol/L (3.5-5.1); Sodium 134 mmol/L (136-145); Total Bilirubin 0.4 mg/dL (0.15-1.2); Total Protein 7.8 g/dL (6.6-8.7)
[2023-06-02 06:23] LABS: Acetaminophen < 5.0 ug/mL (10-30); Alcohol Level < 10 mg/dL (0-10); Salicylate < 0.3 mg/dL (3-10)
[2023-06-02 06:36] LABS: HCG Qualitative Urine. Negative (Negative)
[2023-06-02 06:44] LABS: Amphetamines Screen Urine Positive (Negative); Barbiturates Screen Urine Negative (Negative); Benzodiazepines Screen Urine Negative (Negative); Cocaine Screen Urine Negative (Negative); Opiate Screen Urine Negative (Negative); PCP Screen Urine Negative (Negative); THC Screen Urine Negative (Negative)
--- NOTE | 2023-06-02 06:45 | PC.PHAR ---
Addendum entered by Shannon Daley 06/02/23 07:18: pt states no longer takes vivitrol injections q4 weeks Original Note: pt states she takes care of her own medications-pt verified medications-
[2023-06-02 06:55] LABS: Add Urine Microscopic? YES; Bilirubin Urine Neg (Negative); Blood Urine 3+ (Negative); Glucose Urine UA Norm (Normal); Ketones Urine Negative (Negative); Leukocyte Esterase Urine Trace (Negative); Nitrate Urine Negative (Negative); Protein Urine Neg (Negative); RBC Urine 0-4 /hpf (0-2); Urine Appearance Clear (CLEAR); Urine Color Light yellow (Yellow); Urobilinogen Urine Neg (Negative); WBC Urine 0-4 /hpf (0-5); pH Urine 6 (5-7)
[2023-06-02 06:56] LABS: Add Urine Culture? No; Bacteria Urine 1+ /hpf
[2023-06-02 08:00] VITALS: BP 139/76; PULSE 67; RESP 18; O2SAT 95
[2023-06-02 12:15] VITALS: BP 164/74; PULSE 69; RESP 16; TEMP 36.6; O2SAT 97
[2023-06-02 13:14] VITALS: BP 126/80; PULSE 97; RESP 16; TEMP 36.6; O2SAT 99
[2023-06-02 20:16] VITALS: BP 120/78; PULSE 83; RESP 16; TEMP 36.6; O2SAT 98
[2023-06-03 06:00] VITALS: BP 119/73; PULSE 71; RESP 17; O2SAT 97
--- NOTE | 2023-06-03 06:18 | W.PM.NPUH&PS ---
Providers/Chief Complaint Admitting Physician: Vladislav Llanos MD Chief Complaint: SI HPI NPU History of Present Illness Marie Nicholson is a 28 year old female who presented to the emergency department with the following report: Chief Complaint: Psychiatric Symptoms Stated Complaint: SI Time Seen by Provider: 06/02/23 05:18 History of Present Illness: Presents to the ER after just being discharged approximately 6 hours ago for abdominal pain and having suicidal ideations then. Patient says she went out and started drinking alcohol she drank at least 2 shots and smokes weed and now she is having more thoughts of self-harm. Dr. Llanos was consulted last night and was familiar with her as he just discharged her from the npu 05/26/2023 his plan was to keep her current situation of going to rehab at 9:00 this morning as her treatment. Patient is not complaining of abdominal pain currently. She was admitted to the neuropsychiatric unit for definitive treatment of those issues. She presented today having been discharged about a week ago with a plan for rehab. She has had multiple hospitalizations just recently with significant instability and inability to manage herself outside of a controlled setting. An excerpt of her discharge summary from last week is included below for context. She presented today reporting that she is really struggled when she left that she is desirous of sobriety but has just been struggling in a clearly self sabotaging pattern of use. She reports that she has been taking the medication and is committed to going to rehab. We reached out to the facility and they would not be able to take her today as planned but would be able to take her on Monday we discussed the risks,, benefits and alternatives of continuing the current medications and working with her to be ready for her bed date at [facility] on Monday and just did agree to proceed as is documented in this note. Per her 05/26/23 Inpatient psychiatric discharge summary: Discharge Diagnosis (1) Major depressive disorder, recurrent episode: Status: Acute (2) History of ADHD: Status: Acute (3) ANGIE (generalized anxiety disorder): Status: Acute (4) Methamphetamine abuse: Status: Acute (5) Opioid abuse: Status: Acute (6) Suicide attempt: Status: Acute Reason for Visit Reason for Visit: OD Brief History: History of Present Illness Marie Nicholson is a 28 year old female who presented to the emergency department with the following report: Chief Complaint: Overdose Stated Complaint: OD Time Seen by Provider: 05/21/23 01:26 History of Present Illness: 28-year-old female with a history of depression and recent admission to the neuropsychiatric unit at this facility. She presents within an hour after ingesting multiple trazodone and sertraline at home in an attempt to kill herself. She complains of stomach pain, nausea, vomiting. No history of seizure. She presented to the ICU for definitive treatment of those issues. She was transferred to the neuropsychiatric unit after she was medically cleared to once again attempt to address her psychiatric and addiction issues in addition to the lethality. She was just discharged 05/10/2023 to the [facility] with a plan to 2 be there until her rehab bed date in May. An excerpt from her discharge summary from earlier this month is included below for context and the fact that there have been no clear substantive changes. She presents today reporting that when she she went to [facility] briefly and she did not take her medication reportedly because she was not sure that she really needed it. She denies having relapsed in the interim but reports that she ended up speaking with her children with got her in an unhealthy emotional state that she did not break out of. She reports that ultimately she took the overdose on medication which led to her being brought back to the hospital. She reports that she knows she needs to go to rehab but that she struggles with wanting to go. We discussed the fact that not many people really want to go to rehab but that healthy people identified that there are things they need to do that are not necessarily desirable. We discussed monitoring her and making some possible changes to her medication regimen moving forward. Per her 05/10/2023 [facility] inpatient psychiatric discharge summary: Discharge Diagnosis (1) Major depressive disorder, recurrent episode: Status: Acute (2) ANGIE (generalized anxiety disorder): Status: Acute (3) Opioid abuse: Status: Acute (4) History of ADHD: Status: Acute (5) Methamphetamine abuse: Status: Acute Reason for Visit Reason for Visit: MHE Brief History: History of Present Illness Marie Nicholson is a 28 year old female recently discharged from the neuropsychiatric unit on 01/20/2023 who presented to the emergency department with suicidal ideation with a plan to overdose. The patient was admitted to the neuropsychiatric unit for further evaluation and treatment. The patient had reported similar complaints to her previous hospitalization. She reports that she has been off of all of her medications since February of this year. She states that she has been feeling more depressed. She continued to state that she has been using methamphetamine on a daily basis along with opiate use both orally and recently having used IV heroin approximately a month ago. She is reporting her most recent use of opiates 2 days ago and states that she last used methamphetamine yesterday. She reports that she feels out of control. She had stated that she had been sent home to live with her mother after discharge from the neuropsychiatric unit with the plan for the patient to go to [facility] on an inpatient basis when a bed became available. Unfortunately, the patient states that she never made it to the end the inpatient rehab known [facility]. She did indicate that she had recently been placed in an inpatient substance abuse facility in [facility] for 2 weeks but left without completing the program. She continues to report her mood is being worse and reports that she has continued cravings for both opiates and methamphetamine. She reported no changes otherwise since her last hospitalization except that she is no longer allowed at home and that she has resumed being homeless around the [facility]. She was requesting that she be restarted on her previous psychotropic medications. She reports sleep continuity disruption. She reports significant lack of appetite. Current medications: none in last 3 months Excerpt from Discharge Summary from 01/20/23 NPU Discharge Diagnosis (1) Major depressive disorder, recurrent episode: Status: Acute (2) Opioid abuse: Status: Acute (3) Methamphetamine abuse: Status: Acute (4) History of ADHD: Status: Acute (5) ANGIE (generalized anxiety disorder): Status: Acute Reason for Visit OVERDOSE Brief History: History of Present Illness Marie Nicholson is a 27 year old female who presented to the emergency department via EMS after having admitted to taking 20 naproxen pills with report of having thoughts of wanting to kill herself. The patient was admitted to the neuropsychiatric unit for further evaluation and treatment. The patient reports that she has been struggling with chronic methamphetamine abuse for greater than 5 years having used methamphetamine beginning at the age of 16. She reports that she has been mixing her methamphetamine with heroin. The patient reports that she is approaching the anniversary of having lost custody of all of her children approximately 1 year ago and states that she has been feeling more hopeless and worthless recently. She reports increased crying spells. She reports that she has been feeling more hopeless. She reports that she has been struggling with hypersomnia. She reports low energy and low motivation She has reported a loss of appetite. She reports that she has been more anxious as she chronically worries about her children. She reports that she often feels guilty that she is not able to care for her children. She also reports active cravings for methamphetamines. She denies any alcohol use. The patient reports having difficulties with concentration. She reports that she had previously been diagnosed with ADHD and a learning disability as a child and states that she has been frustrated at being able to manage routine activities of daily living. She reports a past history of psychotic symptoms when using methamphetamine but denies any currently. She did not endorse any manic symptoms. She denies any history of PTSD symptoms. Inpatient psychiatric history: None Outpatient psychiatric treatment: She reports history of depression and ADHD while reporting having received treatment at the [facility] more than 10 years ago. Drug and alcohol history: She reports no alcohol use. She reports no marijuana use. She does report having used methamphetamines beginning at the age of 16 with increased use reported over the last 5 years. She reports the longest period of sobriety from methamphetamine is less than 1 day. She also reports a history of heroin use intranasally for the past few years with no treatment treatment history for opiate use. She states that she had been in rehabilitation in March 2022 in [facility] through [facility] counseling. She states that she was there for 21 days only. Allergies: Penicillin Medical history: Hypertension, history of pyelonephritis Surgical history: Tonsillectomy adenoidectomy, Current medications: None Developmental history: History of developmental delays as she reports having been diagnosed with a learning disorder while struggling in school. Family psychiatric history: None reported Legal history: None reported Social history: The patient was raised in [facility] [place] [facility] and is from her first and only for the past 3 years. She states that she was raised by her mother as her father had been living in another city and raising another family. She states that she briefly lived with her father at the age of 11 but returned back to live with her mother. She reports no history of any sexual physical or emotional abuse. She did report witnessing the of her grandmother as an adolescent. She reports that she dropped out of school and never got her GED after dropping out in the 11th grade. She has 4 children ages 9,4,2 and 1 respectively. She states that she had lost all 4 of her children due to her substance abuse issues. Her , 4, and 2-year-old and 1 year old all live outside of the home. Her 1-year-old currently resides with her biological mother. She has been homeless for at least 1 year. Hospital Course She slowly acclimated to the schedule, group and milieu therapies provided. She presented struggling with depression, anxiety and active addiction. Trazodone Zoloft and Vistaril were started to assist with these concerns. Zoloft was titrated to 100 mg p.o. daily with notable improvements. She continued to endorse an interest in sober living treatment and inpatient rehab. She worked with the social work team to find a bed date but it was further in the future. Given her domestic challenges they also assisted her in getting placement at [facility] in the interim while she waited for that bed date. Additionally she was assisted in getting appropriate follow-up. She had significant improvement and was able to contract for safety outside of the hospital prior to discharge. During the hospitalization, the patient had routine laboratory studies which were within normal limits except for a few outliers. Additionally, there was a general medical evaluation which was also within normal limits and revealed no new acute processes. At the time of discharge, lethality was denied and psychosis was resolving. Mood and anxiety were well managed. The patient endorsed a plan to avoid all drugs of abuse and follow up with the aftercare recommendations of the treatment team. The patient was evaluated and deemed to be absent credible lethality and had achieved the maximum benefit from an inpatient hospitalization, and so was discharged. Meds NPU Home Medications Medication Instructions Recorded Confirmed Last Taken Type acetaminophen 500 mg tablet 1,000 mg PO Q6H PRN Pain 05/21/23 06/02/23 Unknown History chlorthalidone 25 mg tablet 25 mg PO DAILY 30 days #30 tabs 05/26/23 06/02/23 Unknown Rx hydroxyzine pamoate 25 mg capsule 50 mg (2 x 25 mg) PO Q6H PRN 05/26/23 06/02/23 Unknown Rx Anxiety 30 days #120 caps lisinopril 5 mg tablet 5 mg PO DAILY 30 days #30 tabs 05/26/23 06/02/23 Unknown Rx magnesium oxide 400 mg (241.3 mg 400 mg PO BID 30 days #60 tabs 05/26/23 06/02/23 Unknown Rx magnesium) tablet metoprolol tartrate 25 mg tablet 25 mg PO BID@0900,2100 30 days #30 05/26/23 06/02/23 Unknown Rx tabs sertraline 100 mg tablet 100 mg PO DAILY 30 days #30 tabs 05/26/23 06/02/23 Unknown Rx trazodone 50 mg tablet 50 mg PO BEDTIME PRN Sleep 30 days 05/26/23 06/02/23 Unknown Rx #30 tabs nitroglycerin 0.4 mg sublingual 0.4 mg sublingual Q5M PRN Chest 06/02/23 06/02/23 Unknown History tablet (Nitrostat) Pain Allergies Allergy/AdvReac Type Severity Reaction Status Date / Time amitriptyline Allergy Mild ALGY-Hives Verified 05/21/23 08:42 Penicillins Allergy Mild ALGY-Hives Verified 05/21/23 08:42 PFSH NPU PFSH: Medical History Psychiatric care No pertinent family history Surgical History No pertinent past surgical history Social History Smoking and tobacco/nicotine status: never used tobacco/nicotine Alcohol intake: never Substance/Drug Use: never Caregiver/support person: Yes Lives independently: No Household members: spouse Female Reproductive History: Para: 3 Mental Status Exam MSE Comments: This is an obese versus morbidly obese white female in hospital scrubs with poor grooming, mottled teeth appearing older than her stated age. No abnormal movements except for psychomotor retardation. Mostly cooperative with exam a mild to moderate distress. Speech was slightly decreased rate and volume. Mood described as frustrated with myself. Affect slightly subdued. Thought process organized. Thought content: Patient endorsed suicidal but denied homicidal ideation, there were no delusions reported or noted, she denied any auditory or visual hallucinations. Attention and concentration appeared intact and memory appeared mostly reliable but none were formally tested. She is alert and oriented times 3. Her insight was poor. Her judgment was poor. Her impulse control was impaired. Vitals/I&O/Wt Last Vital Signs Temp 97.8 F 06/02/23 20:16 Pulse 83 06/02/23 20:16 Resp 16 06/02/23 20:16 BP 120/78 06/02/23 20:16 Pulse Ox 98 06/02/23 20:16 O2 Del Method Room Air 06/02/23 20:16 Weight last 48 hrs Weight 113.398 kg Data NPU 06/02/23 05:50 06/02/23 05:50 A&P Assessment and plan (1) Major depressive disorder, recurrent episode: (2) ANGIE (generalized anxiety disorder): (3) Opioid abuse: (4) History of ADHD: (5) Methamphetamine abuse: Plan 28-year-old white female with polysubstance abuse who was discharged 05/26/2023 with multiple recent admissions admitted again with suicidal ideation with hx of Major depression and Generalized anxiety along with adhd. 1. ?Encourage individual, group and milieu therapy. 2. Recommend sober living treatment at the highest level of care to which the patient is willing to commit. 3. Continue q-15 minute checks for safety. 4. Continue current medication. 5. Plan to discharge to rehab at [facility] Monday. Involuntary Hold Information 96 Hour Hold: 96 Hour Involuntary Admission: No 96 Hour Hold Ending Date: 05/26/23 96 Hour Hold Ending Time: 00:01 Attestations NPU Medical Necessity Statement*: Inpatient hospitalization is medically necessary and the clinically appropriate intervention at this time. We will monitor and adjust medications as indicated. The patient will be hospitalized for at least 2 midnights. The patient's likely length of stay is 3 days. Coding Level of Care Code Acute Code for g Fwd Diagnoses Major depressive disorder, recurrent episode F33.9 ANGIE (generalized anxiety disorder) F41.1 Opioid abuse F11.10 History of ADHD Z86.59 Methamphetamine abuse F15.10
[2023-06-03 13:57] VITALS: BP 142/102; PULSE 80; RESP 16; TEMP 36.6; O2SAT 100
[2023-06-03 19:52] VITALS: BP 115/56; PULSE 71; RESP 18; TEMP 36.6; O2SAT 98
[2023-06-03] MEDS: trazodone 50 mg Tablet PO (20:08)
[2023-06-04 06:00] VITALS: BP 130/80; PULSE 62; RESP 18; TEMP 36.7; O2SAT 95
[2023-06-04 14:00] VITALS: BP 131/76; PULSE 88; RESP 16; TEMP 36.8; O2SAT 98
--- NOTE | 2023-06-04 14:36 | P.NPUPN_ITS ---
Subjective NPU 2 Subjective: 28-year-old white female with a history of polysubstance abuse along with depression and anxiety admitted with suicidal ideation in the context of continued substance use. The patient had reported that she is hopeful that she can go to an inpatient rehabilitation facility earlier this week. She reported that she had remained depressed and continued to struggle with sobriety as she reported returning back to using alcohol and methamphetamine since patient was last seen here. She had reported continued sleep disturbance. She had reported continued nightmares regarding her trauma. She had endorsed continued feelings of hopelessness. She had not yet been restarted back on her previous medications although she had complained of having problems with maintaining compliance with her medications due to problems with executive functioning. She reported a history of distractibility and difficulties with staying on tasks since her childhood. Mental Status Exam 2 MSE Comments: This is an obese versus morbidly obese white female in hospital scrubs with poor grooming, mottled teeth appearing older than her stated age. No abnormal movements except for psychomotor retardation. She was cooperative with exam a mild to moderate distress. Speech was slightly decreased rate and volume. Mood described as depressed. Her affect was flat. Thought process was linear and minimally organized. Thought content: Patient endorsed suicidal ideation with no plan. She denied any homicidal ideation. There were no delusions reported or noted, she denied any auditory or visual hallucinations. Attention and concentration appeared intact and memory appeared mostly reliable but none were formally tested. She is alert and oriented x 3. Her insight was poor. Her judgment was poor. Her impulse control was impaired. Intelligence appeared commensurate with borderline intellectual functioning. Vitals/I&O/Wt Last Vital Signs Temp 98.3 F 06/04/23 14:00 Pulse 88 06/04/23 14:00 Resp 16 06/04/23 14:00 BP 131/76 06/04/23 14:00 Pulse Ox 98 06/04/23 14:00 O2 Del Method Room Air 06/04/23 14:00 Weight last 48 hrs Weight 117.934 kg Data NPU 06/02/23 05:50 06/02/23 05:50 A&P Assessment and plan (1) Major depressive disorder, recurrent episode: (2) ANGIE (generalized anxiety disorder): (3) Opioid abuse: (4) History of ADHD: (5) Methamphetamine abuse: Plan 28-year-old white female with polysubstance abuse who was discharged 05/26/2023 with multiple recent admissions admitted again with suicidal ideation with hx of Major depression and Generalized anxiety along with adhd. 1. ?Encourage individual, group and milieu therapy. 2. Recommend sober living treatment at the highest level of care to which the patient is willing to commit. 3. Continue q-15 minute checks for safety. 4. Restart zoloft 100mg daily as previously prescribed. 5. Plan to discharge to rehab at [facility] Monday. Involuntary Hold Information 2 96 Hour Hold: 96 Hour Involuntary Admission: No 96 Hour Hold Ending Date: 0 05/26/23 96 Hour Hold Ending Time: 00:01 Attestations NPU 2 Medical Necessity Statement*: Inpatient hospitalization is medically necessary and the clinically appropriate intervention at this time. We will monitor and adjust medications as indicated.The patient's likely length of stay is 3 days. Coding Level of Care Code Acute Code for g Fwd Diagnoses Major depressive disorder, recurrent episode F33.9 ANGIE (generalized anxiety disorder) F41.1 Opioid abuse F11.10 History of ADHD Z86.59 Methamphetamine abuse F15.10
[2023-06-04] MEDS: sertraline 100 mg Tablet PO (15:22)
[2023-06-04 20:24] VITALS: BP 132/76; PULSE 87; RESP 18; TEMP 36.7; O2SAT 99
[2023-06-05 06:00] VITALS: BP 139/78; PULSE 60; RESP 16; TEMP 36.6; O2SAT 97
[2023-06-05] MEDS: sertraline 100 mg Tablet PO (07:55)
[2023-06-05] MEDS: acetaminophen 325 mg Tablet 650 MG PO (07:56)
[2023-06-05 14:00] VITALS: BP 133/91; PULSE 75; RESP 16; TEMP 36.6; O2SAT 99
--- NOTE | 2023-06-05 16:35 | P.NPUPN_ITS ---
Subjective NPU 2 Subjective: 28-year-old white female with a history of polysubstance abuse along with depression and anxiety admitted with suicidal ideation in the context of continued substance use. She reported no side effects from her Zoloft. She had reported motivation to go to an inpatient unit through [facility] scheduled for tomorrow. She had reported that she felt that she had run out of other options. She had described having significant losses in her life and reported having put herself in traumatic situations with her continued use of illicit drugs on the streets. Mental Status Exam 2 MSE Comments: This is an obese versus morbidly obese white female in hospital scrubs with poor grooming, mottled teeth appearing older than her stated age. No abnormal movements except for psychomotor retardation. She was cooperative with exam a mild to moderate distress. Speech was slightly decreased rate and volume. Mood described as a little better. Her affect was flat. Thought process was linear and minimally organized. Thought content: Patient denied suicidal ideation. She denied any homicidal ideation. There were no delusions reported or noted, she denied any auditory or visual hallucinations. Attention and concentration appeared intact and memory appeared mostly reliable but none were formally tested. She is alert and oriented x 3. Her insight was limited. Her judgment was poor. Her impulse control was impaired. Intelligence appeared commensurate with borderline intellectual functioning. Vitals/I&O/Wt Last Vital Signs Temp 97.8 F 06/05/23 14:00 Pulse 75 06/05/23 14:00 Resp 16 06/05/23 14:00 BP 133/91 06/05/23 14:00 Pulse Ox 99 06/05/23 14:00 O2 Del Method Room Air 06/05/23 14:00 Weight last 48 hrs Weight 117.934 kg Data NPU 06/02/23 05:50 06/02/23 05:50 A&P Assessment and plan (1) Major depressive disorder, recurrent episode: (2) ANGIE (generalized anxiety disorder): (3) Opioid abuse: (4) History of ADHD: (5) Methamphetamine abuse: Plan 28-year-old white female with polysubstance abuse who was discharged 05/26/2023 with multiple recent admissions admitted again with suicidal ideation with hx of Major depression and Generalized anxiety along with adhd. 1. ?Encourage individual, group and milieu therapy. 2. Recommend sober living treatment at the highest level of care to which the patient is willing to commit. 3. Continue q-15 minute checks for safety. 4. Continue zoloft 100mg daily as previously prescribed. 5. Plan to discharge to rehab at [facility]. Involuntary Hold Information 2 96 Hour Hold: 96 Hour Involuntary Admission: No 96 Hour Hold Ending Date: 0 05/26/23 96 Hour Hold Ending Time: 00:01 Attestations NPU 2 Medical Necessity Statement*: Inpatient hospitalization is medically necessary and the clinically appropriate intervention at this time. We will monitor and adjust medications as indicated.The patient's likely length of stay is 1-2 days. Coding Level of Care Code Acute Code for g Fwd Diagnoses Major depressive disorder, recurrent episode F33.9 ANGIE (generalized anxiety disorder) F41.1 Opioid abuse F11.10 History of ADHD Z86.59 Methamphetamine abuse F15.10
[2023-06-05] MEDS: trazodone 50 mg Tablet PO (19:43)
[2023-06-05 20:39] VITALS: BP 168/109; PULSE 74; RESP 18; TEMP 36.3; O2SAT 99
[2023-06-05 21:00] VITALS: BP 130/77
[2023-06-06 06:00] VITALS: BP 128/80; PULSE 74; RESP 16; TEMP 36.6; O2SAT 99
[2023-06-06] MEDS: sertraline 100 mg Tablet PO (08:09)
[2023-06-06 14:00] VITALS: BP 132/82; PULSE 59; RESP 16; TEMP 36.9; O2SAT 99
--- NOTE | 2023-06-06 14:42 | P.NPUPN_ITS ---
Subjective NPU 2 Subjective: 28-year-old white female with a history of polysubstance abuse along with depression and anxiety admitted with suicidal ideation in the context of continued methamphetamine abuse. She reported no side effects from her Zoloft. Patient had continued to report depressed mood but stated that she was feeling more optimistic about going into an inpatient rehabilitation facility. She reported adequate sleep. She reported that she was no longer having suicidal thoughts. She had reported some cravings for methamphetamine and stated that she felt that she would not survive outside of the hospital unless she got help for her addiction. Mental Status Exam 2 MSE Comments: This is an obese versus morbidly obese white female in hospital scrubs with poor grooming, mottled teeth appearing older than her stated age. No abnormal movements except for psychomotor retardation. She was cooperative with exam a mild to moderate distress. Speech was slightly decreased in rate and normal in volume. Mood described as okay. Her affect was slightly restricted. Thought process was linear and logical. Thought content: Patient denied suicidal ideation. She denied any homicidal ideation. There were no delusions reported or noted, she denied any auditory or visual hallucinations. Attention and concentration appeared intact and memory appeared mostly reliable but none were formally tested. She is alert and oriented x 3. Her insight was improving. Her judgment was poor. Her impulse control was poor. Intelligence appeared commensurate with borderline intellectual functioning. Vitals/I&O/Wt Last Vital Signs Temp 98.4 F 06/06/23 14:00 Pulse 59 L 06/06/23 14:00 Resp 16 06/06/23 14:00 BP 132/82 06/06/23 14:00 Pulse Ox 99 06/06/23 14:00 O2 Del Method Room Air 06/06/23 14:00 Data NPU 06/02/23 05:50 06/02/23 05:50 A&P Assessment and plan (1) Major depressive disorder, recurrent episode: (2) ANGIE (generalized anxiety disorder): (3) Opioid abuse: (4) History of ADHD: (5) Methamphetamine abuse: Plan 28-year-old white female with polysubstance abuse who was discharged 05/26/2023 with multiple recent admissions admitted again with suicidal ideation with hx of Major depression and Generalized anxiety along with adhd. 1. ?Encourage individual, group and milieu therapy. 2. Recommend sober living treatment at the highest level of care to which the patient is willing to commit. 3. Continue q-15 minute checks for safety. 4. Continue zoloft 100mg daily as previously prescribed. 5. Plan to discharge to rehab at [facility] in 1-2 days. Involuntary Hold Information 2 96 Hour Hold: 96 Hour Involuntary Admission: No 96 Hour Hold Ending Date: 0 05/26/23 96 Hour Hold Ending Time: 00:01 Attestations NPU 2 Medical Necessity Statement*: Inpatient hospitalization is medically necessary and the clinically appropriate intervention at this time. We will monitor and adjust medications as indicated.The patient's likely length of stay is 1-2 days. Coding Level of Care Code Acute Code for Chg Fwd Diagnoses Major depressive disorder, recurrent episode F33.9 ANGIE (generalized anxiety disorder) F41.1 Opioid abuse F11.10 History of ADHD Z86.59 Methamphetamine abuse F15.10
--- NOTE | 2023-06-06 16:14 | PC.NURSE ---
Gave report to GAVINO Lazcano at [facility] in [place]. All questions answered. Jaleesa stressed that if patient tests positive for drugs or alcohol upon arrival, she will not be accepted into [facility].
[2023-06-06 18:09] VITALS: BP 132/82; PULSE 59; RESP 16; TEMP 36.9; O2SAT 99
[2023-06-06 19:41] LABS: Amphetamines Screen Urine Negative (Negative); Barbiturates Screen Urine Negative (Negative); Benzodiazepines Screen Urine Negative (Negative); Cocaine Screen Urine Negative (Negative); Opiate Screen Urine Negative (Negative); PCP Screen Urine Negative (Negative); THC Screen Urine Negative (Negative)
[2023-06-06 19:43] VITALS: BP 166/103; PULSE 70; RESP 17; TEMP 36.6; O2SAT 100
[2023-06-06] MEDS: trazodone 50 mg Tablet PO (20:17)
[2023-06-06 23:55] VITALS: BP 137/73
[2023-06-07 06:00] VITALS: BP 135/86; PULSE 64; RESP 18; TEMP 36.5; O2SAT 99
[2023-06-07] MEDS: sertraline 100 mg Tablet PO (07:52)
--- NOTE | 2023-06-07 08:16 | P.NPUDS_ITS ---
Diagnoses at Discharge Discharge Diagnosis (1) Major depressive disorder, recurrent episode: Status: Acute (2) ANGIE (generalized anxiety disorder): Status: Acute (3) Opioid abuse: Status: Acute (4) History of ADHD: Status: Acute (5) Methamphetamine abuse: Status: Acute Reason for Visit Reason for Visit: SI Brief History: History of Present Illness Marie Nicholson is a 28 year old female who presented to the emergency department with the following report: Chief Complaint: Psychiatric Symptoms Stated Complaint: SI Time Seen by Provider: 06/02/23 05:18 History of Present Illness: Presents to the ER after just being discharged approximately 6 hours ago for abdominal pain and having suicidal ideations then. Patient says she went out and started drinking alcohol she drank at least 2 shots and smokes weed and now she is having more thoughts of self-harm. Dr. Llanos was consulted last night and was familiar with her as he just discharged her from the npu 05/26/2023 his plan was to keep her current situation of going to rehab at 9:00 this morning as her treatment. Patient is not complaining of abdominal pain currently. She was admitted to the neuropsychiatric unit for definitive treatment of those issues. She presented today having been discharged about a week ago with a plan for rehab. She has had multiple hospitalizations just recently with significant instability and inability to manage herself outside of a controlled setting. An excerpt of her discharge summary from last week is included below for context. She presented today reporting that she is really struggled when she left that she is desirous of sobriety but has just been struggling in a clearly self sabotaging pattern of use. She reports that she has been taking the medication and is committed to going to rehab. We reached out to the facility and they would not be able to take her today as planned but would be able to take her on Monday we discussed the risks,, benefits and alternatives of continuing the current medications and working with her to be ready for her bed date at [facility] on Monday and just did agree to proceed as is documented in this note. Per her 05/26/23 Inpatient psychiatric discharge summary: Discharge Diagnosis (1) Major depressive disorder, recurrent episode: Status: Acute (2) History of ADHD: Status: Acute (3) ANGIE (generalized anxiety disorder): Status: Acute (4) Methamphetamine abuse: Status: Acute (5) Opioid abuse: Status: Acute (6) Suicide attempt: Status: Acute Reason for Visit Reason for Visit: OD Brief History: History of Present Illness Marie Nicholson is a 28 year old female who presented to the emergency department with the following report: Chief Complaint: Overdose Stated Complaint: OD Time Seen by Provider: 05/21/23 01:26 History of Present Illness: 28-year-old female with a history of dep ression and recent admission to the neuropsychiatric unit at this facility. She presents within an hour after ingesting multiple trazodone and sertraline at home in an attempt to kill herself. She complains of stomach pain, nausea, vomiting. No history of seizure. She presented to the ICU for definitive treatment of those issues. She was transferred to the neuropsychiatric unit after she was medically cleared to once again attempt to address her psychiatric and addiction issues in addition to the lethality. She was just discharged 05/10/2023 to the [facility] with a plan to 2 be there until her rehab bed date in May. An excerpt from her discharge summary from earlier this month is included below for context and the fact that there have been no clear substantive changes. She presents today reporting that when she she went to [facility] briefly and she did not take her medication reportedly because she was not sure that she really needed it. She denies having relapsed in the interim but reports that she ended up speaking with her children with got her in an unhealthy emotional state that she did not break out of. She reports that ultimately she took the overdose on medication which led to her being brought back to the hospital. She reports that she knows she needs to go to rehab but that she struggles with wanting to go. We discussed the fact that not many people really want to go to rehab but that healthy people identified that there are things they need to do that are not necessarily desirable. We discussed monitoring her and making some possible changes to her medication regimen moving forward. Per her 05/10/2023 [facility] inpatient psychiatric discharge summary: Discharge Diagnosis (1) Major depressive disorder, recurrent episode: Status: Acute (2) ANGIE (generalized anxiety disorder): Status: Acute (3) Opioid abuse: Status: Acute (4) History of ADHD: Status: Acute (5) Methamphetamine abuse: Status: Acute Reason for Visit Reason for Visit: MHE Brief History: History of Present Illness Marie Nicholson is a 28 year old female recently discharged from the neuropsychiatric unit on 01/20/2023 who presented to the emergency department with suicidal ideation with a plan to overdose. The patient was admitted to the neuropsychiatric unit for further evaluation and treatment. The patient had reported similar complaints to her previous hospitalization. She reports that she has been off of all of her medications since February of this year. She states that she has been feeling more depressed. She continued to state that she has been using methamphetamine on a daily basis along with opiate use both orally and recently having used IV heroin approximately a month ago. She is reporting her most recent use of opiates 2 days ago and states that she last used methamphetamine yesterday. She reports that she feels out of control. She had stated that she had been sent home to live with her mother after discharge from the neuropsychiatric unit with the plan for the patient to go to [facility] on an inpatient basis when a bed became available. Unfortunately, the patient states that she never made it to the end the inpatient rehab known as [facility]. She did indicate that she had recently been placed in an inpatient substance abuse facility in [facility] for 2 weeks but left without completing the program. She continues to report her mood is being worse and reports that she has continued cravings for both opiates and methamphetamine. She reported no changes otherwise since her last hospitalization except that she is no longer allowed at home and that she has resumed being homeless around the [facility]. She was requesting that she be restarted on her previous psychotropic medications. She reports sleep continuity disruption. She reports significant lack of appetite. Current medications: none in last 3 months Excerpt from Discharge Summary from 01/20/23 NPU Discharge Diagnosis (1) Major depressive disorder, recurrent episode: Status: Acute (2) Opioid abuse: Status: Acute (3) Methamphetamine abuse: Status: Acute (4) History of ADHD: Status: Acute (5) ANGIE (generalized anxiety disorder): Status: Acute Reason for Visit OVERDOSE Brief History: History of Present Illness Marie Nicholson is a 27 year old female who presented to the emergency department via EMS after having admitted to taking 20 naproxen pills with report of having thoughts of wanting to kill herself. The patient was admitted to the neuropsychiatric unit for further evaluation and treatment. The patient reports that she has been struggling with chronic methamphetamine abuse for greater than 5 years having used methamphetamine beginning at the age of 16. She reports that she has been mixing her methamphetamine with heroin. The patient reports that she is approaching the anniversary of having lost custody of all of her children approximately 1 year ago and states that she has been feeling more hopeless and worthless recently. She reports increased crying spells. She reports that she has been feeling more hopeless. She reports that she has been struggling with hypersomnia. She reports low energy and low motivation She has reported a loss of appetite. She reports that she has been more anxious as she chronically worries about her children. She reports that she often feels guilty that she is not able to care for her children. She also reports active cravings for methamphetamines. She denies any alcohol use. The patient reports having difficulties with concentration. She reports that she had previously been diagnosed with ADHD and a learning disability as a child and states that she has been frustrated at being able to manage routine activities of daily living. She reports a past history of psychotic symptoms when using methamphetamine but denies any currently. She did not endorse any manic symptoms. She denies any history of PTSD symptoms. Inpatient psychiatric history: None Outpatient psychiatric treatment: She reports history of depression and ADHD while reporting having received treatment at the [facility] more than 10 years ago. Drug and alcohol history: She reports no alcohol use. She reports no marijuana use. She does report having used methamphetamines beginning at the age of 16 with increased use reported over the last 5 years. She reports the longest period of sobriety from methamphetamine is less than 1 day. She also reports a history of heroin use intranasally for the past few years with no treatment treatment history for opiate use. She states that she had been in ehabilitation in March 2022 in [facility] through [facility] counseling. She states that she was there for 21 days only. Allergies: Penicillin Medical history: Hypertension, history of pyelonephritis Surgical history: Tonsillectomy adenoidectomy, Current medications: None Developmental history: History of developmental delays as she reports having been diagnosed with a learning disorder while struggling in school. Family psychiatric history: None reported Legal history: None reported Social history: The patient was raised in [facility] and is from her first and only for the past 3 years. She states that she was raised by her mother as her father had been living in another city and raising another family. She states that she briefly lived with her father at the age of 11 but returned back to live with her mother. She reports no history of any sexual physical or emotional abuse. She did report witnessing the of her grandmother as an adolescent. She reports that she dropped out of school and never got her GED after dropping out in the 11th grade. She has 4 children ages 9,4,2 and 1 respectively. She states that she had lost all 4 of her children due to her substance abuse issues. Her , 4, and 2-year-old and 1 year old all live outside of the home. Her 1-year-old currently resides with her biological mother. She has been homeless for at least 1 year. Hospital Course She slowly acclimated to the schedule, group and milieu therapies provided. She presented struggling with depression, anxiety and active addiction. Trazodone Zoloft and Vistaril were started to assist with these concerns. Zoloft was titrated to 100 mg p.o. daily with notable improvements. She continued to endorse an interest in sober living treatment and inpatient rehab. She worked with the social work team to find a bed date but it was further in the future. Given her domestic challenges they also assisted her in getting placement at [facility] in the interim while she waited for that bed date. Additionally she was assisted in getting appropriate follow-up. She had significant improvement and was able to contract for safety outside of the hospital prior to discharge. During the hospitalization, the patient had routine laboratory studies which were within normal limits except for a few outliers. Additionally, there was a general medical evaluation which was also within normal limits and revealed no new acute processes. At the time of discharge, lethality was denied and psychosis was resolving. Mood and anxiety were well managed. The patient endorsed a plan to avoid all drugs of abuse and follow up with the aftercare recommendations of the treatment team. The patient was evaluated and deemed to be absent credible lethality and had achieved the maximum benefit from an inpatient hospitalization, and so was discharged. Hospital Course Hospital Course During the hospitalization, the patient had routine laboratory studies which were within normal limits except for a few outliers.? Additionally, there was a general medical evaluation which was also within normal limits and revealed no new acute processes.? At the time of discharge, lethality was denied and psychosis was resolving.? Mood and anxiety were well managed.? The patient endorsed a plan to avoid all drugs of abuse and follow up with the aftercare recommendations of the treatment team.? The patient was evaluated and deemed to be absent credible lethality and had achieved the maximum benefit from an inpatient hospitalization, and so was discharged. The patient was transferred to a inpatient psychiatric facility specializing in substance abuse treatment to target the patient's active methamphetamine dependence. Involuntary Hold Information 96 Hour Hold: 96 Hour Involuntary Admission: No 96 Hour Hold Ending Date: 05/26/23 96 Hour Hold Ending Time: 00:01 Mental Status Exam MSE Comments: This is an obese versus morbidly obese white female in hospital scrubs with poor grooming, mottled teeth appearing older than her stated age. No abnormal movements except for psychomotor retardation. She was cooperative with exam a mild to moderate distress. Speech was slightly decreased in rate and normal in volume. Mood described as good. Her affect was brighter on discharge. Thought process was linear and logical. Thought content: Patient denied suicidal ideation. She denied any homicidal ideation. There were no delusions reported or noted, she denied any auditory or visual hallucinations. Attention and concentration appeared intact and memory appeared mostly reliable but none were formally tested. She is alert and oriented x 3. Her insight was improving. Her judgment was limited. Her impulse control was fair. Intelligence appeared commensurate with borderline intellectual functioning. Discharge Data Studies Completed and Pending: Laboratory Results WBC 16.44 10^3/uL (3. 29-11.43) H 06/02/23 05:50 RBC 4.47 10^6/uL (3.8 5-5.65) 06/02/23 05:50 Hgb 12.50 g/dL (11.27 -16.99) 06/02/23 05:50 Hct 39.8 % (36-47) 06/02/23 05:50 MCV 89.0 fl (85-98) 06/02/23 05:50 MCH 28.0 pg (27-33) 06/02/23 05:50 MCHC 31.4 g/dL (30-55) 06/02/23 05:50 RDW 14.2 % (12.1-15.1 ) 06/02/23 05:50 Plt Count 405 10^3/cmm (157 -399) H 06/02/23 05:50 MPV 9.5 fL (7.4-10.4) 06/02/23 05:50 Neut % (Auto) 67.6 % 06/02/23 05:50 Lymph % (Auto) 24.3 % 06/02/23 05:50 Alpine % (Auto) 6.3 % 06/02/23 05:50 Eos % (Auto) 1.1 % 06/02/23 05:50 Baso % (Auto) 0.4 % 06/02/23 05:50 Neut # (Auto) 11.11 10^3/uL (1. 8-7.7) H 06/02/23 05:50 Lymph # (Auto) 4.0 10^3/uL (0.8- 4.8) 06/02/23 05:50 Alpine # (Auto) 1.0 10^3/uL (0.2- 0.9) H 06/02/23 05:50 Eos # (Auto) 0.2 10^3/uL (0.0- 0.8) 06/02/23 05:50 Baso # (Auto) 0.1 10^3/uL (0.0- 0.1) 06/02/23 05:50 Nucleated RBC % (a uto) 0 % 06/02/23 05:50 Nucleated RBCs # 0.0 /100WBC 06/02/23 05:50 Sodium 134 mmol/L (136-1 45) L 06/02/23 05:50 Potassium 3.3 mmol/L (3.5-5 .1) L 06/02/23 05:50 Chloride 102 mmol/L (98-10 7) 06/02/23 05:50 Carbon Dioxide 19 mmol/L (22-29) L 06/02/23 05:50 Anion Gap 16.3 (5-19) 06/02/23 05:50 BUN 13 mg/dL (6-20) 06/02/23 05:50 Creatinine 0.8 mg/dL (0.5-0. 9) 06/02/23 05:50 GFR Calculation 84.8 mL/min (90-1 30) L 06/02/23 05:50 Glucose 98 mg/dL (65-115) 06/02/23 05:50 Calculated Osmolal ity 278 mOsm/kg (285- 295) L 06/02/23 05:50 Calcium 8.9 mg/dL (8.5-10 .5) 06/02/23 05:50 Total Bilirubin 0.4 mg/dL (0.15-1 .2) 06/02/23 05:50 AST 30 U/L (0-32) 06/02/23 05:50 ALT 20 U/L (0-33) 06/02/23 05:50 Alkaline Phosphata se 65 U/L (35-105) 06/02/23 05:50 Total Protein 7.8 g/dL (6.6-8.7 ) 06/02/23 05:50 Albumin 3.8 g/dL (3.5-5.2 ) 06/02/23 05:50 Globulin 4.0 g/dL (1.3-4.6 ) 06/02/23 05:50 HCG, Qual Negative (Negati ve) 06/02/23 06:27 Urine Color Light yellow (Ye llow) 06/02/23 06:27 Urine Appearance Clear (CLEAR) 06/02/23 06:27 Urine pH 6 (5-7) 06/02/23 06:27 Ur Specific Gravit y 1.010 (1.005-1.0 30) 06/02/23 06:27 Urine Protein Neg (Negative) 06/02/23 06:27 Urine Glucose (UA) Norm (Normal) 06/02/23 06:27 Urine Ketones Negative (Negati ve) 06/02/23 06:27 Urine Blood 3+ (Negative) H 06/02/23 06:27 Urine Nitrate Negative (Negati ve) 06/02/23 06:27 Urine Bilirubin Neg (Negative) 06/02/23 06:27 Urine Urobilinogen Neg mg/dL (Negati ve) 06/02/23 06:27 Ur Leukocyte Mabel ase Trace (Negative) H 06/02/23 06:27 Urine RBC 0-4 /hpf (0-2) H 06/02/23 06:27 Urine WBC 0-4 /hpf (0-5) H 06/02/23 06:27 Ur Squamous Epith Cells 5-10 /hpf (0-5) H 06/02/23 06:27 Amorphous Sediment Not Reportable 06/02/23 06:27 Urine Bacteria 1+ /hpf (NONE) H 06/02/23 06:27 Salicylates < 0.3 mg/dL (3-10 ) L 06/02/23 05:50 Urine Opiates Scre en Negative ng/mL (N egative) 06/06/23 19:15 Acetaminophen < 5.0 ug/mL (10-3 0) L 06/02/23 05:50 Ur Barbiturates Sc reen Negative ng/mL (N egative) 06/06/23 19:15 Ur Phencyclidine S crn Negative ng/mL (N egative) 06/06/23 19:15 Ur Amphetamines Sc reen Negative ng/mL (N egative) 06/06/23 19:15 U Benzodiazepines Scrn Negative ng/mL (N egative) 06/06/23 19:15 Urine Cocaine Scre en Negative ng/mL (N egative) 06/06/23 19:15 U Marijuana (THC) Screen Negative ng/mL (N egative) 06/06/23 19:15 Ethyl Alcohol < 10 mg/dL (0-10) 06/02/23 05:50 Vitals: Last Vital Signs Temp 97.7 F 06/07/23 06:00 Pulse 64 06/07/23 06:00 Resp 18 06/07/23 06:00 BP 135/86 06/07/23 06:00 Pulse Ox 99 06/07/23 06:00 O2 Del Method Room Air 06/07/23 06:00 Discharge Plan Discharge Patient Disposition: Home Condition: Stable Prescriptions: New sertraline 100 mg Tablet 100 mg PO DAILY 30 Days Qty: 30 1RF Zoloft 100 mg tablet 100 mg PO DAILY Qty: 30 1RF Discontinued nitroglycerin [Nitrostat] 0.4 mg Tablet, Sublingual 0.4 mg SUBLINGUAL Q5M PRN (Reason: Chest Pain) Rx Instructions: do not exceed 3 doses per episode acetaminophen 500 mg Tablet 1,000 mg PO Q6H PRN (Reason: Pain) chlorthalidone 25 mg Tablet 25 mg PO DAILY 30 Days Qty: 30 1RF metoprolol tartrate 25 mg Tablet 25 mg PO BID@0900,2100 30 Days Qty: 30 1RF lisinopril 5 mg tablet 5 mg PO DAILY 30 Days Qty: 30 1RF magnesium oxide 400 mg (241.3 mg magnesium) Tablet 400 mg PO BID 30 Days Qty: 60 1RF trazodone 50 mg Tablet 50 mg PO BEDTIME PRN (Reason: Sleep) 30 Days Qty: 30 1RF sertraline 100 mg tablet 100 mg PO DAILY 30 Days Qty: 30 1RF hydroxyzine pamoate 25 mg Capsule 50 mg PO Q6H PRN (Reason: Anxiety) 30 Days Qty: 120 1RF Discharge Orders: Discharge Order (Routine); Ordered 06/06/23 Ordered By: Kobi Garsia Referrals: [facility] [Other] - 06/07/23 10:00 am (You are accepted at [facility] located in [place], [place]. Address: [address] [place] [address]) Discharge Diet: Usual diet Discharge Activity: Resume usual activity Patient Instructions: Sertraline (By mouth) (Zoloft), Depression (DC), Methamphetamine Use Disorder (DC), Opioid Withdrawal (DC), Anxiety (DC), Opioid Safety, Suicidal Ideation Discharge Attestations NPU Time Spent in Discharge Care*: less than 30 min Specific Discharge Activities: Specific discharge activities: educating patient, discussing with counter caser/social workers/dc planners and documenting/other paperwork Coding Level of Care Code Acute Code for Chg Fwd Diagnoses Major depressive disorder, recurrent episode F33.9 ANGIE (generalized anxiety disorder) F41.1 Opioid abuse F11.10 History of ADHD Z86.59 Methamphetamine abuse F15.10
== END 2023-06-07 07:56 | DRG 885 ==
LOC: ER 07:37 → NP 11:35
PROVIDERS: Emergency Medicine; Admitting Provider Psychiatry & Neurology Psychiatry; Emergency Provider Family Medicine; Visit Provider Psychiatry & Neurology Psychiatry
DX: F33.9 Major depressive disorder, recurrent, unspecified (principal); R45.851 Suicidal ideations; F41.1 Generalized anxiety disorder; F90.9 Attention-deficit hyperactivity disorder, unspecified type; F15.10 Other stimulant abuse, uncomplicated; F11.10 Opioid abuse, uncomplicated
CPT/HCPCS: 80053; 80306; 80307; 81001; 81025; 85025; 97150; 97165; 99285